=== PATIENT | female | born 1940 | race Caucasian/White ===

== ENCOUNTER 2016-10-06 09:13 | Inpatient (IN) | payer MEDICARE ==
[2016-10-06] VITALS (11 sets, daily range): BP systolic 156–186; BP diastolic 55–72
[~2016-10-06] VITALS: Ht 162.6 cm; Wt 71.2 kg
[2016-10-06 09:38] LABS: BASO % 0 % (0-3); EOS % 0 % (0-3); HEMATOCRIT 35.1 % (36.0-47.0); HEMOGLOBIN 12.1 g/dL (12.0-15.5); LYMPH # 0.4 x10^3/uL (1.0-4.8); LYMPH % 5 % (24-48); MEAN CORPUSCULAR HEMOGLOBIN 31 pg (25-35); MEAN CORPUSCULAR HGB CONC 34 g/dL (31-37); MEAN CORPUSCULAR VOLUME 90 fL (79-100); MONO % 4 % (0-9); NEUT % 90 % (31-73); PLATELET COUNT 199 x10^3/uL (140-400); RED CELL DISTRIBUTION WIDTH 13.8 % (11.5-14.5); WHITE BLOOD COUNT 7.9 x10^3/uL (4.0-11.0)
[2016-10-06] MEDS: PROMETHAZINE 12.5 MG in IV NORMAL SALINE 50ML 50 ML IV PRN ×2 (09:43→23:05)
[2016-10-06] MEDS ORDERED: IV NORMAL SALINE 1000ML BAG 1,000 ML IV ONE (10:00)
[2016-10-06] MEDS ORDERED: PANTOPRAZOLE IV PUSH 40 MG VIAL. IVP ONE (10:00)
[2016-10-06] MEDS ORDERED: fentaNYL PF VIAL 100 MCG/2 ML VIAL IV ONE (10:00)
--- NOTE | 2016-10-06 10:01 | ED.ADGEN ---
Past Medical History Past Medical History: Diabetes-Type II, Seizure Past Surgical History: Other Additional Past Surgical Histo: bladder sling, R eye, cataract Alcohol Use: None Drug Use: None Adult General Chief Complaint Chief Complaint: NAUSEA/VOMITING/DIARRHA HPI HPI Patient is a 76 year old presents with acute epigastric pain with coffee- ground emesis. Abdominal pain started yesterday with coffee-ground emesis this morning. Patient is pain is rated moderate to severe is worse with palpation. Associated with severe nausea and indigestion. Symptoms began yesterday after being seen at [facility] or an abrasion to her back. Patient was prescribed NSAIDs and instructed not to take medication along with her daily aspirin. Patient denies dizziness lightheadedness, cough, sore throat, fever chills, sweats. No black tarry stools or bloody stools. Patient is not on daily anticoagulation therapy. No other acute symptoms or complaints at this time. Review of Systems Review of Systems ROS as per HPI. Current Medications Current Medications Current Medications Medications (Trade) Dose Ordered Sig/Robbi Start Time Stop Time Status Last Admin Dose Admin Fentanyl Citrate (Fentanyl 2ml Vial) 75 mcg 1X ONCE 10/06/16 10:00 10/06/16 10:17 DC 10/06/16 10:01 75 MCG Pantoprazole Sodium (Protonix Vial) 80 mg 1X ONCE 10/06/16 10:00 10/06/16 10:17 DC 10/06/16 10:05 80 MG Pantoprazole Sodium 80 mg/ Sodium Chloride 100 ml @ 10 mls/hr Q10H 10/06/16 10:00 10/06/16 10:10 10 MLS/HR Promethazine HCl 12.5 mg/Sodium Chloride 50.5 ml @ 151.5 mls/ hr PRN Q6HRS PRN 10/06/16 09:30 10/06/16 09:43 151.5 MLS/HR Sodium Chloride 1,000 ml @ 200 mls/hr 1X ONCE 10/06/16 10:00 10/06/16 14:59 10/06/16 10:02 200 MLS/HR Allergies Allergies Allergies Coded Allergies Type Severity Reaction Last Updated Verified No Known Drug Allergies 10/06/16 No Physical Exam Physical Exam Constitutional: Well developed, well nourished, moderate distress secondary to pain. [] HENT: Normocephalic, atraumatic, bilateral external ears normal, oropharynx moist, dark per home blood staining around lips, nose normal. [] Eyes: PERRLA, EOMI, conjunctiva normal, no discharge. [] Neck: Normal range of motion, no tenderness, supple, no stridor. [] Cardiovascular:Heart rate regular rhythm, no murmur [] Lungs & Thorax: Bilateral breath sounds clear to auscultation [] Abdomen: Bowel sounds normal, diffuse epigastric pain with voluntary guarding. [ ] Skin: Warm, dry, no erythema, no rash. [] Back: No tenderness, no CVA tenderness. [] Extremities: No tenderness, no cyanosis, no clubbing, ROM intact, no edema. [] Neurologic: Alert and oriented X 3, normal motor function, normal sensory function, no focal deficits noted. [] Psychologic: Affect inches secondary to pain [] Current Patient Data Vital Signs Vital Signs Date Time Temp Pulse Resp B/P (MAP) Pulse Ox O2 Delivery O2 Flow Rate FiO2 10/06/16 10:10 68 16 160/71 (100) 95 Nasal Cannula 2.0 10/06/16 09:13 97.5 97.5 Lab Values Laboratory Tests Test 10/06/16 09:28 10/06/16 09:55 White Blood Count 7.9 x10^3/uL (4.0-11.0) Red Blood Count 3.90 x10^6/uL (3.50-5.40) Hemoglobin 12.1 g/dL (12.0-15.5) Hematocrit 35.1 % (36.0-47.0) L Mean Corpuscular Volume 90 fL (79-100) Mean Corpuscular Hemoglobin 31 pg (25-35) Mean Corpuscular Hemoglobin Concent 34 g/dL (31-37) Red Cell Distribution Width 13.8 % (11.5-14.5) Platelet Count 199 x10^3/uL (140-400) Neutrophils (%) (Auto) 90 % (31-73) H Lymphocytes (%) (Auto) 5 % (24-48) L Monocytes (%) (Auto) 4 % (0-9) Eosinophils (%) (Auto) 0 % (0-3) Basophils (%) (Auto) 0 % (0-3) Neutrophils # (Auto) 7.1 x10^3uL (1.8-7.7) Lymphocytes # (Auto) 0.4 x10^3/uL (1.0-4.8) L Monocytes # (Auto) 0.3 x10^3/uL (0.0-1.1) Eosinophils # (Auto) 0.0 x10^3/uL (0.0-0.7) Basophils # (Auto) 0.0 x10^3/uL (0.0-0.2) Segmented Neutrophils % 87 % (35-66) H Lymphocytes % 8 % (24-48) L Monocytes % 4 % (0-10) Basophils % 1 % (0-3) Platelet Estimate Adequate (ADEQUATE) Prothrombin Time 14.0 SEC (11.7-14.0) Prothrombin Time INR 1.2 (0.8-1.1) H PTT 28 SEC (24-38) Sodium Level 133 mmol/L (136-145) L Potassium Level 3.4 mmol/L (3.5-5.1) L Chloride Level 97 mmol/L (98-107) L Carbon Dioxide Level 24 mmol/L (21-32) Anion Gap 12 (6-14) Blood Urea Nitrogen 18 mg/dL (7-20) Creatinine 0.9 mg/dL (0.6-1.0) Estimated GFR (Cockcroft-Gault) 61.2 BUN/Creatinine Ratio 20 (6-20) Glucose Level 166 mg/dL (70-99) H Calcium Level 8.5 mg/dL (8.5-10.1) Total Bilirubin 0.5 mg/dL (0.2-1.0) Aspartate Amino Transferase (AST) 22 U/L (15-37) Alanine Aminotransferase (ALT) 20 U/L (14-59) Alkaline Phosphatase 128 U/L (46-116) H Troponin I Quantitative < 0.017 ng/mL (0.000-0.055) Total Protein 7.5 g/dL (6.4-8.2) Albumin 3.8 g/dL (3.4-5.0) Albumin/Globulin Ratio 1.0 (1.0-1.7) Lipase 120 U/L (73-393) Gastric Fluid Occult Blood Positive (NEG) Laboratory Tests 10/06/16 09:28 Laboratory Tests 10/06/16 09:28 EKG EKG [EKG: Normal sinus rhythm, rate 66, occasional PVC, left axis deviation, nonspecific ST-T wave changes, QTC 469 per ED interpretation.] Radiology/Procedures Radiology/Procedures [DT abdomen pelvis: No acute intra-abdominal process per radiology report.] Course & Med Decision Making Course & Med Decision Making Pertinent Labs and Imaging studies reviewed. (See chart for details) [Patient emesis prior to ED arrival and while in the emergency department. Patient's abdomen soft, nonsurgical on repeat evaluation. CT abdomen pelvis nonacute. Protonix bolus and drip started. Ramos bowel signs stable. Dr. Pablo to admit. Dr. Alexander consulted. Courtesy bridge orders written. Dragon Disclaimer Dragon Disclaimer This electronic medical record was generated, in whole or in part, using a voice recognition dictation system. BRIDGETTE LOPEZ DO Oct 06, 2016 10:01
[2016-10-06 10:08] LABS: CALCIUM 8.5 mg/dL (8.5-10.1); CREATININE 0.9 mg/dL (0.6-1.0); GFR 61.2; POTASSIUM 3.4 mmol/L (3.5-5.1)
[2016-10-06] MEDS: PANTOPRAZOLE SODIUM IV 80 MG in IV NORMAL SALINE 100ML 100 ML IV SCH ×2 (10:10→22:11)
[2016-10-06 10:13] LABS: ALBUMIN 3.8 g/dL (3.4-5.0); TOTAL BILIRUBIN 0.5 mg/dL (0.2-1.0); TOTAL PROTEIN 7.5 g/dL (6.4-8.2)
[2016-10-06] MEDS ORDERED: CONTRAST GIVEN MC PRN (10:30)
[2016-10-06] MEDS ORDERED: IOHEXOL 300 MG/ML 75 ML VIAL IV ONE (10:30)
[2016-10-06 10:35] LABS: NEG OBC GOB NEG; POS OBC GOB POS
--- NOTE | 2016-10-06 10:39 | RAD ---
Indication chest pain nausea vomiting. A single view of the chest was obtained. No prior imaging of the chest is available. The heart and pulmonary vessels appear normal. The lungs are clear. There is no pleural fluid or pneumothorax. The heart and pulmonary vessels appear normal. The lungs are clear. There is no pleural fluid or pneumothorax. Bony structures appear grossly intact given the patient's age. IMPRESSION: No acute or focal process is seen in the chest
[2016-10-06 10:40] LABS: INR 1.2 (0.8-1.1)
[2016-10-06] MEDS: ONDANSETRON PF 4 MG/2 ML VIAL. IV PRN ×2 (11:37→21:12)
[2016-10-06] MEDS: MORPHINE SULFATE 4 MG/ML DISP.SYRIN. IV PRN ×3 (11:37→22:51)
[2016-10-06 11:41] LABS: % BASOS 1 % (0-3); PLT ESTIMATE ADEQUATE (ADEQUATE)
--- NOTE | 2016-10-06 11:48 | RAD ---
Indication fall yesterday. Vomiting coffee-ground material. Severe abdominal pain. Axial images through the abdomen and pelvis were obtained. Approximately 75 cc of Omnipaque 300 was administered intravenously. No oral contrast was administered. No prior imaging of the abdomen or pelvis is available. The lung bases are unremarkable. There is a fracture of a lower right, anterior, rib the chronicity of which is uncertain it does not definitely have however an acute appearance. Clinical correlation advised. There are significant degenerative changes in the lumbar spine likely with an associated component of spinal stenosis. No acute finding is seen associated with the liver. There is a subcentimeter mass in the right lobe likely reflecting a small incidental cyst. The spleen appears unremarkable. There is cholelithiasis. No adrenal or significant renal anomalies are seen. There are small left renal cysts. The pancreas appears unremarkable. Acute finding in the abdomen is not seen. In the pelvis a pessary device is noted. The urinary bladder is mildly distended. No acute finding is seen IMPRESSION: No acute finding seen in the abdomen or pelvis. Fractured right lower anterior rib the chronicity of which is uncertain. Additional chronic musculoskeletal changes are also noted Mildly distended urinary bladder
[2016-10-06] MEDS ORDERED: ASPI-630 PO (11:51)
[2016-10-06] MEDS ORDERED: GABA-586 PO (11:51)
[2016-10-06] MEDS ORDERED: METF500T4 PO (11:51)
[2016-10-06] MEDS ORDERED: PHEN100C PO (11:51)
[2016-10-06] MEDS ORDERED: HYDR-971 PO (11:51)
--- NOTE | 2016-10-06 12:45 | ACF ---
Admit Criteria Forms Admit Criteria Forms Admit Criteria Forms GASTROINTESTINAL BLEEDING, UPPER Clinical Indications for Admission to Inpatient Care ( Place 'X' for any and all applicable criteria): Admission is indicated for ANY ONE of the following(1)(2)(3)(4)(5)(6): [X]I. Active bleeding (eg, fresh voluminous blood in emesis or nasogastric aspirate) [ ]II. Associated conditions requiring hospitalization (eg, perforation, obstruction from ulcer) [ ]III. Inpatient admission required rather than observation care (Also use Gastrointestinal Bleeding, Upper: Observation Care as appropriate) because of ANY ONE of the following: [ ]a) Hemodynamic instability that is severe or persistent [ ]b) Anemia requiring inpatient admission as indicated by ALL of the following: [ ]1) Presence of significant clinical finding indicated by ANY ONE of the following: [ ]A. Tachycardia for age [ ]B. Orthostatic vital sign changes [ ]C. Cognitive impairment [ ]D. Heart failure [ ]E. Chest pain [ ]F. Exertional dyspnea [ ]G. Other findings suggesting inadequate perfusion (eg, peripheral or myocardial ischemia, end organ dysfunction) [ ]2) Initial (eg, emergency department, observation care) treatment with transfusion or volume replacement is judged inappropriate (due to severity of the finding) or has been ineffective [ ]c) Severe pain requiring acute inpatient management [ ]d) High-risk low platelet count [ ]e) IV fluid to replace significant ongoing losses (greater than 3 L/m2 per day) [ ]f) Immediate inpatient surgery [ ]g) Other condition, treatment or monitoring requiring inpatient admission [ ]IV. Severe liver disease (eg, cirrhosis) [ ]V. Significant active comorbid disease [ ]. Anticoagulation therapy [ ]VII. High-risk endoscopic features (arterial bleeding, adherent clot, nonbleeding visible vessel, varices, flat red spots, ulcer size greater than 2 cm, or portal hypertensive gastropathy) [ ]VIII. Previous aortic graft placement or known aortic aneurysm [ ]IX. Coagulopathy [ ]X. Syncope Extended stay beyond goal length of stay may be needed for(1)(2): [ ]a) Emergency surgery [ ]b) Varices [ ]c) Coagulation abnormalities [ ]d) Recurrent, obscure, or persistent bleeding or continued Hemodynamic instability [ ]e) Associated conditions requiring surgery (eg, perforated gastric ulcer, gastric outlet obstruction) [ ]f) Active comorbidities (eg, renal insufficiency, heart failure, pre- existing liver disease) The original [facility] content created by [facility] [employer] has been revised. The portions of the content which have been revised are identified through the use of italic text or in bold, and [facility] has neither reviewed nor approved the modified material. All other unmodified content is copyright [facility] [employer]. Please see references footnoted in the original [facility] edition 2016 PAULA PRINCE Oct 06, 2016 12:45
--- NOTE | 2016-10-06 13:46 | PDOC2 ---
GI CONSULT Reason For Consult: Upper GI Bleed HPI: HPI: 76 y/o female admitted through ER to regular floor, currently says she's too uncomfortable to talk, history supplemented by chart. She began having mid- abdominal pain w/ some radiation "to the esophagus area" yesterday. Denies precipitating events. "Clear" emesis yesterday, then "brown" in ambulance. ER notes suggest vomiting blood and she is noted to have dried black material around her mouth. Denies reflux/heartburn and NSAID use, although ER note suggests she was prescribed NSAID for a recent fall. I believe takes ASA as well. Per RN has abrasion on back. Last BM normal color ~2 days ago. No previous EGD or colonoscopy. Labs: Hgb 12.2, INR 1.2, BUN 18, gastric occult blood +. Also noted normal troponin and lipase. Has been hypertensive. CT did note right rib fracture. Started on PPI drip. PMH: PMH: from chart - DM, seizure, ?neuropathy, bladder suspension, cataract extraction Social History: Smoke: No Drugs: None ROS: Difficult to obtain. GEN: Denies fevers, chills, sweats CV: +chest pain "sometimes" RESP: Denies shortness of air GI: Per HPI ENDO: Denies weight changes NEURO: Denies dizziness MSK: +back pain SKIN: +abrasion on back Vitals: Vitals: Vital Signs Date Time Temp Pulse Resp B/P (MAP) Pulse Ox O2 Delivery O2 Flow Rate FiO2 10/06/16 13:33 100 2.0 10/06/16 13:18 97.7 68 16 179/72 (107) Room Air 97.7 Labs: Labs: Laboratory Tests Test 10/06/16 09:28 10/06/16 09:55 White Blood Count 7.9 x10^3/uL (4.0-11.0) Red Blood Count 3.90 x10^6/uL (3.50-5.40) Hemoglobin 12.1 g/dL (12.0-15.5) Hematocrit 35.1 % (36.0-47.0) Mean Corpuscular Volume 90 fL (79-100) Mean Corpuscular Hemoglobin 31 pg (25-35) Mean Corpuscular Hemoglobin Concent 34 g/dL (31-37) Red Cell Distribution Width 13.8 % (11.5-14.5) Platelet Count 199 x10^3/uL (140-400) Neutrophils (%) (Auto) 90 % (31-73) Lymphocytes (%) (Auto) 5 % (24-48) Monocytes (%) (Auto) 4 % (0-9) Eosinophils (%) (Auto) 0 % (0-3) Basophils (%) (Auto) 0 % (0-3) Neutrophils # (Auto) 7.1 x10^3uL (1.8-7.7) Lymphocytes # (Auto) 0.4 x10^3/uL (1.0-4.8) Monocytes # (Auto) 0.3 x10^3/uL (0.0-1.1) Eosinophils # (Auto) 0.0 x10^3/uL (0.0-0.7) Basophils # (Auto) 0.0 x10^3/uL (0.0-0.2) Segmented Neutrophils % 87 % (35-66) Lymphocytes % 8 % (24-48) Monocytes % 4 % (0-10) Basophils % 1 % (0-3) Platelet Estimate Adequate (ADEQUATE) Prothrombin Time 14.0 SEC (11.7-14.0) Prothromb Time International Ratio 1.2 (0.8-1.1) Activated Partial Thromboplast Time 28 SEC (24-38) Sodium Level 133 mmol/L (136-145) Potassium Level 3.4 mmol/L (3.5-5.1) Chloride Level 97 mmol/L (98-107) Carbon Dioxide Level 24 mmol/L (21-32) Anion Gap 12 (6-14) Blood Urea Nitrogen 18 mg/dL (7-20) Creatinine 0.9 mg/dL (0.6-1.0) Estimated GFR (Cockcroft-Gault) 61.2 BUN/Creatinine Ratio 20 (6-20) Glucose Level 166 mg/dL (70-99) Calcium Level 8.5 mg/dL (8.5-10.1) Total Bilirubin 0.5 mg/dL (0.2-1.0) Aspartate Amino Transf (AST/SGOT) 22 U/L (15-37) Alanine Aminotransferase (ALT/SGPT) 20 U/L (14-59) Alkaline Phosphatase 128 U/L (46-116) Troponin I Quantitative < 0.017 ng/mL (0.000-0.055) Total Protein 7.5 g/dL (6.4-8.2) Albumin 3.8 g/dL (3.4-5.0) Albumin/Globulin Ratio 1.0 (1.0-1.7) Lipase 120 U/L (73-393) Gastric Fluid Occult Blood Positive (NEG) Allergies: Coded Allergies: No Known Drug Allergies (Unverified , 10/06/16) Medications: Current Medications Medications (Trade) Dose Ordered Sig/Robbi Route PRN Reason Start Time Stop Time Status Last Admin Dose Admin Promethazine HCl 12.5 mg/Sodium Chloride 50.5 ml @ 151.5 mls/ hr PRN Q6HRS PRN IV NAUSEA/VOMITING 10/06/16 09:30 10/06/16 09:43 Fentanyl Citrate (Fentanyl 2ml Vial) 75 mcg 1X ONCE IV 10/06/16 10:00 10/06/16 10:17 DC 10/06/16 10:01 Pantoprazole Sodium (Protonix Vial) 80 mg 1X ONCE IVP 10/06/16 10:00 10/06/16 10:17 DC 10/06/16 10:05 Pantoprazole Sodium 80 mg/ Sodium Chloride 100 ml @ 10 mls/hr Q10H IV 10/06/16 10:00 10/06/16 10:10 Sodium Chloride 1,000 ml @ 200 mls/hr 1X ONCE IV 10/06/16 10:00 10/06/16 14:59 10/06/16 10:02 Iohexol (Omnipaque 300 Mg/ml) 75 ml 1X ONCE IV 10/06/16 10:30 10/06/16 10:31 DC 10/06/16 11:00 Ondansetron HCl (Zofran) 4 mg PRN Q8HRS PRN IV NAUSEA/VOMITING 10/06/16 11:30 10/07/16 11:29 10/06/16 11:37 Morphine Sulfate 2 mg PRN Q2HR PRN IV PAIN 10/06/16 11:30 10/07/16 11:29 10/06/16 13:33 Imaging: Imaging: CT A/P IMPRESSION: No acute finding seen in the abdomen or pelvis. Fractured right lower anterior rib the chronicity of which is uncertain. Additional chronic musculoskeletal changes are also noted. Mildly distended urinary bladder. CXR IMPRESSION: No acute or focal process is seen in the chest. PE: GEN: mild distress, shifting positions HEENT: Atraumatic, PERRL LUNGS: clear anteriorly HEART: RRR ABD: periumbilical pain EXTREMITY: No edema SKIN: other notes indicate back abrasion NEURO/PSYCH: A & O, seems a little out of it perhaps related to pain A/P: A/P: ?coffee-ground emesis -normal Hgb and BUN, gastric occult + Periumbilical pain -CT showed rib fracture ?NSAID use CRC screen -no previous colonoscopy -- Difficult history. Agree w/ PPI drip. NPO. EGD this afternoon r/o PUD, etc. CONNIE CHASE Oct 06, 2016 13:46
--- NOTE | 2016-10-06 14:15 | EKG ---
[facility] [address] [place] [address] Test Date: 2016-10-06 Test Time: 09:15:11 Pat Name: LUIS CARLOS SMALLS Department: Room: [facility] Gender: F Digital [employer] Operator: : 1940 Requested By: BRIDGETTE LOPEZ Order Number: [id number] Reading MD: Arik Lucero Measurements Intervals [place] Rate: 66 P: 48 IA: 188 QRS: -24 QRSD: 102 T: 35 QT: 446 QTc: 469 Interpretive Statements SINUS RHYTHM VENTRICULAR PREMATURE COMPLEX(ES) LEFTWARD AXIS QRS(T) CONTOUR ABNORMALITY CONSIDER ANTEROSEPTAL MYOCARDIAL DAMAGE RI6.01 Unconfirmed report No previous ECG available for comparison Electronically Signed On 10-12-2016 9:26:38 CDT by Arik Lucero
[2016-10-06] MEDS ORDERED: IV DEXTROSE 5 %-0.45 % NACL 1,000 ML IV ONE (15:00)
[2016-10-06] MEDS ORDERED: IV RINGERS,LACTATED 1000ML 1,000 ML IV SCH (15:00)
[2016-10-06] MEDS ORDERED: LIDOCAINE 2% PF Vial for OR 5 ML VIAL. ONE (15:39)
[2016-10-06] MEDS ORDERED: PROPOFOL 20 ML IV ONE (15:39)
--- NOTE | 2016-10-06 16:10 | PDOC4 ---
Operative Note Operative Note EGD with bx Meds propofol per anesthesia Pre-op dx coffee ground emesis/acute blood loss anemia Post-op dx esophageal diverticulum distal esophagus esophagtitis s/p bx non-erosive gastritis Plan advance diet serial cbcs ppi therapy for 2 months as o/p CELESTINO HUTCHINS MD Oct 06, 2016 16:10
--- NOTE | 2016-10-06 20:52 | HP ---
ADMIT DATE: 10/06/2016 CHIEF COMPLAINT: Nausea, vomiting, diarrhea, epigastric pain and coffee-ground emesis. HISTORY OF PRESENT ILLNESS: The patient is a pleasant 76-year-old female presented to the ER basically with a GI bleed. She has got a lot of coffee-ground emesis. She has got some blood in her stool. She is nauseated. Surprisingly, her hemoglobin is stable at 12.1, but we are concerned she does have a pretty large GI bleed. I have discussed the case with the ER physician. The patient has been admitted. We plan to consult GI for probable endoscopy. PAST MEDICAL HISTORY: Diabetes, seizures, bladder sling, right eye surgery, cataracts. ALLERGIES: None. FAMILY HISTORY: Coronary artery disease. SOCIAL HISTORY: She does not drink, smoke or take drugs. MEDICATIONS: Reviewed. REVIEW OF SYSTEMS: GENERAL: No history of weight change, weakness or fevers. SKIN: No bruising, hair changes or rashes. EYES: No blurred, double or loss of vision. NOSE AND THROAT: No history of nosebleeds, hoarseness or sore throat. HEART: No history of palpitations, chest pain or shortness of breath on exertion. LUNGS: Denies cough, hemoptysis, wheezing or shortness of breath. GASTROINTESTINAL: She complains of abdominal pain, hematemesis and hematochezia. GENITOURINARY: No history of frequency, urgency, hesitancy or nocturia. NEUROLOGIC: Denies history of numbness, tingling, tremor or weakness. PSYCHIATRIC: No history of panic, anxiety or depression. ENDOCRINE: No history of heat or cold intolerance, polyuria or polydipsia. EXTREMITIES: Denies muscle weakness, joint pain, pain on walking or stiffness. PHYSICAL EXAMINATION: VITAL SIGNS: Temperature afebrile, pulse 92, respirations 18, blood pressure 170/76. GENERAL: She is alert, cooperative in the ER. HEART: Normal S1, S2. LUNGS: Clear. ABDOMEN: Soft. Decreased bowel sounds, nontender. EXTREMITIES: Trace edema. SKIN: No rashes. PSYCHIATRIC: She is a little depressed. VASCULAR: Good capillary refill. ENDOCRINE: No thyromegaly. LYMPHATICS: No cervical nodes. HEMATOPOIETIC: No bruising. LABORATORY DATA: White count 8, hemoglobin 12, platelets 199. Electrolytes: Sodium 133, potassium 3.4, chloride 97, bicarbonate 24, BUN 18, creatinine 0.9, glucose 166. INR 1.2. Occult gastric blood testing was positive. ASSESSMENT AND PLAN: Gastrointestinal bleed. The patient has been admitted to the monitored bed. We will check serial hemoglobin levels and transfuse if she drops below 8. Consult GI. IV Protonix. Continue home medicines, but no nonsteroidals. PROGNOSIS: Guarded. DANAE BERRIOS DO DR: ENID/virgil JOB#: [id number] / [id number]
[2016-10-07 03:00] VITALS: BP 167/74
[2016-10-07 07:16] VITALS: BP 177/71
[2016-10-07] MEDS: MORPHINE SULFATE 4 MG/ML DISP.SYRIN. IV PRN ×2 (08:01→11:25)
--- NOTE | 2016-10-07 09:03 | RAD ---
Indication restless. Recent fall. Closed head injury. Noncontrast images of the head were obtained. No prior imaging of the head is available. The calvarium appears unremarkable. The visualized paranasal sinuses appear normal. There is no subdural or epidural hematoma. There is no mass or midline shift. No hemorrhage is seen. No acute finding is apparent. IMPRESSION: Intracranially no acute or significant finding seen PQRS Compliance Statement: One or more of the following individualized dose reduction techniques were utilized for this examination: 1. Automated exposure control 2. Adjustment of the mA and/or kV according to patient size 3. Use of iterative reconstruction technique
[2016-10-07] MEDS ORDERED: ONDANSETRON PF 4 MG/2 ML VIAL. IV PRN (09:26)
[2016-10-07] MEDS ORDERED: HYDROcodone/APAP 5/325MG 1 TAB TABLET PO PRN (09:30)
[2016-10-07] MEDS ORDERED: GABAPENTIN 300 MG CAPSULE. PO SCH (10:00)
[2016-10-07] MEDS: PHENYTOIN SODIUM EXTENDED 100 MG CAPSULE PO SCH ×4 (10:00→21:00)
[2016-10-07] MEDS: PANTOPRAZOLE SODIUM IV 80 MG in IV NORMAL SALINE 100ML 100 ML IV SCH (11:08)
[2016-10-07 11:17] VITALS: BP 129/57
[2016-10-07] MEDS ORDERED: MORPHINE SULFATE 2 MG/ML DISP.SYRIN. IV PRN (12:00)
--- NOTE | 2016-10-07 12:00 | PDOC ---
Subjective: Subjective: Feels "icky." Can't tell me if in pain, agrees to nausea. Can't tell me where she is. Objective: Objective: Per RN - very restless, confused, refuses to swallow pills/water, c/o abd pain, significant urine output overnight, no vomiting/bleeding but did have belching and hiccups earlier. Vital Signs: Vital Signs Date Time Temp Pulse Resp B/P (MAP) Pulse Ox O2 Delivery O2 Flow Rate FiO2 10/07/16 11:25 96 Room Air 2.0 10/07/16 11:17 97.7 87 17 129/57 (81) 97.7 Imaging: EGD 10/06/16: esophageal diverticulum distal esophagus esophagitis s/p bx non-erosive gastritis PE: GEN: NAD, currently calm, received morphine LUNGS: CTAB HEART: RRR ABD: perhaps vaguely tender NEURO/PSYCH: confused A/P: Coffee-ground emesis - no recurrence -EGD as above, path pending -Hgb normal yesterday, no labs today -still on PPI drip ?abd pain, nausea, belching, hiccups -CT w/ rib fracture and cholelithiasis Confusion, refusing to swallow -- Will change to IV H2 david. Recheck basic labs. Defer ?neuro assessment to primary. D/w Dr. Styles - will ask for videoswallow. CONNIE CHASE Oct 07, 2016 12:00
--- NOTE | 2016-10-07 12:05 | PDOC ---
PROGRESS NOTES Chief Complaint Chief Complaint 1. Coffee ground emesis s/p EGD (10/06) - neg egd 2. Acute encephalopathy, POA -WORK UP ON GOING 3. R hib fxs - uncertain age 4. FAll 5. Hypokalemia and hyponatremia 6. GAtsric occult positive, possible NSAID use? History of Present Illness History of Present Illness CAnt answer simple q's - acute onset, not her baseline Cant even answer me if she lives alone - able to get info from staff she lives with a roomate EGD neg for bleed HGb and VS stable Wont swallow for RN hence pills not given Unsure if she is still on Dilantin or taking it (her home med) Called by RN 7:30 AM bec of mental issues and recent fall Hence I did order stat CT head which was neg R rib fxs though, incidental, pt tells me she does not have freq falls - reliability might be questionable NO pain on R rib area on palp PLAN: Stop PPI gtt - clean EGD Pepcid IV while NPO DVt prophy PT/OT heliotherapist eval for issues with following commands to swallow IV procalamine while nPO NEuro consult re above issues Check ESR and MRI brain - r.o temporal lobe enhancement etc - though she denies headache/for HSV encephalitis etc, but again poor historian Dw staff Vitals Vitals Vital Signs Date Time Temp Pulse Resp B/P (MAP) Pulse Ox O2 Delivery O2 Flow Rate FiO2 10/07/16 11:25 96 Room Air 2.0 10/07/16 11:17 97.7 87 17 129/57 (81) 97.7 Physical Exam General: Cooperative, No acute distress Heart: Regular rate, Normal S1, Normal S2, No murmurs Lungs: Clear, Wheezing Abdomen: Normal bowel sounds, Soft, No tenderness, No hepatosplenomegaly Extremities: No clubbing, No edema Skin: No rashes, No breakdown, No significant lesion Review of Systems Review of Systems unreliable ROS Assessment and Plan Assessmemt and Plan Problems Medical Problems: (1) Upper GI bleed Status: Acute Problems: Comment Review of Relevant I have reviewed the following items bj (where applicable) has been applied. Labs Laboratory Tests Test 10/06/16 09:28 10/06/16 09:55 White Blood Count 7.9 x10^3/uL (4.0-11.0) Red Blood Count 3.90 x10^6/uL (3.50-5.40) Hemoglobin 12.1 g/dL (12.0-15.5) Hematocrit 35.1 % (36.0-47.0) Mean Corpuscular Volume 90 fL (79-100) Mean Corpuscular Hemoglobin 31 pg (25-35) Mean Corpuscular Hemoglobin Concent 34 g/dL (31-37) Red Cell Distribution Width 13.8 % (11.5-14.5) Platelet Count 199 x10^3/uL (140-400) Neutrophils (%) (Auto) 90 % (31-73) Lymphocytes (%) (Auto) 5 % (24-48) Monocytes (%) (Auto) 4 % (0-9) Eosinophils (%) (Auto) 0 % (0-3) Basophils (%) (Auto) 0 % (0-3) Neutrophils # (Auto) 7.1 x10^3uL (1.8-7.7) Lymphocytes # (Auto) 0.4 x10^3/uL (1.0-4.8) Monocytes # (Auto) 0.3 x10^3/uL (0.0-1.1) Eosinophils # (Auto) 0.0 x10^3/uL (0.0-0.7) Basophils # (Auto) 0.0 x10^3/uL (0.0-0.2) Segmented Neutrophils % 87 % (35-66) Lymphocytes % 8 % (24-48) Monocytes % 4 % (0-10) Basophils % 1 % (0-3) Platelet Estimate Adequate (ADEQUATE) Prothrombin Time 14.0 SEC (11.7-14.0) Prothromb Time International Ratio 1.2 (0.8-1.1) Activated Partial Thromboplast Time 28 SEC (24-38) Sodium Level 133 mmol/L (136-145) Potassium Level 3.4 mmol/L (3.5-5.1) Chloride Level 97 mmol/L (98-107) Carbon Dioxide Level 24 mmol/L (21-32) Anion Gap 12 (6-14) Blood Urea Nitrogen 18 mg/dL (7-20) Creatinine 0.9 mg/dL (0.6-1.0) Estimated GFR (Cockcroft-Gault) 61.2 BUN/Creatinine Ratio 20 (6-20) Glucose Level 166 mg/dL (70-99) Calcium Level 8.5 mg/dL (8.5-10.1) Total Bilirubin 0.5 mg/dL (0.2-1.0) Aspartate Amino Transf (AST/SGOT) 22 U/L (15-37) Alanine Aminotransferase (ALT/SGPT) 20 U/L (14-59) Alkaline Phosphatase 128 U/L (46-116) Troponin I Quantitative < 0.017 ng/mL (0.000-0.055) Total Protein 7.5 g/dL (6.4-8.2) Albumin 3.8 g/dL (3.4-5.0) Albumin/Globulin Ratio 1.0 (1.0-1.7) Lipase 120 U/L (73-393) Gastric Fluid Occult Blood Positive (NEG) Medications Current Medications Promethazine HCl 12.5 mg/Sodium Chloride 50.5 ml @ 151.5 mls/ hr PRN Q6HRS PRN IV NAUSEA/VOMITING Last administered on 10/06/16 23:05; Start 10/06/16 at 09: 30 Fentanyl Citrate (Fentanyl 2ml Vial) 75 mcg 1X ONCE IV Last administered on 10:01; Start 10/06/16 at 10:00; Stop 10/06/16 at 10:17; Status DC Pantoprazole Sodium (Protonix Vial) 80 mg 1X ONCE IVP Last administered on 10/06 10:05; Start 10/06/16 at 10:00; Stop 10/06/16 at 10:17; Status DC Pantoprazole Sodium 80 mg/ Sodium Chloride 100 ml @ 10 mls/hr Q10H IV Last administered on 10/07/16 11:08; Start 10/06/16 at 10:00 Sodium Chloride 1,000 ml @ 200 mls/hr 1X ONCE IV Last administered on 10:02; Start 10/06/16 at 10:00; Stop 10/06/16 at 14:59; Status DC Iohexol (Omnipaque 300 Mg/ml) 75 ml 1X ONCE IV Last administered on 10/06/16 11:00; Start 10/06/16 at 10:30; Stop 10/06/16 at 10:31; Status DC Info (Do NOT chart on this entry -- for MONITORING) 1 each PRN DAILY PRN MC SEE COMMENTS; Start 10/06/16 at 10:30; Stop 10/08/16 at 10:29 Ondansetron HCl (Zofran) 4 mg PRN Q8HRS PRN IV NAUSEA/VOMITING Last administered on 10/06/16 21:12; Start 10/06/16 at 11:30; Stop 10/07/16 at 09:27; Status DC Morphine Sulfate 2 mg PRN Q2HR PRN IV PAIN Last administered on 10/07/16 11:25 ; Start 10/06/16 at 11:30; Stop 10/07/16 at 11:29; Status DC Dextrose/Sodium Chloride 1,000 ml @ 125 mls/hr 1X ONCE IV Last administered on 10/06/16 15:00; Start 10/06/16 at 15:00; Stop 10/06/16 at 22:59; Status DC Ringer's Solution 1,000 ml @ 50 mls/hr Q20H IV Last administered on 10/06/16 15:13; Start 10/06/16 at 15:00; Stop 10/07/16 at 07:47; Status DC Propofol 20 ml @ As Directed STK-MED ONCE IV ; Start 10/06/16 at 15:39; Stop 10/06 at 15:40; Status DC Lidocaine HCl (Lidocaine Pf 2% Vial) 5 ml STK-MED ONCE .ROUTE ; Start 10/06/16 at 15:39; Stop 10/06/16 at 15:40; Status DC Ondansetron HCl (Zofran) 4 mg PRN Q6HRS PRN IV NAUSEA/VOMITING; Start 10/07/16 at 09:26; Stop 10/08/16 at 09:25 Acetaminophen/ Hydrocodone Bitart (Lortab 5/325) 1 tab PRN Q6HRS PRN PO PAIN; Start 10/07/16 at 09:30 Phenytoin Sodium (Dilantin) 100 mg TID PO ; Start 10/07/16 at 10:00 Gabapentin (Neurontin) 300 mg TID PO ; Start 10/07/16 at 10:00 Active Scripts Active Reported Aspirin 81 Mg Tab.chew 1 Tab PO DAILY [place] 5-325 Tablet (Acetaminophen/Hydrocodone Bitart) 1 Each Tablet 1 Tab PO PRN Q6HRS PRN Dilantin (Phenytoin Sodium Extended) 100 Mg Capsule 1 Cap PO TID Gabapentin 300 Mg Capsule 300 Mg PO TID Metformin Hcl 500 Mg Tablet 500 Mg PO BIDWMEALS Vitals/I & O Vital Sign - Last 24 Hours 10/06/16 10/06/16 10/06/16 10/06/16 12:26 13:17 13:18 13:33 Temp 97.7 97.7 97.7 97.7 Pulse 69 68 68 Resp 16 16 16 B/P (MAP) 184/84 (117) 179/72 (107) 179/72 (107) Pulse Ox 99 100 100 100 O2 Delivery Nasal Cannula Room Air Room Air O2 Flow Rate 2.0 2.0 10/06/16 10/06/16 10/06/16 10/06/16 15:01 15:08 15:08 15:15 Temp 97.7 99.2 97.7 99.2 Pulse 62 67 68 Resp 17 18 B/P (MAP) 186/72 (110) 173/67 (102) Pulse Ox 100 95 O2 Delivery Room Air O2 Flow Rate 2.0 10/06/16 10/06/16 10/06/16 10/06/16 15:30 15:45 15:49 16:00 Pulse 68 66 67 64 Resp 20 B/P (MAP) 157/64 (95) 165/64 (97) 169/65 (99) Pulse Ox 95 O2 Flow Rate 2.0 10/06/16 10/06/16 10/06/16 10/06/16 16:03 16:18 16:30 16:32 Temp 98.1 98.1 Pulse 62 62 63 68 Resp 16 16 20 B/P (MAP) 188/80 165/74 169/70 (103) 163/74 Pulse Ox 94 98 94 O2 Delivery Nasal Cannula Room Air Room Air 10/06/16 10/06/16 10/06/16 10/06/16 17:30 19:00 20:00 22:36 Temp 98.9 98.9 Pulse 67 66 Resp 19 B/P (MAP) 170/66 (100) 175/64 (101) Pulse Ox 93 O2 Delivery Room Air Room Air Room Air O2 Flow Rate 2.0 2.0 10/06/16 10/06/16 10/07/16 10/07/16 22:51 23:00 03:00 07:16 Temp 98.1 98.0 98.9 98.1 98.0 98.9 Pulse 76 64 71 Resp 20 18 B/P (MAP) 156/55 (88) 167/74 (105) 177/71 (106) Pulse Ox 96 94 95 97 O2 Delivery Room Air Room Air Room Air Room Air 10/07/16 10/07/16 10/07/16 10/07/16 08:00 08:01 08:31 11:17 Temp 97.7 97.7 Pulse 87 Resp B/P (MAP) 129/57 (81) Pulse Ox 97 96 O2 Delivery Room Air Room Air Room Air Room Air O2 Flow Rate 2.0 10/07/16 11:25 Pulse Ox 96 O2 Delivery Room Air O2 Flow Rate 2.0 Intake and Output 10/06/16 10/06/16 10/07/16 15:00 23:00 07:00 Intake Total 50.5 ml 600 ml 0 ml Output Total 900 ml 800 ml 1300 ml Balance -849.5 ml -200 ml -1300 ml LAVELL SLOAN MD Oct 07, 2016 12:05
[2016-10-07] MEDS ORDERED: AMINO AC 3%/ELECTROLYTE/GLYCER 1,000 ML IV SCH (12:30)
[2016-10-07 12:41] LABS: BASO % 0 % (0-3); EOS % 0 % (0-3); HEMATOCRIT 35.3 % (36.0-47.0); HEMOGLOBIN 12.4 g/dL (12.0-15.5); LYMPH # 0.7 x10^3/uL (1.0-4.8); LYMPH % 6 % (24-48); MEAN CORPUSCULAR HEMOGLOBIN 31 pg (25-35); MEAN CORPUSCULAR HGB CONC 35 g/dL (31-37); MEAN CORPUSCULAR VOLUME 88 fL (79-100); MONO % 9 % (0-9); NEUT % 85 % (31-73); PLATELET COUNT 214 x10^3/uL (140-400); RED BLOOD COUNT 3.99 x10^6/uL (3.50-5.40); RED CELL DISTRIBUTION WIDTH 13.8 % (11.5-14.5); WHITE BLOOD COUNT 12.4 x10^3/uL (4.0-11.0)
[2016-10-07 13:08] LABS: ALBUMIN 3.5 g/dL (3.4-5.0); CALCIUM 8.2 mg/dL (8.5-10.1); CREATININE 0.7 mg/dL (0.6-1.0); GFR 81.8; POTASSIUM 3.1 mmol/L (3.5-5.1); TOTAL BILIRUBIN 0.6 mg/dL (0.2-1.0); TOTAL PROTEIN 7.1 g/dL (6.4-8.2)
[2016-10-07] MEDS ORDERED: POTASSIUM CHLORIDE 20MEQ 50 ML IV SCH (13:30)
[2016-10-07] MEDS: POTASSIUM CHLORIDE 10MEQ 100 ML IV SCH ×4 (14:18→21:03)
[2016-10-07] MEDS: IV NORMAL SALINE 1000ML BAG 1,000 ML IV SCH (14:19)
[2016-10-07] MEDS ORDERED: MORPHINE SULFATE 4 MG/ML DISP.SYRIN. IV PRN ×3 (15:36→16:45)
[2016-10-07 15:56] VITALS: BP 102/51
--- NOTE | 2016-10-07 16:39 | PDOC2 ---
NEUROLOGY CONSULT Date of Admission Date of Admission DATE: 10/07/16 TIME: 16:29 Reason for Consult Reason for Consult: altered mental status Referring Physician Referring Physician: Dr. Whelan Source Source: Caregiver, Chart review, Patient History of Present Illness History of Present Illness The patient is a 76-year-old right-handed female who has altered mental status. She cannot give any history. She fell about 3 days ago and has had nausea and vomiting since. She has abdominal pain and coffee-ground emesis. I spoke to her son who cocks to her or sees her at least once a month. He says that she is usually lucid but tends to be distrustful, holding on to her purse with all her possessions, for instance. He has no idea that she has a boyfriend with whom she lives who visited her right before a cane. The nurse sent him to get her medication bottles. The son knows of no history of stroke or head injury, but the patient did have seizures as a child. Past Surgical History Past Surgical History: No pertinent history (unknown) Family History Family History: Cancer Social History Social History , has a significant other, son knows of no alcohol or tobacco Current Medications Current Medications Current Medications Promethazine HCl 12.5 mg/Sodium Chloride 50.5 ml @ 151.5 mls/ hr PRN Q6HRS PRN IV NAUSEA/VOMITING Last administered on 10/06/16 23:05; Start 10/06/16 at 09: 30 Fentanyl Citrate (Fentanyl 2ml Vial) 75 mcg 1X ONCE IV Last administered on 10:01; Start 10/06/16 at 10:00; Stop 10/06/16 at 10:17; Status DC Pantoprazole Sodium (Protonix Vial) 80 mg 1X ONCE IVP Last administered on 10/06 10:05; Start 10/06/16 at 10:00; Stop 10/06/16 at 10:17; Status DC Pantoprazole Sodium 80 mg/ Sodium Chloride 100 ml @ 10 mls/hr Q10H IV Last administered on 10/07/16 11:08; Start 10/06/16 at 10:00; Stop 10/07/16 at 11:59; Status DC Sodium Chloride 1,000 ml @ 200 mls/hr 1X ONCE IV Last administered on 10:02; Start 10/06/16 at 10:00; Stop 10/06/16 at 14:59; Status DC Iohexol (Omnipaque 300 Mg/ml) 75 ml 1X ONCE IV Last administered on 10/06/16 11:00; Start 10/06/16 at 10:30; Stop 10/06/16 at 10:31; Status DC Info (Do NOT chart on this entry -- for MONITORING) 1 each PRN DAILY PRN MC SEE COMMENTS; Start 10/06/16 at 10:30; Stop 10/08/16 at 10:29 Ondansetron HCl (Zofran) 4 mg PRN Q8HRS PRN IV NAUSEA/VOMITING Last administered on 10/06/16 21:12; Start 10/06/16 at 11:30; Stop 10/07/16 at 09:27; Status DC Morphine Sulfate 2 mg PRN Q2HR PRN IV PAIN Last administered on 10/07/16 11:25 ; Start 10/06/16 at 11:30; Stop 10/07/16 at 11:29; Status DC Dextrose/Sodium Chloride 1,000 ml @ 125 mls/hr 1X ONCE IV Last administered on 10/06/16 15:00; Start 10/06/16 at 15:00; Stop 10/06/16 at 22:59; Status DC Ringer's Solution 1,000 ml @ 50 mls/hr Q20H IV Last administered on 10/06/16 15:13; Start 10/06/16 at 15:00; Stop 10/07/16 at 07:47; Status DC Propofol 20 ml @ As Directed STK-MED ONCE IV ; Start 10/06/16 at 15:39; Stop 10/06 at 15:40; Status DC Lidocaine HCl (Lidocaine Pf 2% Vial) 5 ml STK-MED ONCE .ROUTE ; Start 10/06/16 at 15:39; Stop 10/06/16 at 15:40; Status DC Ondansetron HCl (Zofran) 4 mg PRN Q6HRS PRN IV NAUSEA/VOMITING; Start 10/07/16 at 09:26; Stop 10/08/16 at 09:25 Acetaminophen/ Hydrocodone Bitart (Lortab 5/325) 1 tab PRN Q6HRS PRN PO PAIN; Start 10/07/16 at 09:30 Phenytoin Sodium (Dilantin) 100 mg TID PO ; Start 10/07/16 at 10:00 Gabapentin (Neurontin) 300 mg TID PO ; Start 10/07/16 at 10:00; Stop 10/07/16 at 11:59; Status DC Morphine Sulfate 1 mg PRN Q2HR PRN IV PAIN; Start 10/07/16 at 12:00; Stop at 15:36; Status DC Amino Acids/ Glycerin/ Electrolytes 1,000 ml @ 80 mls/hr [id number] IV Last administered on 10/07/16 13:13; Start 10/07/16 at 12:30 Enoxaparin Sodium (Lovenox 40mg Syringe) 40 mg Q24H SQ ; Start 10/07/16 at 21:00 Famotidine (Pepcid) 20 mg QHS IVP ; Start 10/07/16 at 21:00 Famotidine (Pepcid) 20 mg QHS IVP ; Start 10/07/16 at 21:00; Status UNV Potassium Chloride 50 ml @ 50 mls/hr Q1H IV ; Start 10/07/16 at 13:30; Stop at 13:41; Status DC Sodium Chloride 1,000 ml @ 100 mls/hr Q10H IV Last administered on 10/07/16 14 :19; Start 10/07/16 at 13:30 Potassium Chloride 100 ml @ 100 mls/hr Q1H IV Last administered on 10/07/16 15 :45; Start 10/07/16 at 14:30; Stop 10/07/16 at 18:29 Morphine Sulfate 1 mg PRN Q2HR PRN IV PAIN Last administered on 10/07/16 15:44 ; Start 10/07/16 at 15:36 Active Scripts Active Reported Aspirin 81 Mg Tab.chew 1 Tab PO DAILY [place] 5-325 Tablet (Acetaminophen/Hydrocodone Bitart) 1 Each Tablet 1 Tab PO PRN Q6HRS PRN Dilantin (Phenytoin Sodium Extended) 100 Mg Capsule 1 Cap PO TID Gabapentin 300 Mg Capsule 300 Mg PO TID Metformin Hcl 500 Mg Tablet 500 Mg PO BIDWMEALS Allergies Allergies: Coded Allergies: No Known Drug Allergies (Unverified , 10/06/16) ROS Review of System Son knows of no fevers, chills, weight loss, dyspnea, angina, abdominal pain, change in bowels, or dysuria. 14 point review of systems is negative. Physical Exam Physical Examination PHYSICAL EXAMINATION: Vital signs: see above. General appearance is normal and in no acute distress. HEENT: Normocephalic and nontraumatic. Eyes, nose, ears, and throat are unremarkable. Neck is supple. No lymphadenopathy. No bruits are heard over the carotid artery. No crepitus. NEUROLOGICAL EXAMINATION: She does not know her name, location, date, does not follow commands. Repeats nonsense phrases. Cranial nerve examination reveals full visual soria to threat , equally reactive pupils, and intact extraocular movements. There is no facial asymmetry. Reflexes are 1+ with flexor plantar responses. She moves all 4 extremities. She is tremulous. She responds to pinprick in all 4 extremities. She does not cooperate with cerebellar testing. Vitals VITALS Vital Signs Date Time Temp Pulse Resp B/P (MAP) Pulse Ox O2 Delivery O2 Flow Rate FiO2 10/07/16 15:56 98.0 76 17 102/51 (68) 97 Room Air 98.0 10/07/16 15:44 2.0 Labs Labs Laboratory Tests Test 10/06/16 09:28 10/06/16 09:55 10/07/16 12:25 White Blood Count 7.9 x10^3/uL (4.0-11.0) 12.4 x10^3/uL (4.0-11.0) Red Blood Count 3.90 x10^6/uL (3.50-5.40) 3.99 x10^6/uL (3.50-5.40) Hemoglobin 12.1 g/dL (12.0-15.5) 12.4 g/dL (12.0-15.5) Hematocrit 35.1 % (36.0-47.0) 35.3 % (36.0-47.0) Mean Corpuscular Volume 90 fL (79-100) 88 fL (79-100) Mean Corpuscular Hemoglobin 31 pg (25-35) 31 pg (25-35) Mean Corpuscular Hemoglobin Concent 34 g/dL (31-37) 35 g/dL (31-37) Red Cell Distribution Width 13.8 % (11.5-14.5) 13.8 % (11.5-14.5) Platelet Count 199 x10^3/uL (140-400) 214 x10^3/uL (140-400) Neutrophils (%) (Auto) 90 % (31-73) 85 % (31-73) Lymphocytes (%) (Auto) 5 % (24-48) 6 % (24-48) Monocytes (%) (Auto) 4 % (0-9) 9 % (0-9) Eosinophils (%) (Auto) 0 % (0-3) 0 % (0-3) Basophils (%) (Auto) 0 % (0-3) 0 % (0-3) Neutrophils # (Auto) 7.1 x10^3uL (1.8-7.7) 10.5 x10^3uL (1.8-7.7) Lymphocytes # (Auto) 0.4 x10^3/uL (1.0-4.8) 0.7 x10^3/uL (1.0-4.8) Monocytes # (Auto) 0.3 x10^3/uL (0.0-1.1) 1.1 x10^3/uL (0.0-1.1) Eosinophils # (Auto) 0.0 x10^3/uL (0.0-0.7) 0.0 x10^3/uL (0.0-0.7) Basophils # (Auto) 0.0 x10^3/uL (0.0-0.2) 0.0 x10^3/uL (0.0-0.2) Segmented Neutrophils % 87 % (35-66) Lymphocytes % 8 % (24-48) Monocytes % 4 % (0-10) Basophils % 1 % (0-3) Platelet Estimate Adequate (ADEQUATE) Prothrombin Time 14.0 SEC (11.7-14.0) Prothromb Time International Ratio 1.2 (0.8-1.1) Activated Partial Thromboplast Time 28 SEC (24-38) Sodium Level 133 mmol/L (136-145) 126 mmol/L (136-145) Potassium Level 3.4 mmol/L (3.5-5.1) 3.1 mmol/L (3.5-5.1) Chloride Level 97 mmol/L (98-107) 91 mmol/L (98-107) Carbon Dioxide Level 24 mmol/L (21-32) 24 mmol/L (21-32) Anion Gap 12 (6-14) 11 (6-14) Blood Urea Nitrogen 18 mg/dL (7-20) 13 mg/dL (7-20) Creatinine 0.9 mg/dL (0.6-1.0) 0.7 mg/dL (0.6-1.0) Estimated GFR (Cockcroft-Gault) 61.2 81.8 BUN/Creatinine Ratio 20 (6-20) 19 (6-20) Glucose Level 166 mg/dL (70-99) 136 mg/dL (70-99) Calcium Level 8.5 mg/dL (8.5-10.1) 8.2 mg/dL (8.5-10.1) Total Bilirubin 0.5 mg/dL (0.2-1.0) 0.6 mg/dL (0.2-1.0) Aspartate Amino Transf (AST/SGOT) 22 U/L (15-37) 16 U/L (15-37) Alanine Aminotransferase (ALT/SGPT) 20 U/L (14-59) 20 U/L (14-59) Alkaline Phosphatase 128 U/L (46-116) 116 U/L (46-116) Troponin I Quantitative < 0.017 ng/mL (0.000-0.055) Total Protein 7.5 g/dL (6.4-8.2) 7.1 g/dL (6.4-8.2) Albumin 3.8 g/dL (3.4-5.0) 3.5 g/dL (3.4-5.0) Albumin/Globulin Ratio 1.0 (1.0-1.7) 1.0 (1.0-1.7) Lipase 120 U/L (73-393) Gastric Fluid Occult Blood Positive (NEG) Erythrocyte Sedimentation Rate 10 (0-25) Thyroid Stimulating Hormone (TSH) 0.573 uIU/mL (0.358-3.74) Laboratory Tests Test 10/07/16 12:25 White Blood Count 12.4 x10^3/uL (4.0-11.0) Red Blood Count 3.99 x10^6/uL (3.50-5.40) Hemoglobin 12.4 g/dL (12.0-15.5) Hematocrit 35.3 % (36.0-47.0) Mean Corpuscular Volume 88 fL (79-100) Mean Corpuscular Hemoglobin 31 pg (25-35) Mean Corpuscular Hemoglobin Concent 35 g/dL (31-37) Red Cell Distribution Width 13.8 % (11.5-14.5) Platelet Count 214 x10^3/uL (140-400) Neutrophils (%) (Auto) 85 % (31-73) Lymphocytes (%) (Auto) 6 % (24-48) Monocytes (%) (Auto) 9 % (0-9) Eosinophils (%) (Auto) 0 % (0-3) Basophils (%) (Auto) 0 % (0-3) Neutrophils # (Auto) 10.5 x10^3uL (1.8-7.7) Lymphocytes # (Auto) 0.7 x10^3/uL (1.0-4.8) Monocytes # (Auto) 1.1 x10^3/uL (0.0-1.1) Eosinophils # (Auto) 0.0 x10^3/uL (0.0-0.7) Basophils # (Auto) 0.0 x10^3/uL (0.0-0.2) Erythrocyte Sedimentation Rate 10 (0-25) Sodium Level 126 mmol/L (136-145) Potassium Level 3.1 mmol/L (3.5-5.1) Chloride Level 91 mmol/L (98-107) Carbon Dioxide Level 24 mmol/L (21-32) Anion Gap 11 (6-14) Blood Urea Nitrogen 13 mg/dL (7-20) Creatinine 0.7 mg/dL (0.6-1.0) Estimated GFR (Cockcroft-Gault) 81.8 BUN/Creatinine Ratio 19 (6-20) Glucose Level 136 mg/dL (70-99) Calcium Level 8.2 mg/dL (8.5-10.1) Total Bilirubin 0.6 mg/dL (0.2-1.0) Aspartate Amino Transf (AST/SGOT) 16 U/L (15-37) Alanine Aminotransferase (ALT/SGPT) 20 U/L (14-59) Alkaline Phosphatase 116 U/L (46-116) Total Protein 7.1 g/dL (6.4-8.2) Albumin 3.5 g/dL (3.4-5.0) Albumin/Globulin Ratio 1.0 (1.0-1.7) Thyroid Stimulating Hormone (TSH) 0.573 uIU/mL (0.358-3.74) Images Images CT head: Noncontrast images of the head were obtained. No prior imaging of the head is available. The calvarium appears unremarkable. The visualized paranasal sinuses appear normal. There is no subdural or epidural hematoma. There is no mass or midline shift. No hemorrhage is seen. No acute finding is apparent. IMPRESSION: Intracranially no acute or significant finding seen Assessment/Plan Assessment/Plan Impression: Metabolic encephalopathy, note hyponatremia, anemia, acute GI bleeding. She may have had a concussion as well, CT scan negative for any gross abnormality There is also a component of psychiatric disease apparently. Recommendations Await MRI brain Additional laboratory studies as ordered Electroencephalogram I will consider lumbar puncture, but I am holding off because of the lack of meningismus, significant leukocytosis, or fever Review home medications I discussed fully with the patient's son Thank you for letting me help with the patient's care. GISEL ALONSO MD Oct 07, 2016 16:39
[2016-10-07] MEDS ORDERED: GADOBUTROL 10 MMOL/10 ML VIAL IV ONE (17:30)
[2016-10-07 19:00] VITALS: BP 127/89
--- NOTE | 2016-10-07 20:21 | RAD ---
MRI brain without contrast dated 10/07/2016. No comparison available. CLINICAL INDICATION: Confusion with mental status change. Rule out encephalitis. TECHNIQUE: Routine multiplanar multisequence MR imaging of brain performed. No contrast administered. FINDINGS: Study is somewhat limited due to motion artifact. Ventricles and sulci are mildly prominent for age. No midline shift or mass effect. Mild spotty hyperintense FLAIR signal abnormality in the deep/subcortical periventricular white matter. No hemorrhage or extra-axial collection. Posterior fossa and brainstem unremarkable. No significant involvement of the temporal lobes. No evidence of restricted diffusion abnormality. Major intracranial flow-voids are present. Postcontrast imaging was not performed. Midline structures intact. Mild mucosal thickening of the maxillary and ethmoid sinuses. Nonspecific increased signal of the left mastoid air cells. No apparent calvarial abnormality. IMPRESSION: 1. No evidence of acute intracranial hemorrhage, mass or acute infarct. 2. Mild spotty hyperintense FLAIR signal abnormality in the deep/subcortical periventricular white matter, nonspecific but probably related to chronic small vessel ischemic disease. 3. Mild pansinus mucosal thickening with nonspecific increased signal of the left mastoid air cells. Electronically signed by: Jorge Myles MD (10/07/2016 8:17 PM) [facility]
[2016-10-07] MEDS ORDERED: SULF1TAB23 PO (20:39)
[2016-10-07] MEDS ORDERED: MEDR2.5T28 PO (20:39)
[2016-10-07] MEDS ORDERED: ESTR0.5T PO (20:39)
[2016-10-07] MEDS ORDERED: CIPR250T30 PO (20:39)
[2016-10-07] MEDS: FAMOTIDINE 20 MG/2 ML VIAL IVP SCH (20:43)
[2016-10-07] MEDS: ENOXAPARIN 40 MG/0.4 ML SYRINGE. SQ SCH ×2 (20:47→21:00)
[2016-10-07] MEDS ORDERED: FAMOTIDINE 20 MG/2 ML VIAL IVP SCH (21:00)
[2016-10-07] MEDS ORDERED: HALOPERIDOL LACTATE 5 MG/ML VIAL. IVP PRN (22:00)
[2016-10-08] MEDS: IV NORMAL SALINE 1000ML BAG 1,000 ML IV SCH ×2 (01:19→14:39)
[2016-10-08 03:00] VITALS: BP 150/86
[2016-10-08 04:06] LABS: BASO % 0 % (0-3); EOS % 0 % (0-3); HEMATOCRIT 39.6 % (36.0-47.0); HEMOGLOBIN 13.4 g/dL (12.0-15.5); LYMPH # 0.6 x10^3/uL (1.0-4.8); LYMPH % 5 % (24-48); MEAN CORPUSCULAR HEMOGLOBIN 30 pg (25-35); MEAN CORPUSCULAR HGB CONC 34 g/dL (31-37); MEAN CORPUSCULAR VOLUME 90 fL (79-100); MONO % 12 % (0-9); NEUT % 83 % (31-73); PLATELET COUNT 240 x10^3/uL (140-400); RED BLOOD COUNT 4.39 x10^6/uL (3.50-5.40); RED CELL DISTRIBUTION WIDTH 13.5 % (11.5-14.5); WHITE BLOOD COUNT 11.9 x10^3/uL (4.0-11.0)
[2016-10-08 04:30] LABS: CREATININE 0.8 mg/dL (0.6-1.0); GFR 70.1; MAGNESIUM 1.4 mg/dL (1.8-2.4); POTASSIUM 3.3 mmol/L (3.5-5.1)
[2016-10-08 06:50] VITALS: BP 162/87
[2016-10-08 08:53] LABS: FOLATE 22.61 ng/ml (3.2-20.0)
[2016-10-08] MEDS: PHENYTOIN SODIUM EXTENDED 100 MG CAPSULE PO SCH ×3 (09:00→21:15)
[2016-10-08] MEDS ORDERED: POTASSIUM CHLORIDE 20MEQ 50 ML IV SCH (09:45)
[2016-10-08] MEDS ORDERED: MAGNESIUM SULFATE 2GM 50 ML IV ONE (10:00)
[2016-10-08 10:48] VITALS: BP 163/78
--- NOTE | 2016-10-08 11:06 | PDOC ---
PROGRESS NOTES Chief Complaint Chief Complaint 1. Coffee ground emesis s/p EGD (10/06) - neg egd 2. Acute encephalopathy, in the background of HYPONATREMIA 3. R hib fxs - uncertain age 4. FAll 5. Hypokalemia and hyponatremia 6. GAtsric occult positive, possible NSAID use? 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 liquid diet NA worsening - 124 now from 126 from 130s- I did consult renal alst night and aware of consult IVF NS at 75cc/hr TSH is normal PLAn: Await renal rounds No other clear source of acute enceph but possibly the worsening hyponat Check UA ESR is only 10 PT.OT UA osmolality etc pending Vitals Vitals Vital Signs Date Time Temp Pulse Resp B/P (MAP) Pulse Ox O2 Delivery O2 Flow Rate FiO2 10/08/16 10:48 98.0 73 20 163/78 (106) 97 Room Air 98.0 10/07/16 15:44 2.0 Physical Exam General: Cooperative, No acute distress Heart: Regular rate, Normal S1, Normal S2, No murmurs Lungs: Clear, Wheezing Abdomen: Normal bowel sounds, Soft, No tenderness, No hepatosplenomegaly Extremities: No clubbing, No edema Skin: No rashes, No breakdown, No significant lesion Labs LABS Laboratory Tests Test 10/07/16 12:25 10/08/16 03:35 White Blood Count 12.4 x10^3/uL (4.0-11.0) 11.9 x10^3/uL (4.0-11.0) Red Blood Count 3.99 x10^6/uL (3.50-5.40) 4.39 x10^6/uL (3.50-5.40) Hemoglobin 12.4 g/dL (12.0-15.5) 13.4 g/dL (12.0-15.5) Hematocrit 35.3 % (36.0-47.0) 39.6 % (36.0-47.0) Mean Corpuscular Volume 88 fL (79-100) 90 fL (79-100) Mean Corpuscular Hemoglobin 31 pg (25-35) 30 pg (25-35) Mean Corpuscular Hemoglobin Concent 35 g/dL (31-37) 34 g/dL (31-37) Red Cell Distribution Width 13.8 % (11.5-14.5) 13.5 % (11.5-14.5) Platelet Count 214 x10^3/uL (140-400) 240 x10^3/uL (140-400) Neutrophils (%) (Auto) 85 % (31-73) 83 % (31-73) Lymphocytes (%) (Auto) 6 % (24-48) 5 % (24-48) Monocytes (%) (Auto) 9 % (0-9) 12 % (0-9) Eosinophils (%) (Auto) 0 % (0-3) 0 % (0-3) Basophils (%) (Auto) 0 % (0-3) 0 % (0-3) Neutrophils # (Auto) 10.5 x10^3uL (1.8-7.7) 9.8 x10^3uL (1.8-7.7) Lymphocytes # (Auto) 0.7 x10^3/uL (1.0-4.8) 0.6 x10^3/uL (1.0-4.8) Monocytes # (Auto) 1.1 x10^3/uL (0.0-1.1) 1.4 x10^3/uL (0.0-1.1) Eosinophils # (Auto) 0.0 x10^3/uL (0.0-0.7) 0.0 x10^3/uL (0.0-0.7) Basophils # (Auto) 0.0 x10^3/uL (0.0-0.2) 0.0 x10^3/uL (0.0-0.2) Erythrocyte Sedimentation Rate 10 (0-25) Sodium Level 126 mmol/L (136-145) 124 mmol/L (136-145) Potassium Level 3.1 mmol/L (3.5-5.1) 3.3 mmol/L (3.5-5.1) Chloride Level 91 mmol/L (98-107) 90 mmol/L (98-107) Carbon Dioxide Level 24 mmol/L (21-32) 25 mmol/L (21-32) Anion Gap 11 (6-14) 9 (6-14) Blood Urea Nitrogen 13 mg/dL (7-20) 15 mg/dL (7-20) Creatinine 0.7 mg/dL (0.6-1.0) 0.8 mg/dL (0.6-1.0) Estimated GFR (Cockcroft-Gault) 81.8 70.1 BUN/Creatinine Ratio 19 (6-20) Glucose Level 136 mg/dL (70-99) 132 mg/dL (70-99) Calcium Level 8.2 mg/dL (8.5-10.1) 8.0 mg/dL (8.5-10.1) Total Bilirubin 0.6 mg/dL (0.2-1.0) Aspartate Amino Transf (AST/SGOT) 16 U/L (15-37) Alanine Aminotransferase (ALT/SGPT) 20 U/L (14-59) Alkaline Phosphatase 116 U/L (46-116) Total Protein 7.1 g/dL (6.4-8.2) Albumin 3.5 g/dL (3.4-5.0) Albumin/Globulin Ratio 1.0 (1.0-1.7) Thyroid Stimulating Hormone (TSH) 0.573 uIU/mL (0.358-3.74) Uric Acid 2.5 mg/dL (2.6-6.0) Magnesium Level 1.4 mg/dL (1.8-2.4) Ammonia 11 mcmol/L (11-34) Vitamin B12 Level 275 pg/mL (247-911) Serum Folate 22.61 ng/ml (3.2-20.0) Review of Systems Review of Systems confused, cant get ROS Assessment and Plan Assessmemt and Plan Problems Medical Problems: (1) Upper GI bleed Status: Acute Problems: Comment Review of Relevant I have reviewed the following items bj (where applicable) has been applied. Labs Laboratory Tests Test 10/07/16 12:25 10/08/16 03:35 White Blood Count 12.4 x10^3/uL (4.0-11.0) 11.9 x10^3/uL (4.0-11.0) Red Blood Count 3.99 x10^6/uL (3.50-5.40) 4.39 x10^6/uL (3.50-5.40) Hemoglobin 12.4 g/dL (12.0-15.5) 13.4 g/dL (12.0-15.5) Hematocrit 35.3 % (36.0-47.0) 39.6 % (36.0-47.0) Mean Corpuscular Volume 88 fL (79-100) 90 fL (79-100) Mean Corpuscular Hemoglobin 31 pg (25-35) 30 pg (25-35) Mean Corpuscular Hemoglobin Concent 35 g/dL (31-37) 34 g/dL (31-37) Red Cell Distribution Width 13.8 % (11.5-14.5) 13.5 % (11.5-14.5) Platelet Count 214 x10^3/uL (140-400) 240 x10^3/uL (140-400) Neutrophils (%) (Auto) 85 % (31-73) 83 % (31-73) Lymphocytes (%) (Auto) 6 % (24-48) 5 % (24-48) Monocytes (%) (Auto) 9 % (0-9) 12 % (0-9) Eosinophils (%) (Auto) 0 % (0-3) 0 % (0-3) Basophils (%) (Auto) 0 % (0-3) 0 % (0-3) Neutrophils # (Auto) 10.5 x10^3uL (1.8-7.7) 9.8 x10^3uL (1.8-7.7) Lymphocytes # (Auto) 0.7 x10^3/uL (1.0-4.8) 0.6 x10^3/uL (1.0-4.8) Monocytes # (Auto) 1.1 x10^3/uL (0.0-1.1) 1.4 x10^3/uL (0.0-1.1) Eosinophils # (Auto) 0.0 x10^3/uL (0.0-0.7) 0.0 x10^3/uL (0.0-0.7) Basophils # (Auto) 0.0 x10^3/uL (0.0-0.2) 0.0 x10^3/uL (0.0-0.2) Erythrocyte Sedimentation Rate 10 (0-25) Sodium Level 126 mmol/L (136-145) 124 mmol/L (136-145) Potassium Level 3.1 mmol/L (3.5-5.1) 3.3 mmol/L (3.5-5.1) Chloride Level 91 mmol/L (98-107) 90 mmol/L (98-107) Carbon Dioxide Level 24 mmol/L (21-32) 25 mmol/L (21-32) Anion Gap 11 (6-14) 9 (6-14) Blood Urea Nitrogen 13 mg/dL (7-20) 15 mg/dL (7-20) Creatinine 0.7 mg/dL (0.6-1.0) 0.8 mg/dL (0.6-1.0) Estimated GFR (Cockcroft-Gault) 81.8 70.1 BUN/Creatinine Ratio 19 (6-20) Glucose Level 136 mg/dL (70-99) 132 mg/dL (70-99) Calcium Level 8.2 mg/dL (8.5-10.1) 8.0 mg/dL (8.5-10.1) Total Bilirubin 0.6 mg/dL (0.2-1.0) Aspartate Amino Transf (AST/SGOT) 16 U/L (15-37) Alanine Aminotransferase (ALT/SGPT) 20 U/L (14-59) Alkaline Phosphatase 116 U/L (46-116) Total Protein 7.1 g/dL (6.4-8.2) Albumin 3.5 g/dL (3.4-5.0) Albumin/Globulin Ratio 1.0 (1.0-1.7) Thyroid Stimulating Hormone (TSH) 0.573 uIU/mL (0.358-3.74) Uric Acid 2.5 mg/dL (2.6-6.0) Magnesium Level 1.4 mg/dL (1.8-2.4) Ammonia 11 mcmol/L (11-34) Vitamin B12 Level 275 pg/mL (247-911) Serum Folate 22.61 ng/ml (3.2-20.0) Laboratory Tests Test 10/07/16 12:25 10/08/16 03:35 White Blood Count 12.4 x10^3/uL (4.0-11.0) 11.9 x10^3/uL (4.0-11.0) Red Blood Count 3.99 x10^6/uL (3.50-5.40) 4.39 x10^6/uL (3.50-5.40) Hemoglobin 12.4 g/dL (12.0-15.5) 13.4 g/dL (12.0-15.5) Hematocrit 35.3 % (36.0-47.0) 39.6 % (36.0-47.0) Mean Corpuscular Volume 88 fL (79-100) 90 fL (79-100) Mean Corpuscular Hemoglobin 31 pg (25-35) 30 pg (25-35) Mean Corpuscular Hemoglobin Concent 35 g/dL (31-37) 34 g/dL (31-37) Red Cell Distribution Width 13.8 % (11.5-14.5) 13.5 % (11.5-14.5) Platelet Count 214 x10^3/uL (140-400) 240 x10^3/uL (140-400) Neutrophils (%) (Auto) 85 % (31-73) 83 % (31-73) Lymphocytes (%) (Auto) 6 % (24-48) 5 % (24-48) Monocytes (%) (Auto) 9 % (0-9) 12 % (0-9) Eosinophils (%) (Auto) 0 % (0-3) 0 % (0-3) Basophils (%) (Auto) 0 % (0-3) 0 % (0-3) Neutrophils # (Auto) 10.5 x10^3uL (1.8-7.7) 9.8 x10^3uL (1.8-7.7) Lymphocytes # (Auto) 0.7 x10^3/uL (1.0-4.8) 0.6 x10^3/uL (1.0-4.8) Monocytes # (Auto) 1.1 x10^3/uL (0.0-1.1) 1.4 x10^3/uL (0.0-1.1) Eosinophils # (Auto) 0.0 x10^3/uL (0.0-0.7) 0.0 x10^3/uL (0.0-0.7) Basophils # (Auto) 0.0 x10^3/uL (0.0-0.2) 0.0 x10^3/uL (0.0-0.2) Erythrocyte Sedimentation Rate 10 (0-25) Sodium Level 126 mmol/L (136-145) 124 mmol/L (136-145) Potassium Level 3.1 mmol/L (3.5-5.1) 3.3 mmol/L (3.5-5.1) Chloride Level 91 mmol/L (98-107) 90 mmol/L (98-107) Carbon Dioxide Level 24 mmol/L (21-32) 25 mmol/L (21-32) Anion Gap 11 (6-14) 9 (6-14) Blood Urea Nitrogen 13 mg/dL (7-20) 15 mg/dL (7-20) Creatinine 0.7 mg/dL (0.6-1.0) 0.8 mg/dL (0.6-1.0) Estimated GFR (Cockcroft-Gault) 81.8 70.1 BUN/Creatinine Ratio 19 (6-20) Glucose Level 136 mg/dL (70-99) 132 mg/dL (70-99) Calcium Level 8.2 mg/dL (8.5-10.1) 8.0 mg/dL (8.5-10.1) Total Bilirubin 0.6 mg/dL (0.2-1.0) Aspartate Amino Transf (AST/SGOT) 16 U/L (15-37) Alanine Aminotransferase (ALT/SGPT) 20 U/L (14-59) Alkaline Phosphatase 116 U/L (46-116) Total Protein 7.1 g/dL (6.4-8.2) Albumin 3.5 g/dL (3.4-5.0) Albumin/Globulin Ratio 1.0 (1.0-1.7) Thyroid Stimulating Hormone (TSH) 0.573 uIU/mL (0.358-3.74) Uric Acid 2.5 mg/dL (2.6-6.0) Magnesium Level 1.4 mg/dL (1.8-2.4) Ammonia 11 mcmol/L (11-34) Vitamin B12 Level 275 pg/mL (247-911) Serum Folate 22.61 ng/ml (3.2-20.0) Medications Current Medications Promethazine HCl 12.5 mg/Sodium Chloride 50.5 ml @ 151.5 mls/ hr PRN Q6HRS PRN IV NAUSEA/VOMITING Last administered on 10/06/16 23:05; Start 10/06/16 at 09: 30 Fentanyl Citrate (Fentanyl 2ml Vial) 75 mcg 1X ONCE IV Last administered on 10:01; Start 10/06/16 at 10:00; Stop 10/06/16 at 10:17; Status DC Pantoprazole Sodium (Protonix Vial) 80 mg 1X ONCE IVP Last administered on 10/06 10:05; Start 10/06/16 at 10:00; Stop 10/06/16 at 10:17; Status DC Pantoprazole Sodium 80 mg/ Sodium Chloride 100 ml @ 10 mls/hr Q10H IV Last administered on 10/07/16 11:08; Start 10/06/16 at 10:00; Stop 10/07/16 at 11:59; Status DC Sodium Chloride 1,000 ml @ 200 mls/hr 1X ONCE IV Last administered on 10:02; Start 10/06/16 at 10:00; Stop 10/06/16 at 14:59; Status DC Iohexol (Omnipaque 300 Mg/ml) 75 ml 1X ONCE IV Last administered on 10/06/16 11:00; Start 10/06/16 at 10:30; Stop 10/06/16 at 10:31; Status DC Info (Do NOT chart on this entry -- for MONITORING) 1 each PRN DAILY PRN MC SEE COMMENTS; Start 10/06/16 at 10:30; Stop 10/08/16 at 10:29; Status DC Ondansetron HCl (Zofran) 4 mg PRN Q8HRS PRN IV NAUSEA/VOMITING Last administered on 10/06/16 21:12; Start 10/06/16 at 11:30; Stop 10/07/16 at 09:27; Status DC Morphine Sulfate 2 mg PRN Q2HR PRN IV PAIN Last administered on 10/07/16 11:25 ; Start 10/06/16 at 11:30; Stop 10/07/16 at 11:29; Status DC Dextrose/Sodium Chloride 1,000 ml @ 125 mls/hr 1X ONCE IV Last administered on 10/06/16 15:00; Start 10/06/16 at 15:00; Stop 10/06/16 at 22:59; Status DC Ringer's Solution 1,000 ml @ 50 mls/hr Q20H IV Last administered on 10/06/16 15:13; Start 10/06/16 at 15:00; Stop 10/07/16 at 07:47; Status DC Propofol 20 ml @ As Directed STK-MED ONCE IV ; Start 10/06/16 at 15:39; Stop 10/06 at 15:40; Status DC Lidocaine HCl (Lidocaine Pf 2% Vial) 5 ml STK-MED ONCE .ROUTE ; Start 10/06/16 at 15:39; Stop 10/06/16 at 15:40; Status DC Ondansetron HCl (Zofran) 4 mg PRN Q6HRS PRN IV NAUSEA/VOMITING; Start 10/07/16 at 09:26; Stop 10/08/16 at 09:25; Status DC Acetaminophen/ Hydrocodone Bitart (Lortab 5/325) 1 tab PRN Q6HRS PRN PO PAIN; Start 10/07/16 at 09:30 Phenytoin Sodium (Dilantin) 100 mg TID PO ; Start 10/07/16 at 10:00 Gabapentin (Neurontin) 300 mg TID PO ; Start 10/07/16 at 10:00; Stop 10/07/16 at 11:59; Status DC Morphine Sulfate 1 mg PRN Q2HR PRN IV PAIN; Start 10/07/16 at 12:00; Stop at 15:36; Status DC Amino Acids/ Glycerin/ Electrolytes 1,000 ml @ 80 mls/hr [id number] IV Last administered on 10/07/16 13:13; Start 10/07/16 at 12:30; Stop 10/07/16 at 16:48; Status DC Enoxaparin Sodium (Lovenox 40mg Syringe) 40 mg Q24H SQ ; Start 10/07/16 at 21:00 Famotidine (Pepcid) 20 mg QHS IVP Last administered on 10/07/16 20:43; Start at 21:00 Famotidine (Pepcid) 20 mg QHS IVP ; Start 10/07/16 at 21:00; Status UNV Potassium Chloride 50 ml @ 50 mls/hr Q1H IV ; Start 10/07/16 at 13:30; Stop at 13:41; Status DC Sodium Chloride 1,000 ml @ 75 mls/hr [id number] IV Last administered on 01:19; Start 10/07/16 at 13:30 Potassium Chloride 100 ml @ 100 mls/hr Q1H IV Last administered on 10/07/16 21 :03; Start 10/07/16 at 14:30; Stop 10/07/16 at 18:29; Status DC Morphine Sulfate 1 mg PRN Q2HR PRN IV PAIN Last administered on 10/07/16 15:44 ; Start 10/07/16 at 15:36; Stop 10/07/16 at 16:44; Status DC Lorazepam (Ativan) 2 mg 1X ONCE IV Last administered on 10/07/16 18:07; Start 10/07/16 at 17:00; Stop 10/07/16 at 17:01; Status DC Morphine Sulfate 2 mg PRN Q2HR PRN IV PAIN; Start 10/07/16 at 16:45 Morphine Sulfate 2 mg PRN Q2HR PRN IV PAIN; Start 10/07/16 at 16:45 Gadobutrol (Gadavist) 10 mmol 1X ONCE IV ; Start 10/07/16 at 17:30; Stop at 17:31; Status DC Lorazepam (Ativan) 2 mg PRN Q4HRS PRN IV ANXIETY / AGITATION Last administered on 10/08/16 04:31; Start 10/07/16 at 22:00 Haloperidol Lactate (Haldol) 2.5 mg PRN Q6HRS PRN IVP ANXIETY / AGITATION; Start 10/07/16 at 22:00 Magnesium Sulfate/ Dextrose 50 ml @ 25 mls/hr 1X ONCE IV ; Start 10/08/16 at 10 :00; Stop 10/08/16 at 11:59 Potassium Chloride 50 ml @ 50 mls/hr Q1H IV ; Start 10/08/16 at 09:45; Stop 12/15 at 11:44; Status UNV Potassium Chloride 100 ml @ 100 mls/hr Q1H IV ; Start 10/08/16 at 10:00; Stop 10/08/16 at 13:59 Active Scripts Active Reported Estradiol 0.5 Mg Tablet 1 Tab PO DAILY Cipro (Ciprofloxacin Hcl) 250 Mg Tablet 1 Tab PO BID Medroxyprogesterone Acetate 2.5 Mg Tablet 1 Tab PO DAILY Bactrim 400-80 Mg Tablet (Sulfamethoxazole/Trimethoprim) 1 Each Tablet 1 Tab PO BID Aspirin 81 Mg Tab.chew 1 Tab PO DAILY Grant 5-325 Tablet (Acetaminophen/Hydrocodone Bitart) 1 Each Tablet 1 Tab PO PRN Q6HRS PRN Dilantin (Phenytoin Sodium Extended) 100 Mg Capsule 1 Cap PO TID Gabapentin 300 Mg Capsule 300 Mg PO TID Metformin Hcl 500 Mg Tablet 500 Mg PO BIDWMEALS Vitals/I & O Vital Sign - Last 24 Hours 10/07/16 10/07/16 10/07/16 10/07/16 11:17 11:25 11:55 15:44 Temp 97.7 97.7 Pulse 87 Resp 17 B/P (MAP) 129/57 (81) Pulse Ox 96 96 96 96 O2 Delivery Room Air Room Air Room Air Room Air O2 Flow Rate 2.0 2.0 10/07/16 10/07/16 10/07/16 10/08/16 15:56 19:00 20:30 03:00 Temp 98.0 98.4 98.7 98.0 98.4 98.7 Pulse 76 70 82 Resp 17 18 18 B/P (MAP) 102/51 (68) 127/89 (102) 150/86 (107) Pulse Ox 97 95 94 O2 Delivery Room Air Room Air Room Air Room Air 10/08/16 10/08/16 10/08/16 06:50 08:00 10:48 Temp 98.2 98.0 98.2 98.0 Pulse 80 73 Resp 19 20 B/P (MAP) 162/87 (112) 163/78 (106) Pulse Ox 95 97 O2 Delivery Room Air Room Air Room Air Intake and Output 10/07/16 10/07/16 10/08/16 15:00 23:00 07:00 Intake Total 400 ml Output Total 600 ml Balance 400 ml -600 ml LAVELL SLOAN MD Oct 08, 2016 11:06
--- NOTE | 2016-10-08 11:10 | PATHOLOGY ---
PATHOLOGY REPORT * * * * * * * * FINAL DIAGNOSIS: Esophageal biopsies, distal esophagus: - Segments of hyperplastic squamous esophageal mucosa, esophagogastric mucosa, and gastric mucosa showing chronic inflammation. (JPM:[email or web address]; 10/08/2016) COMMENT: Sections of the distal esophageal biopsy reveal segments of hyperplastic squamous esophageal mucosa, esophagogastric mucosa and gastric mucosa showing focal chronic inflammation. The findings are consistent with reflux esophagitis. There is no evidence of Merritt's change, dysplasia, or malignancy. (JPM:[email or web address]; 10/08/2016) REPORT ELECTRONICALLY SIGNED BY: Tor Doyle M.D. DATE/TIME: 10/08/2016 11:09 * * * * * * * * GROSS PATHOLOGY: Received in formalin labeled "Kortney Smalls, biopsy distal esophagus," are four segments of north soft tissue measuring from less than 0.1 up to 0.3 cm in maximum dimension. The specimen is submitted entirely in cassette A1. (JPM; 10/07/16) INITIAL CPT CODE(S): A; 22961 Professional services performed [place] [facility] [address] Technical services performed by [facility] at [address] [place] [address]. SPECIMEN(S) RECEIVED: A.Distal esophagus biopsy CLINICAL HISTORY: GI bleed; esophageal varices, esophageal diverticulum PATIENT: KORTNEY SMALLS /AGE: 8 1940 (Age: 76) PATIENT #: [id number] ALT CASE #: SPECIMEN COLLECTION DATE: 10/06/2016 SPECIMEN RECEIVED DATE: 10/07/2016 [facility] - [address] [place] [address] - PHONE: [phone] * * * END OF REPORT * * *
--- NOTE | 2016-10-08 11:36 | PDOC ---
Objective: Objective: Reviewed other notes. Vital Signs: Vital Signs Date Time Temp Pulse Resp B/P (MAP) Pulse Ox O2 Delivery O2 Flow Rate FiO2 10/08/16 10:48 98.0 73 20 163/78 (106) 97 Room Air 98.0 10/07/16 15:44 2.0 Labs: Laboratory Tests Test 10/07/16 12:25 10/08/16 03:35 White Blood Count 12.4 x10^3/uL 11.9 x10^3/uL Red Blood Count 3.99 x10^6/uL 4.39 x10^6/uL Hemoglobin 12.4 g/dL 13.4 g/dL Hematocrit 35.3 % 39.6 % Mean Corpuscular Volume 88 fL 90 fL Mean Corpuscular Hemoglobin 31 pg 30 pg Mean Corpuscular Hemoglobin Concent 35 g/dL 34 g/dL Red Cell Distribution Width 13.8 % 13.5 % Platelet Count 214 x10^3/uL 240 x10^3/uL Neutrophils (%) (Auto) 85 % 83 % Lymphocytes (%) (Auto) 6 % 5 % Monocytes (%) (Auto) 9 % 12 % Eosinophils (%) (Auto) 0 % 0 % Basophils (%) (Auto) 0 % 0 % Neutrophils # (Auto) 10.5 x10^3uL 9.8 x10^3uL Lymphocytes # (Auto) 0.7 x10^3/uL 0.6 x10^3/uL Monocytes # (Auto) 1.1 x10^3/uL 1.4 x10^3/uL Eosinophils # (Auto) 0.0 x10^3/uL 0.0 x10^3/uL Basophils # (Auto) 0.0 x10^3/uL 0.0 x10^3/uL Erythrocyte Sedimentation Rate 10 Sodium Level 126 mmol/L 124 mmol/L Potassium Level 3.1 mmol/L 3.3 mmol/L Chloride Level 91 mmol/L 90 mmol/L Carbon Dioxide Level 24 mmol/L 25 mmol/L Anion Gap 11 9 Blood Urea Nitrogen 13 mg/dL 15 mg/dL Creatinine 0.7 mg/dL 0.8 mg/dL Estimated GFR (Cockcroft-Gault) 81.8 70.1 BUN/Creatinine Ratio 19 Glucose Level 136 mg/dL 132 mg/dL Calcium Level 8.2 mg/dL 8.0 mg/dL Total Bilirubin 0.6 mg/dL Aspartate Amino Transf (AST/SGOT) 16 U/L Alanine Aminotransferase (ALT/SGPT) 20 U/L Alkaline Phosphatase 116 U/L Total Protein 7.1 g/dL Albumin 3.5 g/dL Albumin/Globulin Ratio 1.0 Thyroid Stimulating Hormone (TSH) 0.573 uIU/mL Uric Acid 2.5 mg/dL Magnesium Level 1.4 mg/dL Ammonia 11 mcmol/L Vitamin B12 Level 275 pg/mL Serum Folate 22.61 ng/ml Imaging: Brain MRI IMPRESSION: 1. No evidence of acute intracranial hemorrhage, mass or acute infarct. 2. Mild spotty hyperintense FLAIR signal abnormality in the deep/subcortical periventricular white matter, nonspecific but probably related to chronic small vessel ischemic disease. 3. Mild pansinus mucosal thickening with nonspecific increased signal of the left mastoid air cells. PE: GEN: NAD LUNGS: clear HEART: RRR ABD: soft NEURO/PSYCH: awake, mumbling A/P: Encephalopathy, hyponatremia -neuro following, renal consult pending Coffee-ground emesis (resolved), ?abd pain, poor PO intake -EGD w/ esophagitis, esophageal diverticulum -Hgb still normal -IV H2 david -CT w/ rib fracture and cholelithiasis -- Continue per neuro, renal. CONNIE CHASE Oct 08, 2016 11:35
--- NOTE | 2016-10-08 12:19 | PDOC2 ---
CONSULT Date of Consult Date of Consult DATE: 10/08/16 TIME: 12:13 Reason for Consult Reason for Consult: NA OF 126 Referring Physician Referring Physician: YASH Identification/Chief Complaint Chief Complaint CONFUSION AND EMESIS Problems: Source Source: Chart review History of Present Illness Reason for Visit: THIS IS A 76 YR OLD ADMITTED WITH CONFUSION AND COFFEE GROUND EMESIS. LABS SHOWED A NA OF 124 WITH LOW K AND LOW MAG. SHE CANNOT PROVIDE ANY HX. SHE IS CONFUSED. NEUROLOGY EVALUATION ONGOING Past Medical History Cardiovascular: HTN CENTRAL NERVOUS SYSTEM: Seizure Past Surgical History Past Surgical History RIGHT EYE SURGERY-CATARACTS, BLADDER SLING Social History No Drugs: None Current Problem List Problem List Problems Medical Problems: (1) Upper GI bleed Status: Acute Current Medications Current Medications Current Medications Promethazine HCl 12.5 mg/Sodium Chloride 50.5 ml @ 151.5 mls/ hr PRN Q6HRS PRN IV NAUSEA/VOMITING Last administered on 10/06/16 23:05; Start 10/06/16 at 09: 30 Fentanyl Citrate (Fentanyl 2ml Vial) 75 mcg 1X ONCE IV Last administered on 10:01; Start 10/06/16 at 10:00; Stop 10/06/16 at 10:17; Status DC Pantoprazole Sodium (Protonix Vial) 80 mg 1X ONCE IVP Last administered on 10/06 10:05; Start 10/06/16 at 10:00; Stop 10/06/16 at 10:17; Status DC Pantoprazole Sodium 80 mg/ Sodium Chloride 100 ml @ 10 mls/hr Q10H IV Last administered on 10/07/16 11:08; Start 10/06/16 at 10:00; Stop 10/07/16 at 11:59; Status DC Sodium Chloride 1,000 ml @ 200 mls/hr 1X ONCE IV Last administered on 10:02; Start 10/06/16 at 10:00; Stop 10/06/16 at 14:59; Status DC Iohexol (Omnipaque 300 Mg/ml) 75 ml 1X ONCE IV Last administered on 10/06/16 11:00; Start 10/06/16 at 10:30; Stop 10/06/16 at 10:31; Status DC Info (Do NOT chart on this entry -- for MONITORING) 1 each PRN DAILY PRN MC SEE COMMENTS; Start 10/06/16 at 10:30; Stop 10/08/16 at 10:29; Status DC Ondansetron HCl (Zofran) 4 mg PRN Q8HRS PRN IV NAUSEA/VOMITING Last administered on 10/06/16 21:12; Start 10/06/16 at 11:30; Stop 10/07/16 at 09:27; Status DC Morphine Sulfate 2 mg PRN Q2HR PRN IV PAIN Last administered on 10/07/16 11:25 ; Start 10/06/16 at 11:30; Stop 10/07/16 at 11:29; Status DC Dextrose/Sodium Chloride 1,000 ml @ 125 mls/hr 1X ONCE IV Last administered on 10/06/16 15:00; Start 10/06/16 at 15:00; Stop 10/06/16 at 22:59; Status DC Ringer's Solution 1,000 ml @ 50 mls/hr Q20H IV Last administered on 10/06/16 15:13; Start 10/06/16 at 15:00; Stop 10/07/16 at 07:47; Status DC Propofol 20 ml @ As Directed STK-MED ONCE IV ; Start 10/06/16 at 15:39; Stop 10/06 at 15:40; Status DC Lidocaine HCl (Lidocaine Pf 2% Vial) 5 ml STK-MED ONCE .ROUTE ; Start 10/06/16 at 15:39; Stop 10/06/16 at 15:40; Status DC Ondansetron HCl (Zofran) 4 mg PRN Q6HRS PRN IV NAUSEA/VOMITING; Start 10/07/16 at 09:26; Stop 10/08/16 at 09:25; Status DC Acetaminophen/ Hydrocodone Bitart (Lortab 5/325) 1 tab PRN Q6HRS PRN PO PAIN; Start 10/07/16 at 09:30 Phenytoin Sodium (Dilantin) 100 mg TID PO ; Start 10/07/16 at 10:00 Gabapentin (Neurontin) 300 mg TID PO ; Start 10/07/16 at 10:00; Stop 10/07/16 at 11:59; Status DC Morphine Sulfate 1 mg PRN Q2HR PRN IV PAIN; Start 10/07/16 at 12:00; Stop at 15:36; Status DC Amino Acids/ Glycerin/ Electrolytes 1,000 ml @ 80 mls/hr [id number] IV Last administered on 10/07/16 13:13; Start 10/07/16 at 12:30; Stop 10/07/16 at 16:48; Status DC Enoxaparin Sodium (Lovenox 40mg Syringe) 40 mg Q24H SQ ; Start 10/07/16 at 21:00 Famotidine (Pepcid) 20 mg QHS IVP Last administered on 10/07/16 20:43; Start at 21:00 Famotidine (Pepcid) 20 mg QHS IVP ; Start 10/07/16 at 21:00; Status UNV Potassium Chloride 50 ml @ 50 mls/hr Q1H IV ; Start 10/07/16 at 13:30; Stop at 13:41; Status DC Sodium Chloride 1,000 ml @ 75 mls/hr [id number] IV Last administered on 01:19; Start 10/07/16 at 13:30 Potassium Chloride 100 ml @ 100 mls/hr Q1H IV Last administered on 10/07/16 21 :03; Start 10/07/16 at 14:30; Stop 10/07/16 at 18:29; Status DC Morphine Sulfate 1 mg PRN Q2HR PRN IV PAIN Last administered on 10/07/16 15:44 ; Start 10/07/16 at 15:36; Stop 10/07/16 at 16:44; Status DC Lorazepam (Ativan) 2 mg 1X ONCE IV Last administered on 10/07/16 18:07; Start 10/07/16 at 17:00; Stop 10/07/16 at 17:01; Status DC Morphine Sulfate 2 mg PRN Q2HR PRN IV PAIN; Start 10/07/16 at 16:45 Morphine Sulfate 2 mg PRN Q2HR PRN IV PAIN; Start 10/07/16 at 16:45 Gadobutrol (Gadavist) 10 mmol 1X ONCE IV ; Start 10/07/16 at 17:30; Stop at 17:31; Status DC Lorazepam (Ativan) 2 mg PRN Q4HRS PRN IV ANXIETY / AGITATION Last administered on 8/10/17at 04:31; Start 10/07/16 at 22:00 Haloperidol Lactate (Haldol) 2.5 mg PRN Q6HRS PRN IVP ANXIETY / AGITATION; Start 10/07/16 at 22:00 Magnesium Sulfate/ Dextrose 50 ml @ 25 mls/hr 1X ONCE IV ; Start 10/08/16 at 10 :00; Stop 10/08/16 at 11:59; Status DC Potassium Chloride 50 ml @ 50 mls/hr Q1H IV ; Start 10/08/16 at 09:45; Stop 12/15 at 11:44; Status UNV Potassium Chloride 100 ml @ 100 mls/hr Q1H IV ; Start 10/08/16 at 10:00; Stop 10/08/16 at 13:59 Active Scripts Active Reported Estradiol 0.5 Mg Tablet 1 Tab PO DAILY Cipro (Ciprofloxacin Hcl) 250 Mg Tablet 1 Tab PO BID Medroxyprogesterone Acetate 2.5 Mg Tablet 1 Tab PO DAILY Bactrim 400-80 Mg Tablet (Sulfamethoxazole/Trimethoprim) 1 Each Tablet 1 Tab PO BID Aspirin 81 Mg Tab.chew 1 Tab PO DAILY [place] 5-325 Tablet (Acetaminophen/Hydrocodone Bitart) 1 Each Tablet 1 Tab PO PRN Q6HRS PRN Dilantin (Phenytoin Sodium Extended) 100 Mg Capsule 1 Cap PO TID Gabapentin 300 Mg Capsule 300 Mg PO TID Metformin Hcl 500 Mg Tablet 500 Mg PO BIDWMEALS Allergies Allergies: Coded Allergies: No Known Drug Allergies (Unverified , 10/06/16) ROS Review of System UNABLE TO OBTAIN Physical Exam General: No acute distress, Other (CONFUSED) HEENT: Atraumatic Lungs: Clear to auscultation Heart: Regular rate Abdomen: Normal bowel sounds, Soft, No tenderness Extremities: No edema, Normal pulses Skin: No rashes Neuro: Other (CONFUSED BUT NO ASYMMETRY) Psych/Mental Status: Other (CONFUSED) MUSCULOSKELETAL: No deformity, No swelling Vitals VITALS Vital Signs Date Time Temp Pulse Resp B/P (MAP) Pulse Ox O2 Delivery O2 Flow Rate FiO2 10/08/16 10:48 98.0 73 20 163/78 (106) 97 Room Air 98.0 10/07/16 15:44 2.0 Labs Labs Laboratory Tests Test 10/07/16 12:25 10/08/16 03:35 White Blood Count 12.4 x10^3/uL (4.0-11.0) 11.9 x10^3/uL (4.0-11.0) Red Blood Count 3.99 x10^6/uL (3.50-5.40) 4.39 x10^6/uL (3.50-5.40) Hemoglobin 12.4 g/dL (12.0-15.5) 13.4 g/dL (12.0-15.5) Hematocrit 35.3 % (36.0-47.0) 39.6 % (36.0-47.0) Mean Corpuscular Volume 88 fL (79-100) 90 fL (79-100) Mean Corpuscular Hemoglobin 31 pg (25-35) 30 pg (25-35) Mean Corpuscular Hemoglobin Concent 35 g/dL (31-37) 34 g/dL (31-37) Red Cell Distribution Width 13.8 % (11.5-14.5) 13.5 % (11.5-14.5) Platelet Count 214 x10^3/uL (140-400) 240 x10^3/uL (140-400) Neutrophils (%) (Auto) 85 % (31-73) 83 % (31-73) Lymphocytes (%) (Auto) 6 % (24-48) 5 % (24-48) Monocytes (%) (Auto) 9 % (0-9) 12 % (0-9) Eosinophils (%) (Auto) 0 % (0-3) 0 % (0-3) Basophils (%) (Auto) 0 % (0-3) 0 % (0-3) Neutrophils # (Auto) 10.5 x10^3uL (1.8-7.7) 9.8 x10^3uL (1.8-7.7) Lymphocytes # (Auto) 0.7 x10^3/uL (1.0-4.8) 0.6 x10^3/uL (1.0-4.8) Monocytes # (Auto) 1.1 x10^3/uL (0.0-1.1) 1.4 x10^3/uL (0.0-1.1) Eosinophils # (Auto) 0.0 x10^3/uL (0.0-0.7) 0.0 x10^3/uL (0.0-0.7) Basophils # (Auto) 0.0 x10^3/uL (0.0-0.2) 0.0 x10^3/uL (0.0-0.2) Erythrocyte Sedimentation Rate 10 (0-25) Sodium Level 126 mmol/L (136-145) 124 mmol/L (136-145) Potassium Level 3.1 mmol/L (3.5-5.1) 3.3 mmol/L (3.5-5.1) Chloride Level 91 mmol/L (98-107) 90 mmol/L (98-107) Carbon Dioxide Level 24 mmol/L (21-32) 25 mmol/L (21-32) Anion Gap 11 (6-14) 9 (6-14) Blood Urea Nitrogen 13 mg/dL (7-20) 15 mg/dL (7-20) Creatinine 0.7 mg/dL (0.6-1.0) 0.8 mg/dL (0.6-1.0) Estimated GFR (Cockcroft-Gault) 81.8 70.1 BUN/Creatinine Ratio 19 (6-20) Glucose Level 136 mg/dL (70-99) 132 mg/dL (70-99) Calcium Level 8.2 mg/dL (8.5-10.1) 8.0 mg/dL (8.5-10.1) Total Bilirubin 0.6 mg/dL (0.2-1.0) Aspartate Amino Transf (AST/SGOT) 16 U/L (15-37) Alanine Aminotransferase (ALT/SGPT) 20 U/L (14-59) Alkaline Phosphatase 116 U/L (46-116) Total Protein 7.1 g/dL (6.4-8.2) Albumin 3.5 g/dL (3.4-5.0) Albumin/Globulin Ratio 1.0 (1.0-1.7) Thyroid Stimulating Hormone (TSH) 0.573 uIU/mL (0.358-3.74) Uric Acid 2.5 mg/dL (2.6-6.0) Magnesium Level 1.4 mg/dL (1.8-2.4) Ammonia 11 mcmol/L (11-34) Vitamin B12 Level 275 pg/mL (247-911) Serum Folate 22.61 ng/ml (3.2-20.0) Laboratory Tests Test 10/07/16 12:25 10/08/16 03:35 White Blood Count 12.4 x10^3/uL (4.0-11.0) 11.9 x10^3/uL (4.0-11.0) Red Blood Count 3.99 x10^6/uL (3.50-5.40) 4.39 x10^6/uL (3.50-5.40) Hemoglobin 12.4 g/dL (12.0-15.5) 13.4 g/dL (12.0-15.5) Hematocrit 35.3 % (36.0-47.0) 39.6 % (36.0-47.0) Mean Corpuscular Volume 88 fL (79-100) 90 fL (79-100) Mean Corpuscular Hemoglobin 31 pg (25-35) 30 pg (25-35) Mean Corpuscular Hemoglobin Concent 35 g/dL (31-37) 34 g/dL (31-37) Red Cell Distribution Width 13.8 % (11.5-14.5) 13.5 % (11.5-14.5) Platelet Count 214 x10^3/uL (140-400) 240 x10^3/uL (140-400) Neutrophils (%) (Auto) 85 % (31-73) 83 % (31-73) Lymphocytes (%) (Auto) 6 % (24-48) 5 % (24-48) Monocytes (%) (Auto) 9 % (0-9) 12 % (0-9) Eosinophils (%) (Auto) 0 % (0-3) 0 % (0-3) Basophils (%) (Auto) 0 % (0-3) 0 % (0-3) Neutrophils # (Auto) 10.5 x10^3uL (1.8-7.7) 9.8 x10^3uL (1.8-7.7) Lymphocytes # (Auto) 0.7 x10^3/uL (1.0-4.8) 0.6 x10^3/uL (1.0-4.8) Monocytes # (Auto) 1.1 x10^3/uL (0.0-1.1) 1.4 x10^3/uL (0.0-1.1) Eosinophils # (Auto) 0.0 x10^3/uL (0.0-0.7) 0.0 x10^3/uL (0.0-0.7) Basophils # (Auto) 0.0 x10^3/uL (0.0-0.2) 0.0 x10^3/uL (0.0-0.2) Erythrocyte Sedimentation Rate 10 (0-25) Sodium Level 126 mmol/L (136-145) 124 mmol/L (136-145) Potassium Level 3.1 mmol/L (3.5-5.1) 3.3 mmol/L (3.5-5.1) Chloride Level 91 mmol/L (98-107) 90 mmol/L (98-107) Carbon Dioxide Level 24 mmol/L (21-32) 25 mmol/L (21-32) Anion Gap 11 (6-14) 9 (6-14) Blood Urea Nitrogen 13 mg/dL (7-20) 15 mg/dL (7-20) Creatinine 0.7 mg/dL (0.6-1.0) 0.8 mg/dL (0.6-1.0) Estimated GFR (Cockcroft-Gault) 81.8 70.1 BUN/Creatinine Ratio 19 (6-20) Glucose Level 136 mg/dL (70-99) 132 mg/dL (70-99) Calcium Level 8.2 mg/dL (8.5-10.1) 8.0 mg/dL (8.5-10.1) Total Bilirubin 0.6 mg/dL (0.2-1.0) Aspartate Amino Transf (AST/SGOT) 16 U/L (15-37) Alanine Aminotransferase (ALT/SGPT) 20 U/L (14-59) Alkaline Phosphatase 116 U/L (46-116) Total Protein 7.1 g/dL (6.4-8.2) Albumin 3.5 g/dL (3.4-5.0) Albumin/Globulin Ratio 1.0 (1.0-1.7) Thyroid Stimulating Hormone (TSH) 0.573 uIU/mL (0.358-3.74) Uric Acid 2.5 mg/dL (2.6-6.0) Magnesium Level 1.4 mg/dL (1.8-2.4) Ammonia 11 mcmol/L (11-34) Vitamin B12 Level 275 pg/mL (247-911) Serum Folate 22.61 ng/ml (3.2-20.0) Assessment/Plan Assessment/Plan IMP MET ENCEPHALOPATHY HYPONATREMIA ANEMIA ? GI BLEED-COFFEE GROUND EMESIS LOW K AND MAG PLAN URINE STUDIES URINE LYTES AND OSMOLALITY FE OF URIC ACID ISOTONIC SALINE-LOW FLOW RATE 3% SALINE REPLACE MAG AND K RENATA TAY MD Oct 08, 2016 12:19
[2016-10-08] MEDS: POTASSIUM CHLORIDE 10MEQ 100 ML IV SCH ×4 (12:24→17:51)
[2016-10-08] MEDS ORDERED: SODIUM CHLORIDE 3 % 250 ML IV ONE (12:30)
[2016-10-08] MEDS ORDERED: CYANOCOBALAMIN (VITAMIN B-12) 1,000 MCG/ML VIAL IM SCH (14:30)
--- NOTE | 2016-10-08 14:30 | PDOC ---
PROGRESS NOTES Assessment Problems Medical Problems: (1) Upper GI bleed Status: Acute Metabolic encephalopathy, note hyponatremia, anemia, acute GI bleeding. She may have had a concussion as well, CT and MRI negative for any gross abnormality There is also a component of psychiatric disease apparently. Additional laboratory studies positive only for low-normal B12 level Remote history of epilepsy, note that she has home medication of phenytoin, but is refusing it. Plan Cancel electroencephalogram, she was poorly cooperative and she is improving anyway Hold on lumbar puncture Reviewed home medications B12 injections monthly. I discussed with patient's significant other. He says that he has known the patient for 30 years but the son told me yesterday he had never met this gentleman. Okay from me to monitor the patient off of the phenytoin. I realize that she could have withdrawal seizures. Subjective Wants the mittens off, wants to go home, worried about a piece of paper she has at home as well as taking her metformin. Patient reassured that her sugars are being monitored closely here in the hospital. Objective Vital Signs Date Time Temp Pulse Resp B/P (MAP) Pulse Ox O2 Delivery O2 Flow Rate FiO2 10/08/16 10:48 98.0 73 20 163/78 (106) 97 Room Air 98.0 10/07/16 15:44 2.0 Intake and Output 10/08/16 07:00 Intake Total 400 ml Output Total 600 ml Balance -200 ml Intake Oral 200 ml IV Total 200 ml Output Urine Total 600 ml # Voids 6 PHYSICAL EXAM Alert. Oriented to place and person. Answers questions and follows commands. PERRL. EOMI. CN: no focal findings. Muscle tone: normal. Muscle strength: 4/5 DTR: 2+ Plantar reflex: Flexor Gait: not examined in bed. Sensory exam: no abnormal findings. No cerebellar signs elicited. Review of Relevant I have reviewed the following items bj (where applicable) has been applied. Labs Laboratory Tests Test 10/07/16 12:25 10/08/16 03:35 White Blood Count 12.4 x10^3/uL (4.0-11.0) 11.9 x10^3/uL (4.0-11.0) Red Blood Count 3.99 x10^6/uL (3.50-5.40) 4.39 x10^6/uL (3.50-5.40) Hemoglobin 12.4 g/dL (12.0-15.5) 13.4 g/dL (12.0-15.5) Hematocrit 35.3 % (36.0-47.0) 39.6 % (36.0-47.0) Mean Corpuscular Volume 88 fL (79-100) 90 fL (79-100) Mean Corpuscular Hemoglobin 31 pg (25-35) 30 pg (25-35) Mean Corpuscular Hemoglobin Concent 35 g/dL (31-37) 34 g/dL (31-37) Red Cell Distribution Width 13.8 % (11.5-14.5) 13.5 % (11.5-14.5) Platelet Count 214 x10^3/uL (140-400) 240 x10^3/uL (140-400) Neutrophils (%) (Auto) 85 % (31-73) 83 % (31-73) Lymphocytes (%) (Auto) 6 % (24-48) 5 % (24-48) Monocytes (%) (Auto) 9 % (0-9) 12 % (0-9) Eosinophils (%) (Auto) 0 % (0-3) 0 % (0-3) Basophils (%) (Auto) 0 % (0-3) 0 % (0-3) Neutrophils # (Auto) 10.5 x10^3uL (1.8-7.7) 9.8 x10^3uL (1.8-7.7) Lymphocytes # (Auto) 0.7 x10^3/uL (1.0-4.8) 0.6 x10^3/uL (1.0-4.8) Monocytes # (Auto) 1.1 x10^3/uL (0.0-1.1) 1.4 x10^3/uL (0.0-1.1) Eosinophils # (Auto) 0.0 x10^3/uL (0.0-0.7) 0.0 x10^3/uL (0.0-0.7) Basophils # (Auto) 0.0 x10^3/uL (0.0-0.2) 0.0 x10^3/uL (0.0-0.2) Erythrocyte Sedimentation Rate 10 (0-25) Sodium Level 126 mmol/L (136-145) 124 mmol/L (136-145) Potassium Level 3.1 mmol/L (3.5-5.1) 3.3 mmol/L (3.5-5.1) Chloride Level 91 mmol/L (98-107) 90 mmol/L (98-107) Carbon Dioxide Level 24 mmol/L (21-32) 25 mmol/L (21-32) Anion Gap 11 (6-14) 9 (6-14) Blood Urea Nitrogen 13 mg/dL (7-20) 15 mg/dL (7-20) Creatinine 0.7 mg/dL (0.6-1.0) 0.8 mg/dL (0.6-1.0) Estimated GFR (Cockcroft-Gault) 81.8 70.1 BUN/Creatinine Ratio 19 (6-20) Glucose Level 136 mg/dL (70-99) 132 mg/dL (70-99) Calcium Level 8.2 mg/dL (8.5-10.1) 8.0 mg/dL (8.5-10.1) Total Bilirubin 0.6 mg/dL (0.2-1.0) Aspartate Amino Transf (AST/SGOT) 16 U/L (15-37) Alanine Aminotransferase (ALT/SGPT) 20 U/L (14-59) Alkaline Phosphatase 116 U/L (46-116) Total Protein 7.1 g/dL (6.4-8.2) Albumin 3.5 g/dL (3.4-5.0) Albumin/Globulin Ratio 1.0 (1.0-1.7) Thyroid Stimulating Hormone (TSH) 0.573 uIU/mL (0.358-3.74) Uric Acid 2.5 mg/dL (2.6-6.0) Magnesium Level 1.4 mg/dL (1.8-2.4) Ammonia 11 mcmol/L (11-34) Vitamin B12 Level 275 pg/mL (247-911) Serum Folate 22.61 ng/ml (3.2-20.0) Laboratory Tests Test 10/08/16 03:35 White Blood Count 11.9 x10^3/uL (4.0-11.0) Red Blood Count 4.39 x10^6/uL (3.50-5.40) Hemoglobin 13.4 g/dL (12.0-15.5) Hematocrit 39.6 % (36.0-47.0) Mean Corpuscular Volume 90 fL (79-100) Mean Corpuscular Hemoglobin 30 pg (25-35) Mean Corpuscular Hemoglobin Concent 34 g/dL (31-37) Red Cell Distribution Width 13.5 % (11.5-14.5) Platelet Count 240 x10^3/uL (140-400) Neutrophils (%) (Auto) 83 % (31-73) Lymphocytes (%) (Auto) 5 % (24-48) Monocytes (%) (Auto) 12 % (0-9) Eosinophils (%) (Auto) 0 % (0-3) Basophils (%) (Auto) 0 % (0-3) Neutrophils # (Auto) 9.8 x10^3uL (1.8-7.7) Lymphocytes # (Auto) 0.6 x10^3/uL (1.0-4.8) Monocytes # (Auto) 1.4 x10^3/uL (0.0-1.1) Eosinophils # (Auto) 0.0 x10^3/uL (0.0-0.7) Basophils # (Auto) 0.0 x10^3/uL (0.0-0.2) Sodium Level 124 mmol/L (136-145) Potassium Level 3.3 mmol/L (3.5-5.1) Chloride Level 90 mmol/L (98-107) Carbon Dioxide Level 25 mmol/L (21-32) Anion Gap 9 (6-14) Blood Urea Nitrogen 15 mg/dL (7-20) Creatinine 0.8 mg/dL (0.6-1.0) Estimated GFR (Cockcroft-Gault) 70.1 Glucose Level 132 mg/dL (70-99) Uric Acid 2.5 mg/dL (2.6-6.0) Calcium Level 8.0 mg/dL (8.5-10.1) Magnesium Level 1.4 mg/dL (1.8-2.4) Ammonia 11 mcmol/L (11-34) Vitamin B12 Level 275 pg/mL (247-911) Serum Folate 22.61 ng/ml (3.2-20.0) Medications Current Medications Promethazine HCl 12.5 mg/Sodium Chloride 50.5 ml @ 151.5 mls/ hr PRN Q6HRS PRN IV NAUSEA/VOMITING Last administered on 10/06/16 23:05; Start 10/06/16 at 09: 30 Fentanyl Citrate (Fentanyl 2ml Vial) 75 mcg 1X ONCE IV Last administered on 10:01; Start 10/06/16 at 10:00; Stop 10/06/16 at 10:17; Status DC Pantoprazole Sodium (Protonix Vial) 80 mg 1X ONCE IVP Last administered on 10/06 10:05; Start 10/06/16 at 10:00; Stop 10/06/16 at 10:17; Status DC Pantoprazole Sodium 80 mg/ Sodium Chloride 100 ml @ 10 mls/hr Q10H IV Last administered on 10/07/16 11:08; Start 10/06/16 at 10:00; Stop 10/07/16 at 11:59; Status DC Sodium Chloride 1,000 ml @ 200 mls/hr 1X ONCE IV Last administered on 10:02; Start 10/06/16 at 10:00; Stop 10/06/16 at 14:59; Status DC Iohexol (Omnipaque 300 Mg/ml) 75 ml 1X ONCE IV Last administered on 10/06/16 11:00; Start 10/06/16 at 10:30; Stop 10/06/16 at 10:31; Status DC Info (Do NOT chart on this entry -- for MONITORING) 1 each PRN DAILY PRN MC SEE COMMENTS; Start 10/06/16 at 10:30; Stop 10/08/16 at 10:29; Status DC Ondansetron HCl (Zofran) 4 mg PRN Q8HRS PRN IV NAUSEA/VOMITING Last administered on 10/06/16 21:12; Start 10/06/16 at 11:30; Stop 10/07/16 at 09:27; Status DC Morphine Sulfate 2 mg PRN Q2HR PRN IV PAIN Last administered on 10/07/16 11:25 ; Start 10/06/16 at 11:30; Stop 10/07/16 at 11:29; Status DC Dextrose/Sodium Chloride 1,000 ml @ 125 mls/hr 1X ONCE IV Last administered on 10/06/16 15:00; Start 10/06/16 at 15:00; Stop 10/06/16 at 22:59; Status DC Ringer's Solution 1,000 ml @ 50 mls/hr Q20H IV Last administered on 10/06/16 15:13; Start 10/06/16 at 15:00; Stop 10/07/16 at 07:47; Status DC Propofol 20 ml @ As Directed STK-MED ONCE IV ; Start 10/06/16 at 15:39; Stop 10/06 at 15:40; Status DC Lidocaine HCl (Lidocaine Pf 2% Vial) 5 ml STK-MED ONCE .ROUTE ; Start 10/06/16 at 15:39; Stop 10/06/16 at 15:40; Status DC Ondansetron HCl (Zofran) 4 mg PRN Q6HRS PRN IV NAUSEA/VOMITING; Start 10/07/16 at 09:26; Stop 10/08/16 at 09:25; Status DC Acetaminophen/ Hydrocodone Bitart (Lortab 5/325) 1 tab PRN Q6HRS PRN PO PAIN; Start 10/07/16 at 09:30 Phenytoin Sodium (Dilantin) 100 mg TID PO ; Start 10/07/16 at 10:00 Gabapentin (Neurontin) 300 mg TID PO ; Start 10/07/16 at 10:00; Stop 10/07/16 at 11:59; Status DC Morphine Sulfate 1 mg PRN Q2HR PRN IV PAIN; Start 10/07/16 at 12:00; Stop at 15:36; Status DC Amino Acids/ Glycerin/ Electrolytes 1,000 ml @ 80 mls/hr [id number] IV Last administered on 10/07/16 13:13; Start 10/07/16 at 12:30; Stop 10/07/16 at 16:48; Status DC Enoxaparin Sodium (Lovenox 40mg Syringe) 40 mg Q24H SQ ; Start 10/07/16 at 21:00 Famotidine (Pepcid) 20 mg QHS IVP Last administered on 10/07/16 20:43; Start at 21:00 Famotidine (Pepcid) 20 mg QHS IVP ; Start 10/07/16 at 21:00; Status UNV Potassium Chloride 50 ml @ 50 mls/hr Q1H IV ; Start 10/07/16 at 13:30; Stop at 13:41; Status DC Sodium Chloride 1,000 ml @ 75 mls/hr [id number] IV Last administered on 01:19; Start 10/07/16 at 13:30 Potassium Chloride 100 ml @ 100 mls/hr Q1H IV Last administered on 10/07/16 21 :03; Start 10/07/16 at 14:30; Stop 10/07/16 at 18:29; Status DC Morphine Sulfate 1 mg PRN Q2HR PRN IV PAIN Last administered on 10/07/16 15:44 ; Start 10/07/16 at 15:36; Stop 10/07/16 at 16:44; Status DC Lorazepam (Ativan) 2 mg 1X ONCE IV Last administered on 10/07/16 18:07; Start 10/07/16 at 17:00; Stop 10/07/16 at 17:01; Status DC Morphine Sulfate 2 mg PRN Q2HR PRN IV PAIN; Start 10/07/16 at 16:45 Morphine Sulfate 2 mg PRN Q2HR PRN IV PAIN; Start 10/07/16 at 16:45 Gadobutrol (Gadavist) 10 mmol 1X ONCE IV ; Start 10/07/16 at 17:30; Stop at 17:31; Status DC Lorazepam (Ativan) 2 mg PRN Q4HRS PRN IV ANXIETY / AGITATION Last administered on 10/08/16 04:31; Start 10/07/16 at 22:00 Haloperidol Lactate (Haldol) 2.5 mg PRN Q6HRS PRN IVP ANXIETY / AGITATION; Start 10/07/16 at 22:00 Magnesium Sulfate/ Dextrose 50 ml @ 25 mls/hr 1X ONCE IV Last administered on 10/08/16 12:24; Start 10/08/16 at 10:00; Stop 10/08/16 at 11:59; Status DC Potassium Chloride 50 ml @ 50 mls/hr Q1H IV ; Start 10/08/16 at 09:45; Stop 12/15 at 11:44; Status UNV Potassium Chloride 100 ml @ 100 mls/hr Q1H IV Last administered on 10/08/16 14:05; Start 10/08/16 at 10:00; Stop 10/08/16 at 13:59; Status DC Sodium Chloride 250 ml @ 50 mls/hr 1X ONCE IV Last administered on 10/08/16 14:10; Start 10/08/16 at 12:30; Stop 10/08/16 at 17:29 Active Scripts Active Reported Estradiol 0.5 Mg Tablet 1 Tab PO DAILY Cipro (Ciprofloxacin Hcl) 250 Mg Tablet 1 Tab PO BID Medroxyprogesterone Acetate 2.5 Mg Tablet 1 Tab PO DAILY Bactrim 400-80 Mg Tablet (Sulfamethoxazole/Trimethoprim) 1 Each Tablet 1 Tab PO BID Aspirin 81 Mg Tab.chew 1 Tab PO DAILY [place] 5-325 Tablet (Acetaminophen/Hydrocodone Bitart) 1 Each Tablet 1 Tab PO PRN Q6HRS PRN Dilantin (Phenytoin Sodium Extended) 100 Mg Capsule 1 Cap PO TID Gabapentin 300 Mg Capsule 300 Mg PO TID Metformin Hcl 500 Mg Tablet 500 Mg PO BIDWMEALS Vitals/I & O Vital Sign - Last 24 Hours 10/07/16 10/07/16 10/07/16 10/07/16 15:44 15:56 19:00 20:30 Temp 98.0 98.4 98.0 98.4 Pulse 76 70 Resp 17 18 B/P (MAP) 102/51 (68) 127/89 (102) Pulse Ox 96 97 95 O2 Delivery Room Air Room Air Room Air Room Air O2 Flow Rate 2.0 10/08/16 10/08/16 10/08/16 10/08/16 03:00 06:50 08:00 10:48 Temp 98.7 98.2 98.0 98.7 98.2 98.0 Pulse 82 80 73 Resp 18 19 20 B/P (MAP) 150/86 (107) 162/87 (112) 163/78 (106) Pulse Ox 94 95 97 O2 Delivery Room Air Room Air Room Air Room Air Intake and Output 10/07/16 10/07/16 10/08/16 15:00 23:00 07:00 Intake Total 400 ml Output Total 600 ml Balance 400 ml -600 ml Images MRI brain: FINDINGS: Study is somewhat limited due to motion artifact. Ventricles and sulci are mildly prominent for age. No midline shift or mass effect. Mild spotty hyperintense FLAIR signal abnormality in the deep/subcortical periventricular white matter. No hemorrhage or extra-axial collection. Posterior fossa and brainstem unremarkable. No significant involvement of the temporal lobes. No evidence of restricted diffusion abnormality. Major intracranial flow-voids are present. Postcontrast imaging was not performed. Midline structures intact. Mild mucosal thickening of the maxillary and ethmoid sinuses. Nonspecific increased signal of the left mastoid air cells. No apparent calvarial abnormality. IMPRESSION: 1. No evidence of acute intracranial hemorrhage, mass or acute infarct. 2. Mild spotty hyperintense FLAIR signal abnormality in the deep/subcortical periventricular white matter, nonspecific but probably related to chronic small vessel ischemic disease. 3. Mild pansinus mucosal thickening with nonspecific increased signal of the left mastoid air cells. GISEL ALONSO MD Oct 08, 2016 14:29
[2016-10-08 14:35] VITALS: BP 162/81
[2016-10-08 18:24] LABS: BILIRUBIN,URINE NEGATIVE (NEG); GLUCOSE,URINE NEGATIVE (NEG); NITRITE,URINE NEGATIVE (NEG); PROTEIN,URINE NEGATIVE (NEG-TRACE); UROBILINOGEN,URINE 0.2 mg/dL (0.2 mg/dL)
[2016-10-08 18:31] LABS: BACTERIA,URINE 0 /HPF (0-FEW); SQUAMOUS EPITHELIAL CELL,UR FEW /LPF; WBC,URINE OCC /HPF (0-4)
[2016-10-08 19:00] VITALS: BP 168/78
[2016-10-08] MEDS: FAMOTIDINE 20 MG/2 ML VIAL IVP SCH (21:15)
[2016-10-08] MEDS: ENOXAPARIN 40 MG/0.4 ML SYRINGE. SQ SCH (21:15)
[2016-10-08 23:40] VITALS: BP 168/71
[2016-10-09] MEDS: IV NORMAL SALINE 1000ML BAG 1,000 ML IV SCH ×2 (03:12→17:19)
[2016-10-09 03:54] VITALS: BP 177/89
[2016-10-09] MEDS: ONDANSETRON PF 4 MG/2 ML VIAL. IV PRN (04:08)
[2016-10-09 04:51] LABS: ALBUMIN 3.6 g/dL (3.4-5.0); CALCIUM 8.2 mg/dL (8.5-10.1); CREATININE 0.7 mg/dL (0.6-1.0); GFR 81.8; MAGNESIUM 1.8 mg/dL (1.8-2.4); PHOSPHORUS 2.5 mg/dL (2.6-4.7)
[2016-10-09 07:22] VITALS: BP 168/83
[2016-10-09] MEDS: PHENYTOIN SODIUM EXTENDED 100 MG CAPSULE PO SCH ×3 (09:27→20:40)
[2016-10-09] MEDS: POTASSIUM & SODIUM PHOSPHATES PACKET. PO SCH ×3 (09:28→20:40)
[2016-10-09] MEDS: PROMETHAZINE 12.5 MG in IV NORMAL SALINE 50ML 50 ML IV PRN (10:29)
--- NOTE | 2016-10-09 10:59 | PDOC ---
PROGRESS NOTES Chief Complaint Chief Complaint 1. Coffee ground emesis s/p EGD (10/06) - neg egd 2. Acute encephalopathy, in the background of HYPONATREMIA 3. R hib fxs - uncertain age 4. FAll 5. Hypokalemia and hyponatremia 6. GAtsric occult positive, possible NSAID use? 7. PERSISTENT EMESIS 8. BACK pain after a fall History of Present Illness History of Present Illness MOre awake this AM MIttens out BUt NA remains at 124 GOt hypertonic saline 250cc yesterday per renal ESR MRI and CT head neg NOw able to relay to me back pain after the fall EMesis persists, bucket at bedside NO sign of bowel obstruction on CT NOn DM Phosphorus also low PLAN: Get GET for persistent nausea TRial of REglan PO Consult physiatry re rehab/back issues Get thoracic and lumbar x rays - fell COnt pT/OT Follow renal recs for the hyponatremia Check labs again kayode Start Na Phos 1 packet TID BLadder scan protocol - distended bladder juan Rios Vitals Vitals Vital Signs Date Time Temp Pulse Resp B/P (MAP) Pulse Ox O2 Delivery O2 Flow Rate FiO2 10/09/16 08:00 Room Air 10/09/16 07:22 99.3 72 18 168/83 (111) 98 99.3 Physical Exam General: Oriented X3, Cooperative, No acute distress, Other (CONFUSED) Heart: Regular rate Lungs: Clear, Wheezing Abdomen: Normal bowel sounds, Soft, No tenderness Extremities: No edema, Normal pulses Skin: No rashes Labs LABS Laboratory Tests Test 10/08/16 18:10 10/09/16 04:31 Urine Collection Type Unknown Urine Color Yellow Urine Clarity Clear Urine pH 6.0 Urine Specific [place] <=1.005 Urine Protein Negative mg/dL (NEG-TRACE) Urine Glucose (UA) Negative mg/dL (NEG) Urine Ketones (Stick) Negative mg/dL (NEG) Urine Blood Moderate (NEG) Urine Nitrite Negative (NEG) Urine Bilirubin Negative (NEG) Urine Urobilinogen Dipstick 0.2 mg/dL (0.2 mg/dL) Urine Leukocyte Esterase Negative (NEG) Urine RBC 6-10 /HPF (0-2) Urine WBC Occ /HPF (0-4) Urine Squamous Epithelial Cells Few /LPF Urine Amorphous Sediment Present /HPF Urine Bacteria 0 /HPF (0-FEW) Sodium Level 124 mmol/L (136-145) Potassium Level 3.0 mmol/L (3.5-5.1) Chloride Level 89 mmol/L (98-107) Carbon Dioxide Level 25 mmol/L (21-32) Anion Gap 10 (6-14) Blood Urea Nitrogen 12 mg/dL (7-20) Creatinine 0.7 mg/dL (0.6-1.0) Estimated GFR (Cockcroft-Gault) 81.8 Glucose Level 138 mg/dL (70-99) Calcium Level 8.2 mg/dL (8.5-10.1) Phosphorus Level 2.5 mg/dL (2.6-4.7) Magnesium Level 1.8 mg/dL (1.8-2.4) Albumin 3.6 g/dL (3.4-5.0) Review of Systems Review of Systems back pain, nausea, emesis, all else is neg Assessment and Plan Assessmemt and Plan Problems Medical Problems: (1) Upper GI bleed Status: Acute Problems: Comment Review of Relevant I have reviewed the following items bj (where applicable) has been applied. Labs Laboratory Tests Test 10/07/16 12:25 10/07/16 18:15 10/08/16 03:35 10/08/16 18:10 White Blood Count 12.4 x10^3/uL (4.0-11.0) 11.9 x10^3/uL (4.0-11.0) Red Blood Count 3.99 x10^6/uL (3.50-5.40) 4.39 x10^6/uL (3.50-5.40) Hemoglobin 12.4 g/dL (12.0-15.5) 13.4 g/dL (12.0-15.5) Hematocrit 35.3 % (36.0-47.0) 39.6 % (36.0-47.0) Mean Corpuscular Volume 88 fL (79-100) 90 fL (79-100) Mean Corpuscular Hemoglobin 31 pg (25-35) 30 pg (25-35) Mean Corpuscular Hemoglobin Concent 35 g/dL (31-37) 34 g/dL (31-37) Red Cell Distribution Width 13.8 % (11.5-14.5) 13.5 % (11.5-14.5) Platelet Count 214 x10^3/uL (140-400) 240 x10^3/uL (140-400) Neutrophils (%) (Auto) 85 % (31-73) 83 % (31-73) Lymphocytes (%) (Auto) 6 % (24-48) 5 % (24-48) Monocytes (%) (Auto) 9 % (0-9) 12 % (0-9) Eosinophils (%) (Auto) 0 % (0-3) 0 % (0-3) Basophils (%) (Auto) 0 % (0-3) 0 % (0-3) Neutrophils # (Auto) 10.5 x10^3uL (1.8-7.7) 9.8 x10^3uL (1.8-7.7) Lymphocytes # (Auto) 0.7 x10^3/uL (1.0-4.8) 0.6 x10^3/uL (1.0-4.8) Monocytes # (Auto) 1.1 x10^3/uL (0.0-1.1) 1.4 x10^3/uL (0.0-1.1) Eosinophils # (Auto) 0.0 x10^3/uL (0.0-0.7) 0.0 x10^3/uL (0.0-0.7) Basophils # (Auto) 0.0 x10^3/uL (0.0-0.2) 0.0 x10^3/uL (0.0-0.2) Erythrocyte Sedimentation Rate 10 (0-25) Sodium Level 126 mmol/L (136-145) 124 mmol/L (136-145) Potassium Level 3.1 mmol/L (3.5-5.1) 3.3 mmol/L (3.5-5.1) Chloride Level 91 mmol/L (98-107) 90 mmol/L (98-107) Carbon Dioxide Level 24 mmol/L (21-32) 25 mmol/L (21-32) Anion Gap 11 (6-14) 9 (6-14) Blood Urea Nitrogen 13 mg/dL (7-20) 15 mg/dL (7-20) Creatinine 0.7 mg/dL (0.6-1.0) 0.8 mg/dL (0.6-1.0) Estimated GFR (Cockcroft-Gault) 81.8 70.1 BUN/Creatinine Ratio 19 (6-20) Glucose Level 136 mg/dL (70-99) 132 mg/dL (70-99) Calcium Level 8.2 mg/dL (8.5-10.1) 8.0 mg/dL (8.5-10.1) Total Bilirubin 0.6 mg/dL (0.2-1.0) Aspartate Amino Transf (AST/SGOT) 16 U/L (15-37) Alanine Aminotransferase (ALT/SGPT) 20 U/L (14-59) Alkaline Phosphatase 116 U/L (46-116) Total Protein 7.1 g/dL (6.4-8.2) Albumin 3.5 g/dL (3.4-5.0) Albumin/Globulin Ratio 1.0 (1.0-1.7) Thyroid Stimulating Hormone (TSH) 0.573 uIU/mL (0.358-3.74) Urine Sodium 99 mmol/L (Not Estab.) Urine Potassium 41.8 mmol/L (Not Estab.) Urine Chloride 96 mmol/L (Not Estab.) Uric Acid 2.5 mg/dL (2.6-6.0) Magnesium Level 1.4 mg/dL (1.8-2.4) Ammonia 11 mcmol/L (11-34) Vitamin B12 Level 275 pg/mL (247-911) Serum Folate 22.61 ng/ml (3.2-20.0) Urine Collection Type Unknown Urine Color Yellow Urine Clarity Clear Urine pH 6.0 Urine Specific [place] <=1.005 Urine Protein Negative mg/dL (NEG-TRACE) Urine Glucose (UA) Negative mg/dL (NEG) Urine Ketones (Stick) Negative mg/dL (NEG) Urine Blood Moderate (NEG) Urine Nitrite Negative (NEG) Urine Bilirubin Negative (NEG) Urine Urobilinogen Dipstick 0.2 mg/dL (0.2 mg/dL) Urine Leukocyte Esterase Negative (NEG) Urine RBC 6-10 /HPF (0-2) Urine WBC Occ /HPF (0-4) Urine Squamous Epithelial Cells Few /LPF Urine Amorphous Sediment Present /HPF Urine Bacteria 0 /HPF (0-FEW) Test 10/09/16 04:31 Sodium Level 124 mmol/L (136-145) Potassium Level 3.0 mmol/L (3.5-5.1) Chloride Level 89 mmol/L (98-107) Carbon Dioxide Level 25 mmol/L (21-32) Anion Gap 10 (6-14) Blood Urea Nitrogen 12 mg/dL (7-20) Creatinine 0.7 mg/dL (0.6-1.0) Estimated GFR (Cockcroft-Gault) 81.8 Glucose Level 138 mg/dL (70-99) Calcium Level 8.2 mg/dL (8.5-10.1) Phosphorus Level 2.5 mg/dL (2.6-4.7) Magnesium Level 1.8 mg/dL (1.8-2.4) Albumin 3.6 g/dL (3.4-5.0) Laboratory Tests Test 10/08/16 18:10 10/09/16 04:31 Urine Collection Type Unknown Urine Color Yellow Urine Clarity Clear Urine pH 6.0 Urine Specific [place] <=1.005 Urine Protein Negative mg/dL (NEG-TRACE) Urine Glucose (UA) Negative mg/dL (NEG) Urine Ketones (Stick) Negative mg/dL (NEG) Urine Blood Moderate (NEG) Urine Nitrite Negative (NEG) Urine Bilirubin Negative (NEG) Urine Urobilinogen Dipstick 0.2 mg/dL (0.2 mg/dL) Urine Leukocyte Esterase Negative (NEG) Urine RBC 6-10 /HPF (0-2) Urine WBC Occ /HPF (0-4) Urine Squamous Epithelial Cells Few /LPF Urine Amorphous Sediment Present /HPF Urine Bacteria 0 /HPF (0-FEW) Sodium Level 124 mmol/L (136-145) Potassium Level 3.0 mmol/L (3.5-5.1) Chloride Level 89 mmol/L (98-107) Carbon Dioxide Level 25 mmol/L (21-32) Anion Gap 10 (6-14) Blood Urea Nitrogen 12 mg/dL (7-20) Creatinine 0.7 mg/dL (0.6-1.0) Estimated GFR (Cockcroft-Gault) 81.8 Glucose Level 138 mg/dL (70-99) Calcium Level 8.2 mg/dL (8.5-10.1) Phosphorus Level 2.5 mg/dL (2.6-4.7) Magnesium Level 1.8 mg/dL (1.8-2.4) Albumin 3.6 g/dL (3.4-5.0) Medications Current Medications Promethazine HCl 12.5 mg/Sodium Chloride 50.5 ml @ 151.5 mls/ hr PRN Q6HRS PRN IV NAUSEA/VOMITING Last administered on 10/09/16 10:29; Start 10/06/16 at 09 :30 Fentanyl Citrate (Fentanyl 2ml Vial) 75 mcg 1X ONCE IV Last administered on 10:01; Start 10/06/16 at 10:00; Stop 10/06/16 at 10:17; Status DC Pantoprazole Sodium (Protonix Vial) 80 mg 1X ONCE IVP Last administered on 10/06 10:05; Start 10/06/16 at 10:00; Stop 10/06/16 at 10:17; Status DC Pantoprazole Sodium 80 mg/ Sodium Chloride 100 ml @ 10 mls/hr Q10H IV Last administered on 10/07/16 11:08; Start 10/06/16 at 10:00; Stop 10/07/16 at 11:59; Status DC Sodium Chloride 1,000 ml @ 200 mls/hr 1X ONCE IV Last administered on 10:02; Start 10/06/16 at 10:00; Stop 10/06/16 at 14:59; Status DC Iohexol (Omnipaque 300 Mg/ml) 75 ml 1X ONCE IV Last administered on 10/06/16 11:00; Start 10/06/16 at 10:30; Stop 10/06/16 at 10:31; Status DC Info (Do NOT chart on this entry -- for MONITORING) 1 each PRN DAILY PRN MC SEE COMMENTS; Start 10/06/16 at 10:30; Stop 10/08/16 at 10:29; Status DC Ondansetron HCl (Zofran) 4 mg PRN Q8HRS PRN IV NAUSEA/VOMITING Last administered on 10/06/16 21:12; Start 10/06/16 at 11:30; Stop 10/07/16 at 09:27; Status DC Morphine Sulfate 2 mg PRN Q2HR PRN IV PAIN Last administered on 10/07/16 11:25 ; Start 10/06/16 at 11:30; Stop 10/07/16 at 11:29; Status DC Dextrose/Sodium Chloride 1,000 ml @ 125 mls/hr 1X ONCE IV Last administered on 10/06/16 15:00; Start 10/06/16 at 15:00; Stop 10/06/16 at 22:59; Status DC Ringer's Solution 1,000 ml @ 50 mls/hr Q20H IV Last administered on 10/06/16 15:13; Start 10/06/16 at 15:00; Stop 10/07/16 at 07:47; Status DC Propofol 20 ml @ As Directed STK-MED ONCE IV ; Start 10/06/16 at 15:39; Stop 10/06 at 15:40; Status DC Lidocaine HCl (Lidocaine Pf 2% Vial) 5 ml STK-MED ONCE .ROUTE ; Start 10/06/16 at 15:39; Stop 10/06/16 at 15:40; Status DC Ondansetron HCl (Zofran) 4 mg PRN Q6HRS PRN IV NAUSEA/VOMITING; Start 10/07/16 at 09:26; Stop 10/08/16 at 09:25; Status DC Acetaminophen/ Hydrocodone Bitart (Lortab 5/325) 1 tab PRN Q6HRS PRN PO PAIN; Start 10/07/16 at 09:30 Phenytoin Sodium (Dilantin) 100 mg TID PO Last administered on 10/09/16 09:27 ; Start 10/07/16 at 10:00 Gabapentin (Neurontin) 300 mg TID PO ; Start 10/07/16 at 10:00; Stop 10/07/16 at 11:59; Status DC Morphine Sulfate 1 mg PRN Q2HR PRN IV PAIN; Start 10/07/16 at 12:00; Stop at 15:36; Status DC Amino Acids/ Glycerin/ Electrolytes 1,000 ml @ 80 mls/hr [id number] IV Last administered on 10/07/16 13:13; Start 10/07/16 at 12:30; Stop 10/07/16 at 16:48; Status DC Enoxaparin Sodium (Lovenox 40mg Syringe) 40 mg Q24H SQ Last administered on 21:15; Start 10/07/16 at 21:00 Famotidine (Pepcid) 20 mg QHS IVP Last administered on 10/08/16 21:15; Start 10/07/16 at 21:00 Famotidine (Pepcid) 20 mg QHS IVP ; Start 10/07/16 at 21:00; Status UNV Potassium Chloride 50 ml @ 50 mls/hr Q1H IV ; Start 10/07/16 at 13:30; Stop at 13:41; Status DC Sodium Chloride 1,000 ml @ 75 mls/hr [id number] IV Last administered on 03:12; Start 10/07/16 at 13:30 Potassium Chloride 100 ml @ 100 mls/hr Q1H IV Last administered on 10/07/16 21 :03; Start 10/07/16 at 14:30; Stop 10/07/16 at 18:29; Status DC Morphine Sulfate 1 mg PRN Q2HR PRN IV PAIN Last administered on 10/07/16 15:44 ; Start 10/07/16 at 15:36; Stop 10/07/16 at 16:44; Status DC Lorazepam (Ativan) 2 mg 1X ONCE IV Last administered on 10/07/16 18:07; Start 10/07/16 at 17:00; Stop 10/07/16 at 17:01; Status DC Morphine Sulfate 2 mg PRN Q2HR PRN IV PAIN; Start 10/07/16 at 16:45; Stop at 15:17; Status DC Morphine Sulfate 2 mg PRN Q2HR PRN IV PAIN; Start 10/07/16 at 16:45 Gadobutrol (Gadavist) 10 mmol 1X ONCE IV ; Start 10/07/16 at 17:30; Stop at 17:31; Status DC Lorazepam (Ativan) 2 mg PRN Q4HRS PRN IV ANXIETY / AGITATION Last administered on 10/08/16 04:31; Start 10/07/16 at 22:00 Haloperidol Lactate (Haldol) 2.5 mg PRN Q6HRS PRN IVP ANXIETY / AGITATION; Start 10/07/16 at 22:00 Magnesium Sulfate/ Dextrose 50 ml @ 25 mls/hr 1X ONCE IV Last administered on 10/08/16 12:24; Start 10/08/16 at 10:00; Stop 10/08/16 at 11:59; Status DC Potassium Chloride 50 ml @ 50 mls/hr Q1H IV ; Start 10/08/16 at 09:45; Stop 12/15 at 11:44; Status UNV Potassium Chloride 100 ml @ 100 mls/hr Q1H IV Last administered on 10/08/16 17:51; Start 10/08/16 at 10:00; Stop 10/08/16 at 13:59; Status DC Sodium Chloride 250 ml @ 50 mls/hr 1X ONCE IV Last administered on 10/08/16 14:10; Start 10/08/16 at 12:30; Stop 10/08/16 at 17:29; Status DC Cyanocobalamin (Vitamin B-12) 1,000 mcg QMONTH IM Last administered on 15:09; Start 10/08/16 at 14:30 Ondansetron HCl (Zofran) 4 mg PRN Q6HRS PRN IV NAUSEA/VOMITING Last administered on 10/09/16 04:08; Start 10/09/16 at 04:00 Potassium Phos/ Sodium Phos (Phos-Nak) 1 pkt TID PO Last administered on 09:28; Start 10/09/16 at 09:00 Active Scripts Active Reported Estradiol 0.5 Mg Tablet 1 Tab PO DAILY Cipro (Ciprofloxacin Hcl) 250 Mg Tablet 1 Tab PO BID Medroxyprogesterone Acetate 2.5 Mg Tablet 1 Tab PO DAILY Bactrim 400-80 Mg Tablet (Sulfamethoxazole/Trimethoprim) 1 Each Tablet 1 Tab PO BID Aspirin 81 Mg Tab.chew 1 Tab PO DAILY [place] 5-325 Tablet (Acetaminophen/Hydrocodone Bitart) 1 Each Tablet 1 Tab PO PRN Q6HRS PRN Dilantin (Phenytoin Sodium Extended) 100 Mg Capsule 1 Cap PO TID Gabapentin 300 Mg Capsule 300 Mg PO TID Metformin Hcl 500 Mg Tablet 500 Mg PO BIDWMEALS Vitals/I & O Vital Sign - Last 24 Hours 10/08/16 10/08/16 10/08/16 10/08/16 14:35 19:00 20:15 23:40 Temp 97.7 97.9 98.8 97.7 97.9 98.8 Pulse 72 71 70 Resp 20 18 18 B/P (MAP) 162/81 (108) 168/78 (108) 168/71 (103) Pulse Ox 96 97 99 O2 Delivery Room Air Room Air Room Air Room Air 10/09/16 10/09/16 10/09/16 03:54 07:22 08:00 Temp 98.1 99.3 98.1 99.3 Pulse 71 72 Resp 18 18 B/P (MAP) 177/89 (118) 168/83 (111) Pulse Ox 97 98 O2 Delivery Room Air Room Air Room Air Intake and Output 10/08/16 10/08/16 10/09/16 14:59 22:59 06:59 Intake Total 420 ml 1000 ml Output Total 400 ml 550 ml Balance 20 ml 450 ml LAVELL SLOAN MD Oct 09, 2016 10:59
[2016-10-09 11:10] VITALS: BP 146/78
[2016-10-09] MEDS ORDERED: SODIUM CHLORIDE 3 % 250 ML IV ONE (11:30)
[2016-10-09] MEDS ORDERED: POTASSIUM CHLORIDE 20 MEQ TABLET.ER. PO ONE (11:30)
--- NOTE | 2016-10-09 12:09 | PDOC ---
Renal-Progress Notes Subjective Notes Notes STILL CONFUSED History of Present Illness Hx of present illness STABLE Vitals Vitals Vital Signs Date Time Temp Pulse Resp B/P (MAP) Pulse Ox O2 Delivery O2 Flow Rate FiO2 10/09/16 11:10 98.2 73 18 146/78 (100) 98 Room Air 98.2 Weight Weight [ ] I.O. Intake and Output Intake and Output 10/09/16 07:00 Intake Total 1420 ml Output Total 950 ml Balance 470 ml Intake Oral 420 ml IV Total 1000 ml Output Urine Total 950 ml # Voids 5 Labs Labs Laboratory Tests Test 10/08/16 18:10 10/09/16 04:31 Urine Collection Type Unknown Urine Color Yellow Urine Clarity Clear Urine pH 6.0 Urine Specific [place] <=1.005 Urine Protein Negative mg/dL (NEG-TRACE) Urine Glucose (UA) Negative mg/dL (NEG) Urine Ketones (Stick) Negative mg/dL (NEG) Urine Blood Moderate (NEG) Urine Nitrite Negative (NEG) Urine Bilirubin Negative (NEG) Urine Urobilinogen Dipstick 0.2 mg/dL (0.2 mg/dL) Urine Leukocyte Esterase Negative (NEG) Urine RBC 6-10 /HPF (0-2) Urine WBC Occ /HPF (0-4) Urine Squamous Epithelial Cells Few /LPF Urine Amorphous Sediment Present /HPF Urine Bacteria 0 /HPF (0-FEW) Sodium Level 124 mmol/L (136-145) Potassium Level 3.0 mmol/L (3.5-5.1) Chloride Level 89 mmol/L (98-107) Carbon Dioxide Level 25 mmol/L (21-32) Anion Gap 10 (6-14) Blood Urea Nitrogen 12 mg/dL (7-20) Creatinine 0.7 mg/dL (0.6-1.0) Estimated GFR (Cockcroft-Gault) 81.8 Glucose Level 138 mg/dL (70-99) Calcium Level 8.2 mg/dL (8.5-10.1) Phosphorus Level 2.5 mg/dL (2.6-4.7) Magnesium Level 1.8 mg/dL (1.8-2.4) Albumin 3.6 g/dL (3.4-5.0) Review of Systems Constitutional: yes: no symptom reported, other (UNABLE TO OBTAIN) Physical Exam General Appearance: no apparent distress Skin: warm Respiratory: bilateral CTA Heart: S1S2, RRR Abdomen: soft, bowel sounds present Neurology: confused Assessment Assessment IMP SIADH HYPONATREMIA HYPOKALEMIA MET ENCEPHALOPATHY UGIB PLAN MORE 3% SALINE REPLACE K IF NA NO BETTER WILL TRY CONIVAPTAN LABS IN AM D/W ATTENDING RENATA TAY MD Oct 09, 2016 12:09
--- NOTE | 2016-10-09 12:11 | PDOC ---
Subjective: Subjective: Nausea. Objective: Objective: Per RN - tolerating liquids, no vomiting. Vital Signs: Vital Signs Date Time Temp Pulse Resp B/P (MAP) Pulse Ox O2 Delivery O2 Flow Rate FiO2 10/09/16 11:10 98.2 73 18 146/78 (100) 98 Room Air 98.2 Labs: Laboratory Tests Test 10/08/16 18:10 10/09/16 04:31 Urine Collection Type Unknown Urine Color Yellow Urine Clarity Clear Urine pH 6.0 Urine Specific [place] <=1.005 Urine Protein Negative mg/dL Urine Glucose (UA) Negative mg/dL Urine Ketones (Stick) Negative mg/dL Urine Blood Moderate Urine Nitrite Negative Urine Bilirubin Negative Urine Urobilinogen Dipstick 0.2 mg/dL Urine Leukocyte Esterase Negative Urine RBC 6-10 /HPF Urine WBC Occ /HPF Urine Squamous Epithelial Cells Few /LPF Urine Amorphous Sediment Present /HPF Urine Bacteria 0 /HPF Sodium Level 124 mmol/L Potassium Level 3.0 mmol/L Chloride Level 89 mmol/L Carbon Dioxide Level 25 mmol/L Anion Gap 10 Blood Urea Nitrogen 12 mg/dL Creatinine 0.7 mg/dL Estimated GFR (Cockcroft-Gault) 81.8 Glucose Level 138 mg/dL Calcium Level 8.2 mg/dL Phosphorus Level 2.5 mg/dL Magnesium Level 1.8 mg/dL Albumin 3.6 g/dL PE: GEN: NAD LUNGS: clear HEART: RRR ABD: S/ND/NT NEURO/PSYCH: more awaken, can tell me birthday, who's president, and hospital name - unsure of month/year OTHER: emesis basin w/ wet paper towels A/P: Encephalopathy, hyponatremia Coffee-ground emesis (resolved), nausea -EGD w/ esophagitis (no malignancy or Merritt's), esophageal diverticulum -Hgb still normal -IV H2 david -CT w/ rib fracture and cholelithiasis -- Some improvement in mental status, still hyponatremic. Note plans for GES, Reglan for nausea. 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 ADAT (put in yesterday). CONNIE CHASE Oct 09, 2016 12:11
--- NOTE | 2016-10-09 13:16 | PDOC ---
PROGRESS NOTES Assessment Problems Medical Problems: (1) Upper GI bleed Status: Acute Metabolic encephalopathy, note hyponatremia, anemia, acute GI bleeding. She may have had a concussion as well, CT and MRI negative for any gross abnormality There is also a component of psychiatric disease apparently. Additional laboratory studies positive only for low-normal B12 level Remote history of epilepsy, note that she has home medication of phenytoin, but is refusing it. Plan Cancel electroencephalogram, she was poorly cooperative and she is improving anyway Hold on lumbar puncture Patient has resumed phenytoin B12 injections monthly. I discussed with patient's significant other. Subjective Complains of nausea Objective Vital Signs Date Time Temp Pulse Resp B/P (MAP) Pulse Ox O2 Delivery O2 Flow Rate FiO2 10/09/16 11:10 98.2 73 18 146/78 (100) 98 Room Air 98.2 Intake and Output 10/09/16 07:00 Intake Total 1420 ml Output Total 950 ml Balance 470 ml Intake Oral 420 ml IV Total 1000 ml Output Urine Total 950 ml # Voids 5 PHYSICAL EXAM Alert. Oriented to place and person. Answers questions and follows commands. PERRL. EOMI. CN: no focal findings. Muscle tone: normal. Muscle strength: 4/5 DTR: 2+ Plantar reflex: Flexor Gait: not examined in bed. Sensory exam: no abnormal findings. No cerebellar signs elicited. Review of Relevant I have reviewed the following items bj (where applicable) has been applied. Labs Laboratory Tests Test 10/07/16 18:15 10/08/16 03:35 10/08/16 18:10 10/09/16 04:31 Urine Sodium 99 mmol/L (Not Estab.) Urine Potassium 41.8 mmol/L (Not Estab.) Urine Chloride 96 mmol/L (Not Estab.) White Blood Count 11.9 x10^3/uL (4.0-11.0) Red Blood Count 4.39 x10^6/uL (3.50-5.40) Hemoglobin 13.4 g/dL (12.0-15.5) Hematocrit 39.6 % (36.0-47.0) Mean Corpuscular Volume 90 fL (79-100) Mean Corpuscular Hemoglobin 30 pg (25-35) Mean Corpuscular Hemoglobin Concent 34 g/dL (31-37) Red Cell Distribution Width 13.5 % (11.5-14.5) Platelet Count 240 x10^3/uL (140-400) Neutrophils (%) (Auto) 83 % (31-73) Lymphocytes (%) (Auto) 5 % (24-48) Monocytes (%) (Auto) 12 % (0-9) Eosinophils (%) (Auto) 0 % (0-3) Basophils (%) (Auto) 0 % (0-3) Neutrophils # (Auto) 9.8 x10^3uL (1.8-7.7) Lymphocytes # (Auto) 0.6 x10^3/uL (1.0-4.8) Monocytes # (Auto) 1.4 x10^3/uL (0.0-1.1) Eosinophils # (Auto) 0.0 x10^3/uL (0.0-0.7) Basophils # (Auto) 0.0 x10^3/uL (0.0-0.2) Sodium Level 124 mmol/L (136-145) 124 mmol/L (136-145) Potassium Level 3.3 mmol/L (3.5-5.1) 3.0 mmol/L (3.5-5.1) Chloride Level 90 mmol/L (98-107) 89 mmol/L (98-107) Carbon Dioxide Level 25 mmol/L (21-32) 25 mmol/L (21-32) Anion Gap 9 (6-14) 10 (6-14) Blood Urea Nitrogen 15 mg/dL (7-20) 12 mg/dL (7-20) Creatinine 0.8 mg/dL (0.6-1.0) 0.7 mg/dL (0.6-1.0) Estimated GFR (Cockcroft-Gault) 70.1 81.8 Glucose Level 132 mg/dL (70-99) 138 mg/dL (70-99) Uric Acid 2.5 mg/dL (2.6-6.0) Calcium Level 8.0 mg/dL (8.5-10.1) 8.2 mg/dL (8.5-10.1) Magnesium Level 1.4 mg/dL (1.8-2.4) 1.8 mg/dL (1.8-2.4) Ammonia 11 mcmol/L (11-34) Vitamin B12 Level 275 pg/mL (247-911) Serum Folate 22.61 ng/ml (3.2-20.0) Urine Collection Type Unknown Urine Color Yellow Urine Clarity Clear Urine pH 6.0 Urine Specific [place] <=1.005 Urine Protein Negative mg/dL (NEG-TRACE) Urine Glucose (UA) Negative mg/dL (NEG) Urine Ketones (Stick) Negative mg/dL (NEG) Urine Blood Moderate (NEG) Urine Nitrite Negative (NEG) Urine Bilirubin Negative (NEG) Urine Urobilinogen Dipstick 0.2 mg/dL (0.2 mg/dL) Urine Leukocyte Esterase Negative (NEG) Urine RBC 6-10 /HPF (0-2) Urine WBC Occ /HPF (0-4) Urine Squamous Epithelial Cells Few /LPF Urine Amorphous Sediment Present /HPF Urine Bacteria 0 /HPF (0-FEW) Phosphorus Level 2.5 mg/dL (2.6-4.7) Albumin 3.6 g/dL (3.4-5.0) Laboratory Tests Test 10/08/16 18:10 10/09/16 04:31 Urine Collection Type Unknown Urine Color Yellow Urine Clarity Clear Urine pH 6.0 Urine Specific [place] <=1.005 Urine Protein Negative mg/dL (NEG-TRACE) Urine Glucose (UA) Negative mg/dL (NEG) Urine Ketones (Stick) Negative mg/dL (NEG) Urine Blood Moderate (NEG) Urine Nitrite Negative (NEG) Urine Bilirubin Negative (NEG) Urine Urobilinogen Dipstick 0.2 mg/dL (0.2 mg/dL) Urine Leukocyte Esterase Negative (NEG) Urine RBC 6-10 /HPF (0-2) Urine WBC Occ /HPF (0-4) Urine Squamous Epithelial Cells Few /LPF Urine Amorphous Sediment Present /HPF Urine Bacteria 0 /HPF (0-FEW) Sodium Level 124 mmol/L (136-145) Potassium Level 3.0 mmol/L (3.5-5.1) Chloride Level 89 mmol/L (98-107) Carbon Dioxide Level 25 mmol/L (21-32) Anion Gap 10 (6-14) Blood Urea Nitrogen 12 mg/dL (7-20) Creatinine 0.7 mg/dL (0.6-1.0) Estimated GFR (Cockcroft-Gault) 81.8 Glucose Level 138 mg/dL (70-99) Calcium Level 8.2 mg/dL (8.5-10.1) Phosphorus Level 2.5 mg/dL (2.6-4.7) Magnesium Level 1.8 mg/dL (1.8-2.4) Albumin 3.6 g/dL (3.4-5.0) Medications Current Medications Promethazine HCl 12.5 mg/Sodium Chloride 50.5 ml @ 151.5 mls/ hr PRN Q6HRS PRN IV NAUSEA/VOMITING Last administered on 10/09/16 10:29; Start 10/06/16 at 09 :30 Fentanyl Citrate (Fentanyl 2ml Vial) 75 mcg 1X ONCE IV Last administered on 10:01; Start 10/06/16 at 10:00; Stop 10/06/16 at 10:17; Status DC Pantoprazole Sodium (Protonix Vial) 80 mg 1X ONCE IVP Last administered on 10/06 10:05; Start 10/06/16 at 10:00; Stop 10/06/16 at 10:17; Status DC Pantoprazole Sodium 80 mg/ Sodium Chloride 100 ml @ 10 mls/hr Q10H IV Last administered on 10/07/16 11:08; Start 10/06/16 at 10:00; Stop 10/07/16 at 11:59; Status DC Sodium Chloride 1,000 ml @ 200 mls/hr 1X ONCE IV Last administered on 10:02; Start 10/06/16 at 10:00; Stop 10/06/16 at 14:59; Status DC Iohexol (Omnipaque 300 Mg/ml) 75 ml 1X ONCE IV Last administered on 10/06/16 11:00; Start 10/06/16 at 10:30; Stop 10/06/16 at 10:31; Status DC Info (Do NOT chart on this entry -- for MONITORING) 1 each PRN DAILY PRN MC SEE COMMENTS; Start 10/06/16 at 10:30; Stop 10/08/16 at 10:29; Status DC Ondansetron HCl (Zofran) 4 mg PRN Q8HRS PRN IV NAUSEA/VOMITING Last administered on 10/06/16 21:12; Start 10/06/16 at 11:30; Stop 10/07/16 at 09:27; Status DC Morphine Sulfate 2 mg PRN Q2HR PRN IV PAIN Last administered on 10/07/16 11:25 ; Start 10/06/16 at 11:30; Stop 10/07/16 at 11:29; Status DC Dextrose/Sodium Chloride 1,000 ml @ 125 mls/hr 1X ONCE IV Last administered on 10/06/16 15:00; Start 10/06/16 at 15:00; Stop 10/06/16 at 22:59; Status DC Ringer's Solution 1,000 ml @ 50 mls/hr Q20H IV Last administered on 10/06/16 15:13; Start 10/06/16 at 15:00; Stop 10/07/16 at 07:47; Status DC Propofol 20 ml @ As Directed STK-MED ONCE IV ; Start 10/06/16 at 15:39; Stop 10/06 at 15:40; Status DC Lidocaine HCl (Lidocaine Pf 2% Vial) 5 ml STK-MED ONCE .ROUTE ; Start 10/06/16 at 15:39; Stop 10/06/16 at 15:40; Status DC Ondansetron HCl (Zofran) 4 mg PRN Q6HRS PRN IV NAUSEA/VOMITING; Start 10/07/16 at 09:26; Stop 10/08/16 at 09:25; Status DC Acetaminophen/ Hydrocodone Bitart (Lortab 5/325) 1 tab PRN Q6HRS PRN PO PAIN; Start 10/07/16 at 09:30 Phenytoin Sodium (Dilantin) 100 mg TID PO Last administered on 10/09/16 09:27 ; Start 10/07/16 at 10:00 Gabapentin (Neurontin) 300 mg TID PO ; Start 10/07/16 at 10:00; Stop 10/07/16 at 11:59; Status DC Morphine Sulfate 1 mg PRN Q2HR PRN IV PAIN; Start 10/07/16 at 12:00; Stop at 15:36; Status DC Amino Acids/ Glycerin/ Electrolytes 1,000 ml @ 80 mls/hr [id number] IV Last administered on 10/07/16 13:13; Start 10/07/16 at 12:30; Stop 10/07/16 at 16:48; Status DC Enoxaparin Sodium (Lovenox 40mg Syringe) 40 mg Q24H SQ Last administered on 21:15; Start 10/07/16 at 21:00 Famotidine (Pepcid) 20 mg QHS IVP Last administered on 10/08/16 21:15; Start 10/07/16 at 21:00; Stop 10/09/16 at 12:11; Status DC Famotidine (Pepcid) 20 mg QHS IVP ; Start 10/07/16 at 21:00; Status UNV Potassium Chloride 50 ml @ 50 mls/hr Q1H IV ; Start 10/07/16 at 13:30; Stop at 13:41; Status DC Sodium Chloride 1,000 ml @ 75 mls/hr [id number] IV Last administered on 03:12; Start 10/07/16 at 13:30 Potassium Chloride 100 ml @ 100 mls/hr Q1H IV Last administered on 10/07/16 21 :03; Start 10/07/16 at 14:30; Stop 10/07/16 at 18:29; Status DC Morphine Sulfate 1 mg PRN Q2HR PRN IV PAIN Last administered on 10/07/16 15:44 ; Start 10/07/16 at 15:36; Stop 10/07/16 at 16:44; Status DC Lorazepam (Ativan) 2 mg 1X ONCE IV Last administered on 10/07/16 18:07; Start 10/07/16 at 17:00; Stop 10/07/16 at 17:01; Status DC Morphine Sulfate 2 mg PRN Q2HR PRN IV PAIN; Start 10/07/16 at 16:45; Stop at 15:17; Status DC Morphine Sulfate 2 mg PRN Q2HR PRN IV PAIN; Start 10/07/16 at 16:45 Gadobutrol (Gadavist) 10 mmol 1X ONCE IV ; Start 10/07/16 at 17:30; Stop at 17:31; Status DC Lorazepam (Ativan) 2 mg PRN Q4HRS PRN IV ANXIETY / AGITATION Last administered on 10/08/16 04:31; Start 10/07/16 at 22:00 Haloperidol Lactate (Haldol) 2.5 mg PRN Q6HRS PRN IVP ANXIETY / AGITATION; Start 10/07/16 at 22:00 Magnesium Sulfate/ Dextrose 50 ml @ 25 mls/hr 1X ONCE IV Last administered on 10/08/16 12:24; Start 10/08/16 at 10:00; Stop 10/08/16 at 11:59; Status DC Potassium Chloride 50 ml @ 50 mls/hr Q1H IV ; Start 10/08/16 at 09:45; Stop 12/15 at 11:44; Status UNV Potassium Chloride 100 ml @ 100 mls/hr Q1H IV Last administered on 10/08/16 17:51; Start 10/08/16 at 10:00; Stop 10/08/16 at 13:59; Status DC Sodium Chloride 250 ml @ 50 mls/hr 1X ONCE IV Last administered on 10/08/16 14:10; Start 10/08/16 at 12:30; Stop 10/08/16 at 17:29; Status DC Cyanocobalamin (Vitamin B-12) 1,000 mcg QMONTH IM Last administered on 15:09; Start 10/08/16 at 14:30 Ondansetron HCl (Zofran) 4 mg PRN Q6HRS PRN IV NAUSEA/VOMITING Last administered on 10/09/16 04:08; Start 10/09/16 at 04:00 Potassium Phos/ Sodium Phos (Phos-Nak) 1 pkt TID PO Last administered on 09:28; Start 10/09/16 at 09:00 Metoclopramide HCl (Reglan) 5 mg TIDACHC PO ; Start 10/09/16 at 11:30 Potassium Chloride (Klor-Con) 40 meq 1X ONCE PO ; Start 10/09/16 at 11:30; Stop 10/09/16 at 11:31; Status DC Sodium Chloride 250 ml @ 50 mls/hr 1X ONCE IV ; Start 10/09/16 at 11:30; Stop 10/09/16 at 16:29 Pantoprazole Sodium (Protonix) 40 mg DAILYAC PO ; Start 10/10/16 at 07:30 Active Scripts Active Reported Estradiol 0.5 Mg Tablet 1 Tab PO DAILY Cipro (Ciprofloxacin Hcl) 250 Mg Tablet 1 Tab PO BID Medroxyprogesterone Acetate 2.5 Mg Tablet 1 Tab PO DAILY Bactrim 400-80 Mg Tablet (Sulfamethoxazole/Trimethoprim) 1 Each Tablet 1 Tab PO BID Aspirin 81 Mg Tab.chew 1 Tab PO DAILY [place] 5-325 Tablet (Acetaminophen/Hydrocodone Bitart) 1 Each Tablet 1 Tab PO PRN Q6HRS PRN Dilantin (Phenytoin Sodium Extended) 100 Mg Capsule 1 Cap PO TID Gabapentin 300 Mg Capsule 300 Mg PO TID Metformin Hcl 500 Mg Tablet 500 Mg PO BIDWMEALS Vitals/I & O Vital Sign - Last 24 Hours 10/08/16 10/08/16 10/08/16 10/08/16 14:35 19:00 20:15 23:40 Temp 97.7 97.9 98.8 97.7 97.9 98.8 Pulse 72 71 70 Resp 20 18 18 B/P (MAP) 162/81 (108) 168/78 (108) 168/71 (103) Pulse Ox 96 97 99 O2 Delivery Room Air Room Air Room Air Room Air 10/09/16 10/09/16 10/09/16 10/09/16 03:54 07:22 08:00 11:10 Temp 98.1 99.3 98.2 98.1 99.3 98.2 Pulse 71 72 73 Resp 18 18 18 B/P (MAP) 177/89 (118) 168/83 (111) 146/78 (100) Pulse Ox 97 98 98 O2 Delivery Room Air Room Air Room Air Room Air Intake and Output 10/08/16 10/08/16 10/09/16 15:00 23:00 07:00 Intake Total 420 ml 1000 ml Output Total 400 ml 550 ml Balance 20 ml 450 ml GISEL ALONSO MD Oct 09, 2016 13:16
[2016-10-09 15:19] VITALS: BP 158/59
--- NOTE | 2016-10-09 15:47 | RAD ---
Indication trauma. Fall 2 days previously. Pain. AP and lateral views targeted to the thoracolumbar junction were obtained. Vertebral height is well maintained. There is very slight wedging of a midthoracic vertebral body segment the chronicity of which is not certain. Osteophytes are seen at multiple levels. There are significant degenerative changes involving the visualized lumbar spine. IMPRESSION: Minimal wedging of a midthoracic vertebral body segment the chronicity of which is is not certain. Moderately advanced degenerative changes in the visualized thoracic and lumbar spine
[2016-10-09] MEDS: METOCLOPRAMIDE 5 MG TABLET. PO SCH ×3 (16:30→20:40)
[2016-10-09 19:40] VITALS: BP 106/61
[2016-10-09] MEDS ORDERED: DOCUSATE SODIUM 100 MG CAPSULE. PO PRN (20:30)
[2016-10-09] MEDS: ENOXAPARIN 40 MG/0.4 ML SYRINGE. SQ SCH (20:41)
[2016-10-09 23:45] VITALS: BP 140/62
[2016-10-10] MEDS: ONDANSETRON PF 4 MG/2 ML VIAL. IV PRN (00:36)
--- NOTE | 2016-10-10 01:35 | CONS ---
DATE OF CONSULTATION: 10/09/2016 ATTENDING PHYSICIAN: Dr. Pablo. The patient was seen at the request of Dr. Whelan for rehab evaluation. HISTORY OF PRESENT ILLNESS: This is a 76-year-old female admitted through the Emergency Room with GI bleed, a lot of coffee-ground emesis. She also had some blood in her stool. She also had nausea. The patient since admission was evaluated for GI bleed. The patient admits back pain since she fell on concrete while cutting her yard earlier this week. Since admission, the patient had radiological studies including CT of the abdomen and pelvis and brain CT and MRI scan and thoracolumbar spine x-rays, which revealed multilevel degenerative disk disease and degenerative joint disease of lumbar vertebrae and degenerative changes in the thoracic spine with associated compression deformities of mid thoracic vertebrae of undetermined age. The patient denies any radiation of pain to the extremities. She denies any tingling or numbness sensation in the extremities. The patient had a fracture of a right anterior rib of unknown chronicity as per CT scan of the pelvis. The patient apparently had not been eating much and she does not have any bowel movement in the last 4-5 days. PHYSICAL EXAMINATION: Today revealed an elderly female. She is somewhat sleepy, follows commands appropriately, moves all 4 extremities voluntarily where she had 4+/5 grade muscle strength. Deep tendon reflexes are 1 to 2+ and symmetrical with absent ankle jerks. She had equal perception of touch and pinprick sensation bilaterally. She had a bruised area and also abraded skin over the lower thoracic spine area, minimal tenderness to palpation in the adjoining paraspinal muscles. No significant tenderness to palpation over the lumbar spine or sacroiliac joint area. Straight leg raising test is negative bilaterally. She had some discomfort on movement of her right knee. She had crepitus on range of motion of both knee joints with knee joint effusion. She is independent with bed mobility. I have not tested her transfers or ambulation skills, but with physical therapy this afternoon, she got up, she is not using proper body mechanics and safety techniques during mobility. 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 The patient with recent onset nausea, vomiting, still having significant discomfort and she is not eating much. RECOMMENDATIONS: To obtain MRI scan of her thoracic spine to make sure the vertebral body compression fracture is not new, to also obtain x-rays of the pelvis and her knees. Agree with the plan for physical therapy and occupational therapy. Dr. Whelan, I appreciate asking me to participate in the care of this interesting patient. I will be glad to follow her with you as needed for her rehabilitation. YEVGENIY GENAO MD DR: CARLOS/virgil JOB#: [id number] / [id number]
[2016-10-10 03:21] VITALS: BP 151/69
[2016-10-10 05:57] LABS: CALCIUM 7.8 mg/dL (8.5-10.1); CREATININE 0.8 mg/dL (0.6-1.0); GFR 70.1; MAGNESIUM 1.9 mg/dL (1.8-2.4); PHOSPHORUS 3.1 mg/dL (2.6-4.7); POTASSIUM 3.1 mmol/L (3.5-5.1)
[2016-10-10] MEDS: IV NORMAL SALINE 1000ML BAG 1,000 ML IV SCH ×2 (06:39→19:54)
[2016-10-10 07:00] VITALS: BP 113/73
[2016-10-10] MEDS: POTASSIUM & SODIUM PHOSPHATES PACKET. PO SCH ×3 (08:44→19:53)
[2016-10-10] MEDS: PHENYTOIN SODIUM EXTENDED 100 MG CAPSULE PO SCH ×3 (08:45→19:53)
[2016-10-10] MEDS: PANTOPRAZOLE 40 MG TABLET.DR. PO SCH (08:45)
[2016-10-10] MEDS: METOCLOPRAMIDE 5 MG TABLET. PO SCH ×4 (08:45→19:53)
--- NOTE | 2016-10-10 11:40 | PDOC ---
PROGRESS NOTES Subjective Subjective She admits nausea and constipation and denies any significant back or knee pain. 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 Assessment Assessment Problems Medical Problems: (1) Upper GI bleed Status: Acute Plan Plan of Care To await mri scan report. Comment Review of Relevant I have reviewed the following items bj (where applicable) has been applied. Labs Laboratory Tests Test 10/08/16 18:10 10/09/16 04:31 10/10/16 04:15 10/10/16 07:52 Urine Collection Type Unknown Urine Color Yellow Urine Clarity Clear Urine pH 6.0 Urine Specific [place] <=1.005 Urine Protein Negative mg/dL (NEG-TRACE) Urine Glucose (UA) Negative mg/dL (NEG) Urine Ketones (Stick) Negative mg/dL (NEG) Urine Blood Moderate (NEG) Urine Nitrite Negative (NEG) Urine Bilirubin Negative (NEG) Urine Urobilinogen Dipstick 0.2 mg/dL (0.2 mg/dL) Urine Leukocyte Esterase Negative (NEG) Urine RBC 6-10 /HPF (0-2) Urine WBC Occ /HPF (0-4) Urine Squamous Epithelial Cells Few /LPF Urine Amorphous Sediment Present /HPF Urine Bacteria 0 /HPF (0-FEW) Sodium Level 124 mmol/L (136-145) 132 mmol/L (136-145) Potassium Level 3.0 mmol/L (3.5-5.1) 3.1 mmol/L (3.5-5.1) Chloride Level 89 mmol/L (98-107) 96 mmol/L (98-107) Carbon Dioxide Level 25 mmol/L (21-32) 27 mmol/L (21-32) Anion Gap 10 (6-14) 9 (6-14) Blood Urea Nitrogen 12 mg/dL (7-20) 14 mg/dL (7-20) Creatinine 0.7 mg/dL (0.6-1.0) 0.8 mg/dL (0.6-1.0) Estimated GFR (Cockcroft-Gault) 81.8 70.1 Glucose Level 138 mg/dL (70-99) 124 mg/dL (70-99) Calcium Level 8.2 mg/dL (8.5-10.1) 7.8 mg/dL (8.5-10.1) Phosphorus Level 2.5 mg/dL (2.6-4.7) 3.1 mg/dL (2.6-4.7) Magnesium Level 1.8 mg/dL (1.8-2.4) 1.9 mg/dL (1.8-2.4) Albumin 3.6 g/dL (3.4-5.0) Glucose (Fingerstick) 119 mg/dL (70-99) Laboratory Tests Test 10/10/16 04:15 10/10/16 07:52 Sodium Level 132 mmol/L (136-145) Potassium Level 3.1 mmol/L (3.5-5.1) Chloride Level 96 mmol/L (98-107) Carbon Dioxide Level 27 mmol/L (21-32) Anion Gap 9 (6-14) Blood Urea Nitrogen 14 mg/dL (7-20) Creatinine 0.8 mg/dL (0.6-1.0) Estimated GFR (Cockcroft-Gault) 70.1 Glucose Level 124 mg/dL (70-99) Calcium Level 7.8 mg/dL (8.5-10.1) Phosphorus Level 3.1 mg/dL (2.6-4.7) Magnesium Level 1.9 mg/dL (1.8-2.4) Glucose (Fingerstick) 119 mg/dL (70-99) Medications Current Medications Promethazine HCl 12.5 mg/Sodium Chloride 50.5 ml @ 151.5 mls/ hr PRN Q6HRS PRN IV NAUSEA/VOMITING Last administered on 10/09/16 10:29; Start 10/06/16 at 09 :30 Fentanyl Citrate (Fentanyl 2ml Vial) 75 mcg 1X ONCE IV Last administered on 10:01; Start 10/06/16 at 10:00; Stop 10/06/16 at 10:17; Status DC Pantoprazole Sodium (Protonix Vial) 80 mg 1X ONCE IVP Last administered on 10/06 10:05; Start 10/06/16 at 10:00; Stop 10/06/16 at 10:17; Status DC Pantoprazole Sodium 80 mg/ Sodium Chloride 100 ml @ 10 mls/hr Q10H IV Last administered on 10/07/16 11:08; Start 10/06/16 at 10:00; Stop 10/07/16 at 11:59; Status DC Sodium Chloride 1,000 ml @ 200 mls/hr 1X ONCE IV Last administered on 10:02; Start 10/06/16 at 10:00; Stop 10/06/16 at 14:59; Status DC Iohexol (Omnipaque 300 Mg/ml) 75 ml 1X ONCE IV Last administered on 10/06/16 11:00; Start 10/06/16 at 10:30; Stop 10/06/16 at 10:31; Status DC Info (Do NOT chart on this entry -- for MONITORING) 1 each PRN DAILY PRN MC SEE COMMENTS; Start 10/06/16 at 10:30; Stop 10/08/16 at 10:29; Status DC Ondansetron HCl (Zofran) 4 mg PRN Q8HRS PRN IV NAUSEA/VOMITING Last administered on 10/06/16 21:12; Start 10/06/16 at 11:30; Stop 10/07/16 at 09:27; Status DC Morphine Sulfate 2 mg PRN Q2HR PRN IV PAIN Last administered on 10/07/16 11:25 ; Start 10/06/16 at 11:30; Stop 10/07/16 at 11:29; Status DC Dextrose/Sodium Chloride 1,000 ml @ 125 mls/hr 1X ONCE IV Last administered on 10/06/16 15:00; Start 10/06/16 at 15:00; Stop 10/06/16 at 22:59; Status DC Ringer's Solution 1,000 ml @ 50 mls/hr Q20H IV Last administered on 10/06/16 15:13; Start 10/06/16 at 15:00; Stop 10/07/16 at 07:47; Status DC Propofol 20 ml @ As Directed STK-MED ONCE IV ; Start 10/06/16 at 15:39; Stop 10/06 at 15:40; Status DC Lidocaine HCl (Lidocaine Pf 2% Vial) 5 ml STK-MED ONCE .ROUTE ; Start 10/06/16 at 15:39; Stop 10/06/16 at 15:40; Status DC Ondansetron HCl (Zofran) 4 mg PRN Q6HRS PRN IV NAUSEA/VOMITING; Start 10/07/16 at 09:26; Stop 10/08/16 at 09:25; Status DC Acetaminophen/ Hydrocodone Bitart (Lortab 5/325) 1 tab PRN Q6HRS PRN PO PAIN; Start 10/07/16 at 09:30 Phenytoin Sodium (Dilantin) 100 mg TID PO Last administered on 10/10/16 08:45 ; Start 10/07/16 at 10:00 Gabapentin (Neurontin) 300 mg TID PO ; Start 10/07/16 at 10:00; Stop 10/07/16 at 11:59; Status DC Morphine Sulfate 1 mg PRN Q2HR PRN IV PAIN; Start 10/07/16 at 12:00; Stop at 15:36; Status DC Amino Acids/ Glycerin/ Electrolytes 1,000 ml @ 80 mls/hr [id number] IV Last administered on 10/07/16 13:13; Start 10/07/16 at 12:30; Stop 10/07/16 at 16:48; Status DC Enoxaparin Sodium (Lovenox 40mg Syringe) 40 mg Q24H SQ Last administered on 20:41; Start 10/07/16 at 21:00 Famotidine (Pepcid) 20 mg QHS IVP Last administered on 10/08/16 21:15; Start 10/07/16 at 21:00; Stop 10/09/16 at 12:11; Status DC Famotidine (Pepcid) 20 mg QHS IVP ; Start 10/07/16 at 21:00; Status UNV Potassium Chloride 50 ml @ 50 mls/hr Q1H IV ; Start 10/07/16 at 13:30; Stop at 13:41; Status DC Sodium Chloride 1,000 ml @ 75 mls/hr [id number] IV Last administered on 06:39; Start 10/07/16 at 13:30 Potassium Chloride 100 ml @ 100 mls/hr Q1H IV Last administered on 10/07/16 21 :03; Start 10/07/16 at 14:30; Stop 10/07/16 at 18:29; Status DC Morphine Sulfate 1 mg PRN Q2HR PRN IV PAIN Last administered on 10/07/16 15:44 ; Start 10/07/16 at 15:36; Stop 10/07/16 at 16:44; Status DC Lorazepam (Ativan) 2 mg 1X ONCE IV Last administered on 10/07/16 18:07; Start 10/07/16 at 17:00; Stop 10/07/16 at 17:01; Status DC Morphine Sulfate 2 mg PRN Q2HR PRN IV PAIN; Start 10/07/16 at 16:45; Stop at 15:17; Status DC Morphine Sulfate 2 mg PRN Q2HR PRN IV PAIN; Start 10/07/16 at 16:45 Gadobutrol (Gadavist) 10 mmol 1X ONCE IV ; Start 10/07/16 at 17:30; Stop at 17:31; Status DC Lorazepam (Ativan) 2 mg PRN Q4HRS PRN IV ANXIETY / AGITATION Last administered on 10/08/16 04:31; Start 10/07/16 at 22:00 Haloperidol Lactate (Haldol) 2.5 mg PRN Q6HRS PRN IVP ANXIETY / AGITATION; Start 10/07/16 at 22:00 Magnesium Sulfate/ Dextrose 50 ml @ 25 mls/hr 1X ONCE IV Last administered on 10/08/16 12:24; Start 10/08/16 at 10:00; Stop 10/08/16 at 11:59; Status DC Potassium Chloride 50 ml @ 50 mls/hr Q1H IV ; Start 10/08/16 at 09:45; Stop 12/15 at 11:44; Status UNV Potassium Chloride 100 ml @ 100 mls/hr Q1H IV Last administered on 10/08/16 17:51; Start 10/08/16 at 10:00; Stop 10/08/16 at 13:59; Status DC Sodium Chloride 250 ml @ 50 mls/hr 1X ONCE IV Last administered on 10/08/16 14:10; Start 10/08/16 at 12:30; Stop 10/08/16 at 17:29; Status DC Cyanocobalamin (Vitamin B-12) 1,000 mcg QMONTH IM Last administered on 15:09; Start 10/08/16 at 14:30 Ondansetron HCl (Zofran) 4 mg PRN Q6HRS PRN IV NAUSEA/VOMITING Last administered on 10/10/16 00:36; Start 10/09/16 at 04:00 Potassium Phos/ Sodium Phos (Phos-Nak) 1 pkt TID PO Last administered on 08:44; Start 10/09/16 at 09:00 Metoclopramide HCl (Reglan) 5 mg TIDACHC PO Last administered on 10/10/16 08: 45; Start 10/09/16 at 11:30 Potassium Chloride (Klor-Con) 40 meq 1X ONCE PO Last administered on 18:16; Start 10/09/16 at 11:30; Stop 10/09/16 at 11:31; Status DC Sodium Chloride 250 ml @ 50 mls/hr 1X ONCE IV Last administered on 10/09/16 18:14; Start 10/09/16 at 11:30; Stop 10/09/16 at 16:29; Status DC Pantoprazole Sodium (Protonix) 40 mg DAILYAC PO Last administered on 10/10/16 08:45; Start 10/10/16 at 07:30 Prochlorperazine (Compazine) 25 mg PRN Q12HR PRN [place] NAUSEA/VOMITING; Start 01/15 at 17:30 Docusate Sodium (Colace) 100 mg PRN DAILY PRN PO CONSTIPATION Last administered on 10/09/16 20:40; Start 10/09/16 at 20:30 Active Scripts Active Reported Estradiol 0.5 Mg Tablet 1 Tab PO DAILY Cipro (Ciprofloxacin Hcl) 250 Mg Tablet 1 Tab PO BID Medroxyprogesterone Acetate 2.5 Mg Tablet 1 Tab PO DAILY Bactrim 400-80 Mg Tablet (Sulfamethoxazole/Trimethoprim) 1 Each Tablet 1 Tab PO BID Aspirin 81 Mg Tab.chew 1 Tab PO DAILY [place] 5-325 Tablet (Acetaminophen/Hydrocodone Bitart) 1 Each Tablet 1 Tab PO PRN Q6HRS PRN Dilantin (Phenytoin Sodium Extended) 100 Mg Capsule 1 Cap PO TID Gabapentin 300 Mg Capsule 300 Mg PO TID Metformin Hcl 500 Mg Tablet 500 Mg PO BIDWMEALS Vitals/I & O Vital Sign - Last 24 Hours 10/09/16 10/09/16 10/09/16 10/09/16 15:19 19:40 20:00 23:45 Temp 98.7 98.1 98.0 98.7 98.1 98.0 Pulse 72 70 78 Resp 19 24 22 B/P (MAP) 158/59 (92) 106/61 (76) 140/62 (88) Pulse Ox 97 96 97 O2 Delivery Room Air Room Air Room Air Room Air 10/10/16 10/10/16 03:21 07:00 Temp 97.9 97.7 97.9 97.7 Pulse 72 89 Resp 21 18 B/P (MAP) 151/69 (96) 113/73 (86) Pulse Ox 97 99 O2 Delivery Room Air Room Air Intake and Output 10/09/16 10/09/16 10/10/16 15:00 23:00 07:00 Intake Total 420 ml 700 ml Output Total 720 ml 400 ml Balance -300 ml 300 ml YEVGENIY GENAO MD Oct 10, 2016 11:40
[2016-10-10] MEDS ORDERED: BISACODYL 10 MG SUPP.RECT. PR PRN (11:45)
--- NOTE | 2016-10-10 11:49 | RAD ---
MRI of the thoracic spine without contrast October 10, 2016 Clinical history: Mid back pain. Recent fall. Technique: Unenhanced T1-weighted, T2-weighted inversion recovery sagittal and T1 weighted and T2 weighted axial images of the thoracic spine were obtained. Findings: Comparison is made to radiographs of the thoracolumbar junction dated 10/09/2016. Very mild S-shaped curvature of the thoracolumbar spine is seen. Degenerative signal changes are seen involving all of the discs of the thoracic spine. Degenerative signal changes are seen within the marrow surrounding these discs. No area of abnormal signal intensity is seen involving the thoracic spinal cord. There is no MRI evidence of an acute compression fracture involving the lumbar vertebral bodies. Degenerative changes are seen throughout the thoracic disc spaces consisting of minimal to mild generalized disc bulges and degenerative changes involving the facet joints. These findings result in mild central spinal canal stenosis with moderate to severe bilateral neural foraminal stenosis at T11-12. Impression: Degenerative changes are seen throughout the thoracic spine. These findings result in mild central spinal canal stenosis with moderate to severe bilateral neural foraminal stenosis at T11-12. No acute compression fracture of the thoracic vertebrae is seen.
--- NOTE | 2016-10-10 12:13 | PDOC ---
Renal-Progress Notes Subjective Notes Notes LESS CONFUSED History of Present Illness Hx of present illness BETTER Vitals Vitals Vital Signs Date Time Temp Pulse Resp B/P (MAP) Pulse Ox O2 Delivery O2 Flow Rate FiO2 10/10/16 07:00 97.7 89 18 113/73 (86) 99 Room Air 97.7 Weight Weight [ ] I.O. Intake and Output Intake and Output 10/10/16 06:59 Intake Total 1120 ml Output Total 1120 ml Balance 0 ml Intake Oral 1120 ml Output Urine Total 1120 ml # Bowel Movements 1 Labs Labs Laboratory Tests Test 10/10/16 04:15 10/10/16 07:52 10/10/16 11:45 Sodium Level 132 mmol/L (136-145) Potassium Level 3.1 mmol/L (3.5-5.1) Chloride Level 96 mmol/L (98-107) Carbon Dioxide Level 27 mmol/L (21-32) Anion Gap 9 (6-14) Blood Urea Nitrogen 14 mg/dL (7-20) Creatinine 0.8 mg/dL (0.6-1.0) Estimated GFR (Cockcroft-Gault) 70.1 Glucose Level 124 mg/dL (70-99) Calcium Level 7.8 mg/dL (8.5-10.1) Phosphorus Level 3.1 mg/dL (2.6-4.7) Magnesium Level 1.9 mg/dL (1.8-2.4) Glucose (Fingerstick) 119 mg/dL (70-99) 125 mg/dL (70-99) Review of Systems Constitutional: yes: no symptom reported, other (UNABLE TO OBTAIN) Physical Exam General Appearance: no apparent distress Skin: warm Respiratory: bilateral CTA Heart: S1S2, RRR Abdomen: soft, bowel sounds present Neurology: confused Assessment Assessment IMP SIADH HYPONATREMIA-BETTER HYPOKALEMIA MET ENCEPHALOPATHY UGIB PLAN REPLACE K LABS IN AM INCREASE ACTIVITY RENATA TAY MD Oct 10, 2016 12:13
[2016-10-10] MEDS ORDERED: POTASSIUM CHLORIDE 20 MEQ TABLET.ER. PO ONE (12:15)
--- NOTE | 2016-10-10 12:26 | PDOC ---
PROGRESS NOTES Chief Complaint Chief Complaint 1. Coffee ground emesis s/p EGD (10/06) - neg egd 2. Acute encephalopathy, in the background of HYPONATREMIA 3. R hib fxs - uncertain age 4. FAll 5. Hypokalemia and hyponatremia 6. GAtsric occult positive, possible NSAID use? 7. PERSISTENT EMESIS 8. BACK pain after a fall History of Present Illness History of Present Illness Wide awake! Best I have ever seen here NA 132 Still nauseus, bucket at bedside At liquid diet SOmeone cancelled my GET bec she was too nausues She is diabetic but bS are controlled HAs been on reglan for days, no relief seems PLAN: Re order GET Follow renal recs - low K PT/OT- await further recs on dc dispo Replace K Vitals Vitals Vital Signs Date Time Temp Pulse Resp B/P (MAP) Pulse Ox O2 Delivery O2 Flow Rate FiO2 10/10/16 07:00 97.7 89 18 113/73 (86) 99 Room Air 97.7 Physical Exam General: Oriented X3, Cooperative, No acute distress, Other (CONFUSED) Heart: Regular rate Lungs: Clear, Wheezing Abdomen: Normal bowel sounds, Soft, No tenderness Extremities: No edema, Normal pulses Skin: No rashes Labs LABS Laboratory Tests Test 10/10/16 04:15 10/10/16 07:52 10/10/16 11:45 Sodium Level 132 mmol/L (136-145) Potassium Level 3.1 mmol/L (3.5-5.1) Chloride Level 96 mmol/L (98-107) Carbon Dioxide Level 27 mmol/L (21-32) Anion Gap 9 (6-14) Blood Urea Nitrogen 14 mg/dL (7-20) Creatinine 0.8 mg/dL (0.6-1.0) Estimated GFR (Cockcroft-Gault) 70.1 Glucose Level 124 mg/dL (70-99) Calcium Level 7.8 mg/dL (8.5-10.1) Phosphorus Level 3.1 mg/dL (2.6-4.7) Magnesium Level 1.9 mg/dL (1.8-2.4) Glucose (Fingerstick) 119 mg/dL (70-99) 125 mg/dL (70-99) Review of Systems Review of Systems nausea, no emesis or abd pain Assessment and Plan Assessmemt and Plan Problems Medical Problems: (1) Upper GI bleed Status: Acute Problems: Comment Review of Relevant I have reviewed the following items bj (where applicable) has been applied. Labs Laboratory Tests Test 10/08/16 18:10 10/09/16 04:31 10/10/16 04:15 10/10/16 07:52 Urine Collection Type Unknown Urine Color Yellow Urine Clarity Clear Urine pH 6.0 Urine Specific [place] <=1.005 Urine Protein Negative mg/dL (NEG-TRACE) Urine Glucose (UA) Negative mg/dL (NEG) Urine Ketones (Stick) Negative mg/dL (NEG) Urine Blood Moderate (NEG) Urine Nitrite Negative (NEG) Urine Bilirubin Negative (NEG) Urine Urobilinogen Dipstick 0.2 mg/dL (0.2 mg/dL) Urine Leukocyte Esterase Negative (NEG) Urine RBC 6-10 /HPF (0-2) Urine WBC Occ /HPF (0-4) Urine Squamous Epithelial Cells Few /LPF Urine Amorphous Sediment Present /HPF Urine Bacteria 0 /HPF (0-FEW) Sodium Level 124 mmol/L (136-145) 132 mmol/L (136-145) Potassium Level 3.0 mmol/L (3.5-5.1) 3.1 mmol/L (3.5-5.1) Chloride Level 89 mmol/L (98-107) 96 mmol/L (98-107) Carbon Dioxide Level 25 mmol/L (21-32) 27 mmol/L (21-32) Anion Gap 10 (6-14) 9 (6-14) Blood Urea Nitrogen 12 mg/dL (7-20) 14 mg/dL (7-20) Creatinine 0.7 mg/dL (0.6-1.0) 0.8 mg/dL (0.6-1.0) Estimated GFR (Cockcroft-Gault) 81.8 70.1 Glucose Level 138 mg/dL (70-99) 124 mg/dL (70-99) Calcium Level 8.2 mg/dL (8.5-10.1) 7.8 mg/dL (8.5-10.1) Phosphorus Level 2.5 mg/dL (2.6-4.7) 3.1 mg/dL (2.6-4.7) Magnesium Level 1.8 mg/dL (1.8-2.4) 1.9 mg/dL (1.8-2.4) Albumin 3.6 g/dL (3.4-5.0) Glucose (Fingerstick) 119 mg/dL (70-99) Test 10/10/16 11:45 Glucose (Fingerstick) 125 mg/dL (70-99) Laboratory Tests Test 10/10/16 04:15 10/10/16 07:52 10/10/16 11:45 Sodium Level 132 mmol/L (136-145) Potassium Level 3.1 mmol/L (3.5-5.1) Chloride Level 96 mmol/L (98-107) Carbon Dioxide Level 27 mmol/L (21-32) Anion Gap 9 (6-14) Blood Urea Nitrogen 14 mg/dL (7-20) Creatinine 0.8 mg/dL (0.6-1.0) Estimated GFR (Cockcroft-Gault) 70.1 Glucose Level 124 mg/dL (70-99) Calcium Level 7.8 mg/dL (8.5-10.1) Phosphorus Level 3.1 mg/dL (2.6-4.7) Magnesium Level 1.9 mg/dL (1.8-2.4) Glucose (Fingerstick) 119 mg/dL (70-99) 125 mg/dL (70-99) Medications Current Medications Promethazine HCl 12.5 mg/Sodium Chloride 50.5 ml @ 151.5 mls/ hr PRN Q6HRS PRN IV NAUSEA/VOMITING, 2ND CHOICE Last administered on 10/09/16 10:29; Start 10/06/16 at 09:30 Fentanyl Citrate (Fentanyl 2ml Vial) 75 mcg 1X ONCE IV Last administered on 10:01; Start 10/06/16 at 10:00; Stop 10/06/16 at 10:17; Status DC Pantoprazole Sodium (Protonix Vial) 80 mg 1X ONCE IVP Last administered on 10/06 10:05; Start 10/06/16 at 10:00; Stop 10/06/16 at 10:17; Status DC Pantoprazole Sodium 80 mg/ Sodium Chloride 100 ml @ 10 mls/hr Q10H IV Last administered on 10/07/16 11:08; Start 10/06/16 at 10:00; Stop 10/07/16 at 11:59; Status DC Sodium Chloride 1,000 ml @ 200 mls/hr 1X ONCE IV Last administered on 10:02; Start 10/06/16 at 10:00; Stop 10/06/16 at 14:59; Status DC Iohexol (Omnipaque 300 Mg/ml) 75 ml 1X ONCE IV Last administered on 10/06/16 11:00; Start 10/06/16 at 10:30; Stop 10/06/16 at 10:31; Status DC Info (Do NOT chart on this entry -- for MONITORING) 1 each PRN DAILY PRN MC SEE COMMENTS; Start 10/06/16 at 10:30; Stop 10/08/16 at 10:29; Status DC Ondansetron HCl (Zofran) 4 mg PRN Q8HRS PRN IV NAUSEA/VOMITING Last administered on 10/06/16 21:12; Start 10/06/16 at 11:30; Stop 10/07/16 at 09:27; Status DC Morphine Sulfate 2 mg PRN Q2HR PRN IV PAIN Last administered on 10/07/16 11:25 ; Start 10/06/16 at 11:30; Stop 10/07/16 at 11:29; Status DC Dextrose/Sodium Chloride 1,000 ml @ 125 mls/hr 1X ONCE IV Last administered on 10/06/16 15:00; Start 10/06/16 at 15:00; Stop 10/06/16 at 22:59; Status DC Ringer's Solution 1,000 ml @ 50 mls/hr Q20H IV Last administered on 10/06/16 15:13; Start 10/06/16 at 15:00; Stop 10/07/16 at 07:47; Status DC Propofol 20 ml @ As Directed STK-MED ONCE IV ; Start 10/06/16 at 15:39; Stop 10/06 at 15:40; Status DC Lidocaine HCl (Lidocaine Pf 2% Vial) 5 ml STK-MED ONCE .ROUTE ; Start 10/06/16 at 15:39; Stop 10/06/16 at 15:40; Status DC Ondansetron HCl (Zofran) 4 mg PRN Q6HRS PRN IV NAUSEA/VOMITING; Start 10/07/16 at 09:26; Stop 10/08/16 at 09:25; Status DC Acetaminophen/ Hydrocodone Bitart (Lortab 5/325) 1 tab PRN Q6HRS PRN PO PAIN; Start 10/07/16 at 09:30 Phenytoin Sodium (Dilantin) 100 mg TID PO Last administered on 10/10/16 08:45 ; Start 10/07/16 at 10:00 Gabapentin (Neurontin) 300 mg TID PO ; Start 10/07/16 at 10:00; Stop 10/07/16 at 11:59; Status DC Morphine Sulfate 1 mg PRN Q2HR PRN IV PAIN; Start 10/07/16 at 12:00; Stop at 15:36; Status DC Amino Acids/ Glycerin/ Electrolytes 1,000 ml @ 80 mls/hr [id number] IV Last administered on 10/07/16 13:13; Start 10/07/16 at 12:30; Stop 10/07/16 at 16:48; Status DC Enoxaparin Sodium (Lovenox 40mg Syringe) 40 mg Q24H SQ Last administered on 20:41; Start 10/07/16 at 21:00 Famotidine (Pepcid) 20 mg QHS IVP Last administered on 10/08/16 21:15; Start 10/07/16 at 21:00; Stop 10/09/16 at 12:11; Status DC Famotidine (Pepcid) 20 mg QHS IVP ; Start 10/07/16 at 21:00; Status UNV Potassium Chloride 50 ml @ 50 mls/hr Q1H IV ; Start 10/07/16 at 13:30; Stop at 13:41; Status DC Sodium Chloride 1,000 ml @ 50 mls/hr Q20H IV Last administered on 10/10/16 06 :39; Start 10/07/16 at 13:30 Potassium Chloride 100 ml @ 100 mls/hr Q1H IV Last administered on 10/07/16 21 :03; Start 10/07/16 at 14:30; Stop 10/07/16 at 18:29; Status DC Morphine Sulfate 1 mg PRN Q2HR PRN IV PAIN Last administered on 10/07/16 15:44 ; Start 10/07/16 at 15:36; Stop 10/07/16 at 16:44; Status DC Lorazepam (Ativan) 2 mg 1X ONCE IV Last administered on 10/07/16 18:07; Start 10/07/16 at 17:00; Stop 10/07/16 at 17:01; Status DC Morphine Sulfate 2 mg PRN Q2HR PRN IV PAIN; Start 10/07/16 at 16:45; Stop at 15:17; Status DC Morphine Sulfate 2 mg PRN Q2HR PRN IV PAIN; Start 10/07/16 at 16:45 Gadobutrol (Gadavist) 10 mmol 1X ONCE IV ; Start 10/07/16 at 17:30; Stop at 17:31; Status DC Lorazepam (Ativan) 2 mg PRN Q4HRS PRN IV ANXIETY / AGITATION Last administered on 10/08/16 04:31; Start 10/07/16 at 22:00 Haloperidol Lactate (Haldol) 2.5 mg PRN Q6HRS PRN IVP ANXIETY / AGITATION; Start 10/07/16 at 22:00 Magnesium Sulfate/ Dextrose 50 ml @ 25 mls/hr 1X ONCE IV Last administered on 10/08/16 12:24; Start 10/08/16 at 10:00; Stop 10/08/16 at 11:59; Status DC Potassium Chloride 50 ml @ 50 mls/hr Q1H IV ; Start 10/08/16 at 09:45; Stop 12/15 at 11:44; Status UNV Potassium Chloride 100 ml @ 100 mls/hr Q1H IV Last administered on 10/08/16 17:51; Start 10/08/16 at 10:00; Stop 10/08/16 at 13:59; Status DC Sodium Chloride 250 ml @ 50 mls/hr 1X ONCE IV Last administered on 10/08/16 14:10; Start 10/08/16 at 12:30; Stop 10/08/16 at 17:29; Status DC Cyanocobalamin (Vitamin B-12) 1,000 mcg QMONTH IM Last administered on 15:09; Start 10/08/16 at 14:30 Ondansetron HCl (Zofran) 4 mg PRN Q6HRS PRN IV NAUSEA/VOMITING, 1ST CHOICE Last administered on 10/10/16 00:36; Start 10/09/16 at 04:00 Potassium Phos/ Sodium Phos (Phos-Nak) 1 pkt TID PO Last administered on 08:44; Start 10/09/16 at 09:00 Metoclopramide HCl (Reglan) 5 mg TIDACHC PO Last administered on 10/10/16 08: 45; Start 10/09/16 at 11:30 Potassium Chloride (Klor-Con) 40 meq 1X ONCE PO Last administered on 18:16; Start 10/09/16 at 11:30; Stop 10/09/16 at 11:31; Status DC Sodium Chloride 250 ml @ 50 mls/hr 1X ONCE IV Last administered on 10/09/16 18:14; Start 10/09/16 at 11:30; Stop 10/09/16 at 16:29; Status DC Pantoprazole Sodium (Protonix) 40 mg DAILYAC PO Last administered on 10/10/16 08:45; Start 10/10/16 at 07:30 Prochlorperazine (Compazine) 25 mg PRN Q12HR PRN [place] NAUSEA/VOMITING; Start 01/15 at 17:30 Docusate Sodium (Colace) 100 mg PRN DAILY PRN PO CONSTIPATION Last administered on 10/09/16 20:40; Start 10/09/16 at 20:30 Bisacodyl (Dulcolax Supp) 10 mg PRN DAILY PRN [place] CONSTIPATION; Start 10/10/16 at 11:45 Potassium Chloride (Klor-Con) 40 meq 1X ONCE PO ; Start 10/10/16 at 12:15; Stop 10/10/16 at 12:16; Status UNV Active Scripts Active Reported Estradiol 0.5 Mg Tablet 1 Tab PO DAILY Cipro (Ciprofloxacin Hcl) 250 Mg Tablet 1 Tab PO BID Medroxyprogesterone Acetate 2.5 Mg Tablet 1 Tab PO DAILY Bactrim 400-80 Mg Tablet (Sulfamethoxazole/Trimethoprim) 1 Each Tablet 1 Tab PO BID Aspirin 81 Mg Tab.chew 1 Tab PO DAILY Tippo 5-325 Tablet (Acetaminophen/Hydrocodone Bitart) 1 Each Tablet 1 Tab PO PRN Q6HRS PRN Dilantin (Phenytoin Sodium Extended) 100 Mg Capsule 1 Cap PO TID Gabapentin 300 Mg Capsule 300 Mg PO TID Metformin Hcl 500 Mg Tablet 500 Mg PO BIDWMEALS Vitals/I & O Vital Sign - Last 24 Hours 10/09/16 10/09/16 10/09/16 10/09/16 15:19 19:40 20:00 23:45 Temp 98.7 98.1 98.0 98.7 98.1 98.0 Pulse 72 70 78 Resp 19 24 22 B/P (MAP) 158/59 (92) 106/61 (76) 140/62 (88) Pulse Ox 97 96 97 O2 Delivery Room Air Room Air Room Air Room Air 10/10/16 10/10/16 03:21 07:00 Temp 97.9 97.7 97.9 97.7 Pulse 72 89 Resp 21 18 B/P (MAP) 151/69 (96) 113/73 (86) Pulse Ox 97 99 O2 Delivery Room Air Room Air Intake and Output 10/09/16 10/09/16 10/10/16 15:00 23:00 07:00 Intake Total 420 ml 700 ml Output Total 720 ml 400 ml Balance -300 ml 300 ml LAVELL SLOAN MD Oct 10, 2016 12:26
--- NOTE | 2016-10-10 13:05 | RAD ---
AP pelvis radiograph 10/09/2016 Clinical history: Pelvic pain post fall. An AP digital radiograph of the pelvis to include both hips was obtained. No pelvic bone fracture is seen. Both hips are intact. A 2 cm osteochondroma is seen projecting superiorly from the greater trochanter of the proximal right femur. Moderate to severe degenerative changes are seen involving the mid and lower lumbar spine. Mild to moderate degenerative changes are seen involving both hips. Impression: No pelvic bone fracture is seen.
[2016-10-10] MEDS: PROCHLORPERAZINE 25 MG SUPP.RECT. PR PRN (14:25)
[2016-10-10 15:00] VITALS: BP 120/78
--- NOTE | 2016-10-10 15:14 | RAD ---
AP radiograph of both knees 10/10/2016 Clinical history: Bilateral knee pain. Standing AP digital radiographs of both knees were obtained. Mild to moderate degenerative changes are seen involving the medial and lateral compartments of both knees, particularly involving the lateral compartment, right greater than left. These consist of joint compartment narrowing, subchondral sclerosis and associated osteophyte formation. No fracture or dislocation is seen. 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
[2016-10-10 19:00] VITALS: BP 130/64
[2016-10-10] MEDS: ENOXAPARIN 40 MG/0.4 ML SYRINGE. SQ SCH (19:54)
[2016-10-10 23:03] VITALS: BP 139/70
[2016-10-11 03:04] VITALS: BP 128/68
[2016-10-11 06:03] LABS: CALCIUM 7.8 mg/dL (8.5-10.1); CREATININE 0.9 mg/dL (0.6-1.0); GFR 61.2; POTASSIUM 3.4 mmol/L (3.5-5.1)
[2016-10-11 07:00] VITALS: BP 126/65
[2016-10-11] MEDS: PANTOPRAZOLE 40 MG TABLET.DR. PO SCH (07:30)
[2016-10-11] MEDS: METOCLOPRAMIDE 5 MG TABLET. PO SCH ×4 (07:30→20:14)
[2016-10-11] MEDS: PHENYTOIN SODIUM EXTENDED 100 MG CAPSULE PO SCH ×3 (07:53→20:14)
[2016-10-11] MEDS: POTASSIUM & SODIUM PHOSPHATES PACKET. PO SCH ×3 (07:53→20:14)
[2016-10-11] MEDS: PROCHLORPERAZINE 25 MG SUPP.RECT. PR PRN (09:11)
[2016-10-11 11:13] VITALS: BP 125/61
--- NOTE | 2016-10-11 12:03 | PDOC ---
Renal-Progress Notes Subjective Notes Notes NAUSEA, LESS CONFUSED History of Present Illness Hx of present illness NO CHANGE Vitals Vitals Vital Signs Date Time Temp Pulse Resp B/P (MAP) Pulse Ox O2 Delivery O2 Flow Rate FiO2 10/11/16 11:13 93.7 66 18 125/61 (82) 100 Room Air 93.7 Weight Weight [ ] I.O. Intake and Output Intake and Output 10/11/16 07:00 Intake Total 750 ml Output Total 600 ml Balance 150 ml Intake Oral 750 ml Output Urine Total 600 ml # Voids 1 # Bowel Movements 1 Labs Labs Laboratory Tests Test 10/10/16 17:06 10/10/16 20:44 10/11/16 05:20 10/11/16 07:38 Glucose (Fingerstick) 103 mg/dL (70-99) 104 mg/dL (70-99) 102 mg/dL (70-99) Sodium Level 137 mmol/L (136-145) Potassium Level 3.4 mmol/L (3.5-5.1) Chloride Level 103 mmol/L (98-107) Carbon Dioxide Level 25 mmol/L (21-32) Anion Gap 9 (6-14) Blood Urea Nitrogen 13 mg/dL (7-20) Creatinine 0.9 mg/dL (0.6-1.0) Estimated GFR (Cockcroft-Gault) 61.2 Glucose Level 97 mg/dL (70-99) Calcium Level 7.8 mg/dL (8.5-10.1) Test 10/11/16 11:12 Glucose (Fingerstick) 180 mg/dL (70-99) Review of Systems Constitutional: yes: no symptom reported, other (UNABLE TO OBTAIN) Physical Exam General Appearance: no apparent distress Skin: warm Respiratory: bilateral CTA Heart: S1S2, RRR Abdomen: soft, bowel sounds present Neurology: confused Assessment Assessment IMP SIADH HYPONATREMIA-RESOLVED HYPOKALEMIA MET ENCEPHALOPATHY UGIB NAUSEA PLAN GET TEST PENDING REPLACE K LABS IN AM INCREASE ACTIVITY RENATA TAY MD Oct 11, 2016 12:03
[2016-10-11] MEDS ORDERED: POTASSIUM CHLORIDE 30 MEQ in IV 1/2 NORMAL SALINE 1,000 ML IV ONE (12:30)
--- NOTE | 2016-10-11 13:45 | RAD ---
Gastric emptying study 10/11/2016 Clinical history: Persistent nausea and vomiting for 2 weeks. Technique: 1.98 mCi of Technetium 99m sulfur colloid were administered in a solid meal and ingested by the patient. Imaging of the upper abdomen was performed for 60 minutes. The half-time to gastric emptying was calculated. Findings: Activity persists within the stomach throughout this examination. Some activity is seen extending into the duodenum and small intestine. The half-time to gastric emptying is 112 minutes which is prolonged. The normal half-time to gastric emptying for solid food is 90 minutes. Impression: Prolonged half-time to gastric emptying of 112 minutes.
[2016-10-11] MEDS ORDERED: ONDANSETRON ODT 4 MG TAB.RAPDIS. PO PRN (14:30)
--- NOTE | 2016-10-11 14:30 | PDOC ---
PROGRESS NOTES Chief Complaint Chief Complaint 1. Coffee ground emesis s/p EGD (10/06) - neg egd 2. Acute encephalopathy, in the background of HYPONATREMIA 3. R hib fxs - uncertain age 4. FAll 5. Hypokalemia and hyponatremia - RESOLVED 6. GAtsric occult positive, possible NSAID use? 7. PERSISTENT EMESIS 8. BACK pain after a fall 9. PROLONGED GET History of Present Illness History of Present Illness ABnormal GET BS controlled Advised/educated on small freq feeds and avoiding meals to close to bedtime at bedside PT recs SNU, agreebale, wants PPlace NA now corrected, mentating very well! K low, lost IV access PLAn: Dc kayode to SNU Pplace Ok for no IV access now PO KCl replacement PO zofran Zachary RN, pt and hsuband COnt PO reglan - will need RX Upgrade to GI soft Vitals Vitals Vital Signs Date Time Temp Pulse Resp B/P (MAP) Pulse Ox O2 Delivery O2 Flow Rate FiO2 10/11/16 11:13 93.7 66 18 125/61 (82) 100 Room Air 93.7 Physical Exam General: Oriented X3, Cooperative, No acute distress, Other (CONFUSED) Heart: Regular rate Lungs: Clear, Wheezing Abdomen: Normal bowel sounds, Soft, No tenderness Extremities: No edema, Normal pulses Skin: No rashes Labs LABS Laboratory Tests Test 10/10/16 17:06 10/10/16 20:44 10/11/16 05:20 10/11/16 07:38 Glucose (Fingerstick) 103 mg/dL (70-99) 104 mg/dL (70-99) 102 mg/dL (70-99) Sodium Level 137 mmol/L (136-145) Potassium Level 3.4 mmol/L (3.5-5.1) Chloride Level 103 mmol/L (98-107) Carbon Dioxide Level 25 mmol/L (21-32) Anion Gap 9 (6-14) Blood Urea Nitrogen 13 mg/dL (7-20) Creatinine 0.9 mg/dL (0.6-1.0) Estimated GFR (Cockcroft-Gault) 61.2 Glucose Level 97 mg/dL (70-99) Calcium Level 7.8 mg/dL (8.5-10.1) Test 10/11/16 11:12 Glucose (Fingerstick) 180 mg/dL (70-99) Review of Systems Review of Systems nausea, all else is neg Assessment and Plan Assessmemt and Plan Problems Medical Problems: (1) Upper GI bleed Status: Acute Problems: Comment Review of Relevant I have reviewed the following items bj (where applicable) has been applied. Labs Laboratory Tests Test 10/10/16 04:15 10/10/16 07:52 10/10/16 11:45 10/10/16 17:06 Sodium Level 132 mmol/L (136-145) Potassium Level 3.1 mmol/L (3.5-5.1) Chloride Level 96 mmol/L (98-107) Carbon Dioxide Level 27 mmol/L (21-32) Anion Gap 9 (6-14) Blood Urea Nitrogen 14 mg/dL (7-20) Creatinine 0.8 mg/dL (0.6-1.0) Estimated GFR (Cockcroft-Gault) 70.1 Glucose Level 124 mg/dL (70-99) Calcium Level 7.8 mg/dL (8.5-10.1) Phosphorus Level 3.1 mg/dL (2.6-4.7) Magnesium Level 1.9 mg/dL (1.8-2.4) Glucose (Fingerstick) 119 mg/dL (70-99) 125 mg/dL (70-99) 103 mg/dL (70-99) Test 10/10/16 20:44 10/11/16 05:20 10/11/16 07:38 10/11/16 11:12 Glucose (Fingerstick) 104 mg/dL (70-99) 102 mg/dL (70-99) 180 mg/dL (70-99) Sodium Level 137 mmol/L (136-145) Potassium Level 3.4 mmol/L (3.5-5.1) Chloride Level 103 mmol/L (98-107) Carbon Dioxide Level 25 mmol/L (21-32) Anion Gap 9 (6-14) Blood Urea Nitrogen 13 mg/dL (7-20) Creatinine 0.9 mg/dL (0.6-1.0) Estimated GFR (Cockcroft-Gault) 61.2 Glucose Level 97 mg/dL (70-99) Calcium Level 7.8 mg/dL (8.5-10.1) Laboratory Tests Test 10/10/16 17:06 10/10/16 20:44 10/11/16 05:20 10/11/16 07:38 Glucose (Fingerstick) 103 mg/dL (70-99) 104 mg/dL (70-99) 102 mg/dL (70-99) Sodium Level 137 mmol/L (136-145) Potassium Level 3.4 mmol/L (3.5-5.1) Chloride Level 103 mmol/L (98-107) Carbon Dioxide Level 25 mmol/L (21-32) Anion Gap 9 (6-14) Blood Urea Nitrogen 13 mg/dL (7-20) Creatinine 0.9 mg/dL (0.6-1.0) Estimated GFR (Cockcroft-Gault) 61.2 Glucose Level 97 mg/dL (70-99) Calcium Level 7.8 mg/dL (8.5-10.1) Test 10/11/16 11:12 Glucose (Fingerstick) 180 mg/dL (70-99) Medications Current Medications Promethazine HCl 12.5 mg/Sodium Chloride 50.5 ml @ 151.5 mls/ hr PRN Q6HRS PRN IV NAUSEA/VOMITING, 2ND CHOICE Last administered on 10/09/16 10:29; Start 10/06/16 at 09:30 Fentanyl Citrate (Fentanyl 2ml Vial) 75 mcg 1X ONCE IV Last administered on 10:01; Start 10/06/16 at 10:00; Stop 10/06/16 at 10:17; Status DC Pantoprazole Sodium (Protonix Vial) 80 mg 1X ONCE IVP Last administered on 10/06 10:05; Start 10/06/16 at 10:00; Stop 10/06/16 at 10:17; Status DC Pantoprazole Sodium 80 mg/ Sodium Chloride 100 ml @ 10 mls/hr Q10H IV Last administered on 10/07/16 11:08; Start 10/06/16 at 10:00; Stop 10/07/16 at 11:59; Status DC Sodium Chloride 1,000 ml @ 200 mls/hr 1X ONCE IV Last administered on 10:02; Start 10/06/16 at 10:00; Stop 10/06/16 at 14:59; Status DC Iohexol (Omnipaque 300 Mg/ml) 75 ml 1X ONCE IV Last administered on 10/06/16 11:00; Start 10/06/16 at 10:30; Stop 10/06/16 at 10:31; Status DC Info (Do NOT chart on this entry -- for MONITORING) 1 each PRN DAILY PRN MC SEE COMMENTS; Start 10/06/16 at 10:30; Stop 10/08/16 at 10:29; Status DC Ondansetron HCl (Zofran) 4 mg PRN Q8HRS PRN IV NAUSEA/VOMITING Last administered on 10/06/16 21:12; Start 10/06/16 at 11:30; Stop 10/07/16 at 09:27; Status DC Morphine Sulfate 2 mg PRN Q2HR PRN IV PAIN Last administered on 10/07/16 11:25 ; Start 10/06/16 at 11:30; Stop 10/07/16 at 11:29; Status DC Dextrose/Sodium Chloride 1,000 ml @ 125 mls/hr 1X ONCE IV Last administered on 10/06/16 15:00; Start 10/06/16 at 15:00; Stop 10/06/16 at 22:59; Status DC Ringer's Solution 1,000 ml @ 50 mls/hr Q20H IV Last administered on 10/06/16 15:13; Start 10/06/16 at 15:00; Stop 10/07/16 at 07:47; Status DC Propofol 20 ml @ As Directed STK-MED ONCE IV ; Start 10/06/16 at 15:39; Stop 10/06 at 15:40; Status DC Lidocaine HCl (Lidocaine Pf 2% Vial) 5 ml STK-MED ONCE .ROUTE ; Start 10/06/16 at 15:39; Stop 10/06/16 at 15:40; Status DC Ondansetron HCl (Zofran) 4 mg PRN Q6HRS PRN IV NAUSEA/VOMITING; Start 10/07/16 at 09:26; Stop 10/08/16 at 09:25; Status DC Acetaminophen/ Hydrocodone Bitart (Lortab 5/325) 1 tab PRN Q6HRS PRN PO PAIN; Start 10/07/16 at 09:30 Phenytoin Sodium (Dilantin) 100 mg TID PO Last administered on 10/11/16 13:09 ; Start 10/07/16 at 10:00 Gabapentin (Neurontin) 300 mg TID PO ; Start 10/07/16 at 10:00; Stop 10/07/16 at 11:59; Status DC Morphine Sulfate 1 mg PRN Q2HR PRN IV PAIN; Start 10/07/16 at 12:00; Stop at 15:36; Status DC Amino Acids/ Glycerin/ Electrolytes 1,000 ml @ 80 mls/hr [id number] IV Last administered on 10/07/16 13:13; Start 10/07/16 at 12:30; Stop 10/07/16 at 16:48; Status DC Enoxaparin Sodium (Lovenox 40mg Syringe) 40 mg Q24H SQ Last administered on 19:54; Start 10/07/16 at 21:00 Famotidine (Pepcid) 20 mg QHS IVP Last administered on 10/08/16 21:15; Start 10/07/16 at 21:00; Stop 10/09/16 at 12:11; Status DC Famotidine (Pepcid) 20 mg QHS IVP ; Start 10/07/16 at 21:00; Status UNV Potassium Chloride 50 ml @ 50 mls/hr Q1H IV ; Start 10/07/16 at 13:30; Stop at 13:41; Status DC Sodium Chloride 1,000 ml @ 50 mls/hr Q20H IV Last administered on 10/10/16 19 :54; Start 10/07/16 at 13:30 Potassium Chloride 100 ml @ 100 mls/hr Q1H IV Last administered on 10/07/16 21 :03; Start 10/07/16 at 14:30; Stop 10/07/16 at 18:29; Status DC Morphine Sulfate 1 mg PRN Q2HR PRN IV PAIN Last administered on 10/07/16 15:44 ; Start 10/07/16 at 15:36; Stop 10/07/16 at 16:44; Status DC Lorazepam (Ativan) 2 mg 1X ONCE IV Last administered on 10/07/16 18:07; Start 10/07/16 at 17:00; Stop 10/07/16 at 17:01; Status DC Morphine Sulfate 2 mg PRN Q2HR PRN IV PAIN; Start 10/07/16 at 16:45; Stop at 15:17; Status DC Morphine Sulfate 2 mg PRN Q2HR PRN IV PAIN; Start 10/07/16 at 16:45 Gadobutrol (Gadavist) 10 mmol 1X ONCE IV ; Start 10/07/16 at 17:30; Stop at 17:31; Status DC Lorazepam (Ativan) 2 mg PRN Q4HRS PRN IV ANXIETY / AGITATION Last administered on 10/08/16 04:31; Start 10/07/16 at 22:00 Haloperidol Lactate (Haldol) 2.5 mg PRN Q6HRS PRN IVP ANXIETY / AGITATION; Start 10/07/16 at 22:00 Magnesium Sulfate/ Dextrose 50 ml @ 25 mls/hr 1X ONCE IV Last administered on 10/08/16 12:24; Start 10/08/16 at 10:00; Stop 10/08/16 at 11:59; Status DC Potassium Chloride 50 ml @ 50 mls/hr Q1H IV ; Start 10/08/16 at 09:45; Stop 12/15 at 11:44; Status UNV Potassium Chloride 100 ml @ 100 mls/hr Q1H IV Last administered on 10/08/16 17:51; Start 10/08/16 at 10:00; Stop 10/08/16 at 13:59; Status DC Sodium Chloride 250 ml @ 50 mls/hr 1X ONCE IV Last administered on 10/08/16 14:10; Start 10/08/16 at 12:30; Stop 10/08/16 at 17:29; Status DC Cyanocobalamin (Vitamin B-12) 1,000 mcg QMONTH IM Last administered on 15:09; Start 10/08/16 at 14:30 Ondansetron HCl (Zofran) 4 mg PRN Q6HRS PRN IV NAUSEA/VOMITING, 1ST CHOICE Last administered on 10/10/16 00:36; Start 10/09/16 at 04:00 Potassium Phos/ Sodium Phos (Phos-Nak) 1 pkt TID PO Last administered on 13:08; Start 10/09/16 at 09:00 Metoclopramide HCl (Reglan) 5 mg TIDACHC PO Last administered on 10/11/16 13: 08; Start 10/09/16 at 11:30 Potassium Chloride (Klor-Con) 40 meq 1X ONCE PO Last administered on 18:16; Start 10/09/16 at 11:30; Stop 10/09/16 at 11:31; Status DC Sodium Chloride 250 ml @ 50 mls/hr 1X ONCE IV Last administered on 10/09/16 18:14; Start 10/09/16 at 11:30; Stop 10/09/16 at 16:29; Status DC Pantoprazole Sodium (Protonix) 40 mg DAILYAC PO Last administered on 10/10/16 08:45; Start 10/10/16 at 07:30 Prochlorperazine (Compazine) 25 mg PRN Q12HR PRN [place] NAUSEA/VOMITING Last administered on 10/11/16 09:11; Start 10/09/16 at 17:30 Docusate Sodium (Colace) 100 mg PRN DAILY PRN PO CONSTIPATION Last administered on 10/09/16 20:40; Start 10/09/16 at 20:30 Bisacodyl (Dulcolax Supp) 10 mg PRN DAILY PRN [place] CONSTIPATION; Start 10/10/16 at 11:45 Potassium Chloride (Klor-Con) 40 meq 1X ONCE PO Last administered on 14:24; Start 10/10/16 at 12:15; Stop 10/10/16 at 12:24; Status DC Potassium Chloride 30 meq/ Sodium Chloride 1,015 ml @ 75 mls/hr 1X ONCE IV ; Start 10/11/16 at 12:30; Stop 10/12/16 at 02:01 Active Scripts Active Reported Estradiol 0.5 Mg Tablet 1 Tab PO DAILY Cipro (Ciprofloxacin Hcl) 250 Mg Tablet 1 Tab PO BID Medroxyprogesterone Acetate 2.5 Mg Tablet 1 Tab PO DAILY Bactrim 400-80 Mg Tablet (Sulfamethoxazole/Trimethoprim) 1 Each Tablet 1 Tab PO BID Aspirin 81 Mg Tab.chew 1 Tab PO DAILY [place] 5-325 Tablet (Acetaminophen/Hydrocodone Bitart) 1 Each Tablet 1 Tab PO PRN Q6HRS PRN Dilantin (Phenytoin Sodium Extended) 100 Mg Capsule 1 Cap PO TID Gabapentin 300 Mg Capsule 300 Mg PO TID Metformin Hcl 500 Mg Tablet 500 Mg PO BIDWMEALS Vitals/I & O Vital Sign - Last 24 Hours 10/10/16 10/10/16 10/10/16 10/10/16 15:00 19:00 20:00 23:03 Temp 97.8 98.2 98.5 97.8 98.2 98.5 Pulse 87 73 62 Resp 18 17 B/P (MAP) 120/78 (92) 130/64 (86) 139/70 (93) Pulse Ox 99 98 95 O2 Delivery Room Air Room Air Room Air Room Air 10/11/16 10/11/16 10/11/16 03:04 07:00 11:13 Temp 97.7 93.7 97.7 93.7 Pulse 74 64 66 Resp 18 18 18 B/P (MAP) 128/68 (88) 126/65 (85) 125/61 (82) Pulse Ox 96 97 100 O2 Delivery Room Air Room Air Room Air Intake and Output 10/10/16 10/10/16 10/11/16 15:00 23:00 07:00 Intake Total 750 ml 0 ml Output Total 600 ml Balance 150 ml 0 ml LAVELL SLOAN MD Oct 11, 2016 14:30
[2016-10-11] MEDS ORDERED: POTASSIUM CHLORIDE 20 MEQ TABLET.ER. PO ONE (14:45)
[2016-10-11 14:49] VITALS: BP 119/71
[2016-10-11 19:20] VITALS: BP 132/54
[2016-10-11] MEDS: ENOXAPARIN 40 MG/0.4 ML SYRINGE. SQ SCH (20:14)
[2016-10-11 23:25] VITALS: BP 109/51
[2016-10-12 03:24] VITALS: BP 144/62
[2016-10-12 05:39] LABS: CALCIUM 7.7 mg/dL (8.5-10.1); CREATININE 0.9 mg/dL (0.6-1.0); GFR 61.2; MAGNESIUM 1.9 mg/dL (1.8-2.4); POTASSIUM 3.9 mmol/L (3.5-5.1)
[2016-10-12 07:34] VITALS: BP 158/66
[2016-10-12] MEDS ORDERED: AMLO5TAB4 PO (07:57)
[2016-10-12] MEDS: POTASSIUM & SODIUM PHOSPHATES PACKET. PO SCH ×2 (08:42→14:09)
[2016-10-12] MEDS: PHENYTOIN SODIUM EXTENDED 100 MG CAPSULE PO SCH ×2 (08:45→14:08)
[2016-10-12] MEDS: METOCLOPRAMIDE 5 MG TABLET. PO SCH ×2 (08:45→12:22)
[2016-10-12] MEDS: PANTOPRAZOLE 40 MG TABLET.DR. PO SCH (08:45)
[2016-10-12] MEDS ORDERED: amLODIPine BESYLATE 5 MG TABLET PO SCH (09:00)
--- NOTE | 2016-10-12 09:07 | PDOC3 ---
Discharge Summary Visit Information Date of Admission: Oct 06, 2016 Date of Discharge: Oct 12, 2016 Admitting Diagnosis Comment: 1. Coffee ground emesis s/p EGD (10/06) - neg egd 2. Acute encephalopathy, in the background of HYPONATREMIA 3. R hib fxs - uncertain age 4. FAll 5. Hypokalemia and hyponatremia - RESOLVED 6. GAtsric occult positive, possible NSAID use? 7. PERSISTENT EMESIS 8. BACK pain after a fall 9. PROLONGED GET Final Diagnosis Problems Medical Problems: (1) Upper GI bleed Status: Acute Brief Hospital Course Allergies Allergies Coded Allergies Type Severity Reaction Last Updated Verified No Known Drug Allergies 10/06/16 No Vital Signs Vital Signs Date Time Temp Pulse Resp B/P (MAP) Pulse Ox O2 Delivery O2 Flow Rate FiO2 10/12/16 08:46 58 158/66 10/12/16 08:00 Room Air 10/12/16 07:34 97.5 16 98 97.5 Lab Results Laboratory Tests Test 10/10/16 11:45 10/10/16 17:06 10/10/16 20:44 10/11/16 05:20 Glucose (Fingerstick) 125 mg/dL (70-99) 103 mg/dL (70-99) 104 mg/dL (70-99) Sodium Level 137 mmol/L (136-145) Potassium Level 3.4 mmol/L (3.5-5.1) Chloride Level 103 mmol/L (98-107) Carbon Dioxide Level 25 mmol/L (21-32) Anion Gap 9 (6-14) Blood Urea Nitrogen 13 mg/dL (7-20) Creatinine 0.9 mg/dL (0.6-1.0) Estimated GFR (Cockcroft-Gault) 61.2 Glucose Level 97 mg/dL (70-99) Calcium Level 7.8 mg/dL (8.5-10.1) Test 10/11/16 07:38 10/11/16 11:12 10/11/16 16:05 10/11/16 20:43 Glucose (Fingerstick) 102 mg/dL (70-99) 180 mg/dL (70-99) 87 mg/dL (70-99) 218 mg/dL (70-99) Test 10/12/16 04:45 10/12/16 07:21 Sodium Level 139 mmol/L (136-145) Potassium Level 3.9 mmol/L (3.5-5.1) Chloride Level 104 mmol/L (98-107) Carbon Dioxide Level 29 mmol/L (21-32) Anion Gap 6 (6-14) Blood Urea Nitrogen 13 mg/dL (7-20) Creatinine 0.9 mg/dL (0.6-1.0) Estimated GFR (Cockcroft-Gault) 61.2 Glucose Level 94 mg/dL (70-99) Calcium Level 7.7 mg/dL (8.5-10.1) Magnesium Level 1.9 mg/dL (1.8-2.4) Glucose (Fingerstick) 97 mg/dL (70-99) Laboratory Tests Test 10/11/16 11:12 10/11/16 16:05 10/11/16 20:43 10/12/16 04:45 Glucose (Fingerstick) 180 mg/dL (70-99) 87 mg/dL (70-99) 218 mg/dL (70-99) Sodium Level 139 mmol/L (136-145) Potassium Level 3.9 mmol/L (3.5-5.1) Chloride Level 104 mmol/L (98-107) Carbon Dioxide Level 29 mmol/L (21-32) Anion Gap 6 (6-14) Blood Urea Nitrogen 13 mg/dL (7-20) Creatinine 0.9 mg/dL (0.6-1.0) Estimated GFR (Cockcroft-Gault) 61.2 Glucose Level 94 mg/dL (70-99) Calcium Level 7.7 mg/dL (8.5-10.1) Magnesium Level 1.9 mg/dL (1.8-2.4) Test 10/12/16 07:21 Glucose (Fingerstick) 97 mg/dL (70-99) Brief Hospital Course Ms. Glaser is a 76 old Caucsian female who lives alone at home admitted with confusion, was found to be severely hyponatremic (normal TSH, not on any culprit meds), co managed with renal and her mentation improved with normalization of Na, HOwever, course remarkable for high BP and persistent emesis, EGD done as above, GET done, prolonged result at 112 mins so I have started reglan and that seems to be helping. MEdically ready for SNU wioth dc med (norvasc) I did avoid HCTZ and lisinopril given the recent hyponatremia, PLus the reglan for 5 more days Pt seen and examined DispO; SNU Cousults: GI, NEuro , renal Proc: EGD, MRI barin(latter neg) GET (gastric emptying test): positive study Discharge Information Condition at Discharge: Improved, Stable Disposition/Orders: Other (SNU) Scheduled Aspirin (Aspirin), 1 TAB PO DAILY, (Reported) Ciprofloxacin Hcl (Cipro), 1 TAB PO BID, (Reported) Estradiol (Estradiol), 1 TAB PO DAILY, (Reported) Gabapentin (Gabapentin), 300 MG PO TID, (Reported) Medroxyprogesterone Acetate (Medroxyprogesterone Acetate), 1 TAB PO DAILY, ( Reported) Metformin Hcl (Metformin Hcl), 500 MG PO BIDWMEALS, (Reported) Phenytoin Sodium Extended (Dilantin), 1 CAP PO TID, (Reported) Sulfamethoxazole/Trimethoprim (Bactrim 400-80 Mg Tablet), 1 TAB PO BID, ( Reported) Scheduled PRN Hydrocodone/Apap 5-325 ([place] 5-325 Tablet), 1 TAB PO PRN Q6HRS PRN for PAIN, ( Reported) LAVELL SLOAN MD Oct 12, 2016 09:07
[2016-10-12 11:20] VITALS: BP 142/60
--- NOTE | 2016-10-12 12:05 | PDOC ---
Subjective: Subjective: Feeling better, has questions about metformin. Appetite better, denies nausea and pain. Objective: Vital Signs: Vital Signs Date Time Temp Pulse Resp B/P (MAP) Pulse Ox O2 Delivery O2 Flow Rate FiO2 10/12/16 11:20 98.0 67 14 142/60 (87) 94 Room Air 98.0 Labs: Laboratory Tests Test 10/11/16 16:05 10/11/16 20:43 10/12/16 04:45 10/12/16 07:21 Glucose (Fingerstick) 87 mg/dL 218 mg/dL 97 mg/dL Sodium Level 139 mmol/L Potassium Level 3.9 mmol/L Chloride Level 104 mmol/L Carbon Dioxide Level 29 mmol/L Anion Gap 6 Blood Urea Nitrogen 13 mg/dL Creatinine 0.9 mg/dL Estimated GFR (Cockcroft-Gault) 61.2 Glucose Level 94 mg/dL Calcium Level 7.7 mg/dL Magnesium Level 1.9 mg/dL Test 10/12/16 11:26 Glucose (Fingerstick) 126 mg/dL Imaging: GET 10/10/16 Impression: Prolonged half-time to gastric emptying of 112 minutes. PE: GEN: NAD LUNGS: CTAB HEART: RRR ABD: S/ND/NT NEURO/PSYCH: A & O 3 A/P: Coffee-ground emesis, nausea - resolved -EGD w/ esophagitis (no malignancy or Merritt's), esophageal diverticulum ---> normal Hgb -CT w/ rib fracture and cholelithiasis -GET as above, h/o DM -- Note started on Reglan 5mg TIDAC w/ improvement of nausea and anorexia. DC per primary. No previous colonoscopy, consider as outpt. CONNIE CHASE Oct 12, 2016 12:05
--- NOTE | 2016-10-12 12:22 | PDOC ---
PROGRESS NOTES Subjective Subjective She feels better. Objective Objective Vital Signs Date Time Temp Pulse Resp B/P (MAP) Pulse Ox O2 Delivery O2 Flow Rate FiO2 10/12/16 11:20 98.0 67 14 142/60 (87) 94 Room Air 98.0 10/07/16 15:44 2.0 Intake and Output 10/12/16 07:00 Intake Total 980 ml Output Total 1300 ml Balance -320 ml Intake Oral 980 ml Output Urine Total 1300 ml # Voids 2 # Bowel Movements 1 Physical Exam Physical Exam She is alert and comfortable and is independent with her mobility and most of her ADLs. Bruised and abraded skin over her low back area is clean and dry. Assessment Assessment Problems Medical Problems: (1) Upper GI bleed Status: Acute Plan Plan of Senior Living with home health or SNF when medically stable. Comment Review of Relevant I have reviewed the following items bj (where applicable) has been applied. Labs Laboratory Tests Test 10/10/16 17:06 10/10/16 20:44 10/11/16 05:20 10/11/16 07:38 Glucose (Fingerstick) 103 mg/dL (70-99) 104 mg/dL (70-99) 102 mg/dL (70-99) Sodium Level 137 mmol/L (136-145) Potassium Level 3.4 mmol/L (3.5-5.1) Chloride Level 103 mmol/L (98-107) Carbon Dioxide Level 25 mmol/L (21-32) Anion Gap 9 (6-14) Blood Urea Nitrogen 13 mg/dL (7-20) Creatinine 0.9 mg/dL (0.6-1.0) Estimated GFR (Cockcroft-Gault) 61.2 Glucose Level 97 mg/dL (70-99) Calcium Level 7.8 mg/dL (8.5-10.1) Test 10/11/16 11:12 10/11/16 16:05 10/11/16 20:43 10/12/16 04:45 Glucose (Fingerstick) 180 mg/dL (70-99) 87 mg/dL (70-99) 218 mg/dL (70-99) Sodium Level 139 mmol/L (136-145) Potassium Level 3.9 mmol/L (3.5-5.1) Chloride Level 104 mmol/L (98-107) Carbon Dioxide Level 29 mmol/L (21-32) Anion Gap 6 (6-14) Blood Urea Nitrogen 13 mg/dL (7-20) Creatinine 0.9 mg/dL (0.6-1.0) Estimated GFR (Cockcroft-Gault) 61.2 Glucose Level 94 mg/dL (70-99) Calcium Level 7.7 mg/dL (8.5-10.1) Magnesium Level 1.9 mg/dL (1.8-2.4) Test 10/12/16 07:21 10/12/16 11:26 Glucose (Fingerstick) 97 mg/dL (70-99) 126 mg/dL (70-99) Laboratory Tests Test 10/11/16 16:05 10/11/16 20:43 10/12/16 04:45 10/12/16 07:21 Glucose (Fingerstick) 87 mg/dL (70-99) 218 mg/dL (70-99) 97 mg/dL (70-99) Sodium Level 139 mmol/L (136-145) Potassium Level 3.9 mmol/L (3.5-5.1) Chloride Level 104 mmol/L (98-107) Carbon Dioxide Level 29 mmol/L (21-32) Anion Gap 6 (6-14) Blood Urea Nitrogen 13 mg/dL (7-20) Creatinine 0.9 mg/dL (0.6-1.0) Estimated GFR (Cockcroft-Gault) 61.2 Glucose Level 94 mg/dL (70-99) Calcium Level 7.7 mg/dL (8.5-10.1) Magnesium Level 1.9 mg/dL (1.8-2.4) Test 10/12/16 11:26 Glucose (Fingerstick) 126 mg/dL (70-99) Medications Current Medications Promethazine HCl 12.5 mg/Sodium Chloride 50.5 ml @ 151.5 mls/ hr PRN Q6HRS PRN IV NAUSEA/VOMITING, 2ND CHOICE Last administered on 10/09/16 10:29; Start 10/06/16 at 09:30 Fentanyl Citrate (Fentanyl 2ml Vial) 75 mcg 1X ONCE IV Last administered on 10:01; Start 10/06/16 at 10:00; Stop 10/06/16 at 10:17; Status DC Pantoprazole Sodium (Protonix Vial) 80 mg 1X ONCE IVP Last administered on 10/06 10:05; Start 10/06/16 at 10:00; Stop 10/06/16 at 10:17; Status DC Pantoprazole Sodium 80 mg/ Sodium Chloride 100 ml @ 10 mls/hr Q10H IV Last administered on 10/07/16 11:08; Start 10/06/16 at 10:00; Stop 10/07/16 at 11:59; Status DC Sodium Chloride 1,000 ml @ 200 mls/hr 1X ONCE IV Last administered on 10:02; Start 10/06/16 at 10:00; Stop 10/06/16 at 14:59; Status DC Iohexol (Omnipaque 300 Mg/ml) 75 ml 1X ONCE IV Last administered on 10/06/16 11:00; Start 10/06/16 at 10:30; Stop 10/06/16 at 10:31; Status DC Info (Do NOT chart on this entry -- for MONITORING) 1 each PRN DAILY PRN MC SEE COMMENTS; Start 10/06/16 at 10:30; Stop 10/08/16 at 10:29; Status DC Ondansetron HCl (Zofran) 4 mg PRN Q8HRS PRN IV NAUSEA/VOMITING Last administered on 10/06/16 21:12; Start 10/06/16 at 11:30; Stop 10/07/16 at 09:27; Status DC Morphine Sulfate 2 mg PRN Q2HR PRN IV PAIN Last administered on 10/07/16 11:25 ; Start 10/06/16 at 11:30; Stop 10/07/16 at 11:29; Status DC Dextrose/Sodium Chloride 1,000 ml @ 125 mls/hr 1X ONCE IV Last administered on 10/06/16 15:00; Start 10/06/16 at 15:00; Stop 10/06/16 at 22:59; Status DC Ringer's Solution 1,000 ml @ 50 mls/hr Q20H IV Last administered on 10/06/16 15:13; Start 10/06/16 at 15:00; Stop 10/07/16 at 07:47; Status DC Propofol 20 ml @ As Directed STK-MED ONCE IV ; Start 10/06/16 at 15:39; Stop 10/06 at 15:40; Status DC Lidocaine HCl (Lidocaine Pf 2% Vial) 5 ml STK-MED ONCE .ROUTE ; Start 10/06/16 at 15:39; Stop 10/06/16 at 15:40; Status DC Ondansetron HCl (Zofran) 4 mg PRN Q6HRS PRN IV NAUSEA/VOMITING; Start 10/07/16 at 09:26; Stop 10/08/16 at 09:25; Status DC Acetaminophen/ Hydrocodone Bitart (Lortab 5/325) 1 tab PRN Q6HRS PRN PO PAIN; Start 10/07/16 at 09:30 Phenytoin Sodium (Dilantin) 100 mg TID PO Last administered on 10/12/16 08:45 ; Start 10/07/16 at 10:00 Gabapentin (Neurontin) 300 mg TID PO ; Start 10/07/16 at 10:00; Stop 10/07/16 at 11:59; Status DC Morphine Sulfate 1 mg PRN Q2HR PRN IV PAIN; Start 10/07/16 at 12:00; Stop at 15:36; Status DC Amino Acids/ Glycerin/ Electrolytes 1,000 ml @ 80 mls/hr [id number] IV Last administered on 10/07/16 13:13; Start 10/07/16 at 12:30; Stop 10/07/16 at 16:48; Status DC Enoxaparin Sodium (Lovenox 40mg Syringe) 40 mg Q24H SQ Last administered on 20:14; Start 10/07/16 at 21:00 Famotidine (Pepcid) 20 mg QHS IVP Last administered on 10/08/16 21:15; Start 10/07/16 at 21:00; Stop 10/09/16 at 12:11; Status DC Famotidine (Pepcid) 20 mg QHS IVP ; Start 10/07/16 at 21:00; Status UNV Potassium Chloride 50 ml @ 50 mls/hr Q1H IV ; Start 10/07/16 at 13:30; Stop at 13:41; Status DC Sodium Chloride 1,000 ml @ 50 mls/hr Q20H IV Last administered on 8/12/17at 19 :54; Start 10/07/16 at 13:30; Stop 10/11/16 at 14:28; Status DC Potassium Chloride 100 ml @ 100 mls/hr Q1H IV Last administered on 10/07/16 21 :03; Start 10/07/16 at 14:30; Stop 10/07/16 at 18:29; Status DC Morphine Sulfate 1 mg PRN Q2HR PRN IV PAIN Last administered on 10/07/16 15:44 ; Start 10/07/16 at 15:36; Stop 10/07/16 at 16:44; Status DC Lorazepam (Ativan) 2 mg 1X ONCE IV Last administered on 10/07/16 18:07; Start 10/07/16 at 17:00; Stop 10/07/16 at 17:01; Status DC Morphine Sulfate 2 mg PRN Q2HR PRN IV PAIN; Start 10/07/16 at 16:45; Stop at 15:17; Status DC Morphine Sulfate 2 mg PRN Q2HR PRN IV PAIN; Start 10/07/16 at 16:45 Gadobutrol (Gadavist) 10 mmol 1X ONCE IV ; Start 10/07/16 at 17:30; Stop at 17:31; Status DC Lorazepam (Ativan) 2 mg PRN Q4HRS PRN IV ANXIETY / AGITATION Last administered on 10/08/16 04:31; Start 10/07/16 at 22:00 Haloperidol Lactate (Haldol) 2.5 mg PRN Q6HRS PRN IVP ANXIETY / AGITATION; Start 10/07/16 at 22:00; Stop 10/11/16 at 14:28; Status DC Magnesium Sulfate/ Dextrose 50 ml @ 25 mls/hr 1X ONCE IV Last administered on 10/08/16 12:24; Start 10/08/16 at 10:00; Stop 10/08/16 at 11:59; Status DC Potassium Chloride 50 ml @ 50 mls/hr Q1H IV ; Start 10/08/16 at 09:45; Stop 12/15 at 11:44; Status UNV Potassium Chloride 100 ml @ 100 mls/hr Q1H IV Last administered on 10/08/16 17:51; Start 10/08/16 at 10:00; Stop 10/08/16 at 13:59; Status DC Sodium Chloride 250 ml @ 50 mls/hr 1X ONCE IV Last administered on 10/08/16 14:10; Start 10/08/16 at 12:30; Stop 10/08/16 at 17:29; Status DC Cyanocobalamin (Vitamin B-12) 1,000 mcg QMONTH IM Last administered on 15:09; Start 10/08/16 at 14:30 Ondansetron HCl (Zofran) 4 mg PRN Q6HRS PRN IV NAUSEA/VOMITING, 1ST CHOICE Last administered on 10/10/16 00:36; Start 10/09/16 at 04:00; Stop 10/11/16 at 14:28; Status DC Potassium Phos/ Sodium Phos (Phos-Nak) 1 pkt TID PO Last administered on 08:42; Start 10/09/16 at 09:00 Metoclopramide HCl (Reglan) 5 mg TIDACHC PO Last administered on 10/12/16 08: 45; Start 10/09/16 at 11:30 Potassium Chloride (Klor-Con) 40 meq 1X ONCE PO Last administered on 18:16; Start 10/09/16 at 11:30; Stop 10/09/16 at 11:31; Status DC Sodium Chloride 250 ml @ 50 mls/hr 1X ONCE IV Last administered on 10/09/16 18:14; Start 10/09/16 at 11:30; Stop 10/09/16 at 16:29; Status DC Pantoprazole Sodium (Protonix) 40 mg DAILYAC PO Last administered on 10/12/16 08:45; Start 10/10/16 at 07:30 Prochlorperazine (Compazine) 25 mg PRN Q12HR PRN DC NAUSEA/VOMITING Last administered on 10/11/16 09:11; Start 10/09/16 at 17:30 Docusate Sodium (Colace) 100 mg PRN DAILY PRN PO CONSTIPATION Last administered on 10/09/16 20:40; Start 10/09/16 at 20:30 Bisacodyl (Dulcolax Supp) 10 mg PRN DAILY PRN DC CONSTIPATION; Start 10/10/16 at 11:45 Potassium Chloride (Klor-Con) 40 meq 1X ONCE PO Last administered on 14:24; Start 10/10/16 at 12:15; Stop 10/10/16 at 12:24; Status DC Potassium Chloride 30 meq/ Sodium Chloride 1,015 ml @ 75 mls/hr 1X ONCE IV ; Start 10/11/16 at 12:30; Stop 10/11/16 at 14:28; Status DC Ondansetron HCl (Zofran Odt) 4 mg PRN Q6HRS PRN PO NAUSEA/VOMITING; Start 10/11 at 14:30 Potassium Chloride (Klor-Con) 40 meq 1X ONCE PO Last administered on 16:24; Start 10/11/16 at 14:45; Stop 10/11/16 at 14:46; Status DC Amlodipine Besylate (Norvasc) 5 mg DAILY PO Last administered on 10/12/16 08: 46; Start 10/12/16 at 09:00 Active Scripts Active Reported Estradiol 0.5 Mg Tablet 1 Tab PO DAILY Cipro (Ciprofloxacin Hcl) 250 Mg Tablet 1 Tab PO BID Medroxyprogesterone Acetate 2.5 Mg Tablet 1 Tab PO DAILY Bactrim 400-80 Mg Tablet (Sulfamethoxazole/Trimethoprim) 1 Each Tablet 1 Tab PO BID Aspirin 81 Mg Tab.chew 1 Tab PO DAILY Stanberry 5-325 Tablet (Acetaminophen/Hydrocodone Bitart) 1 Each Tablet 1 Tab PO PRN Q6HRS PRN Dilantin (Phenytoin Sodium Extended) 100 Mg Capsule 1 Cap PO TID Gabapentin 300 Mg Capsule 300 Mg PO TID Metformin Hcl 500 Mg Tablet 500 Mg PO BIDWMEALS Vitals/I & O Vital Sign - Last 24 Hours 10/11/16 10/11/16 10/11/16 10/11/16 14:49 19:20 19:58 23:25 Temp 98.2 98.5 98.7 98.2 98.5 98.7 Pulse 76 78 66 Resp 18 18 18 B/P (MAP) 119/71 (87) 132/54 (80) 109/51 (70) Pulse Ox 100 97 96 O2 Delivery Room Air Room Air Room Air Room Air 10/12/16 10/12/16 10/12/16 10/12/16 03:24 07:34 08:00 08:46 Temp 97.5 97.5 97.5 97.5 Pulse 63 58 58 Resp 20 16 B/P (MAP) 144/62 (89) 158/66 (96) 158/66 Pulse Ox 98 98 O2 Delivery Room Air Room Air Room Air 10/12/16 11:20 Temp 98.0 98.0 Pulse 67 Resp 14 B/P (MAP) 142/60 (87) Pulse Ox 94 O2 Delivery Room Air Intake and Output 10/11/16 10/11/16 10/12/16 15:00 23:00 07:00 Intake Total 180 ml 560 ml 240 ml Output Total 350 ml 950 ml Balance 180 ml 210 ml -710 ml YEVGENIY GENAO MD Oct 12, 2016 12:22
--- NOTE | 2016-10-12 14:18 | PDOC ---
SUBJECTIVE ROS elyte ABN Pt claims she is doing much better OBJECTIVE Vital Signs Vital Signs Date Time Temp Pulse Resp B/P (MAP) Pulse Ox O2 Delivery O2 Flow Rate FiO2 10/12/16 11:20 98.0 67 14 142/60 (87) 94 Room Air 98.0 I & 0 Intake and Output 10/12/16 07:00 Intake Total 980 ml Output Total 1300 ml Balance -320 ml Intake Oral 980 ml Output Urine Total 1300 ml # Voids 2 # Bowel Movements 1 PHYSICAL EXAM Physical Exam General Appearance: Awake: Alert Oriented x 3 Neck: No JVD or JVP Chest: CTA Emmanuel Heart: S1 S2 Abdomen - Soft NTND Extremities - No Edema DIAGNOSIS/ASSESSMENT Assessment & Plan Multiple elyte ABN - now improved. PO intake is better too Plans for D/c noted will be avail prn Problems: COMMENT/RELEVANT DATA Meds Current Medications Medications (Trade) Dose Ordered Sig/Robbi Start Time Stop Time Status Last Admin Dose Admin Acetaminophen/ Hydrocodone Bitart (Lortab 5/325) 1 tab PRN Q6HRS PRN 10/07/16 09:30 Amino Acids/ Glycerin/ Electrolytes 1,000 ml @ 80 mls/hr [id number] 10/07/16 12:30 10/07/16 16:48 DC 10/07/16 13:13 80 MLS/HR Amlodipine Besylate (Norvasc) 5 mg DAILY 10/12/16 09:00 10/12/16 08:46 5 MG Bisacodyl (Dulcolax Supp) 10 mg PRN DAILY PRN 10/10/16 11:45 Cyanocobalamin (Vitamin B-12) 1,000 mcg QMONTH 10/08/16 14:30 10/08/16 15:09 1,000 MCG Dextrose/Sodium Chloride 1,000 ml @ 125 mls/hr 1X ONCE 10/06/16 15:00 10/06/16 22:59 DC 10/06/16 15:00 125 MLS/HR Docusate Sodium (Colace) 100 mg PRN DAILY PRN 10/09/16 20:30 10/09/16 20:40 100 MG Enoxaparin Sodium (Lovenox 40mg Syringe) 40 mg Q24H 10/07/16 21:00 10/11/16 20:14 40 MG Famotidine (Pepcid) 20 mg QHS 10/07/16 21:00 UNV Fentanyl Citrate (Fentanyl 2ml Vial) 75 mcg 1X ONCE 10/06/16 10:00 10/06/16 10:17 DC 10/06/16 10:01 75 MCG Gabapentin (Neurontin) 300 mg TID 10/07/16 10:00 10/07/16 11:59 DC Gadobutrol (Gadavist) 10 mmol 1X ONCE 10/07/16 17:30 10/07/16 17:31 DC Haloperidol Lactate (Haldol) 2.5 mg PRN Q6HRS PRN 10/07/16 22:00 10/11/16 14:28 DC Info (Do NOT chart on this entry -- for MONITORING) 1 each PRN DAILY PRN 10/06/16 10:30 10/08/16 10:29 DC Iohexol (Omnipaque 300 Mg/ml) 75 ml 1X ONCE 10/06/16 10:30 10/06/16 10:31 DC 10/06/16 11:00 75 ML Lidocaine HCl (Lidocaine Pf 2% Vial) 5 ml STK-MED ONCE 10/06/16 15:39 10/06/16 15:40 DC Lorazepam (Ativan) 2 mg PRN Q4HRS PRN 10/07/16 22:00 10/08/16 04:31 2 MG Magnesium Sulfate/ Dextrose 50 ml @ 25 mls/hr 1X ONCE 10/08/16 10:00 10/08/16 11:59 DC 10/08/16 12:24 25 MLS/HR Metoclopramide HCl (Reglan) 5 mg TIDACHC 10/09/16 11:30 10/12/16 12:22 5 MG Morphine Sulfate 2 mg PRN Q2HR PRN 10/07/16 16:45 Ondansetron HCl (Zofran Odt) 4 mg PRN Q6HRS PRN 10/11/16 14:30 Ondansetron HCl (Zofran) 4 mg PRN Q6HRS PRN 10/09/16 04:00 10/11/16 14:28 DC 10/10/16 00:36 4 MG Pantoprazole Sodium (Protonix Vial) 80 mg 1X ONCE 10/06/16 10:00 10/06/16 10:17 DC 10/06/16 10:05 80 MG Pantoprazole Sodium (Protonix) 40 mg DAILYAC 10/10/16 07:30 10/12/16 08:45 40 MG Pantoprazole Sodium 80 mg/ Sodium Chloride 100 ml @ 10 mls/hr Q10H 10/06/16 10:00 10/07/16 11:59 DC 10/07/16 11:08 10 MLS/HR Phenytoin Sodium (Dilantin) 100 mg TID 10/07/16 10:00 10/12/16 14:08 100 MG Potassium Chloride 30 meq/ Sodium Chloride 1,015 ml @ 75 mls/hr 1X ONCE 10/11/16 12:30 10/11/16 14:28 DC Potassium Chloride (Klor-Con) 40 meq 1X ONCE 10/11/16 14:45 10/11/16 14:46 DC 10/11/16 16:24 40 MEQ Potassium Phos/ Sodium Phos (Phos-Nak) 1 pkt TID 10/09/16 09:00 10/12/16 14:09 1 PKT Prochlorperazine (Compazine) 25 mg PRN Q12HR PRN 10/09/16 17:30 10/11/16 09:11 25 MG Promethazine HCl 12.5 mg/Sodium Chloride 50.5 ml @ 151.5 mls/ hr PRN Q6HRS PRN 10/06/16 09:30 10/09/16 10:29 151.5 MLS/HR Propofol 20 ml @ As Directed STK-MED ONCE 10/06/16 15:39 10/06/16 15:40 DC Ringer's Solution 1,000 ml @ 50 mls/hr Q20H 10/06/16 15:00 10/07/16 07:47 DC 10/06/16 15:13 50 MLS/HR Sodium Chloride 250 ml @ 50 mls/hr 1X ONCE 10/09/16 11:30 10/09/16 16:29 DC 10/09/16 18:14 50 MLS/HR Lab Laboratory Tests Test 10/11/16 16:05 10/11/16 20:43 10/12/16 04:45 10/12/16 07:21 Glucose (Fingerstick) 87 mg/dL (70-99) 218 mg/dL (70-99) 97 mg/dL (70-99) Sodium Level 139 mmol/L (136-145) Potassium Level 3.9 mmol/L (3.5-5.1) Chloride Level 104 mmol/L (98-107) Carbon Dioxide Level 29 mmol/L (21-32) Anion Gap 6 (6-14) Blood Urea Nitrogen 13 mg/dL (7-20) Creatinine 0.9 mg/dL (0.6-1.0) Estimated GFR (Cockcroft-Gault) 61.2 Glucose Level 94 mg/dL (70-99) Calcium Level 7.7 mg/dL (8.5-10.1) Magnesium Level 1.9 mg/dL (1.8-2.4) Test 10/12/16 11:26 Glucose (Fingerstick) 126 mg/dL (70-99) GARETT MEDINA MD Oct 12, 2016 14:17
[2016-10-12 14:46] VITALS: BP 122/57
--- NOTE | 2016-10-12 15:32 | PDOC ---
PROGRESS NOTES Assessment Assessment IMPRESSION: Metabolic encephalopathy. GI bleeding,. Fall. DM RECOMMENDATIONS/PLAN: Continue medical treatment. OT/PT. ALLERGY: Reviewed. MEDICATIONS: Refer to MAR REVIEW OF SYSTEMS: Constitutional: No malnutrition, weight loss, cachexia. Head: No traumatic brain or head injury. Skin: No edema, or rash. Ear: No infection. Eyes: No vision loss, or diplopia. Nose: No bleeding or purulent discharges. Hearing: No hearing decrease. Neck: No injury. Breast: No history of cancer, masses, or discharges. Cardiac: No WA, arrhythmia Pulmonary: No CPOD. GI: GI bleeding Urinary/genital: UTI. Endocrine: Diabetes Mellitus. Skeletomuscular: No muscular atrophy, deformity. Neurological: see HP. Psychiatric: Denies drug use/abuse. Otherwise, not [id number] review of systems. PHYSICAL EXAMINATION: General appearance in no acute distress. HEENT: Normocephalic and nontraumatic. Eyes, nose, ears, and throat are unremarkable. Hearing decrease. Neck is supple. No lymphadenopathy. No bruits are heard over the carotid artery. No Crepitus. Cardiovascular: S1, S2, regular rate and rhythm. Pulmonary: Clear to auscultation bilaterally. Abdomen: Bowel sounds are positive. Extremities: No rash, lesions, or edema. No restriction of range of motion NEUROLOGICAL EXAMINATION: Alert. Oriented to time, place and person. PERRL. EOMI. CN: no focal findings. Muscle tone: within normal. Muscle strength: 4+ DTR: 2 Plantar reflex: Flexo response bilaterally Gait: Able to walk with a walker on the hallway. Sensory exam: no abnormal findings. No cerebellar signs elicited. F-T-N test accurate. Objective Objective Vital Signs Date Time Temp Pulse Resp B/P (MAP) Pulse Ox O2 Delivery O2 Flow Rate FiO2 10/12/16 14:46 98.2 73 20 122/57 (78) 90 Room Air 98.2 Intake and Output 10/12/16 07:00 Intake Total 980 ml Output Total 1300 ml Balance -320 ml Intake Oral 980 ml Output Urine Total 1300 ml # Voids 2 # Bowel Movements 1 Vitals Signs Vitals VS - Last 72 Hours, by Label Date Time Temp Pulse Resp B/P (MAP) Pulse Ox O2 Delivery O2 Flow Rate FiO2 10/12/16 14:46 98.2 73 20 122/57 (78) 90 Room Air 98.2 10/12/16 11:20 98.0 67 14 142/60 (87) 94 Room Air 98.0 10/12/16 08:46 58 158/66 10/12/16 08:00 Room Air 10/12/16 07:34 97.5 58 16 158/66 (96) 98 Room Air 97.5 10/12/16 03:24 97.5 63 20 144/62 (89) 98 Room Air 97.5 10/11/16 23:25 98.7 66 18 109/51 (70) 96 Room Air 98.7 10/11/16 19:58 Room Air 10/11/16 19:20 98.5 78 18 132/54 (80) 97 Room Air 98.5 10/11/16 14:49 98.2 76 18 119/71 (87) 100 Room Air 98.2 10/11/16 11:13 93.7 66 18 125/61 (82) 100 Room Air 93.7 10/11/16 08:23 Room Air 10/11/16 07:00 97.7 64 18 126/65 (85) 97 Room Air 97.7 Laboratory Laboratory Laboratory Tests Test 10/11/16 16:05 10/11/16 20:43 10/12/16 04:45 10/12/16 07:21 Glucose (Fingerstick) 87 mg/dL (70-99) 218 mg/dL (70-99) 97 mg/dL (70-99) Sodium Level 139 mmol/L (136-145) Potassium Level 3.9 mmol/L (3.5-5.1) Chloride Level 104 mmol/L (98-107) Carbon Dioxide Level 29 mmol/L (21-32) Anion Gap 6 (6-14) Blood Urea Nitrogen 13 mg/dL (7-20) Creatinine 0.9 mg/dL (0.6-1.0) Estimated GFR (Cockcroft-Gault) 61.2 Glucose Level 94 mg/dL (70-99) Calcium Level 7.7 mg/dL (8.5-10.1) Magnesium Level 1.9 mg/dL (1.8-2.4) Test 10/12/16 11:26 Glucose (Fingerstick) 126 mg/dL (70-99) Medication Medications Current Medications Amlodipine Besylate (Norvasc) 5 mg DAILY PO Last administered on 10/12/16t 08: 46; Start 10/12/16 at 09:00 Comment Review of Relevant I have reviewed the following items bj (where applicable) has been applied. SHELBIE WALKER MD Oct 12, 2016 15:32
== END 2016-10-12 16:14 | DRG 377 ==
LOC: ER 09:13 → 6 SOUTH 10:28
PROVIDERS: ADMIT Internal Medicine; ATTEND Internal Medicine
PROC: 0DB58ZX Excision of Esophagus, Via Natural or Artificial Opening Endoscopic, Diagnostic (ICD-10-PCS; principal; 2016-10-06 15:00)
DX: K92.2 Gastrointestinal hemorrhage, unspecified (principal); G93.41 Metabolic encephalopathy; S72.001A Fracture of unspecified part of neck of right femur, initial encounter for closed fracture; Q39.6 Congenital diverticulum of esophagus; E22.2 Syndrome of inappropriate secretion of antidiuretic hormone; D62 Acute posthemorrhagic anemia; E87.1 Hypo-osmolality and hyponatremia; E87.6 Hypokalemia; E11.43 Type 2 diabetes mellitus with diabetic autonomic (poly)neuropathy; G40.909 Epilepsy, unspecified, not intractable, without status epilepticus; I10 Essential (primary) hypertension; K21.0 Gastro-esophageal reflux disease with esophagitis; K31.84 Gastroparesis; E83.42 Hypomagnesemia; K80.20 Calculus of gallbladder without cholecystitis without obstruction; D64.9 Anemia, unspecified; R13.10 Dysphagia, unspecified; K59.00 Constipation, unspecified; M47.816 Spondylosis without myelopathy or radiculopathy, lumbar region; M51.34 Other intervertebral disc degeneration, thoracic region; M47.814 Spondylosis without myelopathy or radiculopathy, thoracic region; M51.36 Other intervertebral disc degeneration, lumbar region; W19.XXXA Unspecified fall, initial encounter; Y93.89 Activity, other specified; Y92.89 Other specified places as the place of occurrence of the external cause; Y99.8 Other external cause status; Z79.82 Long term (current) use of aspirin; Z82.49 Family history of ischemic heart disease and other diseases of the circulatory system; K29.60 Other gastritis without bleeding
CPT/HCPCS: 36415; 70450; 70551; 71010; 72080; 72146; 72170; 73565; 74177; 78264; 80048; 80053; 80069; 81001; 82140; 82271; 82436; 82607; 82746; 82962; 83690; 83735; 83935; 84100; 84133; 84300; 84443; 84484; 84550; 85007; 85027; 85610; 85651; 85730; 88305; 93005; 96361; 96374; 96375; A9541; C9113; J1650; J2001; J2060; J2270; J2405; J2550; J2704; J3010; J3420; J3480; J3490; J7030; J7060; J7120; J8597; Q9967; S0028; 92526; 92610; 97116; 97530; 97535; 99285-25

== ENCOUNTER 2020-09-09 13:08 | Emergency (ER) | payer MEDICARE ==
[~2020-09-09] VITALS: Ht 157.5 cm; Wt 130.0 kg
[~2020-09-09 13:08] MED LIST: AMLO5TAB4 PO; ASPI-630 PO; CIPR250T30 PO; ESTR0.5T PO; GABA300C18 PO; HYDR-3164 PO; MEDR2.5T28 PO; METF500T16 PO; PHEN100C PO; SULF1TAB23 PO
[2020-09-09 15:09] VITALS: BP 171/93
[2020-09-09] MEDS ORDERED: ONDANSETRON ODT 4 MG TAB.RAPDIS. PO ONE (17:15)
[2020-09-09] MEDS ORDERED: KETOROLAC 60 MG/2 ML VIAL. IM ONE (17:15)
[2020-09-09] MEDS ORDERED: CYCL10TA2 PO (17:23)
[2020-09-09] MEDS ORDERED: HYDR-2761 PO (17:23)
--- NOTE | 2020-09-09 17:25 | PHYS DOC ---
Past Medical History Past Medical History: Diabetes-Type II, Seizure Additional Past Medical Histor: see previous record Past Surgical History: Other Additional Past Surgical Histo: bladder sling, R eye, cataract, toe amputation Smoking Status: Never Smoker Alcohol Use: None Drug Use: None General Adult EDM: Chief Complaint: BACK PAIN - NO INJURY HPI: HPI: Patient is a 79 year old female with a history of diabetes type 2, seizures, chronic low back pain, who presents to the ED today from home. Patient states she has moderate pain to the right lower back radiating into the right groin to the right lower extremity, patient states this pain is chronic and got worse 3 days ago after she sat wrong in a chair. 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 Patient denies falling. Denies anything specifically alleviating the pain. She states the pain is worse on certain sitting positions. 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 She states she walks "differently because she cannot put any weight on the boot on the left foot. Review of Systems: Review of Systems: Constitutional: Denies fever or chills. [][] GI: Denies abdominal pain, nausea, vomiting, bloody stools or diarrhea. [] : Denies dysuria. [] Musculoskeletal: Reports right low back pain radiating to the right groin into the right lower extremity Integument: Denies rash. [] Neurologic: Denies headache, focal weakness or sensory changes. [] Psychiatric: Denies depression or anxiety. [] Heart Score: C/O Chest Pain: N/A Risk Factors: Risk Factors: DM, Current or recent (<one month) smoker, HTN, HLP, family history of CAD, obesity. Risk Scores: Score 0 - 3: 2.5% MACE over next 6 weeks - Discharge Home Score 4 - 6: 20.3% MACE over next 6 weeks - Admit for Clinical Observation Score 7 - 10: 72.7% MACE over next 6 weeks - Early Invasive Strategies Current Medications: Current Medications Medications (Trade) Dose Ordered Sig/Robbi Start Time Stop Time Status Last Admin Dose Admin Ketorolac Tromethamine (Toradol Im) 60 mg 1X ONCE 09/09/20 17:15 09/09/20 17:16 Ondansetron HCl (Zofran Odt) 4 mg 1X ONCE 09/09/20 17:15 09/09/20 17:16 Allergies: Allergies: Allergies Coded Allergies Type Severity Reaction Last Updated Verified No Known Drug Allergies 05/30/20 No Physical Exam: PE: Constitutional: Well developed, well nourished, no acute distress, non-toxic appearance. [] Abdomen: Bowel sounds normal, soft, no tenderness, no masses, no pulsatile masses. [] Skin: Warm, dry, no erythema, no rash. [] Back: Tenderness on palpation of the right SI joint, no midline lumbar spine tenderness, no CVA tenderness. [] Extremities: No tenderness, no cyanosis, no clubbing, ROM intact, left lower extremity is in a dressing and boot. Neurologic: Alert and oriented X 3, normal motor function, normal sensory function, no focal deficits noted. [] Psychologic: Tearful but very talkative Current Patient Data: Vital Signs: Vital Signs Date Time Temp Pulse Resp B/P (MAP) Pulse Ox O2 Delivery O2 Flow Rate FiO2 09/09/20 15:09 97.5 79 16 171/93 (94) 87 Room Air 97.5 EKG: EKG: [] Radiology/Procedures: Radiology/Procedures: [] Course & Med Decision Making: Course & Med Decision Making Pertinent Labs and Imaging studies reviewed. (See chart for details) This is a 79-year-old female patient presenting to the ED today with what sounds like exacerbation of sciatic back pain. No known injury, no cauda equina syndrome symptoms. Patient has good follow-up with her PCP. Encouraged to continue following up. She stated she already had 2 MRIs of her back and she does not think she needs anymore. She states she has known history of stenosis to her lumbar spine. Discharge to home. Gorge Disclaimer: Gorge Disclaimer: This electronic medical record was generated, in whole or in part, using a voice recognition dictation system. Departure Departure Impression: Primary Impression: Sciatica of right side Disposition: HOME / SELF CARE / HOMELESS Condition: STABLE Referrals: REINA EISENBERG MD (PCP) follow up in one week Patient Instructions: Sciatica, [id number] Additional Instructions: Please take the prescribed medications as ordered, follow-up with your primary care doctor in the course of this week or next week. Try to use a heating pad to your low back. Scripts Hydrocodone Bit/Acetaminophen (HYDROCODONE-APAP 5-325 ) 1 Tab Tablet 1 TAB PO PRN Q6HRS PRN for PAIN, #10 TAB 0 Refills Prov: HUGO DIAZ APRN 09/09/20 Cyclobenzaprine Hcl (CYCLOBENZAPRINE HCL) 10 Mg Tablet 1 TAB PO TID, #30 TAB Prov: HUGO DIAZ APRN 09/09/20 HUGO DIAZ APRN Sep 09, 2020 17:25
== END 2020-09-09 17:59 | disposition home or self-care (01) ==
LOC: ER 13:08
DX: M54.41 Lumbago with sciatica, right side (principal); G89.29 Other chronic pain; E11.9 Type 2 diabetes mellitus without complications
CPT/HCPCS: 96372; 99283; J1885

== ENCOUNTER 2020-09-10 08:20 | Inpatient (IN) | payer MEDICARE ==
[~2020-09-10] VITALS: Ht 162.6 cm; Wt 63.0 kg
[~2020-09-10 08:20] MED LIST changes: +CYCL10TA2 PO; +HYDR-2761 PO
[2020-09-10] MEDS ORDERED: KETOROLAC 30 MG/ML VIAL. IVP ONE (09:15)
--- NOTE | 2020-09-10 09:46 | ED.ADGEN ---
Past Medical History Past Medical History: Diabetes-Type II, Seizure Additional Past Medical Histor: SCIATICA Past Surgical History: Other Additional Past Surgical Histo: bladder sling, R eye,cataract,L FOOT/toe amputation Smoking Status: Never Smoker Alcohol Use: None Drug Use: None General Adult EDM: Chief Complaint: SHORTNESS OF BREATH HPI: HPI: Patient is a 79-year-old female who presents to the emergency room with multiple complaints. Patient is a poor historian. She was here yesterday complaining of sciatic pain. She was given Toradol yesterday with significant relief and was sent home. Patient states she continues to have severe chronic sciatic pain which has kept her up all night. She is also having left-sided chest pain and has been vomiting throughout the night. She is unsure whether she has a cough. Patient does not answer several questions. Review of Systems: Review of Systems: Complete ROS is negative unless otherwis Current Medications: Current Medications Medications (Trade) Dose Ordered Sig/Robbi Start Time Stop Time Status Last Admin Dose Admin Ketorolac Tromethamine (Toradol 30mg Vial) 30 mg 1X ONCE 09/10/20 09:15 09/10/20 09:19 DC 09/10/20 09:58 30 MG Ondansetron HCl (Zofran) 4 mg 1X ONCE 09/10/20 11:45 09/10/20 11:46 DC 09/10/20 12:22 4 MG Sodium Chloride 1,000 ml @ 1,000 mls/hr 1X ONCE 09/10/20 11:30 09/10/20 12:29 DC 09/10/20 12:22 1,000 MLS/HR Allergies: Allergies: Allergies Coded Allergies Type Severity Reaction Last Updated Verified No Known Drug Allergies 05/30/20 No Physical Exam: PE: General: Awake, alert, mild distress. Well Nourished, well hydrated. Cooperative HEENT: Atraumatic, EOMI, PERRL, airway patent, moist oral mucosa Neck: Supple, trachea midline Respiratory: CTA bilaterally, normal effort, no wheezing/crackles CV: RRR, no murmur, cap refill <2 GI: Soft, nondistended, nontender, no masses MSK: No obvious deformities Skin: Warm, dry, intact Neuro: A&O x3, speech NL, sensory and motor grossly intact, no focal deficits Psych: Normal affect, normal mood, not suicidal or homicidal Current Patient Data: Labs: Laboratory Tests Test 09/10/20 09:39 09/10/20 12:18 White Blood Count 12.5 x10^3/uL (4.0-11.0) H Red Blood Count 4.36 x10^6/uL (3.50-5.40) Hemoglobin 13.4 g/dL (12.0-15.5) Hematocrit 39.3 % (36.0-47.0) Mean Corpuscular Volume 90 fL (79-100) Mean Corpuscular Hemoglobin 31 pg (25-35) Mean Corpuscular Hemoglobin Concent 34 g/dL (31-37) Red Cell Distribution Width 14.2 % (11.5-14.5) Platelet Count 277 x10^3/uL (140-400) Neutrophils (%) (Auto) 89 % (31-73) H Lymphocytes (%) (Auto) 5 % (24-48) L Monocytes (%) (Auto) 5 % (0-9) Eosinophils (%) (Auto) 0 % (0-3) Basophils (%) (Auto) 0 % (0-3) Neutrophils # (Auto) 11.1 x10^3/uL (1.8-7.7) H Lymphocytes # (Auto) 0.7 x10^3/uL (1.0-4.8) L Monocytes # (Auto) 0.7 x10^3/uL (0.0-1.1) Eosinophils # (Auto) 0.0 x10^3/uL (0.0-0.7) Basophils # (Auto) 0.0 x10^3/uL (0.0-0.2) Segmented Neutrophils % 87 % (35-66) H Lymphocytes % 6 % (24-48) L Monocytes % 7 % (0-10) Platelet Estimate Adequate (ADEQUATE) Sodium Level 136 mmol/L (136-145) Potassium Level 3.5 mmol/L (3.5-5.1) Chloride Level 98 mmol/L (98-107) Carbon Dioxide Level 24 mmol/L (21-32) Anion Gap 14 (6-14) Blood Urea Nitrogen 20 mg/dL (7-20) Creatinine 0.9 mg/dL (0.6-1.0) Estimated GFR (Cockcroft-Gault) 60.7 BUN/Creatinine Ratio 22 (6-20) H Glucose Level 152 mg/dL (70-99) H Calcium Level 9.4 mg/dL (8.5-10.1) Total Bilirubin 0.6 mg/dL (0.2-1.0) Aspartate Amino Transferase (AST) 21 U/L (15-37) Alanine Aminotransferase (ALT) 19 U/L (14-59) Alkaline Phosphatase 163 U/L (46-116) H Troponin I Quantitative < 0.017 ng/mL (0.000-0.055) C-Reactive Protein, Quantitative 7.5 mg/L (0-3.3) H UG-Tyw-V-Type Natriuretic Peptide 2068 pg/mL (0-449) H Total Protein 7.9 g/dL (6.4-8.2) Albumin 3.5 g/dL (3.4-5.0) Albumin/Globulin Ratio 0.8 (1.0-1.7) L Lipase 79 U/L (73-393) SARS-CoV-2 Antigen (Rapid) Negative (NEGATIVE) Laboratory Tests 09/10/20 09:39 Laboratory Tests 09/10/20 09:39 Vital Signs: Vital Signs Date Time Temp Pulse Resp B/P (MAP) Pulse Ox O2 Delivery O2 Flow Rate FiO2 09/10/20 08:37 98.1 68 24 203/93 (94) 100 Room Air 98.1 EKG: EKG: [] Heart Score: C/O Chest Pain: Yes HEART Score for Chest Pain: HEART Score for Chest Pain Response (Comments) Value History Slighlty/Non-Suspicious 0 Age > 65 2 Total 2 Risk Factors: Risk Factors: DM, Current or recent (<one month) smoker, HTN, HLP, family history of CAD, obesity. Risk Scores: Score 0 - 3: 2.5% MACE over next 6 weeks - Discharge Home Score 4 - 6: 20.3% MACE over next 6 weeks - Admit for Clinical Observation Score 7 - 10: 72.7% MACE over next 6 weeks - Early Invasive Strategies Radiology/Procedures: Radiology/Procedures: [] Course & Med Decision Making: Course & Med Decision Making Pertinent Labs and Imaging studies reviewed. (See chart for details) Patient is a 79-year-old female who presents to the emergency room complaining of chest pain, vomiting, sciatica pain. History is difficult to obtain. Patient does appear to be in pain with her sciatica. She is grabbing her hip. She states this pain is unchanged from yesterday and from her chronic pain. Patient was given Toradol. Lab work will be ordered along with an EKG and chest x-ray to help evaluate the cause of patient's vomiting and chest pain. Patient continued to have vomiting and developed abdominal pain. CT abdomen pelvis was added and is normal. Patient continues to have vomiting. She also continues to have chest pain. We will admit her to Dr. Guerin for intractable vomiting and chest pain. Dragon Disclaimer: Dragon Disclaimer: This electronic medical record was generated, in whole or in part, using a voice recognition dictation system. Departure Departure Impression: Primary Impression: Chest pain Additional Impressions: Intractable vomiting Sciatica Disposition: ADMITTED INPATIENT Condition: STABLE Referrals: REINA EISENBERG MD (PCP) Problem Qualifiers LEANDER MACIAS MD Sep 10, 2020 09:46
[2020-09-10 09:48] LABS: BASO % 0 % (0-3); EOS % 0 % (0-3); HEMATOCRIT 39.3 % (36.0-47.0); HEMOGLOBIN 13.4 g/dL (12.0-15.5); LYMPH # 0.7 x10^3/uL (1.0-4.8); LYMPH % 5 % (24-48); MEAN CORPUSCULAR HEMOGLOBIN 31 pg (25-35); MEAN CORPUSCULAR HGB CONC 34 g/dL (31-37); MEAN CORPUSCULAR VOLUME 90 fL (79-100); MONO # 0.7 x10^3/uL (0.0-1.1); MONO % 5 % (0-9); NEUT # 11.1 x10^3/uL (1.8-7.7); NEUT % 89 % (31-73); PLATELET COUNT 277 x10^3/uL (140-400); RED BLOOD COUNT 4.36 x10^6/uL (3.50-5.40); RED CELL DISTRIBUTION WIDTH 14.2 % (11.5-14.5); WHITE BLOOD COUNT 12.5 x10^3/uL (4.0-11.0)
[2020-09-10 09:59] LABS: CALCIUM 9.4 mg/dL (8.5-10.1); CREATININE 0.9 mg/dL (0.6-1.0); GFR 60.7; POTASSIUM 3.5 mmol/L (3.5-5.1)
[2020-09-10] MEDS ORDERED: ONDANSETRON PF 4 MG/2 ML VIAL. IVP ONE ×2 (10:00→11:45)
[2020-09-10 10:05] LABS: ALBUMIN 3.5 g/dL (3.4-5.0); ALBUMIN/GLOBULIN RATIO 0.8 (1.0-1.7); C-REACTIVE PROTEIN 7.5 mg/L (0-3.3); TOTAL BILIRUBIN 0.6 mg/dL (0.2-1.0); TOTAL PROTEIN 7.9 g/dL (6.4-8.2)
--- NOTE | 2020-09-10 10:18 | RAD ---
EXAM: Chest, single view. HISTORY: Shortness of breath. COMPARISON: 10/06/2016 FINDINGS: A frontal view of the chest is obtained. There is no infiltrate, pleural effusion or pneumo thorax. The heart is normal in size. There are chronic appearing interstitial changes. IMPRESSION: No acute pulmonary finding. Electronically signed by: Devika Sargent MD (09/10/2020 10:16 AM) [id number]
[2020-09-10 11:08] LABS: % LYMPHS 6 % (24-48); % MONOS 7 % (0-10); % SEGS 87 % (35-66); PLT ESTIMATE ADEQUATE (ADEQUATE)
[2020-09-10] MEDS ORDERED: IV NORMAL SALINE 1000ML BAG 1,000 ML IV ONE (11:30)
--- NOTE | 2020-09-10 12:16 | RAD ---
EXAM: Abdomen and pelvis CT without intravenous contrast. HISTORY: Pain and vomiting. TECHNIQUE: Computed tomographic images of the abdomen and pelvis were obtained without contrast. Mult iplanar reformatting was performed. *One or more of the following individualized dose reduction techniques were utilized for this examina tion: 1. Automated exposure control. 2. Adjustment of the mA and/or kV according to patient size. 3. Use of iterative reconstruction technique. COMPARISON: 10/06/2016. FINDINGS: Evaluation of the lower thorax is limited due to respiratory motion. There is emphysema and there are chronic appearing interstitial changes with lower lobe atelectasis. There is no consolidat ion or pleural effusion. No hepatic lesion is seen. There is cholelithiasis. The pancreas is not well assessed due to motion. No pancreatic lesion is seen. The spleen is normal in size. There is adrenal gland thickening without a discrete nodule. There is mild renal atrophy. There is no hydronephrosis. There is moderate colonic stool. There is no appendicitis. There is no bowel obstruction. There is co lonic diverticulosis. There is no convincing diverticulitis. There is aortic and biiliac atherosclero sis. The bladder is unremarkable. There is a pessary within the vagina. There is a 3.1 cm left ovaria n cyst. There is no lymphadenopathy. There are severe degenerative change throughout the lumbar spine . There is lumbar kyphosis and multilevel listhesis. There is no acute or suspicious osseous lesion. IMPRESSION: 1. Significantly limited exam due to motion. 2. Colonic diverticulosis and moderate colonic stool. 3. 3.1 cm left ovarian cyst. There has been minimal interval increase in the size of this lesion comp ared to a study performed 10/06/2016, favoring benignity despite the postmenopausal status the patient. Follow-up with a pelvic sonogram can performed to confirm longer-term stability if clinically indica marilu. 4. Cholelithiasis. Electronically signed by: Devika Sargent MD (09/10/2020 12:14 PM) [id number]
--- NOTE | 2020-09-10 15:11 | PDOC2 ---
GI CONSULT Date of Service: DATE: 09/10/20 TIME: 14:38 Reason For Consult: Vomiting HPI: HPI: 79 y/o female seen in ER. She was also here yesterday for right-sided sciatic pain. Given Toradol and discharged to home w/ Rx for hydrocodone/acetaminophen and cyclobenzaprine. Tried to go to bed early but didn't sleep well, was restless, and "kept spitting up." Thinks emesis might have looked dark at home but not really sure, and here in the ER she has noted some red-ringed clear- mucousy emesis. This morning, she felt anxious and had some chest pressure and "felt like I couldn't breathe" so decided to come to the ER. First she tells me no n/v until last night, then later says she hasn't eaten much for a few days. Received Toradol again today. Noted w/ hypertension (systolic >200). Typically no issues w/ reflux though today noted "a little acid" w/ vomiting. No dysphagia, abd pain, diarrhea, constipation, hematochezia, melena, change in appetite, or weight loss. EGD by Dr. Styles in 2017 for coffee-ground emesis showed distal esophageal diverticulum, esophagitis (path c/w reflux, no Merritt's), and non-erosive gastritis. Never had a colonoscopy (though we previously recommended). Says she was told never to have one because she has a pessary. GES in 2017 showed delayed gastric emptying w/ T1/2 112 min. During that admission, she took Reglan 5mg TIDAC. Denies GB, liver, pancreas, and PUD history. CT notes diverticulosis and cholelithiasis (also noted on CT in 2017). Takes ASA 81mg QD. Denies NSAIDs. H/o anemia on past labs. Amputations to left foot earlier this year. Says sees wound care and is taking Augmentin and probiotics. Says her blood pressure fluctuates up and down but she doesn't require any medication. I spent >30 minutes with her. She gave an adequate history but also discussed many irrelevant details. She also has questions about restarting her usual medications. She lives with an "elderly man." She told me not to call her son. PCP previously Dr. Richardson, now Dr. Blackwell. PMH: PMH: DM w/ neuropathy, seizure many years ago, right sciatic pain, rib fractures bladder suspension, right cataract extraction, left foot amputations FH: Family History: No pertinent hx (denies GI cancers) Social History: Smoke: No ALCOHOL: none Drugs: None ROS: GEN: Denies fevers, chills, sweats HEENT: Denies blurred vision, sore throat CV: +chest pressure RESP: +SOA GI: Per HPI : Denies hematuria, dysuria ENDO: Denies weight changes NEURO: +neuropathy pain MSK: +right hip/sciatic pain, recent left foot surgeries SKIN: Denies jaundice, pruritus Vitals: Vitals: Vital Signs Date Time Temp Pulse Resp B/P (MAP) Pulse Ox O2 Delivery O2 Flow Rate FiO2 09/10/20 08:37 98.1 68 24 203/93 (94) 100 Room Air 98.1 Labs: Labs: Laboratory Tests Test 09/10/20 09:39 09/10/20 12:18 White Blood Count 12.5 x10^3/uL (4.0-11.0) Red Blood Count 4.36 x10^6/uL (3.50-5.40) Hemoglobin 13.4 g/dL (12.0-15.5) Hematocrit 39.3 % (36.0-47.0) Mean Corpuscular Volume 90 fL (79-100) Mean Corpuscular Hemoglobin 31 pg (25-35) Mean Corpuscular Hemoglobin Concent 34 g/dL (31-37) Red Cell Distribution Width 14.2 % (11.5-14.5) Platelet Count 277 x10^3/uL (140-400) Neutrophils (%) (Auto) 89 % (31-73) Lymphocytes (%) (Auto) 5 % (24-48) Monocytes (%) (Auto) 5 % (0-9) Eosinophils (%) (Auto) 0 % (0-3) Basophils (%) (Auto) 0 % (0-3) Neutrophils # (Auto) 11.1 x10^3/uL (1.8-7.7) Lymphocytes # (Auto) 0.7 x10^3/uL (1.0-4.8) Monocytes # (Auto) 0.7 x10^3/uL (0.0-1.1) Eosinophils # (Auto) 0.0 x10^3/uL (0.0-0.7) Basophils # (Auto) 0.0 x10^3/uL (0.0-0.2) Segmented Neutrophils % 87 % (35-66) Lymphocytes % 6 % (24-48) Monocytes % 7 % (0-10) Platelet Estimate Adequate (ADEQUATE) Sodium Level 136 mmol/L (136-145) Potassium Level 3.5 mmol/L (3.5-5.1) Chloride Level 98 mmol/L (98-107) Carbon Dioxide Level 24 mmol/L (21-32) Anion Gap 14 (6-14) Blood Urea Nitrogen 20 mg/dL (7-20) Creatinine 0.9 mg/dL (0.6-1.0) Estimated GFR (Cockcroft-Gault) 60.7 BUN/Creatinine Ratio 22 (6-20) Glucose Level 152 mg/dL (70-99) Calcium Level 9.4 mg/dL (8.5-10.1) Total Bilirubin 0.6 mg/dL (0.2-1.0) Aspartate Amino Transf (AST/SGOT) 21 U/L (15-37) Alanine Aminotransferase (ALT/SGPT) 19 U/L (14-59) Alkaline Phosphatase 163 U/L (46-116) Troponin I Quantitative < 0.017 ng/mL (0.000-0.055) C-Reactive Protein, Quantitative 7.5 mg/L (0-3.3) EZ-Nto-C-Type Natriuretic Peptide 2068 pg/mL (0-449) Total Protein 7.9 g/dL (6.4-8.2) Albumin 3.5 g/dL (3.4-5.0) Albumin/Globulin Ratio 0.8 (1.0-1.7) Lipase 79 U/L (73-393) SARS-CoV-2 Antigen (Rapid) Negative (NEGATIVE) Allergies: Coded Allergies: No Known Drug Allergies (Unverified , 05/30/20) Medications: Current Medications Medications (Trade) Dose Ordered Sig/Robbi Route PRN Reason Start Time Stop Time Status Last Admin Dose Admin Ketorolac Tromethamine (Toradol 30mg Vial) 30 mg 1X ONCE IVP 09/10/20 09:15 09/10/20 09:19 DC 09/10/20 09:58 Ondansetron HCl (Zofran) 4 mg 1X ONCE IVP 09/10/20 10:00 09/10/20 10:01 IA 09/10/20 09:58 Sodium Chloride 1,000 ml @ 1,000 mls/hr 1X ONCE IV 09/10/20 11:30 09/10/20 12:29 IA 09/10/20 12:22 Ondansetron HCl (Zofran) 4 mg 1X ONCE IVP 09/10/20 11:45 09/10/20 11:46 IA 09/10/20 12:22 Imaging: Imaging: CXR 09/10 IMPRESSION: No acute pulmonary finding. CT A/P 09/10 FINDINGS: Evaluation of the lower thorax is limited due to respiratory motion. There is emphysema and there are chronic appearing interstitial changes with lower lobe atelectasis. There is no consolidation or pleural effusion. No hepatic lesion is seen. There is cholelithiasis. The pancreas is not well assessed due to motion. No pancreatic lesion is seen. The spleen is normal in size. There is adrenal gland thickening without a discrete nodule. There is mild renal atrophy. There is no hydronephrosis. There is moderate colonic stool. There is no appendicitis. There is no bowel obstruction. There is colonic diverticulosis. There is no convincing diverticulitis. There is aortic and biiliac atherosclerosis. The bladder is unremarkable. There is a pessary within the vagina. There is a 3.1 cm left ovarian cyst. There is no lymphadenopathy. There are severe degenerative change throughout the lumbar spine. There is lumbar kyphosis and multilevel listhesis. There is no acute or suspicious osseous lesion. IMPRESSION: 1. Significantly limited exam due to motion. 2. Colonic diverticulosis and moderate colonic stool. 3. 3.1 cm left ovarian cyst. There has been minimal interval increase in the size of this lesion compared to a study performed 10/06/2016, favoring benignity despite the postmenopausal status the patient. Follow-up with a pelvic sonogram can performed to confirm longer-term stability if clinically indicated. 4. Cholelithiasis. PE: GEN: NAD HEENT: Atraumatic, PERRL LUNGS: CTAB HEART: RRR ABD: NABS, S/ND/NT - in emesis basin, some saliva and clumps of mucous w/ specks of light red blood EXTREMITY/SKIN: left foot partial amputation/wrapped NEURO/PSYCH: A & O 3 A/P: A/P: Vomiting, chest pressure, shortness of breath, anxiety HTN - defer to primary Leukocytosis, elevated BNP, elevated Alk Phos (present in past) H/o anemia - normal Hgb (and BUN) today GERD - reflux esophagitis on EGD in 2017 Esophageal diverticulum H/o delayed gastric emptying CRC screen - none Diverticulosis Cholelithiasis - likely incidental finding ASA use 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 Seems had similar symptoms when we saw in 2017. Start PPI - IV for now - change to PO as able. Continue anti-emetics. Consider prokinetic. Could try clear liquid diet. Recheck labs in a.m. For h/o anemia, will check iron and B12 for completeness. She doesn't plan to pursue screening colonoscopy. CONNIE CHASE Sep 10, 2020 15:11
[2020-09-10] MEDS: PANTOPRAZOLE IV PUSH 40 MG VIAL. IVP SCH (16:05)
[2020-09-10] MEDS: IV NORMAL SALINE 1000ML BAG 1,000 ML IV SCH (17:45)
[2020-09-10] MEDS ORDERED: HYDROcodone/APAP 5/325MG 1 TAB TABLET PO PRN (17:45)
--- NOTE | 2020-09-10 17:50 | NUR ---
The patient, LUIS CARLOS SMALLS, 79 y/o, F admitted by REINA EISENBERG MD, pt placed on monitor SR on monitor. Patient A&OX4 but unable to answer questions due to patient thrashing in bed. Belongings at bedside. Dressing changed and foot pictured and placed in chart. Will continue to monitor.
[2020-09-10 18:00] VITALS: BP 171/72
[2020-09-10] MEDS ORDERED: DEXTROSE 50% 25 GM / 50ML DISP.SYRIN. IV PRN (18:00)
--- NOTE | 2020-09-10 18:06 | PDOC ---
Provider Note Date of Service: DATE: 09/10/20 TIME: 18:04 Provider Note Pt seen.H&P dictated .Spoke with GI -POTATO SORTER.#[id number] Justifications for Admission Other Justification Gas gangrene of the left foot REINA EISENBERG MD Sep 10, 2020 18:06
[2020-09-10 18:46] LABS: PHENY 10.3 mcg/mL (10.0-20.0)
[2020-09-10 19:00] VITALS: BP 177/75
--- NOTE | 2020-09-10 19:26 | HP ---
ADMIT DATE: 09/10/2020 MEDICAL HISTORY AND PHYSICAL REASON FOR ADMISSION TO THE HOSPITAL: Chest pain, possible gastritis, esophagitis and mild GI bleed. HISTORY OF PRESENT ILLNESS: The patient is a 79-year-old female who has right-sided sciatica. She came to the ER yesterday, was given Toradol and she was discharged with hydrocodone and cyclobenzaprine. She was having more pain. Now, the pain is in the chest. She has nausea, vomiting and she felt like she could not breathe and she came to the Emergency Room and she had like retching, nausea, vomiting and the patient had a little bit of emesis with coffee ground. The patient was seen in the Emergency Room, was admitted for possible gastritis, possible upper GI bleed. The patient had seen GI in 2017. Distal esophageal diverticulum, esophagitis, nonerosive gastritis and the patient had some gallstones on [address] scan too. PAST MEDICAL HISTORY: She has a history of seizures, on Dilantin; diabetes, she only takes 1 metformin. She also had amputation of the left foot. She sees the wound care center, taking Augmentin from Dr. Salcido and probiotics. Other medical history, bladder suspension, cataract surgery, left foot amputation. FAMILY HISTORY: Unremarkable. SOCIAL HISTORY: Denies smoking, alcohol, drugs. MEDICATIONS: At home, the patient is on aspirin 81 mg daily, cyclobenzaprine 10 mg 3 times a day, metformin 500 mg daily. She takes estradiol 0.5 daily and progesterone 2.5 mg daily; gabapentin 300 mg 3 times daily; hydrocodone 5/325 q.6; Dilantin 100 mg, she takes 3 capsules at bedtime. REVIEW OF SYMPTOMS: Complains of pain, mostly in the right hip and back and also has some nausea, vomiting. PHYSICAL EXAMINATION: VITAL SIGNS: At the time of examination, blood pressure was high at 203/93, pulse 60, respirations 24, oxygen 100% on room air. HEENT: Head is atraumatic. Pupils equal. Oral cavity, dentures. NECK: Supple. Thyroid not enlarged. JVD not elevated. CHEST: Symmetrical. CARDIOVASCULAR: S1, S2. LUNGS: Clear to auscultation. ABDOMEN: Soft. Bowel sounds present. No mass palpable. EXTERNAL GENITALIA: No Meneses. RECTAL: Deferred. EXTREMITIES: No calf tenderness. The patient has a wound dressing on the left foot stump. She says the Wound Care is taking her, supposed to see her today. Did not examine the stump at this time and right foot, no ulceration. NEUROLOGIC: Moving all extremities. No focal deficits noted. LABORATORY DATA: Shows a white count of 12.5, hemoglobin 13, platelets 277. Electrolytes show sodium 136, potassium 3.5, chloride 98, bicarb 24, anion gap 14, BUN 20, creatinine 0.9, glucose 152, iron 141. Liver function normal. Troponin was negative 0.1. BNP was 2000. Lipase was normal. COVID test was negative. DIAGNOSTIC DATA: Chest x-ray was negative. CT scan shows diverticulosis of the colon, ovarian cyst 3 cm and gallstones. FINAL IMPRESSION: 1. Possible upper gastrointestinal bleed secondary to nausea and vomiting, possible Janay-Triplett. 2. Gastritis. 3. History of sciatica. 4. Mild diabetes. 5. History of chronic wound in the left. 6. History of seizures, stable. PLAN: At this time was admit to the hospital, hydrate with IV fluids, start on clear liquid diet. GI was consulted. The patient had an EGD 4 or 5 years ago, probably may need to repeat again. Monitor hemoglobin overnight and see how she does. We will also have the Wound Care look at the stump. RANDALL DR: RONNI/virgil TID: [id number]
[2020-09-10] MEDS: ONDANSETRON PF 4 MG/2 ML VIAL. IVP PRN (20:17)
[2020-09-10] MEDS: GABAPENTIN 300 MG CAPSULE. PO SCH (21:08)
[2020-09-10] MEDS: HYDROcodone/APAP 5/325MG 1 TAB TABLET PO PRN (21:09)
[2020-09-10] MEDS: PHENYTOIN SODIUM EXTENDED 100 MG CAPSULE PO SCH (21:09)
[2020-09-10 23:00] VITALS: BP 146/59
[2020-09-11 02:32] VITALS: BP 175/68
[2020-09-11] MEDS: IV NORMAL SALINE 1000ML BAG 1,000 ML IV SCH ×4 (03:45→20:31)
[2020-09-11] MEDS: ONDANSETRON PF 4 MG/2 ML VIAL. IVP PRN ×2 (05:10→20:31)
[2020-09-11] MEDS: HYDROcodone/APAP 5/325MG 1 TAB TABLET PO PRN ×3 (05:11→20:47)
[2020-09-11 07:00] VITALS: BP 169/76
[2020-09-11 07:50] LABS: HEMATOCRIT 39.1 % (36.0-47.0); HEMOGLOBIN 13.2 g/dL (12.0-15.5); RED BLOOD COUNT 4.35 x10^6/uL (3.50-5.40); RED CELL DISTRIBUTION WIDTH 14.1 % (11.5-14.5); WHITE BLOOD COUNT 11.2 x10^3/uL (4.0-11.0)
[2020-09-11] MEDS: INSULIN LISPRO 300 UNITS/3 ML VIAL. SQ SCH ×3 (08:00→17:00)
[2020-09-11 08:11] LABS: CREATININE 0.9 mg/dL (0.6-1.0); GFR 60.7; POTASSIUM 3.4 mmol/L (3.5-5.1)
[2020-09-11 08:23] LABS: CHOLESTEROL/HDL RATIO 2.1
--- NOTE | 2020-09-11 09:13 | PDOC ---
PROGRESS NOTES Date of Service: DATE: 09/11/20 TIME: 09:09 Subjective Subjective still nauseated,not able to eat anything Objective Objective Vital Signs Date Time Temp Pulse Resp B/P (MAP) Pulse Ox O2 Delivery O2 Flow Rate FiO2 09/11/20 07:00 97.3 73 16 169/76 (107) 98 Room Air 97.3 Intake and Output 09/11/20 07:00 Intake Total 1100 ml Balance 1100 ml Intake Oral 100 ml IV Total 1000 ml Physical Exam Abdomen: Normal bowel sounds, Soft Heart: Regular rate, Normal S1, Normal S2 General: Alert HEENT: Atraumatic Lungs: Clear to auscultation MUSCULOSKELETAL: No deformity, No swelling Neuro: Normal speech Psych/Mental Status: Mental status NL Skin: Other ( stump ulcer good granulation , POA ,see wound note) Diagnosis Problem List Problems Medical Problems: (1) Chest pain Status: Acute (2) Intractable vomiting Status: Acute (3) Sciatica Status: Acute Assessment Assessment Problems Medical Problems: (1) Chest pain Status: Acute (2) Intractable vomiting Status: Acute (3) Sciatica Status: Acute FINAL IMPRESSION: 1. Possible upper gastrointestinal bleed secondary to nausea and vomiting, possible Janay-Triplett. 2. Gastritis.Gall stones. 3. History of sciatica. 4. Mild diabetes. 5. 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 History of seizures, stable. PLAN: ? EGD today rehab consult , cortisone inj may help pain labs stable wound on left stump clean iv fluids Iv protonix. At this time was admit to the hospital, hydrate with IV fluids, start on clear liquid diet. GI was consulted. The patient had an EGD 4 or 5 years ago, probably may need to repeat again. Monitor hemoglobin overnight and see how she does. We will also have the Wound Care look at the stump. Plan Plan of Care Problems Medical Problems: (1) Chest pain Status: Acute (2) Intractable vomiting Status: Acute (3) Sciatica Status: Acute Comment Review of Relevant I have reviewed the following items bj (where applicable) has been applied. Labs Laboratory Tests Test 09/10/20 09:39 09/10/20 12:18 09/10/20 18:30 09/10/20 19:51 White Blood Count 12.5 x10^3/uL (4.0-11.0) Red Blood Count 4.36 x10^6/uL (3.50-5.40) Hemoglobin 13.4 g/dL (12.0-15.5) Hematocrit 39.3 % (36.0-47.0) Mean Corpuscular Volume 90 fL (79-100) Mean Corpuscular Hemoglobin 31 pg (25-35) Mean Corpuscular Hemoglobin Concent 34 g/dL (31-37) Red Cell Distribution Width 14.2 % (11.5-14.5) Platelet Count 277 x10^3/uL (140-400) Neutrophils (%) (Auto) 89 % (31-73) Lymphocytes (%) (Auto) 5 % (24-48) Monocytes (%) (Auto) 5 % (0-9) Eosinophils (%) (Auto) 0 % (0-3) Basophils (%) (Auto) 0 % (0-3) Neutrophils # (Auto) 11.1 x10^3/uL (1.8-7.7) Lymphocytes # (Auto) 0.7 x10^3/uL (1.0-4.8) Monocytes # (Auto) 0.7 x10^3/uL (0.0-1.1) Eosinophils # (Auto) 0.0 x10^3/uL (0.0-0.7) Basophils # (Auto) 0.0 x10^3/uL (0.0-0.2) Segmented Neutrophils % 87 % (35-66) Lymphocytes % 6 % (24-48) Monocytes % 7 % (0-10) Platelet Estimate Adequate (ADEQUATE) Sodium Level 136 mmol/L (136-145) Potassium Level 3.5 mmol/L (3.5-5.1) Chloride Level 98 mmol/L (98-107) Carbon Dioxide Level 24 mmol/L (21-32) Anion Gap 14 (6-14) Blood Urea Nitrogen 20 mg/dL (7-20) Creatinine 0.9 mg/dL (0.6-1.0) Estimated GFR (Cockcroft-Gault) 60.7 BUN/Creatinine Ratio 22 (6-20) Glucose Level 152 mg/dL (70-99) Calcium Level 9.4 mg/dL (8.5-10.1) Iron Level 141 ug/dL (50-170) Total Iron Binding Capacity 294 ug/dL (250-450) Iron Saturation 48 % (15-34) Total Bilirubin 0.6 mg/dL (0.2-1.0) Aspartate Amino Transf (AST/SGOT) 21 U/L (15-37) Alanine Aminotransferase (ALT/SGPT) 19 U/L (14-59) Alkaline Phosphatase 163 U/L (46-116) Troponin I Quantitative < 0.017 ng/mL (0.000-0.055) 0.036 ng/mL (0.000-0.055) C-Reactive Protein, Quantitative 7.5 mg/L (0-3.3) BS-Tfq-A-Type Natriuretic Peptide 2068 pg/mL (0-449) Total Protein 7.9 g/dL (6.4-8.2) Albumin 3.5 g/dL (3.4-5.0) Albumin/Globulin Ratio 0.8 (1.0-1.7) Lipase 79 U/L (73-393) Vitamin B12 Level 537 pg/mL (247-911) SARS-CoV-2 Antigen (Rapid) Negative (NEGATIVE) Phenytoin (Dilantin) Level 10.3 mcg/mL (10.0-20.0) Phenytoin Last Dose Date 09/09/20 Phenytoin Last Dose Time 1800 Glucose (Fingerstick) 122 mg/dL (70-99) Test 09/11/20 05:55 09/11/20 07:58 White Blood Count 11.2 x10^3/uL (4.0-11.0) Red Blood Count 4.35 x10^6/uL (3.50-5.40) Hemoglobin 13.2 g/dL (12.0-15.5) Hematocrit 39.1 % (36.0-47.0) Mean Corpuscular Volume 90 fL (79-100) Mean Corpuscular Hemoglobin 30 pg (25-35) Mean Corpuscular Hemoglobin Concent 34 g/dL (31-37) Red Cell Distribution Width 14.1 % (11.5-14.5) Platelet Count 290 x10^3/uL (140-400) Sodium Level 133 mmol/L (136-145) Potassium Level 3.4 mmol/L (3.5-5.1) Chloride Level 97 mmol/L (98-107) Carbon Dioxide Level 22 mmol/L (21-32) Anion Gap 14 (6-14) Blood Urea Nitrogen 22 mg/dL (7-20) Creatinine 0.9 mg/dL (0.6-1.0) Estimated GFR (Cockcroft-Gault) 60.7 Glucose Level 109 mg/dL (70-99) Calcium Level 9.0 mg/dL (8.5-10.1) Troponin I Quantitative 0.027 ng/mL (0.000-0.055) Triglycerides Level 106 mg/dL (0-150) Cholesterol Level 191 mg/dL (0-200) LDL Cholesterol, Calculated 79 mg/dL (0-100) VLDL Cholesterol, Calculated 21 mg/dL (0-40) Non-HDL Cholesterol Calculated 100 mg/dL (0-129) HDL Cholesterol 91 mg/dL (40-60) Cholesterol/HDL Ratio 2.1 Thyroid Stimulating Hormone (TSH) 0.704 uIU/mL (0.358-3.74) Glucose (Fingerstick) 130 mg/dL (70-99) Medications Current Medications Acetaminophen/ Hydrocodone Bitart (Lortab 5/325) 1 tab PRN Q6HRS PRN PO PAIN Last administered on 09/11/20at 05:11; Start 09/10/20 at 17:45 Acetaminophen/ Hydrocodone Bitart (Lortab 5/325) 1 tab PRN Q6HRS PRN PO PAIN; Start 09/10/20 at 17:45; Status UNV Dextrose (Dextrose 50%-Water Syringe) 12.5 gm PRN Q15MIN PRN IV SEE COMMENTS; Start 09/10/20 at 18:00 Gabapentin (Neurontin) 300 mg TID PO Last administered on 09/10/20at 21:08; Start 09/10/20 at 21:00 Insulin Human Lispro (HumaLOG) 0-5 UNITS TIDWMEALS SQ ; Start 09/11/20 at 08:00 Ketorolac Tromethamine (Toradol 30mg Vial) 30 mg 1X ONCE IVP Last administered on 09/10/20at 09:58; Start 09/10/20 at 09:15; Stop 09/10/20 at 09:19; Status DC Ondansetron HCl (Zofran) 4 mg 1X ONCE IVP Last administered on 09/10/20at 09:58; Start 09/10/20 at 10:00; Stop 09/10/20 at 10:01; Status DC Ondansetron HCl (Zofran) 4 mg 1X ONCE IVP Last administered on 09/10/20at 12:22; Start 09/10/20 at 11:45; Stop 09/10/20 at 11:46; Status DC Ondansetron HCl (Zofran) 4 mg PRN TID PRN IVP NAUSEA Last administered on 09/11/20at 05:10; Start 09/10/20 at 15:15 Pantoprazole Sodium (PROTONIX VIAL for IV PUSH) 40 mg DAILY IVP Last administered on 09/10/20at 16:05; Start 09/10/20 at 15:15 Phenytoin Sodium (Dilantin) 100 mg TID PO Last administered on 09/10/20at 21:09; Start 09/10/20 at 21:00 Sodium Chloride 1,000 ml @ 100 mls/hr Q10H IV ; Start 09/10/20 at 17:45 Sodium Chloride 1,000 ml @ 1,000 mls/hr 1X ONCE IV Last administered on 09/10/20at 12:22; Start 09/10/20 at 11:30; Stop 09/10/20 at 12:29; Status DC Vitals/I & O Vital Sign - Last 24 Hours 09/10/20 09/10/20 09/10/20 09/10/20 09:26 09:56 10:26 10:56 Pulse 62 60 64 70 Resp 18 18 B/P (MAP) 184/80 (114) 197/88 (124) 212/89 (130) 189/87 (121) Pulse Ox 99 95 96 99 O2 Delivery Room Air Room Air Room Air Room Air 09/10/20 09/10/20 09/10/20 09/10/20 12:00 13:00 13:30 14:00 Pulse 84 60 70 72 Resp 15 22 B/P (MAP) 198/86 (123) 181/77 (111) 175/78 (110) 190/88 (122) Pulse Ox 97 O2 Delivery Room Air Room Air Room Air Room Air 09/10/20 09/10/20 09/10/20 09/10/20 14:30 15:00 16:00 16:30 Pulse 60 68 60 66 Resp 22 22 13 B/P (MAP) 175/83 (113) 191/74 (113) 177/77 (110) 206/92 (130) Pulse Ox 98 O2 Delivery Room Air Room Air Room Air Room Air 09/10/20 09/10/20 09/10/20 09/10/20 18:00 19:00 20:00 21:09 Temp 99.4 99.1 99.4 99.1 Pulse 73 79 Resp 18 16 18 B/P (MAP) 171/72 (105) 177/75 (109) Pulse Ox 98 91 91 O2 Delivery Room Air Room Air Room Air Room Air 09/10/20 09/10/20 09/11/20 09/11/20 21:39 23:00 02:32 05:11 Temp 98.3 98.1 98.3 98.1 Pulse 62 64 Resp 18 16 16 18 B/P (MAP) 146/59 (88) 175/68 (103) Pulse Ox 91 97 96 96 O2 Delivery Room Air Room Air Room Air Room Air 09/11/20 09/11/20 05:41 07:00 Temp 97.3 97.3 Pulse 73 Resp 20 16 B/P (MAP) 169/76 (107) Pulse Ox 96 98 O2 Delivery Room Air Room Air Intake and Output 09/10/20 09/10/20 09/11/20 15:00 23:00 07:00 Intake Total 1000 ml 50 ml 50 ml Balance 1000 ml 50 ml 50 ml Justifications for Admission Other Justification Gas gangrene of the left foot REINA EISENBERG MD Sep 11, 2020 09:12
--- NOTE | 2020-09-11 09:17 | PDOC ---
Date of Service: DATE: 09/11/20 TIME: 09:11 Subjective: Subjective: Vomiting this morning after drinking water. No blood. No abd pain. Miserable w/ sciatic pain, says she's supposed to get another shot. Objective: Objective: D/w nurse - kept NPO in case of scope, concern from others re: ongoing pain. Nurse says [facility] her only complaint is reflux and otherwise c/o sciatic pain. I d/w Dr. Blackwell last night - concern for UGI bleeding. Vital Signs: Vital Signs Date Time Temp Pulse Resp B/P (MAP) Pulse Ox O2 Delivery O2 Flow Rate FiO2 09/11/20 07:00 97.3 73 16 169/76 (107) 98 Room Air 97.3 Labs: Laboratory Tests Test 09/10/20 09:39 09/10/20 12:18 09/10/20 18:30 09/10/20 19:51 White Blood Count 12.5 x10^3/uL Red Blood Count 4.36 x10^6/uL Hemoglobin 13.4 g/dL Hematocrit 39.3 % Mean Corpuscular Volume 90 fL Mean Corpuscular Hemoglobin 31 pg Mean Corpuscular Hemoglobin Concent 34 g/dL Red Cell Distribution Width 14.2 % Platelet Count 277 x10^3/uL Neutrophils (%) (Auto) 89 % Lymphocytes (%) (Auto) 5 % Monocytes (%) (Auto) 5 % Eosinophils (%) (Auto) 0 % Basophils (%) (Auto) 0 % Neutrophils # (Auto) 11.1 x10^3/uL Lymphocytes # (Auto) 0.7 x10^3/uL Monocytes # (Auto) 0.7 x10^3/uL Eosinophils # (Auto) 0.0 x10^3/uL Basophils # (Auto) 0.0 x10^3/uL Segmented Neutrophils % 87 % Lymphocytes % 6 % Monocytes % 7 % Platelet Estimate Adequate Sodium Level 136 mmol/L Potassium Level 3.5 mmol/L Chloride Level 98 mmol/L Carbon Dioxide Level 24 mmol/L Anion Gap 14 Blood Urea Nitrogen 20 mg/dL Creatinine 0.9 mg/dL Estimated GFR (Cockcroft-Gault) 60.7 BUN/Creatinine Ratio 22 Glucose Level 152 mg/dL Calcium Level 9.4 mg/dL Iron Level 141 ug/dL Total Iron Binding Capacity 294 ug/dL Iron Saturation 48 % Total Bilirubin 0.6 mg/dL Aspartate Amino Transf (AST/SGOT) 21 U/L Alanine Aminotransferase (ALT/SGPT) 19 U/L Alkaline Phosphatase 163 U/L Troponin I Quantitative < 0.017 ng/mL 0.036 ng/mL C-Reactive Protein, Quantitative 7.5 mg/L [id number] Natriuretic Peptide 2068 pg/mL Total Protein 7.9 g/dL Albumin 3.5 g/dL Albumin/Globulin Ratio 0.8 Lipase 79 U/L Vitamin B12 Level 537 pg/mL SARS-CoV-2 Antigen (Rapid) Negative Phenytoin (Dilantin) Level 10.3 mcg/mL Phenytoin Last Dose Date 09/09/20 Phenytoin Last Dose Time 1800 Glucose (Fingerstick) 122 mg/dL Test 09/11/20 05:55 09/11/20 07:58 White Blood Count 11.2 x10^3/uL Red Blood Count 4.35 x10^6/uL Hemoglobin 13.2 g/dL Hematocrit 39.1 % Mean Corpuscular Volume 90 fL Mean Corpuscular Hemoglobin 30 pg Mean Corpuscular Hemoglobin Concent 34 g/dL Red Cell Distribution Width 14.1 % Platelet Count 290 x10^3/uL Sodium Level 133 mmol/L Potassium Level 3.4 mmol/L Chloride Level 97 mmol/L Carbon Dioxide Level 22 mmol/L Anion Gap 14 Blood Urea Nitrogen 22 mg/dL Creatinine 0.9 mg/dL Estimated GFR (Cockcroft-Gault) 60.7 Glucose Level 109 mg/dL Calcium Level 9.0 mg/dL Troponin I Quantitative 0.027 ng/mL Triglycerides Level 106 mg/dL Cholesterol Level 191 mg/dL LDL Cholesterol, Calculated 79 mg/dL VLDL Cholesterol, Calculated 21 mg/dL Non-HDL Cholesterol Calculated 100 mg/dL HDL Cholesterol 91 mg/dL Cholesterol/HDL Ratio 2.1 Thyroid Stimulating Hormone (TSH) 0.704 uIU/mL Glucose (Fingerstick) 130 mg/dL PE: GEN: uncomfortable, laying on left side, clear discomfort with movement of right leg LUNGS: CTAB HEART: RRR ABD: S/ND/NT NEURO/PSYCH: A & O 3 A/P: N/v H/o GERD and delayed gastric emptying Right sciatic pain H/o anemia - not now - not iron or B12 deficient COVID negative -- No bleeding. Also denies abd pain to me. Hgb stable. BUN to 22 from 20 today. Ongoing n/v and right hip/leg pain. Continue IV PPI - could increase to BID. ?prokinetic? Diet as able. Justicifation of Admission Dx: Justifications for Admission: Justification of Admission Dx: Yes CONNIE CHASE Sep 11, 2020 09:17
[2020-09-11] MEDS: PANTOPRAZOLE IV PUSH 40 MG VIAL. IVP SCH (09:54)
[2020-09-11] MEDS: GABAPENTIN 300 MG CAPSULE. PO SCH ×3 (09:54→20:31)
[2020-09-11] MEDS: PHENYTOIN SODIUM EXTENDED 100 MG CAPSULE PO SCH ×3 (09:54→20:31)
[2020-09-11] MEDS ORDERED: BUPIVACAINE MPF 0.25% 10 ML VIAL. IJ ONE (10:00)
[2020-09-11] MEDS ORDERED: methylPREDNISolone ACETATE 40 MG/ML VIAL. IM ONE (10:00)
[2020-09-11] MEDS: LIDOCAINE (700MG/PATCH) PATCH. TD SCH (10:47)
--- NOTE | 2020-09-11 10:47 | RAD ---
EXAM: Abdomen sonogram. HISTORY: Cholelithiasis. TECHNIQUE: Sonographic imaging of the abdomen was performed. COMPARISON: CT dated 09/10/2020. FINDINGS: The liver is normal in size. No focal hepatic lesion is seen. The gallbladder is distended. There is no gallbladder wall thickening. There is no convincing cholelithiasis. The right kidney is normal in size. There is a 1.4 cm simple appearing right renal cyst. Follow-up is not routinely perfo rmed for simple cysts. The pancreas and inferior vena cava are unremarkable. IMPRESSION: 1. No acute sonographic finding. 2. Distended gallbladder. This is likely due to a preprandial patient status. There is no sonographic correlate for cholelithiasis demonstrated on the prior CT. The hyperdensity within the dependent por tion of the gallbladder on the prior CT may be due to sonographically occult stones or sludge. There is no evidence of cholecystitis. 3. Small simple right renal cyst. Electronically signed by: Devika Sargent MD (09/11/2020 10:45 AM) [id number]
--- NOTE | 2020-09-11 10:51 | CONS ---
DATE OF CONSULTATION: 09/11/2020 HISTORY OF PRESENT ILLNESS: The patient was seen at the request of Dr. Blackwell for rehab evaluation. This is a 79-year-old right-handed female with known diabetes mellitus, chronic lower back pain from degenerative disk disease and degenerative joint disease with lumbar spinal stenosis. The patient started having increasing lower back pain with radiation to her right lower extremity for the last few days. She was seen in the Emergency Room on 09/09/2020, was given Toradol and discharged to home with cyclobenzaprine and hydrocodone. The patient was admitted on 09/10/2020 with some chest pain, nausea, vomiting and felt like she could not breathe and was seen in the Emergency Room. She was admitted as she had some coffee-ground emesis with diagnosis of possible gastritis and upper GI bleeding. She had last GI evaluation done in 2016, had distal esophageal diverticulum, esophagitis, nonerosive gastritis and she also had gallstones as per CT scan done in 2016. The patient also with known seizures, on Dilantin, diabetes mellitus, on metformin. She had transmetatarsal amputation of left foot done in April. Since then, she is being [facility], had open wound and also blister, left heel area and she is supposed to be nonweightbearing on her left foot. The patient was actually seen in the [facility]. From there, she was sent to the Emergency Room with increasing back pain a couple of days ago. The patient has been on Augmentin and probiotics, being followed by Dr. Salcido, Infectious Disease specialist. Also history of bladder suspension, cataract surgery. She is not known allergic to any medication. She is being helped by an elderly person. She had no steps to manage at home. The patient complains of right hip and buttock area pain and pain in her left foot stump. The patient had CT scan of the abdomen and pelvis done yesterday that is on 09/10 2020 which revealed significant motion limited the examination, colonic diverticulosis and moderate colonic stool, 3.1 cm left ovarian cyst, minimal interval increase in size of the lesion compared to the study done in 2017, favoring benignity despite postmenopausal status of the patient, cholelithiasis and severe degenerative changes through the lumbar spine with lumbar kyphosis and multilevel listhesis. No acute or suspicious osseous lesion was noted. The patient had chest x-ray which failed to reveal any acute abnormality. PHYSICAL EXAMINATION: Today revealed an elderly female. She is alert, oriented to time, place, person and circumstance and follows commands appropriately, moves all 4 extremities voluntarily. She is protecting her right hip and left foot to some extent. She had overall 4+/5 grade muscle strength. She is not moving her left ankle where she admits she had severe osteoarthritis. She had crepitus on range of motion of both knee joints with knee joint effusion and she had pain free range of motion of both hip joints. She had tenderness to palpation over right lower thoracic and lumbar paraspinal muscles and right sacroiliac joint area and right gluteal muscles. The patient had dressing to her left foot stump. She had equal perception of touch and pinprick sensation bilaterally. Deep tendon reflexes are absent at both knees and ankles. She is independent with bed mobility. I have not tested her transfers or ambulation skills at this time. She had exaggerated thoracic kyphosis. 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 RECOMMENDATIONS: Proceed with injecting painful trigger points over right sacroiliac joint area and gluteal muscles. Agree with the plan for physical therapy and occupational therapy, consider referral to pain clinic for consideration of lumbar epidural steroid injection if the pain persists. Also to obtain MRI scan of her lumbar vertebrae and x-rays of both knees and left ankle. Dr. Blackwell, I appreciate asking me to participate in the care of this interesting patient. I will be glad to see her for followup with you on as needed basis. CARLOS/SHAHRAM CRUZ: CARLOS/virgil TID: [id number]
[2020-09-11 11:00] VITALS: BP 185/80
[2020-09-11] MEDS ORDERED: POTASSIUM CHLORIDE 20 MEQ TABLET.ER. PO ONE (13:15)
[2020-09-11] MEDS: hydrALAZINE 20 MG/ML VIAL. IVP PRN (13:45)
[2020-09-11 14:45] VITALS: BP 168/81
--- NOTE | 2020-09-11 15:01 | NUR ---
SS following for discharge planning. SS reviewed pt chart and discussed with pt RN. Pt is currently on room air. GI and wound care following. Pt on clear liquid diet. Dr. Perez consulted. PT/OT ordered. SS will continue to follow for discharge planning.
--- NOTE | 2020-09-11 16:17 | NUR ---
Wound care Wound care consult for left foot DFUs. Pt has healing left TMA and DFU to posterior heel. Pt is a current patient of the [facility], so dressings were replaced as directed by at last visit on Wednesday. Cleansed wounds, applied saline moistened Hydrofera blue, Xeroform, ABD and Kerlix. Covered with soft cast. Leave dressing in place until Wednesday or next [facility] visit. Pt has post op shoe in room for ambulation. Pt cannot wear half shoe due to fall risk. pt educated to float heel on pillow to reduce pressure while in bed and to also turn frequently to prevent pressure ulcers. pt complained of nausea and vomiting and pain in right hip throughout visit. Pt verbalized understanding of POC. Pt will continue to follow in [facility] outpatient after discharge
[2020-09-11 19:00] VITALS: BP 163/81
[2020-09-11] MEDS: PATCH REMOVAL. MC SCH (20:30)
[2020-09-11 22:42] VITALS: BP 178/79
[2020-09-12 01:15] LABS: HEMOGLOBIN A1C 5.7 % (4.8-5.6)
[2020-09-12 02:53] VITALS: BP 143/79
[2020-09-12 07:00] VITALS: BP 173/85
[2020-09-12] MEDS: INSULIN LISPRO 300 UNITS/3 ML VIAL. SQ SCH ×3 (07:38→17:00)
[2020-09-12 07:46] LABS: BASO % 0 % (0-3); EOS % 0 % (0-3); HEMATOCRIT 41.8 % (36.0-47.0); LYMPH # 0.9 x10^3/uL (1.0-4.8); LYMPH % 10 % (24-48); MEAN CORPUSCULAR HEMOGLOBIN 30 pg (25-35); MEAN CORPUSCULAR HGB CONC 34 g/dL (31-37); MEAN CORPUSCULAR VOLUME 90 fL (79-100); MONO # 0.9 x10^3/uL (0.0-1.1); MONO % 9 % (0-9); NEUT # 7.7 x10^3/uL (1.8-7.7); NEUT % 81 % (31-73); PLATELET COUNT 313 x10^3/uL (140-400); RED BLOOD COUNT 4.64 x10^6/uL (3.50-5.40); RED CELL DISTRIBUTION WIDTH 14.2 % (11.5-14.5); WHITE BLOOD COUNT 9.6 x10^3/uL (4.0-11.0)
[2020-09-12 07:52] LABS: CALCIUM 8.6 mg/dL (8.5-10.1); CREATININE 0.8 mg/dL (0.6-1.0); GFR 69.6; POTASSIUM 4.2 mmol/L (3.5-5.1)
[2020-09-12] MEDS ORDERED: methylPREDNISolone ACETATE 40 MG/ML VIAL. IM ONE (09:00)
[2020-09-12] MEDS ORDERED: BUPIVACAINE MPF 0.25% 10 ML VIAL. IJ ONE (09:00)
--- NOTE | 2020-09-12 09:06 | PDOC ---
PROGRESS NOTES Date of Service DATE: 09/12/20 TIME: 09:02 Subjective Subjective She continues with right buttock area pain. Objective Objective Vital Signs Date Time Temp Pulse Resp B/P (MAP) Pulse Ox O2 Delivery O2 Flow Rate FiO2 09/12/20 08:14 Room Air 09/12/20 07:00 97.7 75 20 173/85 (114) 98 97.7 Intake and Output 09/12/20 07:00 Intake Total 50 ml Output Total 300 ml Balance -250 ml Intake Oral 50 ml Output Urine Total 300 ml # Voids 1 Physical Exam Physical Exam She is alert,supine in bed and continues with tenderness to palpation over right gluteal muscles and no pain on passive ROM of her hip joints. No tenderness to palpation over right trochanteric bursa or ischial tuberosity or hip adductor tendon attachment to pubic tubercle. Assessment Assessment Problems Medical Problems: (1) Chest pain Status: Acute (2) Intractable vomiting Status: Acute (3) Sciatica Status: Acute Plan Plan of Care To try trigger point injections to gluteus stephanie muscles,to ask physical therapy to try physical modalities and to try percocet for pain relief as hydrocodone might be responsible for her nausea and vomiting. Comment Review of Relevant I have reviewed the following items bj (where applicable) has been applied. Labs Laboratory Tests Test 09/10/20 09:39 09/10/20 12:18 09/10/20 18:30 09/10/20 19:51 White Blood Count 12.5 x10^3/uL (4.0-11.0) Red Blood Count 4.36 x10^6/uL (3.50-5.40) Hemoglobin 13.4 g/dL (12.0-15.5) Hematocrit 39.3 % (36.0-47.0) Mean Corpuscular Volume 90 fL (79-100) Mean Corpuscular Hemoglobin 31 pg (25-35) Mean Corpuscular Hemoglobin Concent 34 g/dL (31-37) Red Cell Distribution Width 14.2 % (11.5-14.5) Platelet Count 277 x10^3/uL (140-400) Neutrophils (%) (Auto) 89 % (31-73) Lymphocytes (%) (Auto) 5 % (24-48) Monocytes (%) (Auto) 5 % (0-9) Eosinophils (%) (Auto) 0 % (0-3) Basophils (%) (Auto) 0 % (0-3) Neutrophils # (Auto) 11.1 x10^3/uL (1.8-7.7) Lymphocytes # (Auto) 0.7 x10^3/uL (1.0-4.8) Monocytes # (Auto) 0.7 x10^3/uL (0.0-1.1) Eosinophils # (Auto) 0.0 x10^3/uL (0.0-0.7) Basophils # (Auto) 0.0 x10^3/uL (0.0-0.2) Segmented Neutrophils % 87 % (35-66) Lymphocytes % 6 % (24-48) Monocytes % 7 % (0-10) Platelet Estimate Adequate (ADEQUATE) Sodium Level 136 mmol/L (136-145) Potassium Level 3.5 mmol/L (3.5-5.1) Chloride Level 98 mmol/L (98-107) Carbon Dioxide Level 24 mmol/L (21-32) Anion Gap 14 (6-14) Blood Urea Nitrogen 20 mg/dL (7-20) Creatinine 0.9 mg/dL (0.6-1.0) Estimated GFR (Cockcroft-Gault) 60.7 BUN/Creatinine Ratio 22 (6-20) Glucose Level 152 mg/dL (70-99) Calcium Level 9.4 mg/dL (8.5-10.1) Iron Level 141 ug/dL (50-170) Total Iron Binding Capacity 294 ug/dL (250-450) Iron Saturation 48 % (15-34) Total Bilirubin 0.6 mg/dL (0.2-1.0) Aspartate Amino Transf (AST/SGOT) 21 U/L (15-37) Alanine Aminotransferase (ALT/SGPT) 19 U/L (14-59) Alkaline Phosphatase 163 U/L (46-116) Troponin I Quantitative < 0.017 ng/mL (0.000-0.055) 0.036 ng/mL (0.000-0.055) C-Reactive Protein, Quantitative 7.5 mg/L (0-3.3) PQ-Tsw-[id number]-Type Natriuretic Peptide 2068 pg/mL (0-449) Total Protein 7.9 g/dL (6.4-8.2) Albumin 3.5 g/dL (3.4-5.0) Albumin/Globulin Ratio 0.8 (1.0-1.7) Lipase 79 U/L (73-393) Vitamin B12 Level 537 pg/mL (247-911) SARS-CoV-2 Antigen (Rapid) Negative (NEGATIVE) Phenytoin (Dilantin) Level 10.3 mcg/mL (10.0-20.0) Phenytoin Last Dose Date 09/09/20 Phenytoin Last Dose Time 1800 Glucose (Fingerstick) 122 mg/dL (70-99) Test 09/11/20 05:55 09/11/20 07:58 09/11/20 11:40 09/11/20 17:42 White Blood Count 11.2 x10^3/uL (4.0-11.0) Red Blood Count 4.35 x10^6/uL (3.50-5.40) Hemoglobin 13.2 g/dL (12.0-15.5) Hematocrit 39.1 % (36.0-47.0) Mean Corpuscular Volume 90 fL (79-100) Mean Corpuscular Hemoglobin 30 pg (25-35) Mean Corpuscular Hemoglobin Concent 34 g/dL (31-37) Red Cell Distribution Width 14.1 % (11.5-14.5) Platelet Count 290 x10^3/uL (140-400) Sodium Level 133 mmol/L (136-145) Potassium Level 3.4 mmol/L (3.5-5.1) Chloride Level 97 mmol/L (98-107) Carbon Dioxide Level 22 mmol/L (21-32) Anion Gap 14 (6-14) Blood Urea Nitrogen 22 mg/dL (7-20) Creatinine 0.9 mg/dL (0.6-1.0) Estimated GFR (Cockcroft-Gault) 60.7 Glucose Level 109 mg/dL (70-99) Hemoglobin A1c 5.7 % (4.8-5.6) Calcium Level 9.0 mg/dL (8.5-10.1) Troponin I Quantitative 0.027 ng/mL (0.000-0.055) Triglycerides Level 106 mg/dL (0-150) Cholesterol Level 191 mg/dL (0-200) LDL Cholesterol, Calculated 79 mg/dL (0-100) VLDL Cholesterol, Calculated 21 mg/dL (0-40) Non-HDL Cholesterol Calculated 100 mg/dL (0-129) HDL Cholesterol 91 mg/dL (40-60) Cholesterol/HDL Ratio 2.1 Thyroid Stimulating Hormone (TSH) 0.704 uIU/mL (0.358-3.74) Glucose (Fingerstick) 130 mg/dL (70-99) 136 mg/dL (70-99) 119 mg/dL (70-99) Test 09/11/20 20:28 09/12/20 05:45 09/12/20 07:32 Glucose (Fingerstick) 123 mg/dL (70-99) 121 mg/dL (70-99) White Blood Count 9.6 x10^3/uL (4.0-11.0) Red Blood Count 4.64 x10^6/uL (3.50-5.40) Hemoglobin 14.0 g/dL (12.0-15.5) Hematocrit 41.8 % (36.0-47.0) Mean Corpuscular Volume 90 fL (79-100) Mean Corpuscular Hemoglobin 30 pg (25-35) Mean Corpuscular Hemoglobin Concent 34 g/dL (31-37) Red Cell Distribution Width 14.2 % (11.5-14.5) Platelet Count 313 x10^3/uL (140-400) Neutrophils (%) (Auto) 81 % (31-73) Lymphocytes (%) (Auto) 10 % (24-48) Monocytes (%) (Auto) 9 % (0-9) Eosinophils (%) (Auto) 0 % (0-3) Basophils (%) (Auto) 0 % (0-3) Neutrophils # (Auto) 7.7 x10^3/uL (1.8-7.7) Lymphocytes # (Auto) 0.9 x10^3/uL (1.0-4.8) Monocytes # (Auto) 0.9 x10^3/uL (0.0-1.1) Eosinophils # (Auto) 0.0 x10^3/uL (0.0-0.7) Basophils # (Auto) 0.0 x10^3/uL (0.0-0.2) Sodium Level 127 mmol/L (136-145) Potassium Level 4.2 mmol/L (3.5-5.1) Chloride Level 92 mmol/L (98-107) Carbon Dioxide Level 29 mmol/L (21-32) Anion Gap 6 (6-14) Blood Urea Nitrogen 21 mg/dL (7-20) Creatinine 0.8 mg/dL (0.6-1.0) Estimated GFR (Cockcroft-Gault) 69.6 Glucose Level 109 mg/dL (70-99) Calcium Level 8.6 mg/dL (8.5-10.1) Laboratory Tests Test 09/11/20 11:40 09/11/20 17:42 09/11/20 20:28 09/12/20 05:45 Glucose (Fingerstick) 136 mg/dL (70-99) 119 mg/dL (70-99) 123 mg/dL (70-99) White Blood Count 9.6 x10^3/uL (4.0-11.0) Red Blood Count 4.64 x10^6/uL (3.50-5.40) Hemoglobin 14.0 g/dL (12.0-15.5) Hematocrit 41.8 % (36.0-47.0) Mean Corpuscular Volume 90 fL (79-100) Mean Corpuscular Hemoglobin 30 pg (25-35) Mean Corpuscular Hemoglobin Concent 34 g/dL (31-37) Red Cell Distribution Width 14.2 % (11.5-14.5) Platelet Count 313 x10^3/uL (140-400) Neutrophils (%) (Auto) 81 % (31-73) Lymphocytes (%) (Auto) 10 % (24-48) Monocytes (%) (Auto) 9 % (0-9) Eosinophils (%) (Auto) 0 % (0-3) Basophils (%) (Auto) 0 % (0-3) Neutrophils # (Auto) 7.7 x10^3/uL (1.8-7.7) Lymphocytes # (Auto) 0.9 x10^3/uL (1.0-4.8) Monocytes # (Auto) 0.9 x10^3/uL (0.0-1.1) Eosinophils # (Auto) 0.0 x10^3/uL (0.0-0.7) Basophils # (Auto) 0.0 x10^3/uL (0.0-0.2) Sodium Level 127 mmol/L (136-145) Potassium Level 4.2 mmol/L (3.5-5.1) Chloride Level 92 mmol/L (98-107) Carbon Dioxide Level 29 mmol/L (21-32) Anion Gap 6 (6-14) Blood Urea Nitrogen 21 mg/dL (7-20) Creatinine 0.8 mg/dL (0.6-1.0) Estimated GFR (Cockcroft-Gault) 69.6 Glucose Level 109 mg/dL (70-99) Calcium Level 8.6 mg/dL (8.5-10.1) Test 09/12/20 07:32 Glucose (Fingerstick) 121 mg/dL (70-99) Medications Current Medications Ketorolac Tromethamine (Toradol 30mg Vial) 30 mg 1X ONCE IVP Last administered on 09/10/20 09:58; Start 09/10/20 at 09:15; Stop 09/10/20 at 09:19; Status DC Ondansetron HCl (Zofran) 4 mg 1X ONCE IVP Last administered on 09/10/20 09:58; Start 09/10/20 at 10:00; Stop 09/10/20 at 10:01; Status DC Sodium Chloride 1,000 ml @ 1,000 mls/hr 1X ONCE IV Last administered on 09/10/20 12:22; Start 09/10/20 at 11:30; Stop 09/10/20 at 12:29; Status DC Ondansetron HCl (Zofran) 4 mg 1X ONCE IVP Last administered on 09/10/20at 12:22; Start 09/10/20 at 11:45; Stop 09/10/20 at 11:46; Status DC Pantoprazole Sodium (PROTONIX VIAL for IV PUSH) 40 mg DAILY IVP Last administered on 09/11/20 09:54; Start 09/10/20 at 15:15 Ondansetron HCl (Zofran) 4 mg PRN TID PRN IVP NAUSEA Last administered on 09/11/20 20:31; Start 09/10/20 at 15:15 Sodium Chloride 1,000 ml @ 100 mls/hr Q10H IV Last administered on 09/11/20at 10:52; Start 09/10/20 at 17:45 Gabapentin (Neurontin) 300 mg TID PO Last administered on 09/11/20at 20:31; Start 09/10/20 at 21:00 Acetaminophen/ Hydrocodone Bitart (Lortab 5/325) 1 tab PRN Q6HRS PRN PO PAIN Last administered on 09/11/20at 20:47; Start 09/10/20 at 17:45 Acetaminophen/ Hydrocodone Bitart (Lortab 5/325) 1 tab PRN Q6HRS PRN PO PAIN; Start 09/10/20 at 17:45; Status UNV Phenytoin Sodium (Dilantin) 100 mg TID PO Last administered on 09/11/20at 20:31; Start 09/10/20 at 21:00 Insulin Human Lispro (HumaLOG) 0-5 UNITS TIDWMEALS SQ ; Start 09/11/20 at 08:00 Dextrose (Dextrose 50%-Water Syringe) 12.5 gm PRN Q15MIN PRN IV SEE COMMENTS; Start 09/10/20 at 18:00 Methylprednisolone Acetate (DEPO-Medrol 40MG VIAL) 40 mg 1X ONCE IM Last administered on 09/11/20at 10:48; Start 09/11/20 at 10:00; Stop 09/11/20 at 10:03; Status DC Bupivacaine HCl (Sensorcaine-Mpf 0.25%) 10 ml 1X ONCE IJ Last administered on 09/11/20at 10:47; Start 09/11/20 at 10:00; Stop 09/11/20 at 10:03; Status DC Lidocaine (Lidoderm) 1 patch DAILY TD Last administered on 09/11/20at 10:47; Start 09/11/20 at 10:30 Miscellaneous (Lidoderm Patch Removal) 1 ea QHS MC Last administered on 09/11/20at 20:30; Start 09/11/20 at 21:00 Potassium Chloride (Klor-Con) 20 meq 1X ONCE PO Last administered on 09/11/20at 13:46; Start 09/11/20 at 13:15; Stop 09/11/20 at 13:16; Status DC Potassium Chloride/Sodium Chloride 1,000 ml @ 75 mls/hr [id number] IV Last administered on 09/11/20at 20:30; Start 09/11/20 at 21:00 Hydralazine HCl (Apresoline) 10 mg PRN Q4HRS PRN PO > 160/90; Start 09/11/20 at 13:15 Hydralazine HCl (Apresoline Inj) 10 mg PRN Q4HRS PRN IVP ELEVATED BP, SEE COMMENTS Last administered on 09/11/20at 13:45; Start 09/11/20 at 13:15 Oxycodone/ Acetaminophen (Percocet 7.5/ 325) 1 tab PRN Q4HRS PRN PO MODERATE TO SEVERE PAIN; Start 09/12/20 at 09:00 Methylprednisolone Acetate (DEPO-Medrol 40MG VIAL) 40 mg 1X ONCE IM ; Start 09/12/20 at 09:00; Stop 09/12/20 at 09:01 Bupivacaine HCl (Sensorcaine-Mpf 0.25%) 10 ml 1X ONCE IJ ; Start 09/12/20 at 09:00; Stop 09/12/20 at 09:01 Active Scripts Active Hydrocodone-Apap 5-325 (Hydrocodone Bit/Acetaminophen) 1 Tab Tablet 1 Tab PO PRN Q6HRS PRN Cyclobenzaprine Hcl 10 Mg Tablet 1 Tab PO TID Reported Estradiol 0.5 Mg Tablet 1 Tab PO DAILY Medroxyprogesterone Acetate 2.5 Mg Tablet 1 Tab PO DAILY Aspirin 81 Mg Tab.chew 1 Tab PO DAILY [place] 5-325 Tablet (Acetaminophen/Hydrocodone Bitart) 1 Each Tablet 1 Tab PO PRN Q6HRS PRN Dilantin (Phenytoin Sodium Extended) 100 Mg Capsule 1 Cap PO TID Gabapentin (Gabapentin) 300 Mg Capsule 300 Mg PO TID Metformin Hcl 500 Mg Tablet 500 Mg PO BIDWMEALS Vitals/I & O Vital Sign - Last 24 Hours 09/11/20 09/11/20 09/11/20 09/11/20 11:00 13:45 14:45 14:58 Temp 98.2 98.9 98.2 98.9 Pulse 72 82 87 Resp 18 16 B/P (MAP) 185/80 (115) 196/93 168/81 (110) Pulse Ox 99 97 O2 Delivery Room Air Room Air Room Air 09/11/20 09/11/20 09/11/20 09/11/20 15:28 19:00 19:50 20:47 Temp 98.1 98.1 Pulse 70 Resp 18 18 20 B/P (MAP) 163/81 (108) Pulse Ox 96 96 96 O2 Delivery Room Air Room Air Room Air Room Air 09/11/20 09/11/20 09/12/20 09/12/20 21:17 22:42 02:53 07:00 Temp 98.8 99.5 97.7 98.8 99.5 97.7 Pulse 72 82 75 Resp 18 16 16 20 B/P (MAP) 178/79 (112) 143/79 (100) 173/85 (114) Pulse Ox 96 97 97 98 O2 Delivery Room Air Room Air Room Air Room Air 09/12/20 08:14 O2 Delivery Room Air Intake and Output 09/11/20 09/11/20 09/12/20 15:00 23:00 07:00 Intake Total 0 ml 50 ml Output Total 300 ml Balance 0 ml -250 ml Justifications for Admission Other Justification Gas gangrene of the left foot Nutrition Consultation Dietary Evaluation: Recommendations by RD: Dietary education by RD, Increase Calorie Intake, Protein supplementation Comments: clear liquids alexander bid REC ADA diet with alexander bid when able to tolerate REC mvi q day per wound protocal Expected Outcomes/Goals: to meet >75% est nutr needs improved wound status glycemic control Interpretation of weight loss: >1-2% in 1 week Malnutrition Findings: Food and Nutrition Intake (Sev: <50% est energy req 5days Body Fat Depletion (Non Severe: Mild Depletion Weight Status: Underweight YEVGENIY GENAO MD Sep 12, 2020 09:06
[2020-09-12] MEDS ORDERED: oxyCODONE/APAP 5/325 1 TAB TABLET PO PRN (09:15)
--- NOTE | 2020-09-12 09:16 | PDOC ---
PROGRESS NOTES Date of Service: DATE: 09/12/20 TIME: 09:14 Subjective Subjective still nauseated not able to eat anything Objective Objective Vital Signs Date Time Temp Pulse Resp B/P (MAP) Pulse Ox O2 Delivery O2 Flow Rate FiO2 09/12/20 08:14 Room Air 09/12/20 07:00 97.7 75 20 173/85 (114) 98 97.7 Intake and Output 09/12/20 07:00 Intake Total 50 ml Output Total 300 ml Balance -250 ml Intake Oral 50 ml Output Urine Total 300 ml # Voids 1 Physical Exam Abdomen: Normal bowel sounds, Soft Heart: Regular rate, Normal S1, Normal S2 General: Alert HEENT: Atraumatic Lungs: Clear to auscultation MUSCULOSKELETAL: No deformity, No swelling Neuro: Normal speech Psych/Mental Status: Mental status NL Skin: Other ( stump ulcer good granulation , POA ,see wound note) Diagnosis Problem List Problems Medical Problems: (1) Chest pain Status: Acute (2) Intractable vomiting Status: Acute (3) Sciatica Status: Acute Assessment Assessment Problems Medical Problems: (1) Chest pain Status: Acute (2) Intractable vomiting Status: Acute (3) Sciatica Status: Acute FINAL IMPRESSION: 1. Possible upper gastrointestinal bleed secondary to nausea and vomiting, possible Janay-Triplett. 2. Gastritis.Gall stones. 3. History of sciatica. 4. Mild diabetes. 5. 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 History of seizures, stable. PLAN: gall bladder no stone ,no cholecystitis . No plans for EGD for now,as per GI rehab consult , cortisone inj may help pain labs Na 127 wound on left stump clean iv fluids Iv protonix. Plan Plan of Care Problems Medical Problems: (1) Chest pain Status: Acute (2) Intractable vomiting Status: Acute (3) Sciatica Status: Acute Comment Review of Relevant I have reviewed the following items bj (where applicable) has been applied. Labs Laboratory Tests Test 09/11/20 11:40 09/11/20 17:42 09/11/20 20:28 09/12/20 05:45 Glucose (Fingerstick) 136 mg/dL (70-99) 119 mg/dL (70-99) 123 mg/dL (70-99) White Blood Count 9.6 x10^3/uL (4.0-11.0) Red Blood Count 4.64 x10^6/uL (3.50-5.40) Hemoglobin 14.0 g/dL (12.0-15.5) Hematocrit 41.8 % (36.0-47.0) Mean Corpuscular Volume 90 fL (79-100) Mean Corpuscular Hemoglobin 30 pg (25-35) Mean Corpuscular Hemoglobin Concent 34 g/dL (31-37) Red Cell Distribution Width 14.2 % (11.5-14.5) Platelet Count 313 x10^3/uL (140-400) Neutrophils (%) (Auto) 81 % (31-73) Lymphocytes (%) (Auto) 10 % (24-48) Monocytes (%) (Auto) 9 % (0-9) Eosinophils (%) (Auto) 0 % (0-3) Basophils (%) (Auto) 0 % (0-3) Neutrophils # (Auto) 7.7 x10^3/uL (1.8-7.7) Lymphocytes # (Auto) 0.9 x10^3/uL (1.0-4.8) Monocytes # (Auto) 0.9 x10^3/uL (0.0-1.1) Eosinophils # (Auto) 0.0 x10^3/uL (0.0-0.7) Basophils # (Auto) 0.0 x10^3/uL (0.0-0.2) Sodium Level 127 mmol/L (136-145) Potassium Level 4.2 mmol/L (3.5-5.1) Chloride Level 92 mmol/L (98-107) Carbon Dioxide Level 29 mmol/L (21-32) Anion Gap 6 (6-14) Blood Urea Nitrogen 21 mg/dL (7-20) Creatinine 0.8 mg/dL (0.6-1.0) Estimated GFR (Cockcroft-Gault) 69.6 Glucose Level 109 mg/dL (70-99) Calcium Level 8.6 mg/dL (8.5-10.1) Test 09/12/20 07:32 Glucose (Fingerstick) 121 mg/dL (70-99) Medications Current Medications Bupivacaine HCl (Sensorcaine-Mpf 0.25%) 10 ml 1X ONCE IJ Last administered on 09/11/20at 10:47; Start 09/11/20 at 10:00; Stop 09/11/20 at 10:03; Status DC Bupivacaine HCl (Sensorcaine-Mpf 0.25%) 10 ml 1X ONCE IJ ; Start 09/12/20 at 09:00; Stop 09/12/20 at 09:01; Status DC Hydralazine HCl (Apresoline Inj) 10 mg PRN Q4HRS PRN IVP ELEVATED BP, SEE COMMENTS Last administered on 09/11/20at 13:45; Start 09/11/20 at 13:15 Hydralazine HCl (Apresoline) 10 mg PRN Q4HRS PRN PO > 160/90; Start 09/11/20 at 13:15 Lidocaine (Lidoderm) 1 patch DAILY TD Last administered on 09/11/20at 10:47; Start 09/11/20 at 10:30 Methylprednisolone Acetate (DEPO-Medrol 40MG VIAL) 40 mg 1X ONCE IM Last administered on 09/11/20at 10:48; Start 09/11/20 at 10:00; Stop 09/11/20 at 10:03; Status DC Methylprednisolone Acetate (DEPO-Medrol 40MG VIAL) 40 mg 1X ONCE IM ; Start 09/12/20 at 09:00; Stop 09/12/20 at 09:01; Status DC Miscellaneous (Lidoderm Patch Removal) 1 ea QHS MC Last administered on 09/11/20at 20:30; Start 09/11/20 at 21:00 Oxycodone/ Acetaminophen (Percocet 7.5/ 325) 1 tab PRN Q4HRS PRN PO MODERATE TO SEVERE PAIN; Start 09/12/20 at 09:00 Potassium Chloride/Sodium Chloride 1,000 ml @ 75 mls/hr [id number] IV Last administered on 09/11/20at 20:30; Start 09/11/20 at 21:00 Potassium Chloride (Klor-Con) 20 meq 1X ONCE PO Last administered on 09/11/20at 13:46; Start 09/11/20 at 13:15; Stop 09/11/20 at 13:16; Status DC Vitals/I & O Vital Sign - Last 24 Hours 09/11/20 09/11/20 09/11/20 09/11/20 11:00 13:45 14:45 14:58 Temp 98.2 98.9 98.2 98.9 Pulse 72 82 87 Resp 18 16 B/P (MAP) 185/80 (115) 196/93 168/81 (110) Pulse Ox 99 97 O2 Delivery Room Air Room Air Room Air 09/11/20 09/11/20 09/11/20 09/11/20 15:28 19:00 19:50 20:47 Temp 98.1 98.1 Pulse 70 Resp 18 18 20 B/P (MAP) 163/81 (108) Pulse Ox 96 96 96 O2 Delivery Room Air Room Air Room Air Room Air 09/11/20 09/11/20 09/12/20 09/12/20 21:17 22:42 02:53 07:00 Temp 98.8 99.5 97.7 98.8 99.5 97.7 Pulse 72 82 75 Resp 18 16 16 20 B/P (MAP) 178/79 (112) 143/79 (100) 173/85 (114) Pulse Ox 96 97 97 98 O2 Delivery Room Air Room Air Room Air Room Air 09/12/20 08:14 O2 Delivery Room Air Intake and Output 09/11/20 09/11/20 09/12/20 15:00 23:00 07:00 Intake Total 0 ml 50 ml Output Total 300 ml Balance 0 ml -250 ml Justifications for Admission Other Justification Gas gangrene of the left foot Nutrition Consultation Dietary Evaluation: Recommendations by RD: Dietary education by RD, Increase Calorie Intake, Protein supplementation Comments: clear liquids alexander bid REC ADA diet with alexander bid when able to tolerate REC mvi q day per wound protocal Expected Outcomes/Goals: to meet >75% est nutr needs improved wound status glycemic control Interpretation of weight loss: >1-2% in 1 week Malnutrition Findings: Food and Nutrition Intake (Sev: <50% est energy req 5days Body Fat Depletion (Non Severe: Mild Depletion Weight Status: Underweight REINA EISENBERG MD Sep 12, 2020 09:16
[2020-09-12] MEDS: ONDANSETRON PF 4 MG/2 ML VIAL. IVP PRN ×3 (09:26→20:41)
[2020-09-12] MEDS: PHENYTOIN SODIUM EXTENDED 100 MG CAPSULE PO SCH ×3 (09:26→20:40)
[2020-09-12] MEDS: GABAPENTIN 300 MG CAPSULE. PO SCH ×3 (09:26→20:41)
[2020-09-12] MEDS: PANTOPRAZOLE IV PUSH 40 MG VIAL. IVP SCH (09:26)
[2020-09-12] MEDS: LIDOCAINE (700MG/PATCH) PATCH. TD SCH (09:26)
--- NOTE | 2020-09-12 09:30 | PDOC4 ---
PROCEDURE Procedure At her request,I have injected painful trigger points over right gluteus stephanie muscle with 2 ml of marcaine 0.25% solution mixed with 1 ml of depo-medrol 40 mg/ 1 ml solution under aseptic skin technique using alcohol skin prep and she tolerated the procedure satisfactorily without any side effects. YEVGENIY GENAO MD Sep 12, 2020 09:30
[2020-09-12] MEDS ORDERED: PROCHLORPERAZINE 25 MG SUPP.RECT. PR PRN (09:45)
--- NOTE | 2020-09-12 09:52 | PDOC ---
Date of Service: DATE: 09/12/20 TIME: 09:44 Subjective: Subjective: Feels like she needs to clear something from her throat. Feels better to cough. "Spit up all night." Maybe there's something stuck like a cracker but she hasn't had crackers since before coming to the ER the second time. Can swallow saliva but not sure about other things. No odynophagia. Feet are numb, talks about metformin and gabapentin. Objective: Objective: D/w nurse - complaints re: throat, also ongoing right leg/back/hip pain, doesn't want to eat/drink, difficult historian. Head imaging okay in 2017. Vital Signs: Vital Signs Date Time Temp Pulse Resp B/P (MAP) Pulse Ox O2 Delivery O2 Flow Rate FiO2 09/12/20 08:14 Room Air 09/12/20 07:00 97.7 75 20 173/85 (114) 98 97.7 Labs: Laboratory Tests Test 09/11/20 11:40 09/11/20 17:42 09/11/20 20:28 09/12/20 05:45 Glucose (Fingerstick) 136 mg/dL 119 mg/dL 123 mg/dL White Blood Count 9.6 x10^3/uL Red Blood Count 4.64 x10^6/uL Hemoglobin 14.0 g/dL Hematocrit 41.8 % Mean Corpuscular Volume 90 fL Mean Corpuscular Hemoglobin 30 pg Mean Corpuscular Hemoglobin Concent 34 g/dL Red Cell Distribution Width 14.2 % Platelet Count 313 x10^3/uL Neutrophils (%) (Auto) 81 % Lymphocytes (%) (Auto) 10 % Monocytes (%) (Auto) 9 % Eosinophils (%) (Auto) 0 % Basophils (%) (Auto) 0 % Neutrophils # (Auto) 7.7 x10^3/uL Lymphocytes # (Auto) 0.9 x10^3/uL Monocytes # (Auto) 0.9 x10^3/uL Eosinophils # (Auto) 0.0 x10^3/uL Basophils # (Auto) 0.0 x10^3/uL Sodium Level 127 mmol/L Potassium Level 4.2 mmol/L Chloride Level 92 mmol/L Carbon Dioxide Level 29 mmol/L Anion Gap 6 Blood Urea Nitrogen 21 mg/dL Creatinine 0.8 mg/dL Estimated GFR (Cockcroft-Gault) 69.6 Glucose Level 109 mg/dL Calcium Level 8.6 mg/dL Test 09/12/20 07:32 Glucose (Fingerstick) 121 mg/dL PE: GEN: uncomfortable - coughing and clearing throat into emesis basin, spitting saliva - not retching LUNGS: CTAB HEART: RRR ABD: soft, non-tender NEURO/PSYCH: A & O 3 A/P: Globus H/o GERD and delayed gastric emptying Hyponatremia Right sciatic pain -- Evolving symptoms. Swallowed water without issue when I saw her this morning. Consider esophagram. Continue PPI - consider increasing to BID - currently hyponatremic. Continue anti-emetics, consider prokinetic. Diet as able. Justicifation of Admission Dx: Justifications for Admission: Justification of Admission Dx: Yes CONNIE CHASE Sep 12, 2020 09:52
[2020-09-12 11:00] VITALS: BP 177/86
[2020-09-12] MEDS: oxyCODONE/APAP 7.5/325 1 TAB TABLET PO PRN ×2 (12:20→20:40)
[2020-09-12] MEDS: hydrALAZINE 20 MG/ML VIAL. IVP PRN (12:21)
--- NOTE | 2020-09-12 13:47 | NUR ---
SS following up with discharge planning. SS reviewed pt chart and discussed with pt RN. Pt is currently on room air. PT/OT ordered. PT recommended [facility]. Pt on clear liquid diet. Wound care following. SS met with pt to discuss discharge planning and [facility]. Pt adamantly declining [facility]. Pt reported that she has a friend that helps her and will return to home with her friend. Home Healthcare discussed. Pt reported that she will discuss with Dr. Blackwell and if he recommends home health she will consider it. SS will continue to follow for discharge planning.
[2020-09-12 15:00] VITALS: BP 152/78
[2020-09-12 19:00] VITALS: BP 162/79
[2020-09-12] MEDS: PATCH REMOVAL. MC SCH (20:40)
[2020-09-12] MEDS: hydrALAZINE 10 MG TABLET PO PRN (20:41)
[2020-09-12 23:00] VITALS: BP 173/80
[2020-09-13 03:00] VITALS: BP 179/78
[2020-09-13 05:13] LABS: CALCIUM 8.4 mg/dL (8.5-10.1); CREATININE 0.8 mg/dL (0.6-1.0); GFR 69.6; POTASSIUM 3.8 mmol/L (3.5-5.1)
[2020-09-13 07:00] VITALS: BP 121/70
--- NOTE | 2020-09-13 07:40 | PDOC ---
PROGRESS NOTES Date of Service DATE: 09/13/20 TIME: 07:35 Subjective Subjective She admits continued right groin area pain and some disorientation this AM when she woke up,probably from percocet but admits it is helping better. She continues with nausea but nursing has not tried compazine suppository. Objective Objective Vital Signs Date Time Temp Pulse Resp B/P (MAP) Pulse Ox O2 Delivery O2 Flow Rate FiO2 09/13/20 03:00 99.1 76 16 179/78 (111) 97 Room Air 99.1 Intake and Output 09/13/20 07:00 Intake Total 1505 ml Output Total 1200 ml Balance 305 ml Intake Oral 610 ml IV Total 895 ml Output Urine Total 1200 ml # Voids 1 Physical Exam Physical Exam She is supine in bed and alert,and she continues with pain free passive and even active ROM of right hip joint. She continues with tenderness to palpation over right hip girdle muscles,hip flexor muscle attachment proximally and she is keeping her right lower extremity in external rotation and flexion. Assessment Assessment Problems Medical Problems: (1) Chest pain Status: Acute (2) Intractable vomiting Status: Acute (3) Sciatica Status: Acute Plan Plan of Care To continue present care efforts as tolerated and to SNF for continued care when medically stable. Comment Review of Relevant I have reviewed the following items bj (where applicable) has been applied. Labs Laboratory Tests Test 09/11/20 07:58 09/11/20 11:40 09/11/20 17:42 09/11/20 20:28 Glucose (Fingerstick) 130 mg/dL (70-99) 136 mg/dL (70-99) 119 mg/dL (70-99) 123 mg/dL (70-99) Test 09/12/20 05:45 09/12/20 07:32 09/12/20 16:57 09/12/20 20:41 White Blood Count 9.6 x10^3/uL (4.0-11.0) Red Blood Count 4.64 x10^6/uL (3.50-5.40) Hemoglobin 14.0 g/dL (12.0-15.5) Hematocrit 41.8 % (36.0-47.0) Mean Corpuscular Volume 90 fL (79-100) Mean Corpuscular Hemoglobin 30 pg (25-35) Mean Corpuscular Hemoglobin Concent 34 g/dL (31-37) Red Cell Distribution Width 14.2 % (11.5-14.5) Platelet Count 313 x10^3/uL (140-400) Neutrophils (%) (Auto) 81 % (31-73) Lymphocytes (%) (Auto) 10 % (24-48) Monocytes (%) (Auto) 9 % (0-9) Eosinophils (%) (Auto) 0 % (0-3) Basophils (%) (Auto) 0 % (0-3) Neutrophils # (Auto) 7.7 x10^3/uL (1.8-7.7) Lymphocytes # (Auto) 0.9 x10^3/uL (1.0-4.8) Monocytes # (Auto) 0.9 x10^3/uL (0.0-1.1) Eosinophils # (Auto) 0.0 x10^3/uL (0.0-0.7) Basophils # (Auto) 0.0 x10^3/uL (0.0-0.2) Sodium Level 127 mmol/L (136-145) Potassium Level 4.2 mmol/L (3.5-5.1) Chloride Level 92 mmol/L (98-107) Carbon Dioxide Level 29 mmol/L (21-32) Anion Gap 6 (6-14) Blood Urea Nitrogen 21 mg/dL (7-20) Creatinine 0.8 mg/dL (0.6-1.0) Estimated GFR (Cockcroft-Gault) 69.6 Glucose Level 109 mg/dL (70-99) Calcium Level 8.6 mg/dL (8.5-10.1) Glucose (Fingerstick) 121 mg/dL (70-99) 114 mg/dL (70-99) 106 mg/dL (70-99) Test 09/13/20 03:10 09/13/20 07:10 Sodium Level 129 mmol/L (136-145) Potassium Level 3.8 mmol/L (3.5-5.1) Chloride Level 94 mmol/L (98-107) Carbon Dioxide Level 24 mmol/L (21-32) Anion Gap 11 (6-14) Blood Urea Nitrogen 19 mg/dL (7-20) Creatinine 0.8 mg/dL (0.6-1.0) Estimated GFR (Cockcroft-Gault) 69.6 Glucose Level 94 mg/dL (70-99) Calcium Level 8.4 mg/dL (8.5-10.1) Glucose (Fingerstick) 102 mg/dL (70-99) Laboratory Tests Test 09/12/20 16:57 09/12/20 20:41 09/13/20 03:10 09/13/20 07:10 Glucose (Fingerstick) 114 mg/dL (70-99) 106 mg/dL (70-99) 102 mg/dL (70-99) Sodium Level 129 mmol/L (136-145) Potassium Level 3.8 mmol/L (3.5-5.1) Chloride Level 94 mmol/L (98-107) Carbon Dioxide Level 24 mmol/L (21-32) Anion Gap 11 (6-14) Blood Urea Nitrogen 19 mg/dL (7-20) Creatinine 0.8 mg/dL (0.6-1.0) Estimated GFR (Cockcroft-Gault) 69.6 Glucose Level 94 mg/dL (70-99) Calcium Level 8.4 mg/dL (8.5-10.1) Medications Current Medications Ketorolac Tromethamine (Toradol 30mg Vial) 30 mg 1X ONCE IVP Last administered on 09/10/20at 09:58; Start 09/10/20 at 09:15; Stop 09/10/20 at 09:19; Status DC Ondansetron HCl (Zofran) 4 mg 1X ONCE IVP Last administered on 09/10/20at 09:58; Start 09/10/20 at 10:00; Stop 09/10/20 at 10:01; Status DC Sodium Chloride 1,000 ml @ 1,000 mls/hr 1X ONCE IV Last administered on 09/10/20at 12:22; Start 09/10/20 at 11:30; Stop 09/10/20 at 12:29; Status DC Ondansetron HCl (Zofran) 4 mg 1X ONCE IVP Last administered on 09/10/20at 12:22; Start 09/10/20 at 11:45; Stop 09/10/20 at 11:46; Status DC Pantoprazole Sodium (PROTONIX VIAL for IV PUSH) 40 mg DAILY IVP Last administered on 09/12/20at 09:26; Start 09/10/20 at 15:15 Ondansetron HCl (Zofran) 4 mg PRN TID PRN IVP NAUSEA Last administered on 09/12/20 20:41; Start 09/10/20 at 15:15 Sodium Chloride 1,000 ml @ 100 mls/hr Q10H IV Last administered on 09/11/20 10:52; Start 09/10/20 at 17:45; Stop 09/12/20 at 09:14; Status DC Gabapentin (Neurontin) 300 mg TID PO Last administered on 09/12/20 20:41; Start 09/10/20 at 21:00 Acetaminophen/ Hydrocodone Bitart (Lortab 5/325) 1 tab PRN Q6HRS PRN PO PAIN Last administered on 09/11/20 20:47; Start 09/10/20 at 17:45; Stop 09/12/20 at 09:14; Status DC Acetaminophen/ Hydrocodone Bitart (Lortab 5/325) 1 tab PRN Q6HRS PRN PO PAIN; Start 09/10/20 at 17:45; Status UNV Phenytoin Sodium (Dilantin) 100 mg TID PO Last administered on 09/12/20at 20:40; Start 09/10/20 at 21:00 Insulin Human Lispro (HumaLOG) 0-5 UNITS TIDWMEALS SQ ; Start 09/11/20 at 08:00 Dextrose (Dextrose 50%-Water Syringe) 12.5 gm PRN Q15MIN PRN IV SEE COMMENTS; Start 09/10/20 at 18:00 Methylprednisolone Acetate (DEPO-Medrol 40MG VIAL) 40 mg 1X ONCE IM Last admin istered on 09/11/20at 10:48; Start 09/11/20 at 10:00; Stop 09/11/20 at 10:03; Status DC Bupivacaine HCl (Sensorcaine-Mpf 0.25%) 10 ml 1X ONCE IJ Last administered on 09/11/20 10:47; Start 09/11/20 at 10:00; Stop 09/11/20 at 10:03; Status DC Lidocaine (Lidoderm) 1 patch DAILY TD Last administered on 09/12/20 09:26; Start 09/11/20 at 10:30 Miscellaneous (Lidoderm Patch Removal) 1 ea QHS MC Last administered on 7/15/21at 20:40; Start 09/11/20 at 21:00 Potassium Chloride (Klor-Con) 20 meq 1X ONCE PO Last administered on 09/11/20at 13:46; Start 09/11/20 at 13:15; Stop 09/11/20 at 13:16; Status DC Potassium Chloride/Sodium Chloride 1,000 ml @ 100 mls/hr Q10H IV Last administered on 09/12/20at 20:40; Start 09/11/20 at 21:00 Hydralazine HCl (Apresoline) 10 mg PRN Q4HRS PRN PO > 160/90 Last administered on 09/12/20at 20:41; Start 09/11/20 at 13:15 Hydralazine HCl (Apresoline Inj) 10 mg PRN Q4HRS PRN IVP ELEVATED BP, SEE COMMENTS Last administered on 09/12/20at 12:21; Start 09/11/20 at 13:15 Oxycodone/ Acetaminophen (Percocet 7.5/ 325) 1 tab PRN Q4HRS PRN PO SEVERE PAIN Last administered on 09/12/20at 20:40; Start 09/12/20 at 09:00 Methylprednisolone Acetate (DEPO-Medrol 40MG VIAL) 40 mg 1X ONCE IM Last administered on 09/12/20at 09:00; Start 09/12/20 at 09:00; Stop 09/12/20 at 09:01; Status DC Bupivacaine HCl (Sensorcaine-Mpf 0.25%) 10 ml 1X ONCE IJ Last administered on 09/12/20at 09:00; Start 09/12/20 at 09:00; Stop 09/12/20 at 09:01; Status DC Oxycodone/ Acetaminophen (Percocet 5/325) 1 tab PRN Q4HRS PRN PO MODERATE PAIN; Start 09/12/20 at 09:15 Prochlorperazine (Compazine) 25 mg PRN Q12HR PRN MO NAUSEA/VOMITING; Start 09/12/20 at 09:45 Active Scripts Active Hydrocodone-Apap 5-325 (Hydrocodone Bit/Acetaminophen) 1 Tab Tablet 1 Tab PO PRN Q6HRS PRN Cyclobenzaprine Hcl 10 Mg Tablet 1 Tab PO TID Reported Estradiol 0.5 Mg Tablet 1 Tab PO DAILY Medroxyprogesterone Acetate 2.5 Mg Tablet 1 Tab PO DAILY Aspirin 81 Mg Tab.chew 1 Tab PO DAILY Bruce 5-325 Tablet (Acetaminophen/Hydrocodone Bitart) 1 Each Tablet 1 Tab PO PRN Q6HRS PRN Dilantin (Phenytoin Sodium Extended) 100 Mg Capsule 1 Cap PO TID Gabapentin (Gabapentin) 300 Mg Capsule 300 Mg PO TID Metformin Hcl 500 Mg Tablet 500 Mg PO BIDWMEALS Vitals/I & O Vital Sign - Last 24 Hours 09/12/20 09/12/20 09/12/20 09/12/20 08:14 11:00 12:20 12:21 Temp 97.8 97.8 Pulse 78 78 Resp 20 20 B/P (MAP) 177/86 (116) 177/86 Pulse Ox 98 O2 Delivery Room Air Room Air Room Air 09/12/20 09/12/20 09/12/20 09/12/20 12:50 15:00 19:00 19:53 Temp 98.3 98.7 98.3 98.7 Pulse 87 70 Resp 18 20 18 B/P (MAP) 152/78 (102) 162/79 (106) Pulse Ox 98 98 O2 Delivery Room Air Room Air Room Air Room Air 09/12/20 09/12/20 09/12/20 09/12/20 20:40 20:41 21:10 23:00 Temp 98.9 98.9 Pulse 70 76 Resp 18 18 16 B/P (MAP) 162/79 173/80 (111) Pulse Ox 98 98 96 O2 Delivery Room Air Room Air Room Air 09/13/20 03:00 Temp 99.1 99.1 Pulse 76 Resp 16 B/P (MAP) 179/78 (111) Pulse Ox 97 O2 Delivery Room Air Intake and Output 09/12/20 09/12/20 09/13/20 15:00 23:00 07:00 Intake Total 300 ml 1095 ml 110 ml Output Total 200 ml 500 ml 500 ml Balance 100 ml 595 ml -390 ml Justifications for Admission Other Justification Gas gangrene of the left foot Nutrition Consultation Dietary Evaluation: Recommendations by RD: Dietary education by RD, Increase Calorie Intake, Pr otein supplementation Comments: clear liquids alexander bid REC ADA diet with alexander bid when able to tolerate REC mvi q day per wound protocal Expected Outcomes/Goals: to meet >75% est nutr needs improved wound status glycemic control Interpretation of weight loss: >1-2% in 1 week Malnutrition Findings: Food and Nutrition Intake (Sev: <50% est energy req 5days Body Fat Depletion (Non Severe: Mild Depletion Weight Status: Underweight YEVGENIY GENAO MD Sep 13, 2020 07:40
[2020-09-13] MEDS: INSULIN LISPRO 300 UNITS/3 ML VIAL. SQ SCH ×3 (08:00→16:48)
--- NOTE | 2020-09-13 08:43 | PDOC ---
PROGRESS NOTES Date of Service: DATE: 09/13/20 TIME: 08:43 Subjective Subjective pain slightly better rt hip area,N/V still present Objective Objective Vital Signs Date Time Temp Pulse Resp B/P (MAP) Pulse Ox O2 Delivery O2 Flow Rate FiO2 09/13/20 07:50 Room Air 09/13/20 07:00 98.1 75 16 121/70 (87) 96 98.1 Intake and Output 09/13/20 07:00 Intake Total 1505 ml Output Total 1200 ml Balance 305 ml Intake Oral 610 ml IV Total 895 ml Output Urine Total 1200 ml # Voids 1 Physical Exam Abdomen: Normal bowel sounds, Soft Heart: Regular rate, Normal S1, Normal S2 General: Alert HEENT: Atraumatic Lungs: Clear to auscultation MUSCULOSKELETAL: No deformity, No swelling Neuro: Normal speech Psych/Mental Status: Mental status NL Skin: Other ( stump ulcer good granulation , POA ,see wound note) Diagnosis Problem List Problems Medical Problems: (1) Chest pain Status: Acute (2) Intractable vomiting Status: Acute (3) Sciatica Status: Acute Assessment Assessment Problems Medical Problems: (1) Chest pain Status: Acute (2) Intractable vomiting Status: Acute (3) Sciatica Status: Acute FINAL IMPRESSION: 1. Possible upper gastrointestinal bleed secondary to nausea and vomiting, possible Janay-Triplett. 2. Gastritis.Gall stones. 3. History of sciatica. 4. Mild diabetes. 5. 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 History of seizures, stable. PLAN: esophagogram today, spoke with GI gall bladder no stone ,no cholecystitis . No plans for EGD for now,as per GI rehab consult , cortisone inj may help pain labs Na 129 ,improving wound on left stump clean iv fluids Iv protonix. Plan Plan of Care Problems Medical Problems: (1) Chest pain Status: Acute (2) Intractable vomiting Status: Acute (3) Sciatica Status: Acute Comment Review of Relevant I have reviewed the following items bj (where applicable) has been applied. Labs Laboratory Tests Test 09/12/20 16:57 09/12/20 20:41 09/13/20 03:10 09/13/20 07:10 Glucose (Fingerstick) 114 mg/dL (70-99) 106 mg/dL (70-99) 102 mg/dL (70-99) Sodium Level 129 mmol/L (136-145) Potassium Level 3.8 mmol/L (3.5-5.1) Chloride Level 94 mmol/L (98-107) Carbon Dioxide Level 24 mmol/L (21-32) Anion Gap 11 (6-14) Blood Urea Nitrogen 19 mg/dL (7-20) Creatinine 0.8 mg/dL (0.6-1.0) Estimated GFR (Cockcroft-Gault) 69.6 Glucose Level 94 mg/dL (70-99) Calcium Level 8.4 mg/dL (8.5-10.1) Medications Current Medications Bupivacaine HCl (Sensorcaine-Mpf 0.25%) 10 ml 1X ONCE IJ Last administered on 09/12/20at 09:00; Start 09/12/20 at 09:00; Stop 09/12/20 at 09:01; Status DC Methylprednisolone Acetate (DEPO-Medrol 40MG VIAL) 40 mg 1X ONCE IM Last administered on 09/12/20at 09:00; Start 09/12/20 at 09:00; Stop 09/12/20 at 09:01; Status DC Oxycodone/ Acetaminophen (Percocet 5/325) 1 tab PRN Q4HRS PRN PO MODERATE PAIN; Start 09/12/20 at 09:15 Oxycodone/ Acetaminophen (Percocet 7.5/ 325) 1 tab PRN Q4HRS PRN PO SEVERE PAIN Last administered on 09/12/20at 20:40; Start 09/12/20 at 09:00 Prochlorperazine (Compazine) 25 mg PRN Q12HR PRN OR NAUSEA/VOMITING; Start 09/12/20 at 09:45 Vitals/I & O Vital Sign - Last 24 Hours 09/12/20 09/12/20 09/12/20 09/12/20 11:00 12:20 12:21 12:50 Temp 97.8 97.8 Pulse 78 78 Resp 20 20 18 B/P (MAP) 177/86 (116) 177/86 Pulse Ox 98 O2 Delivery Room Air Room Air Room Air 09/12/20 09/12/20 09/12/20 09/12/20 15:00 19:00 19:53 20:40 Temp 98.3 98.7 98.3 98.7 Pulse 87 70 Resp 20 18 18 B/P (MAP) 152/78 (102) 162/79 (106) Pulse Ox 98 98 98 O2 Delivery Room Air Room Air Room Air Room Air 09/12/20 09/12/20 09/12/20 09/13/20 20:41 21:10 23:00 03:00 Temp 98.9 99.1 98.9 99.1 Pulse 70 76 76 Resp 18 16 16 B/P (MAP) 162/79 173/80 (111) 179/78 (111) Pulse Ox 98 96 97 O2 Delivery Room Air Room Air Room Air 09/13/20 09/13/20 07:00 07:50 Temp 98.1 98.1 Pulse 75 Resp 16 B/P (MAP) 121/70 (87) Pulse Ox 96 O2 Delivery Room Air Room Air Intake and Output 09/12/20 09/12/20 09/13/20 15:00 23:00 07:00 Intake Total 300 ml 1095 ml 110 ml Output Total 200 ml 500 ml 500 ml Balance 100 ml 595 ml -390 ml Justifications for Admission Other Justification Gas gangrene of the left foot Nutrition Consultation Dietary Evaluation: Recommendations by RD: Dietary education by RD, Increase Calorie Intake, Protein supplementation Comments: clear liquids alexander bid REC ADA diet with alexander bid when able to tolerate REC mvi q day per wound protocal Expected Outcomes/Goals: to meet >75% est nutr needs improved wound status glycemic control Interpretation of weight loss: >1-2% in 1 week Malnutrition Findings: Food and Nutrition Intake (Sev: <50% est energy req 5days Body Fat Depletion (Non Severe: Mild Depletion Weight Status: Underweight REINA EISENBERG MD Sep 13, 2020 08:43
[2020-09-13] MEDS: PHENYTOIN SODIUM EXTENDED 100 MG CAPSULE PO SCH ×4 (09:00→20:28)
[2020-09-13] MEDS: GABAPENTIN 300 MG CAPSULE. PO SCH ×4 (09:00→20:26)
[2020-09-13] MEDS: LIDOCAINE (700MG/PATCH) PATCH. TD SCH (09:26)
[2020-09-13] MEDS: PANTOPRAZOLE IV PUSH 40 MG VIAL. IVP SCH (09:26)
[2020-09-13] MEDS: oxyCODONE/APAP 7.5/325 1 TAB TABLET PO PRN ×2 (09:27→20:27)
--- NOTE | 2020-09-13 09:29 | PDOC ---
Date of Service: DATE: 09/13/20 TIME: 09:26 Subjective: Subjective: Little better today, still spitting up, feels like needs to clear throat. Objective: Vital Signs: Vital Signs Date Time Temp Pulse Resp B/P (MAP) Pulse Ox O2 Delivery O2 Flow Rate FiO2 09/13/20 07:50 Room Air 09/13/20 07:00 98.1 75 16 121/70 (87) 96 98.1 Labs: Laboratory Tests Test 09/12/20 16:57 09/12/20 20:41 09/13/20 03:10 09/13/20 07:10 Glucose (Fingerstick) 114 mg/dL 106 mg/dL 102 mg/dL Sodium Level 129 mmol/L Potassium Level 3.8 mmol/L Chloride Level 94 mmol/L Carbon Dioxide Level 24 mmol/L Anion Gap 11 Blood Urea Nitrogen 19 mg/dL Creatinine 0.8 mg/dL Estimated GFR (Cockcroft-Gault) 69.6 Glucose Level 94 mg/dL Calcium Level 8.4 mg/dL PE: GEN: NAD - looks a little better today - sitting up in bed, has tray of clears, emesis basin w/ saliva (no blood) LUNGS: CTAB HEART: RRR ABD: S/ND/NT NEURO/PSYCH: A & O 3, talkative A/P: Globus, h/o GERD and gastroparesis Hyponatremia - better Right sciatic pain -- Still describing globus, clearing throat, spitting phlegm, but able to swallow jello, water, etc. Proceed w/ esophagram. Continue PPI, anti-emetics. Consider prokinetic. D/w Dr. Blackwell. Justicifation of Admission Dx: Justifications for Admission: Justification of Admission Dx: Yes CONNIE CHASE Sep 13, 2020 09:29
[2020-09-13] MEDS ORDERED: BARIUM SULFATE 60% 355 ML SUSP PO ONE ×2 (09:30)
[2020-09-13] MEDS ORDERED: BARIUM SULFATE 340 GM SUSPENSION. PO ONE (09:30)
[2020-09-13 10:57] VITALS: BP 158/82
--- NOTE | 2020-09-13 14:45 | NUR ---
SS following up with discharge planning. SS reviewed pt chart and discussed with pt RN. Pt is currently on room air. PT/OT recommended usp unit. Wound care following. Pt adamantly declining usp unit. Pt now agreeable to home healthcare with no preference of company. Referral sent to [facility], ; fax [phone]. SS will continue to follow for discharge planning.
[2020-09-13 15:00] VITALS: BP 160/86
--- NOTE | 2020-09-13 16:51 | RAD ---
EXAMINATION: DG VIDEO SWALLOW STUDY (ESOPHAGRAM) CLINICAL HISTORY: FEELS LIKE SOMETHING IS STUCK IN HER THROAT, NAUSEA TECHNIQUE: Double contrast esophagram performed utilizing effervescent granules followed by oral admi nistration of thick and thin barium. - Number of Images: 21 - Fluoroscopy Time: 0.8 minutes COMPARISON: None FINDINGS: No evidence of esophageal stricture, ring, or mass, however, there is moderate mass effect on the eso phagus by the aortic arch. Small epiphrenic diverticulum. No hiatal hernia. Esophageal dysmotility with tertiary contractions noted throughout the exam, greatest when the the pa tient was lying in oblique prone position. There was also significant contrast retention throughout t he esophagus with failure to fully empty in oblique prone position. The patient denied any symptoms w hile the esophagus failed to empty. Spontaneous emptying of the esophagus ultimately occurred once th e patient was returned to the upright position. No reflux elicited despite provocative maneuvers. IMPRESSION: Significant esophageal dysmotility as described. Small epiphrenic diverticulum. No hiatal hernia. Electronically signed by: Feliz Jenkins DO (09/13/2020 4:48 PM) [id number]
[2020-09-13 19:30] VITALS: BP 113/67
[2020-09-13] MEDS: PATCH REMOVAL. MC SCH (20:23)
[2020-09-13] MEDS: hydrALAZINE 10 MG TABLET PO PRN (20:26)
[2020-09-13] MEDS: ONDANSETRON PF 4 MG/2 ML VIAL. IVP PRN (20:27)
[2020-09-13 23:15] VITALS: BP 130/87
[2020-09-14] MEDS: ONDANSETRON PF 4 MG/2 ML VIAL. IVP PRN (03:36)
[2020-09-14] MEDS: oxyCODONE/APAP 7.5/325 1 TAB TABLET PO PRN ×4 (03:36→21:46)
[2020-09-14 04:15] VITALS: BP 106/60
[2020-09-14 07:00] VITALS: BP 135/63
[2020-09-14 07:31] LABS: BASO % 0 % (0-3); EOS # 0.1 x10^3/uL (0.0-0.7); EOS % 2 % (0-3); HEMATOCRIT 35.3 % (36.0-47.0); LYMPH # 1.1 x10^3/uL (1.0-4.8); LYMPH % 20 % (24-48); MEAN CORPUSCULAR HEMOGLOBIN 31 pg (25-35); MEAN CORPUSCULAR HGB CONC 34 g/dL (31-37); MEAN CORPUSCULAR VOLUME 90 fL (79-100); MONO # 0.7 x10^3/uL (0.0-1.1); MONO % 12 % (0-9); NEUT # 3.5 x10^3/uL (1.8-7.7); NEUT % 66 % (31-73); PLATELET COUNT 222 x10^3/uL (140-400); RED BLOOD COUNT 3.91 x10^6/uL (3.50-5.40); RED CELL DISTRIBUTION WIDTH 13.8 % (11.5-14.5); WHITE BLOOD COUNT 5.4 x10^3/uL (4.0-11.0)
[2020-09-14 07:45] LABS: CALCIUM 7.8 mg/dL (8.5-10.1); CREATININE 0.8 mg/dL (0.6-1.0); GFR 69.6; POTASSIUM 3.5 mmol/L (3.5-5.1)
[2020-09-14] MEDS: INSULIN LISPRO 300 UNITS/3 ML VIAL. SQ SCH ×3 (08:00→17:00)
[2020-09-14] MEDS: GABAPENTIN 300 MG CAPSULE. PO SCH ×3 (08:26→21:45)
[2020-09-14] MEDS: PHENYTOIN SODIUM EXTENDED 100 MG CAPSULE PO SCH ×3 (08:26→21:46)
[2020-09-14] MEDS: PANTOPRAZOLE IV PUSH 40 MG VIAL. IVP SCH (08:26)
[2020-09-14] MEDS: LIDOCAINE (700MG/PATCH) PATCH. TD SCH (08:27)
--- NOTE | 2020-09-14 10:49 | PDOC ---
PROGRESS NOTES Date of Service: DATE: 09/14/20 TIME: 10:47 Subjective Subjective feeling better today , able to keep food down Objective Objective Vital Signs Date Time Temp Pulse Resp B/P (MAP) Pulse Ox O2 Delivery O2 Flow Rate FiO2 09/14/20 08:15 Room Air 09/14/20 07:00 97.7 61 16 135/63 (87) 98 97.7 Intake and Output 09/14/20 07:00 Intake Total 1450 ml Output Total 1000 ml Balance 450 ml Intake Oral 450 ml IV Total 1000 ml Output Urine Total 1000 ml # Voids 2 Physical Exam Abdomen: Normal bowel sounds, Soft Heart: Regular rate, Normal S1, Normal S2 General: Alert HEENT: Atraumatic Lungs: Clear to auscultation MUSCULOSKELETAL: No deformity, No swelling Neuro: Normal speech Psych/Mental Status: Mental status NL Skin: Other ( stump ulcer good granulation , POA ,see wound note) Diagnosis Problem List Problems Medical Problems: (1) Chest pain Status: Acute (2) Intractable vomiting Status: Acute (3) Sciatica Status: Acute Assessment Assessment Problems Medical Problems: (1) Chest pain Status: Acute (2) Intractable vomiting Status: Acute (3) Sciatica Status: Acute FINAL IMPRESSION: 1. Possible upper gastrointestinal bleed secondary to nausea and vomiting, possible Janay-Triplett. 2. Gastritis.Gall stones. 3. History of sciatica. 4. Mild diabetes. 5. 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 History of seizures, stable. PLAN: advance diet, D/c iv fluids. esophagogram motility problems,no obstruction gall bladder no stone ,no cholecystitis . No plans for EGD for now,as per GI rehab consult , cortisone inj may help pain labs Na 134 ,improving wound on left stump clean d/c iv fluids d/c Iv protonix. Plan Plan of Care Problems Medical Problems: (1) Chest pain Status: Acute (2) Intractable vomiting Status: Acute (3) Sciatica Status: Acute Comment Review of Relevant I have reviewed the following items bj (where applicable) has been applied. Labs Laboratory Tests Test 09/13/20 11:28 09/13/20 16:42 09/13/20 20:59 09/14/20 06:45 Glucose (Fingerstick) 124 mg/dL (70-99) 135 mg/dL (70-99) 113 mg/dL (70-99) White Blood Count 5.4 x10^3/uL (4.0-11.0) Red Blood Count 3.91 x10^6/uL (3.50-5.40) Hemoglobin 12.0 g/dL (12.0-15.5) Hematocrit 35.3 % (36.0-47.0) Mean Corpuscular Volume 90 fL (79-100) Mean Corpuscular Hemoglobin 31 pg (25-35) Mean Corpuscular Hemoglobin Concent 34 g/dL (31-37) Red Cell Distribution Width 13.8 % (11.5-14.5) Platelet Count 222 x10^3/uL (140-400) Neutrophils (%) (Auto) 66 % (31-73) Lymphocytes (%) (Auto) 20 % (24-48) Monocytes (%) (Auto) 12 % (0-9) Eosinophils (%) (Auto) 2 % (0-3) Basophils (%) (Auto) 0 % (0-3) Neutrophils # (Auto) 3.5 x10^3/uL (1.8-7.7) Lymphocytes # (Auto) 1.1 x10^3/uL (1.0-4.8) Monocytes # (Auto) 0.7 x10^3/uL (0.0-1.1) Eosinophils # (Auto) 0.1 x10^3/uL (0.0-0.7) Basophils # (Auto) 0.0 x10^3/uL (0.0-0.2) Sodium Level 134 mmol/L (136-145) Potassium Level 3.5 mmol/L (3.5-5.1) Chloride Level 100 mmol/L (98-107) Carbon Dioxide Level 30 mmol/L (21-32) Anion Gap 4 (6-14) Blood Urea Nitrogen 19 mg/dL (7-20) Creatinine 0.8 mg/dL (0.6-1.0) Estimated GFR (Cockcroft-Gault) 69.6 Glucose Level 90 mg/dL (70-99) Calcium Level 7.8 mg/dL (8.5-10.1) Test 09/14/20 08:09 Glucose (Fingerstick) 85 mg/dL (70-99) Vitals/I & O Vital Sign - Last 24 Hours 09/13/20 09/13/20 09/13/20 09/13/20 10:57 15:00 19:30 19:41 Temp 98.2 97.8 98.0 98.2 97.8 98.0 Pulse 75 74 69 Resp 18 16 18 B/P (MAP) 158/82 (107) 160/86 (110) 113/67 (82) Pulse Ox 99 99 98 O2 Delivery Room Air Room Air Room Air Room Air 09/13/20 09/13/20 09/13/20 09/13/20 20:26 20:27 20:57 23:15 Temp 97.9 97.9 Pulse 74 72 Resp 18 18 18 B/P (MAP) 160/86 130/87 (101) Pulse Ox 99 99 98 O2 Delivery Room Air Room Air Room Air 09/14/20 09/14/20 09/14/20 09/14/20 03:00 03:36 04:06 04:15 Temp 97.7 97.7 Pulse 71 Resp 18 18 18 B/P (MAP) 106/60 (75) Pulse Ox 98 97 97 O2 Delivery Room Air Room Air Room Air Room Air 09/14/20 09/14/20 07:00 08:15 Temp 97.7 97.7 Pulse 61 Resp 16 B/P (MAP) 135/63 (87) Pulse Ox 98 O2 Delivery Room Air Room Air Intake and Output 09/13/20 09/13/20 09/14/20 15:00 23:00 07:00 Intake Total 50 ml 300 ml 1100 ml Output Total 1000 ml Balance 50 ml 300 ml 100 ml Justifications for Admission Other Justification Gas gangrene of the left foot Nutrition Consultation Dietary Evaluation: Recommendations by RD: Dietary education by RD, Increase Calorie Intake, Protein supplementation Comments: clear liquids alexander bid REC ADA diet with alexander bid when able to tolerate REC mvi q day per wound protocal Expected Outcomes/Goals: to meet >75% est nutr needs improved wound status glycemic control Interpretation of weight loss: >1-2% in 1 week Malnutrition Findings: Food and Nutrition Intake (Sev: <50% est energy req 5days Body Fat Depletion (Non Severe: Mild Depletion Weight Status: Underweight REINA EISENBERG MD Sep 14, 2020 10:49
--- NOTE | 2020-09-14 10:58 | PDOC ---
PROGRESS NOTES Date of Service DATE: 09/14/20 TIME: 10:55 Subjective Subjective No new complaints. Objective Objective Vital Signs Date Time Temp Pulse Resp B/P (MAP) Pulse Ox O2 Delivery O2 Flow Rate FiO2 09/14/20 10:46 20 98 Room Air 09/14/20 07:00 97.7 61 135/63 (87) 97.7 Intake and Output 09/14/20 07:00 Intake Total 1450 ml Output Total 1000 ml Balance 450 ml Intake Oral 450 ml IV Total 1000 ml Output Urine Total 1000 ml # Voids 2 Physical Exam Physical Exam She is alert,sitting in bedside recliner and had some broth this AM. She admits pain is better controlled with percocet. Assessment Assessment Problems Medical Problems: (1) Chest pain Status: Acute (2) Intractable vomiting Status: Acute (3) Sciatica Status: Acute Plan Plan of Long Term with home health follow up when medically stable. Comment Review of Relevant I have reviewed the following items bj (where applicable) has been applied. Labs Laboratory Tests Test 09/12/20 16:57 09/12/20 20:41 09/13/20 03:10 09/13/20 07:10 Glucose (Fingerstick) 114 mg/dL (70-99) 106 mg/dL (70-99) 102 mg/dL (70-99) Sodium Level 129 mmol/L (136-145) Potassium Level 3.8 mmol/L (3.5-5.1) Chloride Level 94 mmol/L (98-107) Carbon Dioxide Level 24 mmol/L (21-32) Anion Gap 11 (6-14) Blood Urea Nitrogen 19 mg/dL (7-20) Creatinine 0.8 mg/dL (0.6-1.0) Estimated GFR (Cockcroft-Gault) 69.6 Glucose Level 94 mg/dL (70-99) Calcium Level 8.4 mg/dL (8.5-10.1) Test 09/13/20 11:28 09/13/20 16:42 09/13/20 20:59 09/14/20 06:45 Glucose (Fingerstick) 124 mg/dL (70-99) 135 mg/dL (70-99) 113 mg/dL (70-99) White Blood Count 5.4 x10^3/uL (4.0-11.0) Red Blood Count 3.91 x10^6/uL (3.50-5.40) Hemoglobin 12.0 g/dL (12.0-15.5) Hematocrit 35.3 % (36.0-47.0) Mean Corpuscular Volume 90 fL (79-100) Mean Corpuscular Hemoglobin 31 pg (25-35) Mean Corpuscular Hemoglobin Concent 34 g/dL (31-37) Red Cell Distribution Width 13.8 % (11.5-14.5) Platelet Count 222 x10^3/uL (140-400) Neutrophils (%) (Auto) 66 % (31-73) Lymphocytes (%) (Auto) 20 % (24-48) Monocytes (%) (Auto) 12 % (0-9) Eosinophils (%) (Auto) 2 % (0-3) Basophils (%) (Auto) 0 % (0-3) Neutrophils # (Auto) 3.5 x10^3/uL (1.8-7.7) Lymphocytes # (Auto) 1.1 x10^3/uL (1.0-4.8) Monocytes # (Auto) 0.7 x10^3/uL (0.0-1.1) Eosinophils # (Auto) 0.1 x10^3/uL (0.0-0.7) Basophils # (Auto) 0.0 x10^3/uL (0.0-0.2) Sodium Level 134 mmol/L (136-145) Potassium Level 3.5 mmol/L (3.5-5.1) Chloride Level 100 mmol/L (98-107) Carbon Dioxide Level 30 mmol/L (21-32) Anion Gap 4 (6-14) Blood Urea Nitrogen 19 mg/dL (7-20) Creatinine 0.8 mg/dL (0.6-1.0) Estimated GFR (Cockcroft-Gault) 69.6 Glucose Level 90 mg/dL (70-99) Calcium Level 7.8 mg/dL (8.5-10.1) Test 09/14/20 08:09 Glucose (Fingerstick) 85 mg/dL (70-99) Laboratory Tests Test 09/13/20 11:28 09/13/20 16:42 09/13/20 20:59 09/14/20 06:45 Glucose (Fingerstick) 124 mg/dL (70-99) 135 mg/dL (70-99) 113 mg/dL (70-99) White Blood Count 5.4 x10^3/uL (4.0-11.0) Red Blood Count 3.91 x10^6/uL (3.50-5.40) Hemoglobin 12.0 g/dL (12.0-15.5) Hematocrit 35.3 % (36.0-47.0) Mean Corpuscular Volume 90 fL (79-100) Mean Corpuscular Hemoglobin 31 pg (25-35) Mean Corpuscular Hemoglobin Concent 34 g/dL (31-37) Red Cell Distribution Width 13.8 % (11.5-14.5) Platelet Count 222 x10^3/uL (140-400) Neutrophils (%) (Auto) 66 % (31-73) Lymphocytes (%) (Auto) 20 % (24-48) Monocytes (%) (Auto) 12 % (0-9) Eosinophils (%) (Auto) 2 % (0-3) Basophils (%) (Auto) 0 % (0-3) Neutrophils # (Auto) 3.5 x10^3/uL (1.8-7.7) Lymphocytes # (Auto) 1.1 x10^3/uL (1.0-4.8) Monocytes # (Auto) 0.7 x10^3/uL (0.0-1.1) Eosinophils # (Auto) 0.1 x10^3/uL (0.0-0.7) Basophils # (Auto) 0.0 x10^3/uL (0.0-0.2) Sodium Level 134 mmol/L (136-145) Potassium Level 3.5 mmol/L (3.5-5.1) Chloride Level 100 mmol/L (98-107) Carbon Dioxide Level 30 mmol/L (21-32) Anion Gap 4 (6-14) Blood Urea Nitrogen 19 mg/dL (7-20) Creatinine 0.8 mg/dL (0.6-1.0) Estimated GFR (Cockcroft-Gault) 69.6 Glucose Level 90 mg/dL (70-99) Calcium Level 7.8 mg/dL (8.5-10.1) Test 09/14/20 08:09 Glucose (Fingerstick) 85 mg/dL (70-99) Medications Current Medications Ketorolac Tromethamine (Toradol 30mg Vial) 30 mg 1X ONCE IVP Last administered on 09/10/20at 09:58; Start 09/10/20 at 09:15; Stop 09/10/20 at 09:19; Status DC Ondansetron HCl (Zofran) 4 mg 1X ONCE IVP Last administered on 09/10/20at 09:58; Start 09/10/20 at 10:00; Stop 09/10/20 at 10:01; Status DC Sodium Chloride 1,000 ml @ 1,000 mls/hr 1X ONCE IV Last administered on 09/10/20at 12:22; Start 09/10/20 at 11:30; Stop 09/10/20 at 12:29; Status DC Ondansetron HCl (Zofran) 4 mg 1X ONCE IVP Last administered on 09/10/20at 12:22; Start 09/10/20 at 11:45; Stop 09/10/20 at 11:46; Status DC Pantoprazole Sodium (PROTONIX VIAL for IV PUSH) 40 mg DAILY IVP Last administered on 09/14/20at 08:26; Start 09/10/20 at 15:15; Stop 09/14/20 at 10:51; Status DC Ondansetron HCl (Zofran) 4 mg PRN TID PRN IVP NAUSEA Last administered on 09/14/20at 03:36; Start 09/10/20 at 15:15 Sodium Chloride 1,000 ml @ 100 mls/hr Q10H IV Last administered on 09/11/20at 10:52; Start 09/10/20 at 17:45; Stop 09/12/20 at 09:14; Status DC Gabapentin (Neurontin) 300 mg TID PO Last administered on 09/14/20at 08:26; Start 09/10/20 at 21:00 Acetaminophen/ Hydrocodone Bitart (Lortab 5/325) 1 tab PRN Q6HRS PRN PO PAIN Last administered on 09/11/20at 20:47; Start 09/10/20 at 17:45; Stop 09/12/20 at 09:14; Status DC Acetaminophen/ Hydrocodone Bitart (Lortab 5/325) 1 tab PRN Q6HRS PRN PO PAIN; Start 09/10/20 at 17:45; Status UNV Phenytoin Sodium (Dilantin) 100 mg TID PO Last administered on 09/14/20at 08:26; Start 09/10/20 at 21:00 Insulin Human Lispro (HumaLOG) 0-5 UNITS TIDWMEALS SQ ; Start 09/11/20 at 08:00 Dextrose (Dextrose 50%-Water Syringe) 12.5 gm PRN Q15MIN PRN IV SEE COMMENTS; Start 09/10/20 at 18:00 Methylprednisolone Acetate (DEPO-Medrol 40MG VIAL) 40 mg 1X ONCE IM Last administered on 09/11/20at 10:48; Start 09/11/20 at 10:00; Stop 09/11/20 at 10:03; Status DC Bupivacaine HCl (Sensorcaine-Mpf 0.25%) 10 ml 1X ONCE IJ Last administered on 09/11/20at 10:47; Start 09/11/20 at 10:00; Stop 09/11/20 at 10:03; Status DC Lidocaine (Lidoderm) 1 patch DAILY TD Last administered on 09/14/20at 08:27; Start 09/11/20 at 10:30 Miscellaneous (Lidoderm Patch Removal) 1 ea QHS MC Last administered on 09/13/20at 20:23; Start 09/11/20 at 21:00 Potassium Chloride (Klor-Con) 20 meq 1X ONCE PO Last administered on 09/11/20at 13:46; Start 09/11/20 at 13:15; Stop 09/11/20 at 13:16; Status DC Potassium Chloride/Sodium Chloride 1,000 ml @ 100 mls/hr Q10H IV Last administered on 09/14/20at 01:53; Start 09/11/20 at 21:00; Stop 09/14/20 at 16:00 Hydralazine HCl (Apresoline) 10 mg PRN Q4HRS PRN PO > 160/90 Last administered on 09/13/20at 20:26; Start 09/11/20 at 13:15 Hydralazine HCl (Apresoline Inj) 10 mg PRN Q4HRS PRN IVP ELEVATED BP, SEE C OMMENTS Last administered on 09/12/20at 12:21; Start 09/11/20 at 13:15 Oxycodone/ Acetaminophen (Percocet 7.5/ 325) 1 tab PRN Q4HRS PRN PO SEVERE PAIN Last administered on 09/14/20at 10:46; Start 09/12/20 at 09:00 Methylprednisolone Acetate (DEPO-Medrol 40MG VIAL) 40 mg 1X ONCE IM Last administered on 09/12/20at 09:00; Start 09/12/20 at 09:00; Stop 09/12/20 at 09:01; Status DC Bupivacaine HCl (Sensorcaine-Mpf 0.25%) 10 ml 1X ONCE IJ Last administered on 09/12/20at 09:00; Start 09/12/20 at 09:00; Stop 09/12/20 at 09:01; Status DC Oxycodone/ Acetaminophen (Percocet 5/325) 1 tab PRN Q4HRS PRN PO MODERATE PAIN; Start 09/12/20 at 09:15; Stop 09/14/20 at 10:51; Status DC Prochlorperazine (Compazine) 25 mg PRN Q12HR PRN AL NAUSEA/VOMITING Last administered on 09/13/20at 15:17; Start 09/12/20 at 09:45 Barium Sulfate (Liquid E-Z Paque) 355 ml 1X ONCE PO Last administered on 09/13/20at 13:40; Start 09/13/20 at 09:30; Stop 09/13/20 at 09:34; Status DC Barium Sulfate (Liquid E-Z Paque) 355 ml 1X ONCE PO ; Start 09/13/20 at 09:30; Stop 09/13/20 at 09:34; Status DC Barium Sulfate (E-Z-Hd) 340 gm 1X ONCE PO Last administered on 09/13/20at 13:40; Start 09/13/20 at 09:30; Stop 09/13/20 at 09:34; Status DC Pantoprazole Sodium (Protonix) 40 mg DAILYAC PO ; Start 09/14/20 at 11:30 Active Scripts Active Hydrocodone-Apap 5-325 (Hydrocodone Bit/Acetaminophen) 1 Tab Tablet 1 Tab PO PRN Q6HRS PRN Cyclobenzaprine Hcl 10 Mg Tablet 1 Tab PO TID Reported Estradiol 0.5 Mg Tablet 1 Tab PO DAILY Medroxyprogesterone Acetate 2.5 Mg Tablet 1 Tab PO DAILY Aspirin 81 Mg Tab.chew 1 Tab PO DAILY [place] 5-325 Tablet (Acetaminophen/Hydrocodone Bitart) 1 Each Tablet 1 Tab PO PRN Q6HRS PRN Dilantin (Phenytoin Sodium Extended) 100 Mg Capsule 1 Cap PO TID Gabapentin (Gabapentin) 300 Mg Capsule 300 Mg PO TID Metformin Hcl 500 Mg Tablet 500 Mg PO BIDWMEALS Vitals/I & O Vital Sign - Last 24 Hours 09/13/20 09/13/20 09/13/20 09/13/20 10:57 15:00 19:30 19:41 Temp 98.2 97.8 98.0 98.2 97.8 98.0 Pulse 75 74 69 Resp 18 16 18 B/P (MAP) 158/82 (107) 160/86 (110) 113/67 (82) Pulse Ox 99 99 98 O2 Delivery Room Air Room Air Room Air Room Air 09/13/20 09/13/20 09/13/20 09/13/20 20:26 20:27 20:57 23:15 Temp 97.9 97.9 Pulse 74 72 Resp 18 18 18 B/P (MAP) 160/86 130/87 (101) Pulse Ox 99 99 98 O2 Delivery Room Air Room Air Room Air 09/14/20 09/14/20 09/14/20 09/14/20 03:00 03:36 04:06 04:15 Temp 97.7 97.7 Pulse 71 Resp 18 18 18 B/P (MAP) 106/60 (75) Pulse Ox 98 97 97 O2 Delivery Room Air Room Air Room Air Room Air 09/14/20 09/14/20 09/14/20 07:00 08:15 10:46 Temp 97.7 97.7 Pulse 61 Resp 16 20 B/P (MAP) 135/63 (87) Pulse Ox 98 98 O2 Delivery Room Air Room Air Room Air Intake and Output 09/13/20 09/13/20 09/14/20 15:00 23:00 07:00 Intake Total 50 ml 300 ml 1100 ml Output Total 1000 ml Balance 50 ml 300 ml 100 ml Justifications for Admission Other Justification Gas gangrene of the left foot Nutrition Consultation Dietary Evaluation: Recommendations by RD: Dietary education by RD, Increase Calorie Intake, Protein supplementation Comments: clear liquids alexander bid REC ADA diet with alexander bid when able to tolerate REC mvi q day per wound protocal Expected Outcomes/Goals: to meet >75% est nutr needs improved wound status glycemic control Interpretation of weight loss: >1-2% in 1 week Malnutrition Findings: Food and Nutrition Intake (Sev: <50% est energy req 5days Body Fat Depletion (Non Severe: Mild Depletion Weight Status: Underweight YEVGENIY GENAO MD Sep 14, 2020 10:57
[2020-09-14 11:00] VITALS: BP 164/71
[2020-09-14] MEDS: PANTOPRAZOLE 40 MG TABLET.DR. PO SCH (11:30)
[2020-09-14 15:00] VITALS: BP 121/60
[2020-09-14 19:20] VITALS: BP 114/61
[2020-09-14] MEDS: PATCH REMOVAL. MC SCH (21:00)
[2020-09-14 22:50] VITALS: BP 125/67
[2020-09-15] VITALS (7 sets, daily range): BP systolic 105–153; BP diastolic 54–81
[2020-09-15] MEDS: oxyCODONE/APAP 7.5/325 1 TAB TABLET PO PRN ×4 (05:15→21:04)
[2020-09-15] MEDS: INSULIN LISPRO 300 UNITS/3 ML VIAL. SQ SCH ×3 (08:00→16:58)
[2020-09-15] MEDS: PANTOPRAZOLE 40 MG TABLET.DR. PO SCH (09:42)
[2020-09-15] MEDS: LIDOCAINE (700MG/PATCH) PATCH. TD SCH (09:42)
[2020-09-15] MEDS: PHENYTOIN SODIUM EXTENDED 100 MG CAPSULE PO SCH ×3 (09:42→21:04)
[2020-09-15] MEDS: GABAPENTIN 300 MG CAPSULE. PO SCH ×3 (09:42→21:04)
--- NOTE | 2020-09-15 10:03 | PDOC ---
PROGRESS NOTES Date of Service: DATE: 09/15/20 TIME: 10:00 Subjective Subjective BY BACK AND HIP HURTING AGAIN CANNOT MOVE Objective Objective Vital Signs Date Time Temp Pulse Resp B/P (MAP) Pulse Ox O2 Delivery O2 Flow Rate FiO2 09/15/20 09:43 96 Room Air 09/15/20 07:00 98.1 64 18 120/61 (80) 98.1 Intake and Output 09/15/20 07:00 Intake Total 1060 ml Output Total 1450 ml Balance -390 ml Intake Oral 460 ml IV Total 600 ml Output Urine Total 1450 ml # Voids 1 Physical Exam Abdomen: Normal bowel sounds, Soft Heart: Regular rate, Normal S1, Normal S2 General: Alert HEENT: Atraumatic Lungs: Clear to auscultation MUSCULOSKELETAL: No deformity, No swelling Neuro: Normal speech Psych/Mental Status: Mental status NL Skin: Other ( stump ulcer good granulation , POA ,see wound note) COMMENT rt hip and lumbar muscle spasm Diagnosis Problem List Problems Medical Problems: (1) Chest pain Status: Acute (2) Intractable vomiting Status: Acute (3) Sciatica Status: Acute Assessment Assessment Problems Medical Problems: (1) Chest pain Status: Acute (2) Intractable vomiting Status: Acute (3) Sciatica Status: Acute FINAL IMPRESSION: back and hip issues 1. Possible upper gastrointestinal bleed secondary to nausea and vomiting, possible Janay-Triplett. 2. Gastritis.Gall stones. 3. History of sciatica. 4. Mild diabetes. 5. 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 History of seizures, stable. PLAN: ice pack , walker, social service consult. pt donot want to go to SNU ,want to go home with home health advance diet, D/c iv fluids. esophagogram motility problems,no obstruction gall bladder no stone ,no cholecystitis . No plans for EGD for now,as per GI rehab consult , cortisone inj may help pain labs Na 134 ,improving wound on left stump clean d/c iv fluids d/c Iv protonix. Plan Plan of Care Problems Medical Problems: (1) Chest pain Status: Acute (2) Intractable vomiting Status: Acute (3) Sciatica Status: Acute Comment Review of Relevant I have reviewed the following items bj (where applicable) has been applied. Labs Laboratory Tests Test 09/14/20 12:14 09/14/20 17:04 09/14/20 21:36 09/15/20 07:46 Glucose (Fingerstick) 101 mg/dL (70-99) 153 mg/dL (70-99) 118 mg/dL (70-99) 124 mg/dL (70-99) Medications Current Medications Pantoprazole Sodium (Protonix) 40 mg DAILYAC PO Last administered on 09/15/20at 09:42; Start 09/14/20 at 11:30 Vitals/I & O Vital Sign - Last 24 Hours 09/14/20 09/14/20 09/14/20 09/14/20 10:46 11:00 11:16 15:00 Temp 98.1 98.0 98.1 98.0 Pulse 56 66 Resp 20 18 20 18 B/P (MAP) 164/71 (102) 121/60 (80) Pulse Ox 98 99 97 99 O2 Delivery Room Air Room Air Room Air Room Air 09/14/20 09/14/20 09/14/20 09/14/20 17:07 17:37 19:20 20:00 Temp 97.3 97.3 Pulse 66 Resp 18 18 18 B/P (MAP) 114/61 (78) Pulse Ox 98 98 93 O2 Delivery Room Air Room Air Room Air Room Air 09/14/20 09/14/20 09/14/20 09/15/20 21:46 22:16 22:50 03:00 Temp 97.7 97.7 Pulse 67 Resp 20 18 18 B/P (MAP) 125/67 (86) Pulse Ox 98 94 94 O2 Delivery Room Air Room Air Room Air Room Air 09/15/20 09/15/20 09/15/20 09/15/20 04:30 05:15 05:45 07:00 Temp 97.7 98.1 97.7 98.1 Pulse 70 64 Resp 18 20 18 18 B/P (MAP) 121/59 (79) 120/61 (80) Pulse Ox 95 95 95 96 O2 Delivery Room Air Room Air Room Air Room Air 09/15/20 09:43 Pulse Ox 96 O2 Delivery Room Air Intake and Output 09/14/20 09/14/20 09/15/20 15:00 23:00 07:00 Intake Total 600 ml 400 ml 60 ml Output Total 850 ml 600 ml Balance 600 ml -450 ml -540 ml Justifications for Admission Other Justification Gas gangrene of the left foot Nutrition Consultation Dietary Evaluation: Recommendations by RD: Dietary education by RD, Increase Calorie Intake, Protein supplementation Comments: clear liquids alexander bid REC ADA diet with alexander bid when able to tolerate REC mvi q day per wound protocal Expected Outcomes/Goals: to meet >75% est nutr needs improved wound status glycemic control Interpretation of weight loss: >1-2% in 1 week Malnutrition Findings: Food and Nutrition Intake (Sev: <50% est energy req 5days Body Fat Depletion (Non Severe: Mild Depletion Weight Status: Underweight REINA EISENBERG MD Sep 15, 2020 10:03
--- NOTE | 2020-09-15 11:46 | RAD ---
EXAM: XR LUMBAR SPINE 1 VIEW, XR HIP (WITH OR WITHOUT PELVIS) RIGHT 1 VIEW 09/15/2020 10:43 AM CLINICAL INDICATION: Low back pain COMPARISON: CT abdomen pelvis 09/10/2020, thoracolumbar radiograph 10/09/2016 TECHNIQUE: AP view of the lumbar spine and AP view of the right hip FINDINGS: There is barium in the colon, which obscures most of L4, L5, and the sacrum. There is no d efinite acute fracture. Unchanged curvature the lumbar spine with partial fusion at L1-L2 and severe disc space narrowing of the visualized portion of the lumbar spine. AP view of the right hip. There is no definite fracture. Alignment is normal. There is an old nonunit ed fracture or heterotopic ossification at the right greater trochanter. IMPRESSION: Limited exam due to barium obscuring the lower lumbar spine and sacrum. No definite acut e osseous abnormality of the upper lumbar spine and right hip. Electronically signed by: Kelsie Rolle MD (09/15/2020 11:43 AM) [id number]
--- NOTE | 2020-09-15 11:58 | NUR ---
Patient Kortney Glaser transferred to [address] [place] [address]. Heart monitor removed and placed at nursing station prior to transfer. Belongings transferred with patient. Wound care recommendations transferred with patient. Report given to SILVINO Byrnes at 11:30.
[2020-09-15] MEDS: DICLOFENAC SODIUM 1% TOPICAL GEL 100GM TUBE. TP SCH ×3 (14:04→21:00)
[2020-09-15] MEDS: DOCUSATE SODIUM 100 MG CAPSULE. PO SCH (18:27)
[2020-09-15] MEDS: POLYETHYLENE GLYCOL 3350 17 GM PACKET. PO SCH (18:27)
[2020-09-15] MEDS ORDERED: DOCUSATE SODIUM 100 MG CAPSULE. PO PRN (18:30)
[2020-09-15] MEDS: PATCH REMOVAL. MC SCH (21:00)
[2020-09-16] MEDS: oxyCODONE/APAP 7.5/325 1 TAB TABLET PO PRN ×3 (02:02→13:20)
[2020-09-16 03:00] VITALS: BP 140/67
[2020-09-16 07:00] VITALS: BP 141/89
[2020-09-16] MEDS: GABAPENTIN 300 MG CAPSULE. PO SCH ×2 (07:33→13:20)
[2020-09-16] MEDS: POLYETHYLENE GLYCOL 3350 17 GM PACKET. PO SCH (07:33)
[2020-09-16] MEDS: DOCUSATE SODIUM 100 MG CAPSULE. PO SCH (07:33)
[2020-09-16] MEDS: PANTOPRAZOLE 40 MG TABLET.DR. PO SCH (07:34)
[2020-09-16] MEDS: PHENYTOIN SODIUM EXTENDED 100 MG CAPSULE PO SCH ×2 (07:34→13:20)
[2020-09-16] MEDS: DICLOFENAC SODIUM 1% TOPICAL GEL 100GM TUBE. TP SCH ×2 (07:38→13:20)
[2020-09-16] MEDS: INSULIN LISPRO 300 UNITS/3 ML VIAL. SQ SCH ×2 (08:00→12:00)
--- NOTE | 2020-09-16 08:42 | PDOC ---
PROGRESS NOTES Date of Service DATE: 09/16/20 TIME: 08:40 Subjective Subjective No new complaints. Objective Objective Vital Signs Date Time Temp Pulse Resp B/P (MAP) Pulse Ox O2 Delivery O2 Flow Rate FiO2 09/16/20 07:34 97 Room Air 09/16/20 07:00 97.7 66 16 141/89 (106) 97.7 Intake and Output 09/16/20 07:00 Intake Total 1060 ml Balance 1060 ml Intake Oral 1060 ml # Voids 5 Physical Exam Physical Exam She is sitting in bed and eating breakfast and does not seem to be in any distress and she had dressing to left foot stump. Assessment Assessment Problems Medical Problems: (1) Chest pain Status: Acute (2) Intractable vomiting Status: Acute (3) Sciatica Status: Acute Plan Plan of Care To continue present care efforts as tolerated and home with home health follow up when medically stable. Comment Review of Relevant I have reviewed the following items bj (where applicable) has been applied. Labs Laboratory Tests Test 09/14/20 12:14 09/14/20 17:04 09/14/20 21:36 09/15/20 07:46 Glucose (Fingerstick) 101 mg/dL (70-99) 153 mg/dL (70-99) 118 mg/dL (70-99) 124 mg/dL (70-99) Test 09/15/20 11:59 09/15/20 16:52 09/15/20 21:09 09/16/20 08:13 Glucose (Fingerstick) 151 mg/dL (70-99) 133 mg/dL (70-99) 254 mg/dL (70-99) 91 mg/dL (70-99) Laboratory Tests Test 09/15/20 11:59 09/15/20 16:52 09/15/20 21:09 09/16/20 08:13 Glucose (Fingerstick) 151 mg/dL (70-99) 133 mg/dL (70-99) 254 mg/dL (70-99) 91 mg/dL (70-99) Medications Current Medications Ketorolac Tromethamine (Toradol 30mg Vial) 30 mg 1X ONCE IVP Last administered on 09/10/20at 09:58; Start 09/10/20 at 09:15; Stop 09/10/20 at 09:19; Status DC Ondansetron HCl (Zofran) 4 mg 1X ONCE IVP Last administered on 09/10/20at 09:58; Start 09/10/20 at 10:00; Stop 09/10/20 at 10:01; Status DC Sodium Chloride 1,000 ml @ 1,000 mls/hr 1X ONCE IV Last administered on 09/10/20at 12:22; Start 09/10/20 at 11:30; Stop 09/10/20 at 12:29; Status DC Ondansetron HCl (Zofran) 4 mg 1X ONCE IVP Last administered on 09/10/20at 12:22; Start 09/10/20 at 11:45; Stop 09/10/20 at 11:46; Status DC Pantoprazole Sodium (PROTONIX VIAL for IV PUSH) 40 mg DAILY IVP Last administered on 09/14/20at 08:26; Start 09/10/20 at 15:15; Stop 09/14/20 at 10:51; Status DC Ondansetron HCl (Zofran) 4 mg PRN TID PRN IVP NAUSEA Last administered on 09/14/20at 03:36; Start 09/10/20 at 15:15 Sodium Chloride 1,000 ml @ 100 mls/hr Q10H IV Last administered on 09/11/20at 10:52; Start 09/10/20 at 17:45; Stop 09/12/20 at 09:14; Status DC Gabapentin (Neurontin) 300 mg TID PO Last administered on 09/16/20at 07:33; Start 09/10/20 at 21:00 Acetaminophen/ Hydrocodone Bitart (Lortab 5/325) 1 tab PRN Q6HRS PRN PO PAIN Last administered on 09/11/20at 20:47; Start 09/10/20 at 17:45; Stop 09/12/20 at 09:14; Status DC Acetaminophen/ Hydrocodone Bitart (Lortab 5/325) 1 tab PRN Q6HRS PRN PO PAIN; Start 09/10/20 at 17:45; Status UNV Phenytoin Sodium (Dilantin) 100 mg TID PO Last administered on 09/16/20at 07:34; Start 09/10/20 at 21:00 Insulin Human Lispro (HumaLOG) 0-5 UNITS TIDWMEALS SQ ; Start 09/11/20 at 08:00 Dextrose (Dextrose 50%-Water Syringe) 12.5 gm PRN Q15MIN PRN IV SEE COMMENTS; Start 09/10/20 at 18:00 Methylprednisolone Acetate (DEPO-Medrol 40MG VIAL) 40 mg 1X ONCE IM Last administered on 09/11/20at 10:48; Start 09/11/20 at 10:00; Stop 09/11/20 at 10:03; Status DC Bupivacaine HCl (Sensorcaine-Mpf 0.25%) 10 ml 1X ONCE IJ Last administered on 09/11/20at 10:47; Start 09/11/20 at 10:00; Stop 09/11/20 at 10:03; Status DC Lidocaine (Lidoderm) 1 patch DAILY TD Last administered on 09/15/20at 09:42; Start 09/11/20 at 10:30; Stop 09/15/20 at 13:01; Status DC Miscellaneous (Lidoderm Patch Removal) 1 ea QHS MC Last administered on 09/15/20at 21:00; Start 09/11/20 at 21:00 Potassium Chloride (Klor-Con) 20 meq 1X ONCE PO Last administered on 09/11/20at 13:46; Start 09/11/20 at 13:15; Stop 09/11/20 at 13:16; Status DC Potassium Chloride/Sodium Chloride 1,000 ml @ 100 mls/hr Q10H IV Last administered on 09/14/20at 01:53; Start 09/11/20 at 21:00; Stop 09/14/20 at 11:30; Status DC Hydralazine HCl (Apresoline) 10 mg PRN Q4HRS PRN PO > 160/90 Last administered on 09/13/20at 20:26; Start 09/11/20 at 13:15 Hydralazine HCl (Apresoline Inj) 10 mg PRN Q4HRS PRN IVP ELEVATED BP, SEE COMMENTS Last administered on 09/12/20at 12:21; Start 09/11/20 at 13:15 Oxycodone/ Acetaminophen (Percocet 7.5/ 325) 1 tab PRN Q4HRS PRN PO SEVERE PAIN Last administered on 09/16/20at 07:34; Start 09/12/20 at 09:00 Methylprednisolone Acetate (DEPO-Medrol 40MG VIAL) 40 mg 1X ONCE IM Last administered on 09/12/20at 09:00; Start 09/12/20 at 09:00; Stop 09/12/20 at 09:01; Status DC Bupivacaine HCl (Sensorcaine-Mpf 0.25%) 10 ml 1X ONCE IJ Last administered on 09/12/20at 09:00; Start 09/12/20 at 09:00; Stop 09/12/20 at 09:01; Status DC Oxycodone/ Acetaminophen (Percocet 5/325) 1 tab PRN Q4HRS PRN PO MODERATE PAIN; Start 09/12/20 at 09:15; Stop 09/14/20 at 10:51; Status DC Prochlorperazine (Compazine) 25 mg PRN Q12HR PRN VT NAUSEA/VOMITING Last administered on 09/13/20at 15:17; Start 09/12/20 at 09:45 Barium Sulfate (Liquid E-Z Paque) 355 ml 1X ONCE PO Last administered on 09/13/20at 13:40; Start 09/13/20 at 09:30; Stop 09/13/20 at 09:34; Status DC Barium Sulfate (Liquid E-Z Paque) 355 ml 1X ONCE PO ; Start 09/13/20 at 09:30; Stop 09/13/20 at 09:34; Status DC Barium Sulfate (E-Z-Hd) 340 gm 1X ONCE PO Last administered on 09/13/20at 13:40; Start 09/13/20 at 09:30; Stop 09/13/20 at 09:34; Status DC Pantoprazole Sodium (Protonix) 40 mg DAILYAC PO Last administered on 09/16/20at 07:34; Start 09/14/20 at 11:30 Diclofenac Sodium (Voltaren) 1 leonela QID TP Last administered on 09/16/20at 07:38; Start 09/15/20 at 13:00 Lidocaine (Lidoderm) 2 patch DAILY TD Last administered on 09/16/20at 07:35; Start 09/16/20 at 09:00 Polyethylene Glycol (miraLAX PACKET) 17 gm DAILY PO Last administered on 09/16/20at 07:33; Start 09/15/20 at 18:30 Docusate Sodium (Colace) 100 mg PRN DAILY PRN PO HARD STOOLS; Start 09/15/20 at 18:30 Docusate Sodium (Colace) 100 mg DAILY PO Last administered on 09/16/20at 07:33; Start 09/15/20 at 18:30 Active Scripts Active Hydrocodone-Apap 5-325 (Hydrocodone Bit/Acetaminophen) 1 Tab Tablet 1 Tab PO PRN Q6HRS PRN Cyclobenzaprine Hcl 10 Mg Tablet 1 Tab PO TID Reported Estradiol 0.5 Mg Tablet 1 Tab PO DAILY Medroxyprogesterone Acetate 2.5 Mg Tablet 1 Tab PO DAILY Aspirin 81 Mg Tab.chew 1 Tab PO DAILY [place] 5-325 Tablet (Acetaminophen/Hydrocodone Bitart) 1 Each Tablet 1 Tab PO PRN Q6HRS PRN Dilantin (Phenytoin Sodium Extended) 100 Mg Capsule 1 Cap PO TID Gabapentin (Gabapentin) 300 Mg Capsule 300 Mg PO TID Metformin Hcl 500 Mg Tablet 500 Mg PO BIDWMEALS Vitals/I & O Vital Sign - Last 24 Hours 09/15/20 09/15/20 09/15/20 09/15/20 09:43 10:37 11:00 11:45 Temp 98.3 98.6 98.3 98.6 Pulse 67 66 Resp 18 18 B/P (MAP) 113/60 (77) 153/70 (97) Pulse Ox 96 96 97 98 O2 Delivery Room Air Room Air Room Air Room Air 09/15/20 09/15/20 09/15/20 09/15/20 14:04 15:00 15:06 19:00 Temp 97.7 97.8 97.7 97.8 Pulse 65 55 Resp 18 B/P (MAP) 105/54 (71) 136/80 (98) Pulse Ox 98 99 98 95 O2 Delivery Room Air Room Air Room Air Room Air 09/15/20 09/15/20 09/15/20 09/15/20 20:00 21:04 21:43 23:00 Temp 97.9 97.9 Pulse 61 Resp 18 18 18 B/P (MAP) 131/81 (98) Pulse Ox 95 95 95 O2 Delivery Room Air Room Air Room Air Room Air 09/16/20 09/16/20 09/16/20 09/16/20 02:02 02:32 03:00 07:00 Temp 97.6 97.7 97.6 97.7 Pulse 59 66 Resp 18 18 18 16 B/P (MAP) 140/67 (91) 141/89 (106) Pulse Ox 95 95 97 96 O2 Delivery Room Air Room Air Room Air Room Air 09/16/20 07:34 Pulse Ox 97 O2 Delivery Room Air Intake and Output 09/15/20 09/15/20 09/16/20 15:00 23:00 07:00 Intake Total 210 ml 200 ml 650 ml Balance 210 ml 200 ml 650 ml Justifications for Admission Other Justification Gas gangrene of the left foot Nutrition Consultation Dietary Evaluation: Recommendations by RD: Dietary education by RD, Increase Calorie Intake, Protein supplementation Comments: clear liquids alexander bid REC ADA diet with alexander bid when able to tolerate REC mvi q day per wound protocal Expected Outcomes/Goals: to meet >75% est nutr needs improved wound status glycemic control Interpretation of weight loss: >1-2% in 1 week Malnutrition Findings: Food and Nutrition Intake (Sev: <50% est energy req 5days Body Fat Depletion (Non Severe: Mild Depletion Weight Status: Underweight YEVGENIY GENAO MD Sep 16, 2020 08:42
[2020-09-16] MEDS ORDERED: LIDOCAINE (700MG/PATCH) PATCH. TD SCH (09:00)
--- NOTE | 2020-09-16 09:03 | PDOC ---
PROGRESS NOTES Date of Service: DATE: 09/16/20 TIME: 08:58 Subjective Subjective Pt feels better, pain under control , able to tolerate diet. Objective Objective Vital Signs Date Time Temp Pulse Resp B/P (MAP) Pulse Ox O2 Delivery O2 Flow Rate FiO2 09/16/20 07:34 97 Room Air 09/16/20 07:00 97.7 66 16 141/89 (106) 97.7 Intake and Output 09/16/20 07:00 Intake Total 1060 ml Balance 1060 ml Intake Oral 1060 ml # Voids 5 Physical Exam Abdomen: Normal bowel sounds, Soft Heart: Regular rate, Normal S1, Normal S2 General: Alert HEENT: Atraumatic Lungs: Clear to auscultation MUSCULOSKELETAL: No deformity, No swelling Neuro: Normal speech Psych/Mental Status: Mental status NL Skin: Other ( stump ulcer good granulation , POA ,see wound note) COMMENT rt hip and lumbar muscle spasm Diagnosis Problem List Problems Medical Problems: (1) Chest pain Status: Acute (2) Intractable vomiting Status: Acute (3) Sciatica Status: Acute Assessment Assessment Problems Medical Problems: (1) Chest pain Status: Acute (2) Intractable vomiting Status: Acute (3) Sciatica Status: Acute FINAL IMPRESSION: back and hip issues 1. Possible upper gastrointestinal bleed secondary to nausea and vomiting, possible Janay-Triplett. 2. Gastritis.Gall stones. 3. History of sciatica. 4. Mild diabetes. 5. 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 History of seizures, stable. PLAN: x ray djd, no fracture d/c home with home health. ice pack , walker, social service consult. pt do not want to go to SNU ,want to go home with home health advance diet, D/c iv fluids. esophagogram motility problems,no obstruction gall bladder no stone ,no cholecystitis . No plans for EGD for now,as per GI rehab consult , cortisone inj may help pain labs Na 134 ,improving wound on left stump clean d/c iv fluids d/c Iv protonix. Plan Plan of Care Problems Medical Problems: (1) Chest pain Status: Acute (2) Intractable vomiting Status: Acute (3) Sciatica Status: Acute Comment Review of Relevant I have reviewed the following items bj (where applicable) has been applied. Labs Laboratory Tests Test 09/15/20 11:59 09/15/20 16:52 09/15/20 21:09 09/16/20 08:13 Glucose (Fingerstick) 151 mg/dL (70-99) 133 mg/dL (70-99) 254 mg/dL (70-99) 91 mg/dL (70-99) Medications Current Medications Diclofenac Sodium (Voltaren) 1 leonela QID TP Last administered on 09/16/20at 07:38; Start 09/15/20 at 13:00 Docusate Sodium (Colace) 100 mg DAILY PO Last administered on 09/16/20at 07:33; Start 09/15/20 at 18:30 Docusate Sodium (Colace) 100 mg PRN DAILY PRN PO HARD STOOLS; Start 09/15/20 at 18:30 Lidocaine (Lidoderm) 2 patch DAILY TD Last administered on 09/16/20at 07:35; Start 09/16/20 at 09:00 Polyethylene Glycol (miraLAX PACKET) 17 gm DAILY PO Last administered on 09/16/20at 07:33; Start 09/15/20 at 18:30 Vitals/I & O Vital Sign - Last 24 Hours 09/15/20 09/15/20 09/15/20 09/15/20 09:43 10:37 11:00 11:45 Temp 98.3 98.6 98.3 98.6 Pulse 67 66 Resp 18 18 B/P (MAP) 113/60 (77) 153/70 (97) Pulse Ox 96 96 97 98 O2 Delivery Room Air Room Air Room Air Room Air 09/15/20 09/15/20 09/15/20 09/15/20 14:04 15:00 15:06 19:00 Temp 97.7 97.8 97.7 97.8 Pulse 65 55 Resp 18 B/P (MAP) 105/54 (71) 136/80 (98) Pulse Ox 98 99 98 95 O2 Delivery Room Air Room Air Room Air Room Air 09/15/20 09/15/20 09/15/20 09/15/20 20:00 21:04 21:43 23:00 Temp 97.9 97.9 Pulse 61 Resp 18 18 18 B/P (MAP) 131/81 (98) Pulse Ox 95 95 95 O2 Delivery Room Air Room Air Room Air Room Air 7/19/09/16/20 09/16/20 09/16/20 02:02 02:32 03:00 07:00 Temp 97.6 97.7 97.6 97.7 Pulse 59 66 Resp 18 18 18 16 B/P (MAP) 140/67 (91) 141/89 (106) Pulse Ox 95 95 97 96 O2 Delivery Room Air Room Air Room Air Room Air 09/16/20 07:34 Pulse Ox 97 O2 Delivery Room Air Intake and Output 09/15/20 09/15/20 09/16/20 15:00 23:00 07:00 Intake Total 210 ml 200 ml 650 ml Balance 210 ml 200 ml 650 ml Justifications for Admission Other Justification Gas gangrene of the left foot Nutrition Consultation Dietary Evaluation: Recommendations by RD: Dietary education by RD, Increase Calorie Intake, Protein supplementation Comments: clear liquids alexander bid REC ADA diet with alexander bid when able to tolerate REC mvi q day per wound protocal Expected Outcomes/Goals: to meet >75% est nutr needs improved wound status glycemic control Interpretation of weight loss: >1-2% in 1 week Malnutrition Findings: Food and Nutrition Intake (Sev: <50% est energy req 5days Body Fat Depletion (Non Severe: Mild Depletion Weight Status: Underweight REINA EISENBERG MD Sep 16, 2020 09:03
[2020-09-16] MEDS ORDERED: LIDO700A21 TD (09:09)
[2020-09-16] MEDS ORDERED: PANT40TA77 PO (09:09)
[2020-09-16] MEDS ORDERED: OXYC1TAB19 PO (09:09)
--- NOTE | 2020-09-16 09:11 | SNU/HH DC ---
DISCHARGE WITH HOME HEALTH DISCHARGE INFORMATION: Discharge Date: Sep 16, 2020 Final Diagnosis: Problems Medical Problems: (1) Chest pain Status: Acute (2) Intractable vomiting Status: Acute (3) Sciatica Status: Acute Condition on Discharge: Stable CODE STATUS: Code Status: Full HOME HEALTH: Face to Face: I certify this patient is under my care and that I, or a nurse practitioner or physician's diploma medical assistant working with me, had a face to face encounter that meets the physician face to face encounter requirements with this patient on []. Medical Complications: CEASAR RN For Eval/Treatment: Yes Physical Therapy For: Evalulation/Treatment Occupational Therapy For: Evaluation/Treatment DELIMER For: Community Resources Pt Meets Homebound Status: Poor coordination w/ amb. POST DISCHARGE ORDERS: Activity Instructions for Disc: Resume previous activity Weight Bearing Status after Di: As tolerated CERTIFICATION STATEMENT: Certification Statement: Certification Statement: Based on the above finding, I certify that this patient is confined to the home and needs intermittent group home care, physical therapy and/or speech therapy, or continues to need occupational therapy.~ This patient is under my care, and I have initiated the establishment of the plan of care.~ This patient will be followed by myself or a community physician who will periodically review the plan of care. Home Meds Active Scripts Lidocaine (Lidocaine PATCH ) 1 Each Adh..patch, 2 PATCH TD DAILY for pain for 60 Days, #120 PATCH Prov:REINA EISENBERG MD 09/16/20 Pantoprazole Sodium (PANTOPRAZOLE SODIUM ) 40 Mg Tablet.dr, 40 MG PO DAILYAC for gerd for 30 Days, #2 TAB.SR Prov:REINA EISENBERG MD 09/16/20 Oxycodone/Apap 7.5-325 (PERCOCET 7.5-325 MG TABLET ) 1 Each Tablet, 1 TAB PO PRN Q4HRS PRN for SEVERE PAIN for 7 Days, #20 TAB Prov:REINA EISENBERG MD 09/16/20 Hydrocodone Bit/Acetaminophen (HYDROCODONE-APAP 5-325 ) 1 Tab Tablet, 1 TAB PO PRN Q6HRS PRN for PAIN, #10 TAB 0 Refills Prov:HUGO DIAZ APRN 09/09/20 Cyclobenzaprine Hcl (CYCLOBENZAPRINE HCL) 10 Mg Tablet, 1 TAB PO TID, #30 TAB Prov:HUGO DIAZ [employer] WORKER 09/09/20 Reported Medications Estradiol (ESTRADIOL) 0.5 Mg Tablet, 1 TAB PO DAILY, TAB 10/07/16 Medroxyprogesterone Acetate (MEDROXYPROGESTERONE ACETATE) 2.5 Mg Tablet, 1 TAB PO DAILY, TAB 10/07/16 Aspirin (ASPIRIN) 81 Mg Tab.chew, 1 TAB PO DAILY, #30 TAB 3 Refills 10/06/16 Hydrocodone/Apap 5-325 ([place] 5-325 TABLET) 1 Each Tablet, 1 TAB PO PRN Q6HRS PRN for PAIN, TAB 0 Refills 10/06/16 Phenytoin Sodium Extended (DILANTIN) 100 Mg Capsule, 1 CAP PO TID, #90 CAP 3 Refills 10/06/16 Gabapentin (GABAPENTIN ) 300 Mg Capsule, 300 MG PO TID, CAP 10/06/16 Metformin Hcl (METFORMIN HCL) 500 Mg Tablet, 500 MG PO BIDWMEALS for ANTI- DIABETIC, TAB 0 Refills 10/06/16 REINA EISENBERG MD Sep 16, 2020 09:11
--- NOTE | 2020-09-16 10:16 | NUR ---
SW following. Discussed with RN, pt from home, room air, GI soft. Discharge order for home with home health. Wendy Mccollum RN notified of discharge orders. Per Veda, pt was refusing home health services on Wednesday so will follow up with pt again today prior to discharge. RN notified. PAULA will continue to follow. Addendum: 09/16/20 at 1355 by ERASTO MITCHELL Pt still refused home health. Discharge home with self care. High risk readmission due to not accepting recommendations.
--- NOTE | 2020-09-16 10:23 | PDOC ---
Date of Service: DATE: 09/16/20 TIME: 10:17 Subjective: Subjective: Tolerating diet w/o n/v or globus. No abd pain. Hasn't stooled for awhile. Talks a lot about other issues, similar to previous encounters. Objective: Vital Signs: Vital Signs Date Time Temp Pulse Resp B/P (MAP) Pulse Ox O2 Delivery O2 Flow Rate FiO2 09/16/20 09:10 97 Room Air 09/16/20 07:00 97.7 66 16 141/89 (106) 97.7 Labs: Laboratory Tests Test 09/15/20 11:59 09/15/20 16:52 09/15/20 21:09 09/16/20 08:13 Glucose (Fingerstick) 151 mg/dL (70-99) 133 mg/dL (70-99) 254 mg/dL (70-99) 91 mg/dL (70-99) Imaging: Esophagram 09/13 FINDINGS: No evidence of esophageal stricture, ring, or mass, however, there is moderate mass effect on the esophagus by the aortic arch. Small epiphrenic diverticulum. No hiatal hernia. Esophageal dysmotility with tertiary contractions noted throughout the exam, greatest when the the patient was lying in oblique prone position. There was also significant contrast retention throughout the esophagus with failure to fully empty in oblique prone position. The patient denied any symptoms while the esophagus failed to empty. Spontaneous emptying of the esophagus ultimately occurred once the patient was returned to the upright position. No reflux elicited despite provocative maneuvers. IMPRESSION: Significant esophageal dysmotility as described. Small epiphrenic diverticulum. No hiatal hernia. Hip/Pelvis/L-spine X-ray 09/15 IMPRESSION: Limited exam due to barium obscuring the lower lumbar spine and sacrum. No definite acute osseous abnormality of the upper lumbar spine and right hip. PE: GEN: NAD - breakfast tray 100% consumed LUNGS: CTAB HEART: RRR ABD: S/ND/NT NEURO/PSYCH: A & O 3, talkative A/P: Globus, esophageal dysmotility H/o GERD and gastroparesis Right hip pain CRC screen - none; she's not interested in screening colonoscopy -- [facility]. DC per primary. Would continue PPI and Miralax PRN. Justicifation of Admission Dx: Justifications for Admission: Justification of Admission Dx: Yes CONNIE CHASE Sep 16, 2020 10:23
[2020-09-16 11:00] VITALS: BP 110/59
--- NOTE | 2020-09-16 11:21 | NUR ---
Pt is refusing home health service at this time. Pt states she will do PT/OT suggested exercises on her own. Education was given, and the number for [facility] was given to patient in case her situation changes.
--- NOTE | 2020-09-16 14:53 | NUR ---
Pt was given discharge instructions, follow up information, new prescriptions and teaching. Pt is stable. Pt did receive PT/OT therapy and teaching before discharge. Pt refused home health services. Iv was removed. Pt was taken via wheelchair to vehicle, she did not drive, her friend picked her up. All belongings left with pt at time of discharge. Pt left at 1415, escorted by hospital nursing staff
[2020-09-22] MEDS ORDERED: CEFP100S3 PO (22:39)
[2020-09-22] MEDS ORDERED: BISA5TAB4 PO (22:39)
[2020-09-22] MEDS ORDERED: POLY17PO52 PO (22:39)
--- NOTE | 2020-09-25 08:58 | PDOC ---
Provider Note Date of Service: DATE: 09/25/20 TIME: 08:58 Provider Note Discharge summary dictated.#[id number]. Justifications for Admission Other Justification Gas gangrene of the left foot REINA EISENBERG MD Sep 25, 2020 08:58
--- NOTE | 2020-09-25 09:55 | DS ---
DATE OF DISCHARGE: 09/16/2020 REASON FOR ADMISSION TO THE HOSPITAL: Chest pain, nausea and vomiting, mild gastric bleed. CONSULTATION: 1. GI, Dr. Morrison. 2. Dr. Perez. PROCEDURES DONE: 1. Abdominal and pelvis CT scan. 2. Ultrasound of the abdomen. 3. Esophagogram. HOSPITAL COURSE: The patient is a 79-year-old female. The patient had severe pain in the back, came to the Emergency Room, was given Toradol for pain. She came again the next day because of persistent nausea, vomiting and chest pain. The patient was admitted to the hospital. Cardiac enzymes were negative. 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 She is hardly able to ambulate at home. She uses a cane at home. She also has spinal stenosis. The patient was seen by GI and Dr. Perez from rehabilitation. The patient had persistent difficulty in swallowing, not able to even tolerate clear liquid diet. Seen by GI. Apparently, the patient had an EGD a couple of years ago and CT scan of the abdomen and pelvis shows diverticulosis, 3.1 cm left ovarian cyst. The patient also has some gallstones. Ultrasound of the abdomen shows distended gallbladder. No evidence of gallstone. No evidence of cholecystitis. The patient had an esophagogram which shows significant esophageal dysmotility, small epiphrenic diverticulum, presbycusis. The patient finally was able to tolerate diet and the pain was under control. Seen by Dr. Perez. Had an injection to the soft tissue. She was finally feeling better and she was discharged home. FINAL DIAGNOSES: 1. Gastritis, nausea and vomiting. 2. Presbycusis. 3. Dysfunctional esophageal motility. 4. Distended gallbladder. No evidence of cholecystitis. 5. Hip pain, acute, requiring injection. 6. 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 7. History of Syme's amputation. Had a small ulcer at the stump. [facility]. Looks clean. 8. Hypertension. 9. Ovarian cyst 3 cm. DISPOSITION: Home with home health. PT, OT. Outpatient followup. RONNI/ALIYAH DR: RONNI/virgil TID: [id number]
== END 2020-09-16 14:15 | disposition home or self-care (01) | DRG 392 ==
LOC: ER 08:20 → ED HOLD 12:53 → 2 NORTH 18:29 → 4 NORTH 09-15 11:50
PROVIDERS: ADMIT Internal Medicine; ATTEND Internal Medicine
PROC: 3E0U33Z Introduction of Anti-inflammatory into Joints, Percutaneous Approach (ICD-10-PCS; principal; 2020-09-12)
PROC: 3E0U3BZ Introduction of Anesthetic Agent into Joints, Percutaneous Approach (ICD-10-PCS; 2020-09-12)
DX: K29.70 Gastritis, unspecified, without bleeding (principal); E87.1 Hypo-osmolality and hyponatremia; Q39.6 Congenital diverticulum of esophagus; K22.8 Other specified diseases of esophagus; K22.4 Dyskinesia of esophagus; E11.43 Type 2 diabetes mellitus with diabetic autonomic (poly)neuropathy; E11.42 Type 2 diabetes mellitus with diabetic polyneuropathy; E11.51 Type 2 diabetes mellitus with diabetic peripheral angiopathy without gangrene; F45.8 Other somatoform disorders; G89.29 Other chronic pain; I10 Essential (primary) hypertension; K31.84 Gastroparesis; K57.30 Diverticulosis of large intestine without perforation or abscess without bleeding; K80.20 Calculus of gallbladder without cholecystitis without obstruction; M17.0 Bilateral primary osteoarthritis of knee; M19.072 Primary osteoarthritis, left ankle and foot; M40.209 Unspecified kyphosis, site unspecified; M47.816 Spondylosis without myelopathy or radiculopathy, lumbar region; M48.061 Spinal stenosis, lumbar region without neurogenic claudication; M54.31 Sciatica, right side; N83.202 Unspecified ovarian cyst, left side; R56.9 Unspecified convulsions; Z20.822 Contact with and (suspected) exposure to COVID-19; Z78.0 Asymptomatic menopausal state; Z79.82 Long term (current) use of aspirin; Z98.41 Cataract extraction status, right eye; R07.89 Other chest pain; Z79.899 Other long term (current) drug therapy; Z79.4 Long term (current) use of insulin; K21.9 Gastro-esophageal reflux disease without esophagitis
CPT/HCPCS: 36415; 71045; 72020; 73501; 74176; 74220; 76705; 80048; 80053; 80061; 80185; 82607; 82962; 83036; 83540; 83550; 83690; 83880; 84443; 84484; 85007; 85025; 85027; 86140; 87426; 93005; 96361; 96374; 96375; 96376; C9113; J0360; J1030; J1885; J2405; J3480; J3490; J7030; 97110-GP; 97530-GP; 97535-GO; 99285-25; G0378